=== PATIENT | male | born 1955 | race Caucasian/White ===

== ENCOUNTER 2016-12-12 06:08 | Emergency (ER) | payer OTHER ==
[~2016-12-12] VITALS: Ht 188 cm; Wt 115.7 kg
[~2016-12-12 06:08] MED LIST: "\\\"WATER PILL\\\"" PO; ALDACTONE50 MG PO; AUGMENTIN 875 M1 TAB PO; BACTRIM DS 800/1 TAB PO; BD LACTINEX1.4 MG PO; BENADRYL50 MG PO; CARAFATE1 GM PO; CLARITIN10 MG PO; CLEOCIN HCL300 MG PO; DESYREL50 MG PO; DOLOPHINE10 MG PO; FLORASTOR250 MG PO; FUROSEMIDE40 M1; INDERAL20 MG PO; LACTULOSE10 GM/152 PO; LASIX20 M1 PO; LASIX20 MG PO; LASIX40 MG PO; LEVOFLOXACIN750 MG PO; METHADONE HCL10 M1 PO; METHADONE HCL10 MG PO; METHADONE PO; NORCO 10/325 MG1 TAB PO; OLANZAPINE10 MG; PANTOPRAZOLE SO40 MG; PEGASYS180 MCG/0. MR; PEPCID20 MG PO; PRILOSEC40 MG PO; PROTONIX40 MG PO; REGLAN10 MG PO; RIBASPHERE RIB PO; ROXICODONE5 M1 PO; SEROQUEL25 MG PO; SEROQUEL50 MG PO; SPIRONOLACTONE25 M1; SPIRONOLACTONE50 MG PO; SULFAMETHOXAZOLE/TRIMETHOPRIM; XANAX1 MG PO; ZESTRIL10 MG PO; ZOFRAN4 MG PO; [UNRECOGNIZED DRUG - OTHER]; [UNRECOGNIZED DRUG - OTHER] IV
[2016-12-12 06:35] VITALS: BP 143/66
--- NOTE | 2016-12-12 06:47 | NUR ---
61Y M BIB SELF C/O UNILAT LEFT LEG PAIN AND REDDNESS FOR 16 DAYS NOW, WITH BILAT LEG SWELLING. PT DENIES N/V/D; SKIN IS PINK/WARM/DRY AND EDEMATOUS ON THE LEGS ;PT IS AAOX4 WITH EVEN AND STEADY GAIT; LUNGS CLEAR BL; HR EVEN AND REGULAR; PT DENIES ANY FEVER, CP, SOB, OR COUGH AT THIS TIME; PATIENT STATES PAIN OF 7/10 AT THIS TIME; VSS; PATIENT POSITIONED FOR COMFORT; HOB ELEVATED; BEDRAILS UP X2; BED DOWN. ER MD MADE AWARE OF PT STATUS.
--- NOTE | 2016-12-12 06:53 | NUR ---
Patient being evaluated by physician DR GLASER at bedside.
--- NOTE | 2016-12-12 06:59 | NUR ---
Pt report given to DOROTA HERNANDEZ. Transfer of care at this time.
--- NOTE | 2016-12-12 08:51 | NUR ---
PT IS AAOX4. PT PAIN IS 7. MD IS AWARE AND AWAITING FOR ORDER.POSITION PT TO COMFORT. HOB ELEVATED. PROVIDED WARM BLANKET. NO ACUTE DISTRESS NOTED AT THIS TIME. VSS. WILL CONTINUE TO MONITOR PT.
--- NOTE | 2016-12-12 08:54 | NUR ---
EKG DONE.RESULT GIVEN TO DR. RASHID.
--- NOTE | 2016-12-12 09:18 | NUR ---
Patient being evaluated by physician at bedside. DR. RASHID INFORMED PT OF EKG RESULT. ADVISED PT TO BE ADMITTED.
[2016-12-12] MEDS ORDERED: ASPIRIN 81 MG TAB.CHEW PO ONE (09:20)
[2016-12-12] MEDS ORDERED: LEVOFLOXACIN 500 MG/D5W PREMIX 100 ML IV ONE (09:20)
--- NOTE | 2016-12-12 09:53 | NUR ---
Two IV attempts made unsuccessfully.
--- NOTE | 2016-12-12 10:12 | NUR ---
MARY CHIS AT BEDSIDE. TO PUT IV TO PT.
--- NOTE | 2016-12-12 10:30 | NUR ---
LEVOFLOXACIN ON HOLD PER MARY PENALOZA. Addendum: 12/12/16 at 1034 by MEDARBEN PER DOCTOR GAY KHAN.
--- NOTE | 2016-12-12 10:31 | NUR ---
TRIED TO GIVE REPORT TO MARY SHIELDS IN TELE OBSERVATION, TOLD US TO CALL BACK AFTER 5 MINUTES.
--- NOTE | 2016-12-12 10:46 | NUR ---
GAVE REPORT TO MARY BENSON FOR PT ADMISSION.
--- NOTE | 2016-12-12 10:55 | NUR ---
Patient will be admitted to care of DR GARCÍA. Admited to TELE. Will go to [facility] [address]. Belongings list completed. Report to MARY BENSON.
--- NOTE | 2016-12-12 10:55 | NUR ---
LEVAQUIN NOT GIVEN PER DR RASHID, WASTED ON BLUE BIN
[2016-12-12 11:00] VITALS: BP 146/72
--- NOTE | 2016-12-12 11:07 | NUR ---
PT RESTING IN BED. AAOX4. NO S/S OF ACUTE DISTRESS. PT DENIES PAIN. IV SITE PATENT AND INTACT. PT ORIENTED TO ROOM. CALL LIGHT WITHIN REACH. SAFETY MEASURES ENSURED. WILL CONTINUE TO MONITOR.
[2016-12-12] MEDS ORDERED: ACETAMINOPHEN 325 MG TAB PO PRN (14:05)
[2016-12-12] MEDS ORDERED: NACL 0.9% 1,000 ML IV SCH (14:05)
[2016-12-12] MEDS ORDERED: HYDROcodone/APAP 5/325 MG 1 TAB TAB PO PRN (14:05)
[2016-12-12] MEDS ORDERED: ONDANSETRON 4 MG/2 ML VIAL IVP PRN (14:05)
[2016-12-12] MEDS: CLINDAMYCIN 600 MG in DEXTROSE 5% 50 ML IV SCH ×3 (14:10→23:53)
--- NOTE | 2016-12-12 15:53 | NUR ---
PT RESTING IN BED. NO S/S OF ACUTE DISTRESS. PT DENIES PAIN. CALL LIGHT WITHIN REACH. WILL CONTINUE TO MONITOR.
[2016-12-12 16:00] VITALS: BP 127/65
[2016-12-12] MEDS ORDERED: LACTULOSE BULK 2400 GM/240 ML BTL PO SCH (17:00)
[2016-12-12] MEDS: FUROSEMIDE 40 MG TAB PO SCH (17:55)
[2016-12-12] MEDS: LACTULOSE 20 GM/30 ML UDC PO SCH (17:55)
[2016-12-12] MEDS ORDERED: diphenhydrAMINE 50 MG CAP PO SCH (18:00)
--- NOTE | 2016-12-12 19:30 | NUR ---
ASSUMED CARE OF PATIENT, AWAKE, ALERT AND ORIENTED. NO COMPLAINS. IV INFILTRATED, DC. CALL LIGHT WITHIN REACH.
--- NOTE | 2016-12-12 19:32 | NUR ---
ENDORSED PLAN OF CARE TO NIGHT RN. PT REMAINS IN STABLE CONDITION.
--- NOTE | 2016-12-12 20:00 | NUR ---
PLAN OF CARE DISCUSSED WITH PATIENT, VERBALIZED UNDERSTANDING WELL. CALL LIGHT WITHIN REACH. VITAL SIGNS STABLE.
[2016-12-12 20:03] VITALS: BP 119/61
[2016-12-12] MEDS: SACCHAROMYCES 250 MG CAP PO SCH (21:00)
[2016-12-12] MEDS ORDERED: traZODone 50 MG TAB PO SCH (21:00)
--- NOTE | 2016-12-12 21:00 | NUR ---
IV INSERTED LEFT FOREARM BY PACKAGING SPECIALIST FAIRY, TOLERATED WELL. NO COMPLAINS. DUE MEDS GIVEN. CALL LIGHT WITHIN REACH.
[2016-12-12 23:45] VITALS: BP 104/47
--- NOTE | 2016-12-12 23:47 | NUR ---
SLEEPING WELL, EASILY AROUSABLE. AFEBRILE. VITAL SIGNS STABLE. NO COMPLAINS. CALL LIGHT WITHIN REACH.
[2016-12-13 04:10] VITALS: BP 112/62
--- NOTE | 2016-12-13 04:15 | NUR ---
SLEEPING WELL. NO COMPLAINS NOTED. VITAL SIGNS STABLE. CALL LIGHT WITHIN REACH.
[2016-12-13] MEDS: CLINDAMYCIN 600 MG in DEXTROSE 5% 50 ML IV SCH (05:50)
--- NOTE | 2016-12-13 07:14 | NUR ---
ENDORSED CARE AT BEDSIDE WITH CORNELIUS HERNANDEZ, PATIENT IN STABLE CONDITION.
--- NOTE | 2016-12-13 07:15 | NUR ---
RECEIVED REPORT FROM BALANCING MACHINE OPERATOR RN. PT A/O X 4, AMBULATORY. LFA IV INTACT AND PATENT. NO S/S OF ACUTE CARDIAC/RESPIRATORY DISTRESS. LBM 12/12/16. SAFETY MEASURES IN PLACE. FALL RISK PRECAUTIONS IN PLACE. CALL LIGHT WITHIN REACH. WILL CONTINUE PLAN OF CARE. WILL CONTINUE TO MONITOR.
[2016-12-13 08:00] VITALS: BP 137/77
[2016-12-13] MEDS ORDERED: LORATADINE 10 MG TAB PO SCH (09:00)
[2016-12-13] MEDS ORDERED: SPIRONOLACTONE 50 MG TAB PO SCH (09:00)
[2016-12-13] MEDS ORDERED: METHADONE 10 MG TAB PO SCH (09:00)
[2016-12-13] MEDS: LACTULOSE 20 GM/30 ML UDC PO SCH (09:00)
[2016-12-13] MEDS ORDERED: FAMOTIDINE 20 MG TAB PO SCH (09:00)
[2016-12-13] MEDS ORDERED: LEVOFLOXACIN 500 MG/D5W PREMIX 100 ML IV SCH (09:00)
[2016-12-13] MEDS: FUROSEMIDE 40 MG TAB PO SCH (09:08)
[2016-12-13] MEDS: SACCHAROMYCES 250 MG CAP PO SCH (09:08)
--- NOTE | 2016-12-13 09:14 | NUR ---
PATIENT HAS BEEN SCREENED AND CATEGORIZED MODERATE NUTRITION RISK. PATIENT WILL BE SEEN WITHIN 3-5 DAYS OF ADMISSION. 12/15/16-12/17/[address]
[2016-12-13] MEDS ORDERED: CLEOCIN HCL300 MG PO (10:14)
[2016-12-13] MEDS ORDERED: lactinex PO (10:18)
--- NOTE | 2016-12-13 11:15 | NUR ---
DISCHARGE INSTRUCTION PROVIDED TO PT, VERBALIZED UNDERSTANDING. PT SIGNED DISCHARGE PAPERWORK, WAS PROVIDED A COPY. REMOVED IV, INTACT. REMOVED ARM BANDS. PT HAS NO S/S OF ACUTE DISTRESS OR DISCOMFORT. VS STABLE. PT IN STABLE CONDITION. WHEELCHAIRED HIM TO FRONT LOBBY FOR HIS GIRLFRIEND STEPHANIE TO SUPERVISOR FRONT.
[2017-04-23] MEDS ORDERED: COLACE100 M1 PO (08:40)
[2017-04-23] MEDS ORDERED: APAP/HYDROCODON1 T30 PO (08:40)
[2017-04-23] MEDS ORDERED: PENICILLIN V P500 M1 PO (08:41)
== END 2016-12-13 11:15 | disposition home or self-care (01) ==
LOC: MED 06:08 → INTOOBSV 09:57 → MTU 09:57
PROVIDERS: ADMIT Family Medicine; ATTEND Family Medicine
DX: L03.116 Cellulitis of left lower limb (principal); R07.9 Chest pain, unspecified; R10.9 Unspecified abdominal pain; R51 Headache; K74.60 Unspecified cirrhosis of liver; I10 Essential (primary) hypertension; E43 Unspecified severe protein-calorie malnutrition; D63.8 Anemia in other chronic diseases classified elsewhere
CPT/HCPCS: 36415; 71010; 76700; 80053; 82140; 83605; 83735; 83880; 84484; 85025; 85610; 85730; 87040; 87081; 93005; 93971; 96361; 96365; 96366; 99285; G0378; J1956; J3490; J7030; J7060; Q0092

== ENCOUNTER 2016-12-19 20:43 | Emergency (ER) | payer OTHER ==
[~2016-12-19] VITALS: Ht 188 cm; Wt 115.7 kg
[~2016-12-19 20:43] MED LIST changes: +lactinex PO
[2016-12-19 21:44] VITALS: BP 161/81
--- NOTE | 2016-12-19 22:31 | NUR ---
PT TAKEN TO BED 7 Addendum: 12/19/16 at 2232 by RUBY PT TAKEN TO BED 8
[2016-12-19] MEDS ORDERED: ALUMINUM HYD/MAG/SIMETHICONE 30 ML UDC PO ONE (22:40)
[2016-12-19] MEDS ORDERED: BELLADONNA/PHENOBARBITAL 5 ML ORASYR PO ONE (22:40)
[2016-12-19] MEDS ORDERED: LIDOCAINE VISCOUS 2% 20 ML UDC PO ONE (22:40)
--- NOTE | 2016-12-19 22:54 | NUR ---
Dr. Cook evaluating patient at bedside.
--- NOTE | 2016-12-19 23:00 | NUR ---
PATIENT PRESENTS TO ED WITH ABD PAIN AND NAUSEA SINCE 1500 TODAY . PT STATES THE PAIN IS CONSTANT AND ACHING AND THAT THE ONLY THING THAT HELPS IS THE GI COCKTAIL . DENIES V/D; SKIN IS PINK/WARM/DRY; AAOX4 WITH EVEN AND STEADY GAIT; LUNGS CLEAR BL; HR EVEN AND REGULAR; PT DENIES ANY FEVER, CP, SOB, OR COUGH AT THIS TIME; PATIENT STATES PAIN OF 8/10 AT THIS TIME; VSS; PATIENT POSITIONED FOR COMFORT; HOB ELEVATED; BEDRAILS UP X2; BED DOWN. ER MD MADE AWARE OF PT STATUS.
[2016-12-19 23:55] VITALS: BP 160/80
--- NOTE | 2016-12-19 23:55 | NUR ---
Patient discharged with v/s stable. Written and verbal after care instructions given and explained. Patient verbalized understanding. Ambulatory with steady gait. All questions addressed prior to discharge. Advised to follow up with PMD.
[2017-04-23] MEDS ORDERED: COLACE100 M1 PO (08:40)
[2017-04-23] MEDS ORDERED: APAP/HYDROCODON1 T30 PO (08:40)
[2017-04-23] MEDS ORDERED: PENICILLIN V P500 M1 PO (08:41)
== END 2016-12-19 23:55 | disposition home or self-care (01) ==
LOC: MED 20:43
DX: K29.70 Gastritis, unspecified, without bleeding (principal); K21.9 Gastro-esophageal reflux disease without esophagitis

== ENCOUNTER 2017-01-03 18:55 | Emergency (ER) | payer OTHER ==
[~2017-01-03] VITALS: Ht 185.4 cm; Wt 111.1 kg
[2017-01-03 20:00] VITALS: BP 133/62
--- NOTE | 2017-01-03 21:46 | NUR ---
PT TAKEN TO BED 2
--- NOTE | 2017-01-03 22:09 | NUR ---
61Y/M PT BIB TO ED WITH C/O N/V X 1 DAY. PATIENT STATES HAVING SEVERE PAIN TODAY, HX. CHRONIC PAIN, ALCOHOLIC CIRRHESIS; SKIN IS PINK/WARM/DRY; AAOX4 WITH EVEN AND STEADY GAIT; LUNGS CLEAR BL; HR EVEN AND REGULAR; PT DENIES ANY FEVER, CP, SOB, OR COUGH AT THIS TIME; PATIENT STATES PAIN OF 8/10 AT THIS TIME; VSS; PATIENT POSITIONED FOR COMFORT; HOB ELEVATED; BEDRAILS UP X2; BED DOWN. ER MD MADE AWARE OF PT STATUS.
--- NOTE | 2017-01-03 22:25 | NUR ---
Dr. Agrawal evaluating patient at bedside.
[2017-01-03] MEDS ORDERED: ALUMINUM HYD/MAG/SIMETHICONE 30 ML UDC PO ONE (22:35)
[2017-01-03] MEDS ORDERED: LIDOCAINE VISCOUS 2% 20 ML UDC PO ONE (22:35)
[2017-01-03] MEDS ORDERED: BELLADONNA/PHENOBARBITAL 5 ML ORASYR PO ONE (22:35)
[2017-01-03] MEDS ORDERED: ONDANSETRON 4 MG ODT PO ONE (22:35)
[2017-01-04 00:50] VITALS: BP 133/62
--- NOTE | 2017-01-04 00:50 | NUR ---
Patient discharged with v/s stable. Written and verbal after care instructions given and explained. Patient alert, oriented and verbalized understanding of instructions. Ambulatory with steady gait. All questions addressed prior to discharge. ID band removed. Patient advised to follow up with PMD. Rx of ZANTAC 300MG given. Patient educated on indication of medication including possible reaction and side effects. Opportunity to ask questions provided and answered.
[2017-04-23] MEDS ORDERED: APAP/HYDROCODON1 T30 PO (08:40)
[2017-04-23] MEDS ORDERED: COLACE100 M1 PO (08:40)
[2017-04-23] MEDS ORDERED: PENICILLIN V P500 M1 PO (08:41)
== END 2017-01-04 00:50 | disposition home or self-care (01) ==
LOC: MED 18:55
DX: K21.9 Gastro-esophageal reflux disease without esophagitis (principal); F17.210 Nicotine dependence, cigarettes, uncomplicated
CPT/HCPCS: 36415; 80053; 83690; 85025; 93005; 99285; S0119

== ENCOUNTER 2017-01-05 00:10 | Emergency (ER) | payer OTHER ==
[~2017-01-05] VITALS: Ht 185.4 cm; Wt 111.1 kg
[2017-01-05 00:15] VITALS: BP 146/74
--- NOTE | 2017-01-05 01:01 | NUR ---
PT TAKEN TO BED 8
--- NOTE | 2017-01-05 01:05 | NUR ---
PT IS 61Y/M C/O ABD PAIN X 2 DAYS. SEEN YESTERDAY IN ER, GI COCKTAIL GIVEN, PT HAS RX BUT WAS UNABLE TO GET IT FILLED.
--- NOTE | 2017-01-05 01:07 | NUR ---
Dr. Quinones evaluating patient at bedside.
[2017-01-05] MEDS ORDERED: DICYCLOMINE 20 MG/2 ML VIAL IM ONE (01:10)
[2017-01-05] MEDS ORDERED: ALUMINUM HYD/MAG/SIMETHICONE 30 ML, BELLADONNA/PHENOBARBITAL 10 ML, LIDOCAINE VISCOUS 2... PO ONE (01:25)
[2017-01-05 01:35] VITALS: BP 139/71
--- NOTE | 2017-01-05 01:35 | NUR ---
Patient discharged with v/s stable. Written and verbal after care instructions given and explained. Patient alert, oriented and verbalized understanding of instructions. Ambulatory with steady gait. All questions addressed prior to discharge. ID band removed. Patient advised to follow up with PMD. Rx of BENTYL 20MG PO given. Patient educated on indication of medication including possible reaction and side effects. Opportunity to ask questions provided and answered.
[2017-04-23] MEDS ORDERED: APAP/HYDROCODON1 T30 PO (08:40)
[2017-04-23] MEDS ORDERED: COLACE100 M1 PO (08:40)
[2017-04-23] MEDS ORDERED: PENICILLIN V P500 M1 PO (08:41)
== END 2017-01-05 01:35 | disposition home or self-care (01) ==
LOC: MED 00:10
DX: K74.60 Unspecified cirrhosis of liver (principal); F41.9 Anxiety disorder, unspecified; K21.9 Gastro-esophageal reflux disease without esophagitis; F17.210 Nicotine dependence, cigarettes, uncomplicated; Z79.899 Other long term (current) drug therapy

== ENCOUNTER 2017-02-11 03:02 | Inpatient (IN) | payer OTHER ==
[~2017-02-11] VITALS: Ht 185.4 cm; Wt 108.9 kg
--- NOTE | 2017-02-11 03:02 | NUR ---
Patient was BIBA at this time.
[2017-02-11 03:04] VITALS: BP 125/58
--- NOTE | 2017-02-11 03:27 | NUR ---
61Y M BIBA C/O BOTH LEGS SWELLING AND PAIN . PT DENIES N/V/D; SKIN IS PINK/WARM/DRY WITH SWELLING BILAT WITH REDNESS AND PAIN ON PALPATION TO THE RIGHT LEG;PT STATES HE WAS IN [place] 2 DAYS AGO AND WENT TO ER FOR THE REDNESS IN HIS LEGS, AND ALL THEY PRESCRIBED WAS PAIN MEDICATIONS.PT IS AAOX4 WITH EVEN AND STEADY GAIT; LUNGS CLEAR BL; HR EVEN AND REGULAR; PT DENIES ANY FEVER, CP, SOB, OR COUGH AT THIS TIME; PATIENT STATES PAIN OF 07/22 AT THIS TIME; VSS; PATIENT POSITIONED FOR COMFORT; HOB ELEVATED; BEDRAILS UP X2; BED DOWN. ER MD MADE AWARE OF PT STATUS.
--- NOTE | 2017-02-11 03:27 | NUR ---
Patient taken to bed 08 via gurney per EMS.
--- NOTE | 2017-02-11 03:39 | NUR ---
Hannah reyes in [facility] - 02/11/17 at [address] Barnes evaluating patient at bedside.
--- NOTE | 2017-02-11 03:39 | NUR ---
Dr. Barnes evaluating patient at bedside.
[2017-02-11] MEDS ORDERED: KETOROLAC 30 MG/ML VIAL IVP ONE (04:00)
[2017-02-11] MEDS ORDERED: LEVOFLOXACIN 500 MG/D5W PREMIX 100 ML IV ONE (04:00)
--- NOTE | 2017-02-11 04:23 | NUR ---
Hannah reyes in [facility] - 02/11/17 at 0428 by ANDRES XRAY AT BEDSIDE.
[2017-02-11] MEDS ORDERED: KETOROLAC 60 MG/2 ML VIAL IM ONE (05:40)
[2017-02-11] MEDS ORDERED: cefTRIAXone 1,000 MG in LIDOCAINE 1% ED 2.1 ML IM ONE (05:40)
--- NOTE | 2017-02-11 05:42 | NUR ---
UNABLE TO GET IV, ER MD DR RAYMUNDO AWARE. DEANDRA LÓPEZ, AND CECILIA HERNANDEZ ATTEMPTED AND WAS UNSUCCESSFUL.
--- NOTE | 2017-02-11 05:50 | NUR ---
XRAY AT BEDSIDE.
--- NOTE | 2017-02-11 07:15 | NUR ---
Pt report given to LIMA HERNANDEZ . Transfer of care at this time.
--- NOTE | 2017-02-11 07:49 | NUR ---
PATIENT DENIES SOB.WILL ATTEMPT TO START IV ACCESS.ERMD AWARE
[2017-02-11] MEDS ORDERED: CLINDAMYCIN 600 MG/4 ML VIAL IM ONE (08:10)
--- NOTE | 2017-02-11 08:48 | NUR ---
ULTRASOUND TO LOWER EXTREMITIES IN PROGRESS.
--- NOTE | 2017-02-11 09:00 | NUR ---
PER ERMD PICCLINE INSERTION ON THE FLOOR. NURSING APICULTURIST MADE AWARE
[2017-02-11] MEDS ORDERED: ONDANSETRON 4 MG/2 ML VIAL IVP PRN (09:50)
--- NOTE | 2017-02-11 09:51 | NUR ---
PATIENT FOR ADM. TOTELEMETRY 120-B
--- NOTE | 2017-02-11 10:04 | NUR ---
REPORT GIVEN TO CORNELIUSTELEMETRY NURSE
--- NOTE | 2017-02-11 10:25 | NUR ---
PT ON UNIT. AAOX4. NO S/S OF ACUTE DISTRESS. PT DENIES PAIN AT THIS TIME. PT HAS NO IV SITE/. 4+ PITTING EDEMA TO BLE. PT ORIENTED TO ROOM. CALL LIGHT WITHIN REACH. SAFETY MEASURES ENSURED. WILL CONTINUE TO MONITOR.
[2017-02-11 11:00] VITALS: BP 114/73
--- NOTE | 2017-02-11 11:45 | NUR ---
PT RESTING IN BED. NO S/S OF ACUTE DISTRESS. PT DENIES PAIN. CALL LIGHT WITHIN REACH. SAFETY MEASURES ENSURED. WILL CONTINUE TO MONITOR.
--- NOTE | 2017-02-11 13:40 | NUR ---
PT RESTING IN BED. NO S/S OF ACUTE DISTRESS. PT DENIES PAIN. IV SITE PATENT AND INTACT. CALL LIGHT WITHIN REACH. SAFETY MEASURES ENSURED. WILL CONTINUE TO MONITOR.
[2017-02-11 16:00] VITALS: BP 105/60
--- NOTE | 2017-02-11 16:37 | NUR ---
PT RESTING IN BED. NO S/S OF ACUTE DISTRESS. PICC LINE NURSE AT BEDSIDE. CALL LIGHT WITHIN REACH. WILL CONTINUE TO MONITOR.
--- NOTE | 2017-02-11 19:16 | NUR ---
ENDORSED PLAN OF CARE TO NIGHT RN. PT REMAINS IN STABLE CONDITION.
--- NOTE | 2017-02-11 19:30 | NUR ---
RECEIVED PT FROM CORNELIUS HERNANDEZ PT IS AAOX4 AMBULATORY WITH BILATERAL LE CELLULITIS AND PICC LINE ON LEFT UA RT SHOULDER HX OF TRAUMA ON RT SHOULDER ON TELMETRYAFIB INITIAL ASSESSMENT DONE
[2017-02-11 20:00] VITALS: BP 127/58
[2017-02-11] MEDS ORDERED: CLINDAMYCIN 600 MG/4 ML VIAL ONE (21:03)
[2017-02-11] MEDS: CLINDAMYCIN 600 MG in DEXTROSE 5% 50 ML IV SCH (21:24)
[2017-02-11] MEDS: MORPHINE SULFATE 2 MG/ML SYR IVP PRN (21:25)
--- NOTE | 2017-02-11 22:00 | NUR ---
AFTER PAIN M;EDIC GIVEN PT SLEEP QUIET NOT DISTRESS NOTED
[2017-02-12] VITALS: BP 104/45
--- NOTE | 2017-02-12 | NUR ---
PT ON TELMETRY SR NOT DISTRESS NOTED SLEEPING WELL AT THIS ;TIME
[2017-02-12 04:00] VITALS: BP 127/49
--- NOTE | 2017-02-12 04:00 | NUR ---
PT SLEEPING NOT DISTRESS NOTED ON TELEMETRY SR
[2017-02-12] MEDS ORDERED: CLINDAMYCIN 600 MG/4 ML VIAL ONE (04:50)
[2017-02-12] MEDS: CLINDAMYCIN 600 MG in DEXTROSE 5% 50 ML IV SCH ×3 (04:51→20:31)
[2017-02-12] MEDS: MORPHINE SULFATE 2 MG/ML SYR IVP PRN ×4 (04:53→23:18)
--- NOTE | 2017-02-12 05:42 | NUR ---
DR GARCÍA PODIATRY SEE THE PT
--- NOTE | 2017-02-12 07:30 | NUR ---
RECEIVED REPORT FROM CENTER AISLE CASHIER RN. PT IS SLEEPING, NO S/S OF ACUTE CARDIAC/RESPIRATORY DISTRESS OR DISCOMFORT. SAFETY MEASURES IN PLACE, CALL LIGHT WITHIN REACH. WILL CONTINUE PLAN OF CARE AND CONTINUE TO MONITOR.
--- NOTE | 2017-02-12 07:45 | NUR ---
PATIENT HAS BEEN SCREENED AND CATEGORIZED MODERATE NUTRITION RISK. PATIENT WILL BE SEEN WITHIN 3-5 DAYS OF ADMISSION. 02/14/17-02/16/[address]
[2017-02-12 08:00] VITALS: BP 134/85
[2017-02-12] MEDS: SPIRONOLACTONE 50 MG TAB PO SCH ×2 (09:52→20:32)
[2017-02-12] MEDS: LACTOBACILLUS RHAMNOSUS GG 1 EACH CAP PO SCH (09:53)
[2017-02-12] MEDS: FUROSEMIDE 40 MG/4 ML VIAL IVP SCH ×2 (09:53→17:14)
[2017-02-12] MEDS: LACTULOSE 20 GM/30 ML UDC PO SCH ×3 (09:53→16:42)
[2017-02-12] MEDS: FLUOCINONIDE 0.05% CRM 60 GM TUBE TP SCH (09:54)
--- NOTE | 2017-02-12 10:30 | NUR ---
PT TOLERATED AM MEDS WELL. NO S/S OF ACUTE DISTRESS OR DISCOMFORT. CALL LIGHT WITHIN REACH, WILL CONTINUE TO MONITOR.
[2017-02-12] MEDS ORDERED: METHADONE 10 MG TAB PO SCH ×2 (11:55→13:00)
[2017-02-12 12:00] VITALS: BP 144/63
--- NOTE | 2017-02-12 13:32 | NUR ---
PT AMBULATED TO THE RESTROOM. NO S/S OF ACUTE DISTRESS OR DISCOMFORT. CALL LIGHT WITHIN REACH, WILL CONTINUE TO MONITOR.
--- NOTE | 2017-02-12 15:51 | NUR ---
PT IS AWAKE, GIRLFRIEND AT BEDSIDE. NO S/S OF ACUTE DISTRESS OR DISCOMFORT. CALL LIGHT WITHIN REACH, WILL CONTINUE TO MONITOR.
[2017-02-12 16:00] VITALS: BP 130/57
[2017-02-12] MEDS ORDERED: SODIUM PHOS / POTASSIUM PHOS 1 PKT PDR PO SCH (17:45)
--- NOTE | 2017-02-12 19:15 | NUR ---
ENDORSED REPORT TO ROOFER RN. NO S/S OF ACUTE DISTRESS OR DISCOMFORT. PT IN STABLE CONDITION.
--- NOTE | 2017-02-12 19:36 | NUR ---
RECEIVED IN BED SLEEPING. NO SOB. NO RESTLESSNESS. CALL LIGHT WITH IN REACH. A/O X 4. TELEMETRY MONITORING. DX. OF LEFT LOWER EXTREMITY CELLULITIS. PICC LINE TO SUPRIYA 2 LUMEN INTACT AND NO BLEEDING. NO NOTED INFILTRATION.
[2017-02-12 19:38] VITALS: BP 132/68
--- NOTE | 2017-02-12 21:00 | NUR ---
PICC LINE WITH 2 PORTS FLUSHED WITH SALINE. TOLERATED WELL. GOOD BLOOD RETURN. NO BLEEDING NOTED.
[2017-02-13 00:19] VITALS: BP 127/58
--- NOTE | 2017-02-13 00:35 | NUR ---
SLEEPING AT THIS TIME. USES CALL LIGHT FOR ANY HELP HE NEEDS. ORIENTED X 4. PT. USES CANE TO AMBULATE TO RESTROOM INSIDE ROOM. JAMI BANDAGE TO LOWER EXTREMITIES INTACT AND TIGHTENED PER PT. REQUEST. " IT FEELS GOOD WHEN BANDAGE IS TIGHT A LITTLE."
--- NOTE | 2017-02-13 02:10 | NUR ---
SLEEPING WELL. NO RESTLESSNESS NOTED. CALL LIGHT AT BEDSIDE WITH IN REACH. TELEMETRY MONITORING. BED ALARM ON.
[2017-02-13 04:00] VITALS: BP 121/46
[2017-02-13] MEDS: CLINDAMYCIN 600 MG in DEXTROSE 5% 50 ML IV SCH ×3 (04:25→20:23)
--- NOTE | 2017-02-13 04:30 | NUR ---
PT. AWAKE AND REQUESTING FOR PAIN RELIEVER. MEDICATED REQUESTED. "MY LEGS HURT". PROVIDED WITH SNACK REQUESTED. TELEMETRY MONITORING.
[2017-02-13] MEDS: MORPHINE SULFATE 2 MG/ML SYR IVP PRN ×3 (04:36→20:18)
--- NOTE | 2017-02-13 06:18 | NUR ---
PT. SLEEPING. WAKES UP WHEN TOUCHED OR CALLED BY NAME. TELEMETRY MONITORING.
--- NOTE | 2017-02-13 07:00 | NUR ---
RECEIVED REPORT FROM NIGHT NURSE. PT IS AAOX4. ON ROOM AIR. SUPRIYA DOUBLE LUMEN PICC LINE, BLE CELLULITIS WITH DRESSINGS DRY AND INTACT. INITIAL ASSESSMENT COMPLETED. REVIEWED PLAN OF CARE WITH PT, PT VERBALIZED UNDERSTANDING. ALL SAFETY/FALL PRECAUTIONS MET. CALL LIGHT WITHIN REACH. W
[2017-02-13 08:00] VITALS: BP 129/67
[2017-02-13] MEDS ORDERED: METHADONE 10 MG TAB PO SCH (09:00)
[2017-02-13] MEDS: SPIRONOLACTONE 50 MG TAB PO SCH ×2 (09:28→20:24)
[2017-02-13] MEDS: LACTULOSE 20 GM/30 ML UDC PO SCH ×3 (09:28→16:13)
--- NOTE | 2017-02-13 09:28 | NUR ---
DUE MEDICATIONS GIVEN. PT TOLERATED WELL. PT CURRENTLY RESTING IN BED. ALL NEEDS MET. CALL LIGHT WITHIN REACH. WILL CONTINUE TO MONITOR.
[2017-02-13] MEDS: LACTOBACILLUS RHAMNOSUS GG 1 EACH CAP PO SCH (09:29)
[2017-02-13] MEDS: FUROSEMIDE 40 MG/4 ML VIAL IVP SCH ×2 (09:29→16:13)
[2017-02-13] MEDS: METHADONE 10 MG TAB PO SCH (09:29)
[2017-02-13] MEDS: FLUOCINONIDE 0.05% CRM 60 GM TUBE TP SCH (09:30)
[2017-02-13] MEDS ORDERED: POTASSIUM CHLORIDE 10 MEQ TABER PO SCH (09:45)
--- NOTE | 2017-02-13 11:35 | NUR ---
PT CURRENTLY SLEEPING. NO S/S OF DISTRESS NOTED. CALL LIGHT WITHIN REACH.
[2017-02-13 12:00] VITALS: BP 125/48
--- NOTE | 2017-02-13 12:25 | NUR ---
DUE MEDICATIONS GIVEN. BLE DRESSINGS CHANGED. ALL NEEDS MET. CALL LIGHT WITHIN REACH. WILL CONTINUE TO MONITOR.
--- NOTE | 2017-02-13 14:25 | NUR ---
PT CURRENTLY ASLEEP. CALL LIGHT WITHIN REACH. WILL CONTINUE TO MONITOR
[2017-02-13 16:00] VITALS: BP 123/63
--- NOTE | 2017-02-13 16:17 | NUR ---
DUE MEDICATIONS GIVEN. PT TOLERATED WELL. PT C/O 08/21 PAIN, MEDICATED PER MD ORDERS. WILL CONTINUE TO MONITOR.
--- NOTE | 2017-02-13 18:29 | NUR ---
PT CURRENTLY SLEEPING. CALL LIGHT WITHIN [facility]. WILL CONTINUE TO MONITOR
--- NOTE | 2017-02-13 19:19 | NUR ---
ENDORSED PLAN OF CARE TO NIGHT NURSE, PT IN STABLE CONDITION
--- NOTE | 2017-02-13 19:25 | NUR ---
RECEIVED PT ON BED, AAOX4, VITAL SIGNS STABLE, COMPLAINING OF RT SHOULDER AND BLE PAIN, WILL MEDICATE PRN, BLE EXT RED AND SWOLLEN COVERED WITH JAMI WRAP, ELEVATED WITH PILLOW, WITH LEFT UA PICC LINE 2 LUMEN, FLUSHES WELL, POC DISCUSSED, SAFETY MEASURES IN PLACE, CALL LIGHT WITHIN REACH.
[2017-02-13 20:00] VITALS: BP 135/55
--- NOTE | 2017-02-13 20:30 | NUR ---
MEDICATED PRN FOR PAIN, DUE MEDICATIONS ADMINISTERED, ALL NEEDS ATTENDED.
--- NOTE | 2017-02-13 21:45 | NUR ---
PT AMBULATED TO BR USING CANE WITH STANDBY ASSIST, MONITORED CLOSELY.
[2017-02-14] VITALS: BP 120/50
[2017-02-14] MEDS: MORPHINE SULFATE 2 MG/ML SYR IVP PRN ×2 (00:14→04:40)
--- NOTE | 2017-02-14 00:20 | NUR ---
VITAL SIGNS STABLE, MEDICATED PRN FOR PAIN, CONTINUE TO MONITOR CLOSELY.
--- NOTE | 2017-02-14 03:30 | NUR ---
PT SLEEPING, EASILY AROUSABLE, VITAL SIGNS STABLE, TOLERABLE PAIN AT THIS TIME, MONITORED CLOSELY.
[2017-02-14 04:00] VITALS: BP 108/51
[2017-02-14] MEDS: CLINDAMYCIN 600 MG in DEXTROSE 5% 50 ML IV SCH ×2 (04:42→12:39)
--- NOTE | 2017-02-14 05:43 | NUR ---
AM LABS DRAWN VIA PICC LINE WITH GOOD BLOOD RETURN.
--- NOTE | 2017-02-14 07:25 | NUR ---
PT AWAKE, NO DISTRESS NOTED, REPORT GIVEN TO MARY CLIFFORD FOR CONTINUITY OF CARE.
--- NOTE | 2017-02-14 07:45 | NUR ---
RECEIVED PT AAOX4 AND VOICED NO C/O PAIN AT THIS TIME. SHIFT ASSESSMENT DONE AND CHARTED. PLAN OF CARE, MEDS, TREATMENTS AND SAFETY DISCUSSED WITH PT AND PT VERBALIZED UNDERSTANDING. WILL CONTINUE TO CHECK PT.
[2017-02-14 08:00] VITALS: BP 121/66
--- NOTE | 2017-02-14 08:20 | NUR ---
PT WAS SEEN BY DR. HARDEN AND MD LEFT NO NEW ORDERS AT THE TIME. WILL CONTINUE TO CHECK ON PT.
[2017-02-14] MEDS: LACTULOSE 20 GM/30 ML UDC PO SCH ×2 (08:30→12:38)
[2017-02-14] MEDS: LACTOBACILLUS RHAMNOSUS GG 1 EACH CAP PO SCH (08:31)
[2017-02-14] MEDS: FUROSEMIDE 40 MG/4 ML VIAL IVP SCH (08:31)
[2017-02-14] MEDS: SPIRONOLACTONE 50 MG TAB PO SCH (08:32)
[2017-02-14] MEDS: METHADONE 10 MG TAB PO SCH (08:32)
--- NOTE | 2017-02-14 09:20 | NUR ---
PT TOOK PO MEDS WELL. PT UP TO THE BR WITH CANE. REQUIRED TIME TO DO THINGS PER SELF. PT STATED THAT HE HAS PAIN ALL THE TIME BUT WILL TAKE SCHEDULED METHADONE AT THIS TIME. WILL CONTINUE TO MONITOR PT.
[2017-02-14] MEDS: FLUOCINONIDE 0.05% CRM 60 GM TUBE TP SCH (09:49)
[2017-02-14] MEDS ORDERED: FLORASTOR250 MG PO (10:31)
[2017-02-14] MEDS ORDERED: KEFLEX250 MG PO (10:31)
[2017-02-14] MEDS ORDERED: CLEOCIN HCL300 MG PO (10:31)
[2017-02-14 12:00] VITALS: BP 125/57
--- NOTE | 2017-02-14 12:30 | NUR ---
PT'S VISITING AT THIS TIME. PT TOOK DIET AND FLUIDS WELL. NO CHANGES NOTED IN PT'S CONDITION.
--- NOTE | 2017-02-14 14:30 | NUR ---
PT WAS ASKING IF HIS DISCHARGE CAN BE AFTER 2300 PT'S CAN ONLY PICK HIM UP AFTER HIS LEAVE WORK. HE WAS TALKING ABOUT DIFFICULTY OF GETTING INTO HIS HOUSE PER SELF. PT STATED THAT HE NEEDED ASSIST TO GET IN THE HOUSE BUT ALSO STATED THAT HE COULD GET IN BUT A LOT SLOWLY AND A LOT OF PAIN. PT ALSO STATED THAT MD TOLD HIM THAT HE COULD BE DISCHARGED PER [facility] WITH VOUCHER. SAME MENTIONED TO FRANCIS ELLIS RN.
[2017-02-14 14:40] VITALS: BP 121/66
[2017-02-14 16:00] VITALS: BP 121/66
--- NOTE | 2017-02-14 16:00 | NUR ---
PT MADE AWARE THAT [facility] VOUCHER WAS NOT APPROVED. PT STATED THAT HE WILL GO HOME BY [facility]I WITHOUT VOUCHER.
--- NOTE | 2017-02-14 16:30 | NUR ---
PRESCRIPTIONS AND DISCHARGE INSTRUCTIONS GIVEN TO PT AND PT VERBALIZED UNDERSTANDING. PICC LINE REMOVED WITH OLD CATH TIP INTACT PER PROTOCOL. PRESSURE DRESSINGS APPLIED TO SITE. PROCEDURE TOLERATED WELL BY PT. WILL CALL [facility] WHEN PT READY TO LEAVE.
--- NOTE | 2017-02-14 18:10 | NUR ---
PT DISCHARGED TO HOME PER W/C AND ESCORTED BY RECORDS MANAGEMENT ENGINEER TO [facility] WITH ALL PT'S BELONGINGS SENT WITH PT. TLEL BOX REMOVED AND RETURNED TO GOLF STARTER AND RANGER. PT LEFT IN A STABLE CONDITION.
[2017-04-23] MEDS ORDERED: APAP/HYDROCODON1 T30 PO (08:40)
[2017-04-23] MEDS ORDERED: COLACE100 M1 PO (08:40)
[2017-04-23] MEDS ORDERED: PENICILLIN V P500 M1 PO (08:41)
== END 2017-02-14 18:10 | disposition home or self-care (01) | DRG 602 ==
LOC: MED 03:02 → MTU 09:58
PROVIDERS: ADMIT Family Medicine; ATTEND Family Medicine
PROC: 02HV33Z Insertion of Infusion Device into Superior Vena Cava, Percutaneous Approach (ICD-10-PCS; principal; 2017-02-11)
PROC: B548ZZA Ultrasonography of Superior Vena Cava, Guidance (ICD-10-PCS; 2017-02-11)
DX: L03.116 Cellulitis of left lower limb (principal); N17.0 Acute kidney failure with tubular necrosis; E43 Unspecified severe protein-calorie malnutrition; D68.9 Coagulation defect, unspecified; E87.1 Hypo-osmolality and hyponatremia; K74.60 Unspecified cirrhosis of liver; D63.8 Anemia in other chronic diseases classified elsewhere; D69.6 Thrombocytopenia, unspecified; E80.6 Other disorders of bilirubin metabolism; F11.21 Opioid dependence, in remission; F17.210 Nicotine dependence, cigarettes, uncomplicated; E66.9 Obesity, unspecified; I87.2 Venous insufficiency (chronic) (peripheral); K21.9 Gastro-esophageal reflux disease without esophagitis; E83.39 Other disorders of phosphorus metabolism; Z79.899 Other long term (current) drug therapy; Z84.89 Family history of other specified conditions; Z68.31 Body mass index [BMI] 31.0-31.9, adult; Z28.21 Immunization not carried out because of patient refusal

== ENCOUNTER 2017-04-18 07:55 | Emergency (ER) | payer OTHER ==
[~2017-04-18] VITALS: Ht 185.4 cm; Wt 115.4 kg
[~2017-04-18 07:55] MED LIST changes: -"\\\"WATER PILL\\\"" PO; -ALDACTONE50 MG PO; -AUGMENTIN 875 M1 TAB PO; -BACTRIM DS 800/1 TAB PO; -BD LACTINEX1.4 MG PO; -BENADRYL50 MG PO; -CARAFATE1 GM PO; +CEPH250C16 PO; -CLARITIN10 MG PO; -CLEOCIN HCL300 MG PO; +CLIN300C2 PO; -DESYREL50 MG PO; +DOL10 PO; -DOLOPHINE10 MG PO; -FLORASTOR250 MG PO; +FURO-570 PO; -FUROSEMIDE40 M1; -INDERAL20 MG PO; +LACT10SO1 PO; -LACTULOSE10 GM/152 PO; -LASIX20 M1 PO; -LASIX20 MG PO; -LASIX40 MG PO; -LEVOFLOXACIN750 MG PO; -METHADONE HCL10 M1 PO; -METHADONE HCL10 MG PO; -METHADONE PO; -NORCO 10/325 MG1 TAB PO; -OLANZAPINE10 MG; -PANTOPRAZOLE SO40 MG; -PEGASYS180 MCG/0. MR; -PEPCID20 MG PO; -PRILOSEC40 MG PO; -PROTONIX40 MG PO; -REGLAN10 MG PO; -RIBASPHERE RIB PO; -ROXICODONE5 M1 PO; +SACC250C4 PO; -SEROQUEL25 MG PO; -SEROQUEL50 MG PO; -SPIRONOLACTONE25 M1; -SPIRONOLACTONE50 MG PO; -SULFAMETHOXAZOLE/TRIMETHOPRIM; -XANAX1 MG PO; -ZESTRIL10 MG PO; -ZOFRAN4 MG PO; -[UNRECOGNIZED DRUG - OTHER]; -[UNRECOGNIZED DRUG - OTHER] IV; -lactinex PO
[2017-04-18 08:01] VITALS: BP 139/63
--- NOTE | 2017-04-18 08:05 | NUR ---
Patient ambulated to bed 08.
--- NOTE | 2017-04-18 08:22 | NUR ---
ER MD DR. RAYMUNDO EVALUATING PT AT BEDSIDE.
--- NOTE | 2017-04-18 08:56 | NUR ---
PATIENT IS A 61 YO MALE BIB SELF FOR [employer] ORIENTED TIMES 4 ON ARRIVAL AWAKE AND ALERT WALKS WITH A CANE. HAS CHRONIC LIVER FAILURE, AND BOTH LEGS ARE EDEMATOUS AND WRAPPED WITH JAMI WRAPS.
[2017-04-18 08:57] VITALS: BP 139/63
== END 2017-04-18 08:57 | disposition home or self-care (01) ==
LOC: MED 07:55
DX: K29.70 Gastritis, unspecified, without bleeding (principal); K74.60 Unspecified cirrhosis of liver; K21.9 Gastro-esophageal reflux disease without esophagitis; Z79.899 Other long term (current) drug therapy
CPT/HCPCS: 99283

== ENCOUNTER 2017-04-20 07:34 | Inpatient (IN) | payer OTHER ==
[~2017-04-20] VITALS: Ht 185.4 cm; Wt 113.4 kg
[2017-04-20 07:34] VITALS: BP 169/76
[~2017-04-20 07:34] MED LIST changes: -CEPH250C16 PO; -CLIN300C2 PO
--- NOTE | 2017-04-20 07:34 | NUR ---
Patient BIBA to bed 4 at this time.
--- NOTE | 2017-04-20 07:50 | NUR ---
BIBA FROM HOME C/O MUSCLE TREMORS TO ABDOMEN, BACK, AND BODY X 2 DAYS; HX: LIVER ISSUES, SHUNT IN ESOPHAGUS, RT FROZEN SHOULDER, BL LOWER EXTREMITY EDEMA. . PT STATES I DONT TO WEAR THAT GOWN, DENIES N/V/D; SKIN IS PINK/WARM/DRY; AAOX4 WITH EVEN AND STEADY GAIT; LUNGS CLEAR BL; HR EVEN AND REGULAR; PT DENIES ANY FEVER, CP,OR COUGH AT THIS TIME; PATIENT STATES PAIN OF 9/10 AT THIS TIME; PATIENT POSITIONED FOR COMFORT; HOB ELEVATED; BEDRAILS UP X2; BED DOWN. PT REFUSED COOLING MEASURES AT THIS TIME,,EDEMA NOTED ON BOTH LOWER EXTREMITIES.
--- NOTE | 2017-04-20 07:57 | NUR ---
DR. BOYKIN AT BEDSIDE
--- NOTE | 2017-04-20 08:00 | NUR ---
DR. BOYKIN AWARE PT HAS FEVER
[2017-04-20] MEDS ORDERED: NACL 0.9% 1,000 ML IV ONE ×2 (08:05→09:30)
[2017-04-20] MEDS ORDERED: MORPHINE SULFATE 2 MG/ML SYR IVP ONE (08:05)
--- NOTE | 2017-04-20 08:09 | NUR ---
REFUSED TO START IV AT THIS TIME, LAB AT BEDSIDE.
--- NOTE | 2017-04-20 08:36 | NUR ---
XRAY AT BEDSIDE
[2017-04-20 08:51] LABS: HEMOGLOBIN 10.3 g/dL (12.0-18.0); RED CELL DISTRIBUTION WIDTH 14.9 % (11.6-13.7)
[2017-04-20 08:53] LABS: HEMATOCRIT 30.4 % (36-52); MEAN CORPUSCULAR HEMOGLOBIN 30 pg (27-31); MEAN CORPUSCULAR HGB CONC 34 g/dL (33-37); MEAN CORPUSCULAR VOLUME 89 fL (80-94); PLATELET COUNT (AUTO) 89 K/uL (140-450); RED BLOOD CELL COUNT(AUTO) 3.43 MIL/uL (4.20-6.10); WHITE BLOOD COUNT (AUTO) 5.6 K/uL (4.8-10.8)
--- NOTE | 2017-04-20 08:53 | NUR ---
LAB AT BEDSIDE AND EMT FOR EKG PT VERY UNCOOPERATIVE, WANTS BLANKET, PT AWARE HE HAS FEVER, ALSO PT HAS A LOT OF TREMORS,
[2017-04-20 09:00] LABS: BAND % (MANUAL) 8 % (0-8); EOSINOPHILS % (MANUAL) 2 % (0-4); LYMPHOCYTES % (MANUAL) 10 % (20-46); MONOCYTES % (MANUAL) 2 % (5-12); NEUTROPHILS % (MANUAL) 78 (43-65)
[2017-04-20] MEDS ORDERED: VANCOMYCIN 1,000 MG in DEXTROSE 5% 250 ML IV ONE (09:00)
[2017-04-20] MEDS ORDERED: PIPERACILLIN/TAZOBACTAM 3.375 GM in DEXTROSE 5% 50 ML IV ONE (09:00)
[2017-04-20 09:01] LABS: ANION GAP 8.6 (8-16); CALCIUM 8.7 mg/dL (8.5-10.1); CARBON DIOXIDE 28.2 mmol/L (21-32); CREATININE 1.1 mg/dL (0.6-1.3); POTASSIUM 3.8 mmol/L (3.5-5.1); TOTAL BILIRUBIN 3.3 mg/dL (0.0-1.0); TOTAL PROTEIN, SERUM 8.1 g/dL (6.4-8.2)
--- NOTE | 2017-04-20 09:04 | NUR ---
COOLING MEASURES DONE BY A LOT OF ENCOURAGEMENT, PT TRYING TO URINATE AT THIS TIME FOR URINE COLLECTION,
[2017-04-20 09:26] LABS: LACTIC ACID 2.6 mmol/L (0.4-2.0)
[2017-04-20] MEDS ORDERED: LIDOCAINE 1% 500 MG/50 ML VIAL INJ ONE (09:35)
--- NOTE | 2017-04-20 09:36 | NUR ---
SUGGEST TO DR. BOYKIN TO INSERT CENTRAL LINE BECAUSE UNABLE TO PUT IV, IV INSERTED EARLIER INFILTRATED, SAID HE WILL DO IOMD AWARE PT HAS EDEMA ON BOTH LOWER EXTREMITIES.
[2017-04-20] MEDS ORDERED: PIPERACILLIN/TAZOBACTAM 3.375 GM VIAL IV ONE (09:43)
--- NOTE | 2017-04-20 09:47 | NUR ---
LEFT ARM IO IN PLACE BUT NOT WORKING, MD WILL INSERT ANOTHER IO ON RIGHT ARM
--- NOTE | 2017-04-20 09:50 | NUR ---
DR. BOYKIN AT BEDSIDE WILL START IO ON RIGHT ARM
--- NOTE | 2017-04-20 09:55 | NUR ---
RIGHT ARM IO IN PLACE BUT NOT WORKING, PT ALERT BUT STILL UNCOOPERATIVE, MD WILL PUT CENTRAL LINE
--- NOTE | 2017-04-20 10:01 | NUR ---
ASK MULTIPLE CUT OFF SAW OPERATOR TO CALL FAMILY TO UPDATE PT PROGRESS, STARTING CENTRAL LINE, PER DR. BOYKIN ASK PT TO SIGN CONSENT LATER, CHARGE NURSE, EMT AT BEDSIDE.
--- NOTE | 2017-04-20 10:07 | NUR ---
TALKED TO STEPHANIE FAMILY OF PT ,MADE AWARE MD PUTTING CENTRAL LINE, PER STEPHANIE SHE IS COMING IN AN HOUR,
--- NOTE | 2017-04-20 10:15 | NUR ---
DR BOYKIN ASKING FOR ANOTHER CENTRAL LINE KIT, PT AA DROWSY, PUT ON O2 3L/MIN
--- NOTE | 2017-04-20 10:24 | NUR ---
DR. BOYKIN PUTTING ANOTHER CENTRAL LINE ON RIGHT IJ, LEFT IJ CENTRAL LINE DIDNT WORK
--- NOTE | 2017-04-20 10:34 | NUR ---
RIJ CENTRAL LINE MD TARA WILL TRY IO AGAIN
--- NOTE | 2017-04-20 10:44 | NUR ---
R LOWER LEG IO IN PLACE , IVF ONGOING, WILL PUT ANOTHER IO ON LEFT LEG
--- NOTE | 2017-04-20 10:51 | NUR ---
LEFT LOWER LEG IO IN PLACE IV ANTIBIOTIC ONGOING WELL TOLERATED.
[2017-04-20] MEDS ORDERED: VANCOMYCIN 1,000 MG VIAL ONE (10:58)
[2017-04-20 10:59] LABS: APPEARANCE,URINE CLEAR (CLEAR); BILIRUBIN,URINE NEGATIVE (NEGATIVE); BLOOD, URINE NEGATIVE (NEGATIVE); COLOR,URINE ORANGE (YELLOW); LEUKOCYTE ESTERASE ,URINE NEGATIVE (NEGATIVE); NITRITE, URINE NEGATIVE (NEGATIVE); PROTEIN,URINE TRACE (NEGATIVE); UGLUCOSE NEGATIVE (NEGATIVE)
--- NOTE | 2017-04-20 11:05 | NUR ---
XRAY AT BEDSIDE
--- NOTE | 2017-04-20 11:05 | NUR ---
PT ATTEMPTED TO STAND TO URINATE, INSTRUCTED NOT TO; STATED " I NEED TO PEE" WHILE PEEING, URINE SPRAYED ON FLOOR AND ALMOST ON STAFF; BERNICE PENALOZA AT BEDSIDE SETTING UP FOR XRAY, AND MARY GODOY AT BEDSIDE, SETTING UP PUMP FOR ANTIBIOTIC TX; PT DENIES PAIN FROM INJURY; AA&OX4 AT THIS TIME; NO INJURIES NOTED AT THIS TIME; INCIDENT REPORT COMPLETED; WILL CONTINUE TO MONITOR.
--- NOTE | 2017-04-20 11:07 | NUR ---
RELAYED TO DR. BOYKIN RESULT OF URINE DIPSTICK
--- NOTE | 2017-04-20 11:20 | NUR ---
INFORMED DR. ASHUTOSH ABDUL MD SAID WILL ORDER MEDS, ASKED MD IF PT CAN BE TRANSFER TO ICU FOR CLOSE MONITORING, SAID TELE
--- NOTE | 2017-04-20 11:21 | NUR ---
IVF ONGOING AND IV ANTIBIOTIC ONGOING, WELL TOLERATED, PT SLEEPING AT THIS TIME, WILL CHECK PT FREQUENTLY.
[2017-04-20 11:22] LABS: RBC,URINE 0-5 (RARE) /HPF (0-5); WBC,URINE 0-5 (RARE) /HPF (0-5)
[2017-04-20] MEDS ORDERED: NACL 0.9% 1,000 ML IV SCH (11:22)
[2017-04-20 11:23] LABS: BACTERIA,URINE 0-2 (RARE) /HPF (None Seen); SQUAMOUS EPITHELIAL CELL,UR 0-3 (FEW) /LPF (0-3 (FEW))
[2017-04-20] MEDS ORDERED: MORPHINE SULFATE 2 MG/ML SYR IVP PRN ×2 (11:25→14:30)
[2017-04-20] MEDS ORDERED: ONDANSETRON 4 MG/2 ML VIAL IM/IVP PRN ×2 (11:25→14:30)
[2017-04-20] MEDS ORDERED: HYDROcodone/APAP 7.5/325 MG 1 TAB PO PRN ×2 (11:25→14:30)
[2017-04-20] MEDS ORDERED: ACETAMINOPHEN 325 MG TAB PO PRN ×2 (11:25→14:30)
[2017-04-20] MEDS ORDERED: DOCUSATE SODIUM 100 MG GELCAP PO PRN ×2 (11:25→14:30)
[2017-04-20] MEDS ORDERED: IBUPROFEN 800 MG TAB PO ONE (11:30)
--- NOTE | 2017-04-20 11:35 | NUR ---
CHEST XRAY DONE
--- NOTE | 2017-04-20 11:39 | NUR ---
DR. BOYKIN AWARE PT REFUSED MOTRIN AND LATEST TEMP 100.6/T
[2017-04-20 11:43] LABS: INR 1.3 (0.8-1.2); PARTIAL THROMBOPLASTIN TIME 32.5 secs (22-35.6); PROTHROMBIN TIME 12.8 secs (10.8-13.4)
--- NOTE | 2017-04-20 11:49 | NUR ---
REPORT GIVEN TO MAMI
--- NOTE | 2017-04-20 11:49 | NUR ---
PT TRYING TO PULL HIS IO INSTRUCTED NOT TO PULL IO,
--- NOTE | 2017-04-20 11:58 | NUR ---
SET UP INSPECTOR AT BEDSIDE, EVALUATING PT, HE TALKED TO DR. BOYKIN PER MD TRANSFER TO ICU FOR CLOSE OBSERVATION
[2017-04-20] MEDS ORDERED: FUROSEMIDE 40 MG/4 ML VIAL IVP ONE (12:05)
[2017-04-20 12:09] LABS: CHOL/HDL RATIO 1.8 (1-4.5); FREE T4 (FREE THYROXINE) 1.18 ng/dL (0.76-1.46); PHOSPHORUS 4.6 mg/dL (2.5-4.9); THYROID STIMULATING HORMONE 1.2 uIU/mL (0.34-3.76)
--- NOTE | 2017-04-20 12:22 | NUR ---
STEPHANIE SIMS AT BEDSIDE, PT SLEEPING AT THIS TIME.
--- NOTE | 2017-04-20 12:26 | NUR ---
DR. BOYKIN TALKING TO FAMILY AT THIS TIME
--- NOTE | 2017-04-20 12:27 | NUR ---
LAB AT BEDSIDE, TRY TO GIVE REPORT TO ICU PER DARIUS WILL CALL ME BACK
[2017-04-20] MEDS ORDERED: FUROSEMIDE 100 MG/10 ML VIAL IV ONE (12:40)
--- NOTE | 2017-04-20 12:41 | NUR ---
Pt report given to DARIUS IN ICU. Transfer of care at this time.
--- NOTE | 2017-04-20 12:42 | NUR ---
PT STEPHANIE GE AT BEDSIDE, INFORMED PT WILL BE TRANSFER TO ICU, BOTH LOWER EXTREMITIES REDDENED AND EDEMATOUS,ON O2 AT 3L/MIN
[2017-04-20] MEDS ORDERED: HALOPERIDOL IM 5 MG/ML VIAL IM SCH (12:43)
[2017-04-20] MEDS ORDERED: PIPER/TAZO 3.375GM/D5W PREMIX 50 ML IV SCH (13:00)
[2017-04-20 13:14] VITALS: BP 158/77
--- NOTE | 2017-04-20 13:15 | NUR ---
RECEIVED PT FROM ER SERGIO GUZMAN. ADM. TO ICU# 7 DX, KELLEY FEVER AND SEPSIS.PT IS DROWSY AT THE TIME DUE TO MEDICATION./ HE ON O2 3L/NC O2 SAT 96% SKIN DRY AND WARM . BOTH LOWER EXTREMITIES EDEMATES AND RED, FOR THE IV PT HAS IO ON BOTH LOWER LEGS . 0,9 NS INFUSING ON RT LEG 60 ML/HR.
[2017-04-20] MEDS ORDERED: ACETAMINOPHEN 325 MG TAB ONE (13:24)
--- NOTE | 2017-04-20 13:45 | NUR ---
TEMP 102,5 NOTIFIED. THYLENOL GIVEN ORDERED COLD SPONGE AND ICE PACK GIVEN . PT STEPHANIE AT BEDSIDE.
[2017-04-20 14:00] VITALS: BP 158/77
[2017-04-20] MEDS: NACL 0.9% 1,000 ML IV SCH (14:20)
[2017-04-20 16:04] LABS: INR 1.4 (0.8-1.2); PARTIAL THROMBOPLASTIN TIME 26.3 secs (22-35.6); PROTHROMBIN TIME 13.6 secs (10.8-13.4)
[2017-04-20 16:31] LABS: HEMATOCRIT 35.3 % (36-52); MEAN CORPUSCULAR HEMOGLOBIN 30 pg (27-31); MEAN CORPUSCULAR HGB CONC 34 g/dL (33-37); MEAN CORPUSCULAR VOLUME 90 fL (80-94); RED BLOOD CELL COUNT(AUTO) 3.94 MIL/uL (4.20-6.10); RED CELL DISTRIBUTION WIDTH 15.3 % (11.6-13.7)
[2017-04-20 17:00] LABS: PLATELET COUNT (AUTO) 39 K/uL (140-450)
[2017-04-20 17:01] LABS: BAND % (MANUAL) 47 % (0-8); LYMPHOCYTES % (MANUAL) 4 % (20-46); MONOCYTES % (MANUAL) 3 % (5-12); NEUTROPHILS % (MANUAL) 46 (43-65)
[2017-04-20 17:02] LABS: PLATELET ESTIMATE DECREASED
[2017-04-20 17:03] LABS: ANION GAP 12.1 (8-16); CALCIUM 8.4 mg/dL (8.5-10.1); CARBON DIOXIDE 24.5 mmol/L (21-32); CREATININE 1.1 mg/dL (0.6-1.3); POTASSIUM 3.6 mmol/L (3.5-5.1)
--- NOTE | 2017-04-20 17:19 | NUR ---
DR. MCMULLEN TALK TO PT TO GET CONSENT FOR PICC LINE INSERTION. THE CONSENT OBTAINED.
[2017-04-20 17:20] LABS: MAGNESIUM 1.6 mg/dL (1.8-2.4); PHOSPHORUS 3.7 mg/dL (2.5-4.9)
[2017-04-20 17:22] LABS: CHOL/HDL RATIO 1.7 (1-4.5); FREE T4 (FREE THYROXINE) 1.25 ng/dL (0.76-1.46); THYROID STIMULATING HORMONE 0.73 uIU/mL (0.34-3.76)
--- NOTE | 2017-04-20 18:45 | NUR ---
DR FIGUEROA NOTIFIED THAT PT, DID NOT HAVE IV ACCESS AND HIS PLT COUNT IS 39.AND PT NEEDED PICC LINE INSERTION . HE ORDER IT OK TO INSERT PICC LINE , PLT AT 39.
--- NOTE | 2017-04-20 19:30 | NUR ---
PT RESTING QUIETLY, REPORT GIVE TO REBEKA HERNANDEZ.
--- NOTE | 2017-04-20 19:36 | NUR ---
RECEIVED REPORT FROM DAY NURSE DARIUS, RN FOR CONTINUATION OF CARE. PT IS AAOX3. PT IS ON 02 2LPM VIA N/C WITH NO S/S OF RESP DISTRESS AT THIS TIME. [employer] DIRECTOR SHOWS SR AT THIS TIME. NO N/V AT THIS TIME. PT ABLE TO USE URINAL TO VOID WITH 350ML OUTPUT AT THIS TIME. PT HAS LEFT LEG INTRAOSSEOUS IV SITE CURRENTLY NOT RUNNING AT THIS TIME. PT SKIN IS WARM. CURRENT TEMP IS 101.2. WILL MEDICATE ORDERED PRN FOR FEVER. BILATERAL LEG EDEMA NOTED. PATIENT ABLE TO MOVE SELF UP IN BED. RIGHT SHOULDER DEFORMITY NOTED. PT DENIES ANY PAIN AT THIS TIME. BED IN LOW POSITION, HOB UP. SAFETY PRECAUTIONS MAINTAINED, WILL CONTINUE TO CLOSELY MONITOR.
--- NOTE | 2017-04-20 19:40 | NUR ---
ALL IV AND IO SITE ARE NOT FUNCTION PROPERLY, DR. FLEMING ORDER TO HOLD IV UNTIL PICC LINE INSERTED.
[2017-04-20] MEDS: NEOMYCIN 500 MG TAB PO SCH (19:42)
[2017-04-20 20:00] VITALS: BP 127/73
[2017-04-20] MEDS: LACTULOSE 20 GM/30 ML UDC PO SCH (20:26)
--- NOTE | 2017-04-20 21:31 | NUR ---
PT IS CURRENTLY SLEEPING IN BED AT THIS TIME.NO SOB NOTED. SISTER AT BEDSIDE.
--- NOTE | 2017-04-20 21:35 | NUR ---
CALLED DR. ANDREWS FOR ORDER OF US GUIDED FOR PICCLINE INSERTION. DR. ANDREWS SAID OK TO PUT ORDER IN.
[2017-04-20 22:00] VITALS: BP 136/67
--- NOTE | 2017-04-20 23:30 | NUR ---
DR. ANDREWS NOTIFIED THAT PICCLINE ALREADY INSERTED. AWAITING FOR DR. ANDREWS TO PUT IN AN ORDER IF OK TO USE PICCLINE. WILL CONTINUE TO MONITOR.
[2017-04-21] VITALS (9 sets, daily range): BP systolic 108–134; BP diastolic 45–65
[2017-04-21] MEDS: LACTULOSE 20 GM/30 ML UDC PO SCH ×6 (00:23→17:03)
[2017-04-21] MEDS: PIPER/TAZO 3.375GM/D5W PREMIX 50 ML IV SCH ×4 (00:23→20:56)
[2017-04-21] MEDS: NEOMYCIN 500 MG TAB PO SCH ×2 (00:25→05:24)
--- NOTE | 2017-04-21 00:25 | NUR ---
STARTED FLUID ON PICC LINE. OK TO USE FROM . PT REFUSED TO HAVE LACTOLOSE AT THIS TIME. MED WASTED DUE TO BEING OPENED.
--- NOTE | 2017-04-21 00:30 | NUR ---
04/21/17 0026 PATIENT POSITIVE FOR GRAM POSITIVE COCCI IN CHAINS IN BLOOD CULTURE. DR. BRYAN AWARE, NO NEW ORDERS.
[2017-04-21] MEDS ORDERED: FUROSEMIDE 40 MG/4 ML VIAL IVP SCH (02:30)
--- NOTE | 2017-04-21 03:01 | NUR ---
PATIENT RESTING IN BED, NO SIGNS OF ACUTE RESPIRATORY DISTRESS. NO SIGNS OF PAIN OR DISCOMFORT AT THIS TIME. WILL CONTINUE TO MONITOR PATIENT.
[2017-04-21] MEDS: NACL 0.9% 1,000 ML IV SCH ×3 (03:36→19:43)
[2017-04-21] MEDS ORDERED: ALBUTEROL SULFATE/IPRATROPIU 3 ML SOL IH PRN (04:00)
[2017-04-21 04:03] LABS: AMPHETAMINE, URINE NEG. ng/ml (NEG <=1000); BARBITURATE, URINE NEG. ng/ml (NEG <=200); BENZODIAZEPINE, URINE NEG. ng/mL (NEG <=200); CANNABINOID, URINE NEG. ng/mL (NEG <=50); COCAINE, URINE NEG. ng/mL (NEG <=300); OPIATE, URINE NEG. ng/mL (NEG <=2000); PHENCYCLIDINE SCREEN,URINE NEG. ng/mL (NEG <=25)
--- NOTE | 2017-04-21 04:15 | NUR ---
PT TAKEN OFF UNIT TO HAVE CT DONE. ACCOMPANIED BY MARY STALEY RN AND RAD TECHS
--- NOTE | 2017-04-21 04:35 | NUR ---
PT BACK ON UNIT FROM CT. PT PLACED BACK ON MONITOR PT AAOX4 PT DENIES ANY PAIN OR DISCOMFORT AT THIS TIME.
--- NOTE | 2017-04-21 05:30 | NUR ---
PATIENT REFUSED BED BATH.
--- NOTE | 2017-04-21 05:31 | NUR ---
PATIENT STATED HE WANTED TO WAIT TILL LATER WHEN ITS WARMER TO RECEIVE BED BATH.
[2017-04-21 05:35] LABS: HEMATOCRIT 26.7 % (36-52); HEMOGLOBIN 8.9 g/dL (12.0-18.0); MEAN CORPUSCULAR HEMOGLOBIN 30 pg (27-31); MEAN CORPUSCULAR HGB CONC 33 g/dL (33-37); MEAN CORPUSCULAR VOLUME 90 fL (80-94); PLATELET COUNT (AUTO) 63 K/uL (140-450); RED BLOOD CELL COUNT(AUTO) 2.97 MIL/uL (4.20-6.10); RED CELL DISTRIBUTION WIDTH 14.8 % (11.6-13.7); WHITE BLOOD COUNT (AUTO) 5.6 K/uL (4.8-10.8)
[2017-04-21 05:59] LABS: ANION GAP 10.4 (8-16); CALCIUM 7.7 mg/dL (8.5-10.1); CARBON DIOXIDE 25.1 mmol/L (21-32); CREATININE 1.2 mg/dL (0.6-1.3); POTASSIUM 3.5 mmol/L (3.5-5.1)
[2017-04-21 06:02] LABS: MAGNESIUM 1.6 mg/dL (1.8-2.4); PHOSPHORUS 4.3 mg/dL (2.5-4.9)
[2017-04-21 06:06] LABS: LACTIC ACID 1.8 mmol/L (0.4-2.0)
[2017-04-21 06:10] LABS: BAND % (MANUAL) 17 % (0-8); LYMPHOCYTES % (MANUAL) 1 % (20-46); MONOCYTES % (MANUAL) 2 % (5-12); NEUTROPHILS % (MANUAL) 80 (43-65)
[2017-04-21] MEDS ORDERED: CHLORHEXADINE GLUC 2% CLOTH TP SCH (06:10)
[2017-04-21 06:11] LABS: PLATELET ESTIMATE DECREASED
--- NOTE | 2017-04-21 06:13 | NUR ---
DR FINE ON UNIT EVALUATING PATIENT AT BEDSIDE. WILL FOLLOW UP WITH ANY ORDERS
--- NOTE | 2017-04-21 06:41 | NUR ---
PATIENT VITALS STABLE, RESTING IN BED. NO ADVENTITIOUS BREATH SOUNDS .
--- NOTE | 2017-04-21 06:42 | NUR ---
PATIENT HAS BEEN SCREENED AND CATEGORIZED HIGH NUTRITION RISK. PATIENT WILL BE SEEN WITHIN 1-2 DAYS OF ADMISSION. 04/21/17-04/22/17 JUDY SAEZ MS, RDN
--- NOTE | 2017-04-21 06:55 | NUR ---
PATIENT REFUSED LACTULOSE, MEDICATION WAS OPENED AND HAD TO BE WASTED. Addendum: 04/21/17 at 0700 by Ely Mcclelland RN DR. FINE MADE AWARE. NO NEW ORDERS AT THIS TIME.
[2017-04-21] MEDS ORDERED: ALBUTEROL SULFATE/IPRATROPIU 3 ML SOL IH SCH (07:00)
--- NOTE | 2017-04-21 07:10 | NUR ---
RECEIVED PATIENT FROM [facility] RN IN STABLE CONDITION. PATIENT IS AWAKE, ORIENTED X4. ABLE TO FOLLOW COMMANDS. SKIN WARM TO TOUCH WNL. PITTING EDEMA NOTED ON BILATERAL LOWER EXTREMITIES. URINE AND BOWEL CONTINENT, ABLE TO MAKE HIS NEEDS KNOWN. CALL LIGHT WITHIN REACH. WILL MONITOR PATIENT.
--- NOTE | 2017-04-21 07:13 | NUR ---
REPORT GIVEN TO MARY OLIVER.
[2017-04-21 08:36] LABS: ALBUMIN 2.3 g/dL (3.4-5.0); BILIRUBIN,DIRECT 1.3 mg/dL (0.0-0.3); TOTAL BILIRUBIN 4.8 mg/dL (0.0-1.0)
[2017-04-21] MEDS ORDERED: MAG SULF 2000 MG/WATER PREMIX 50 ML IV SCH (09:00)
[2017-04-21] MEDS ORDERED: MUPIROCIN 2% OINT 22 GM TUBE TP SCH (09:00)
[2017-04-21] MEDS: METHADONE 10 MG TAB PO SCH (09:23)
--- NOTE | 2017-04-21 09:41 | NUR ---
04/21/17 RD INITIAL ASSESSMENT COMPLETED PLEASE REFER TO NUTRITION ASSESSMENT UNDER CARE ACTIVITY FOR ESTIMATED NUTRITIONAL NEEDS. RD RECOMMENDATIONS: 1. CONTINUE ON FULL LIQUID DIET TOLERATED AND CONSIDER ADVANCING TO 2GM SODIUM DIET PER MD DISCRETION. 2. RD WILL F/U 2-3 DAYS; HIGH RISK. JUDY SAEZ, , RDN
[2017-04-21] MEDS: RIFAXIMIN 550 MG TAB PO SCH ×2 (10:25→20:55)
--- NOTE | 2017-04-21 10:50 | NUR ---
TRANSFERRED PATIENT TO TELEMETRY UNIT VIA ICU BED IN STABLE CONDITION. REPORT GIVEN TO PRIMARY RN.
--- NOTE | 2017-04-21 11:00 | NUR ---
PT RECEIVED FROM ICU, ALERT AND ORIENTED X4. NO SIGNS OF ACUTE DISTRESS. BREATHING EVENLY AND UNLABORED. WITH O2 AT 2L/MIN VIA NC. SKIN IS WARM AND DRY. NOTED BLE PITTING EDEMA +3. KEPT ELEVATED ON PILLOWS. NO EPISODES OF ANY NAUSEA OR VOMITING, DENIES OF ANY PAIN OR DISCOMFORT AT THIS TIME. WITH RIGHT UPPER ARM PICC LINE 2X LUMEN, IF FLUIDS INFUSING WELL. ALL NEEDS ATTENDED, SAFETY PRECAUTIONS MAINTAINED. CALL LIGHT WITHIN REACH.
--- NOTE | 2017-04-21 12:23 | NUR ---
BLE WRAPED WITH JAMI BANDAGE AND ELEVATED ON PILLOWS ORDERED. CONTINUE TO MONITOR.
[2017-04-21 13:49] LABS: T4 (THYROXINE) 5.8 ug/dL (4.5 - 12.0)
--- NOTE | 2017-04-21 18:18 | NUR ---
PT RESTING WELL, NO SIGNS OF ACUTE DISTRESS. WILL ENDORSE TO ONCOMING TIMBER INSPECTOR NURSE FOR CONTINUITY OF CARE.
--- NOTE | 2017-04-21 19:00 | NUR ---
RECEIVED PT FROM JAMI RN PT IS AAOX4 AMBULATES WITH ASSISTANTS ON BLE WRAPPED ON PILLOW ELEVATION ON TELEMETRY SR ON02 2 LTS VIA NC . ON LEFT UA PICC LINE INFUSING WELL IV FLUIDS RELATIVE AT BED SIDE INITIAL ASSESSMENT DONE
--- NOTE | 2017-04-21 22:00 | NUR ---
PT SLEEPING WELL NOT DISTRESS NOTED REPOSITIONED Q2, NOT DISTRESS NOTED AT THIS TIME
[2017-04-22] VITALS: BP 121/63
[2017-04-22] MEDS: LACTULOSE 20 GM/30 ML UDC PO SCH ×5 (00:06→23:40)
--- NOTE | 2017-04-22 01:00 | NUR ---
PTVOIDING WELL NOT DISTRESS NOTED ON TELEMETRY SR PT REPOSITIONED
[2017-04-22 04:00] VITALS: BP 117/57
[2017-04-22] MEDS: PIPER/TAZO 3.375GM/D5W PREMIX 50 ML IV SCH ×3 (04:13→21:29)
[2017-04-22] MEDS: NACL 0.9% 1,000 ML IV SCH ×2 (04:27→14:20)
--- NOTE | 2017-04-22 05:00 | NUR ---
PT IS ASSISTED TO THE RESTROOM FOR BM LIQUID STOOL PT ON LACTULOSE
--- NOTE | 2017-04-22 06:58 | NUR ---
PT HAS ANOTHER LIQUID BM PT ON LACTULOSE
--- NOTE | 2017-04-22 07:10 | NUR ---
RECEIVED PATIENT REPORT AT BEDSIDE. PATIENT AWAKE, ALERT, ORIENTED AND AMBULATORY. NO S/S OF DISTRESS NOTED. PATIENT ON ROOM AIR. NO C/O PAIN AT THIS TIME. EDEMA NOTED TO BLE. PICC LINE NOTED TO THE LEFT UPPER ARM WITH IVF INFUSING WELL. PATIENT ON TELE MONITORING. BED LOWERED WITH CALL LIGHT WITHIN REACH. WILL CONTINUE TO MONITOR
[2017-04-22 08:00] VITALS: BP 138/77
[2017-04-22] MEDS: METHADONE 10 MG TAB PO SCH (08:22)
[2017-04-22] MEDS: RIFAXIMIN 550 MG TAB PO SCH ×2 (08:23→21:29)
[2017-04-22 09:19] LABS: BASOPHILS # (AUTO) 0.1 K/uL (0.00-0.22); BASOPHILS % (AUTO) 1.6 % (0.0-2.0); EOSINOPHILS # (AUTO) 0.1 K/uL (0-0.4); EOSINOPHILS % (AUTO) 2.3 % (0.0-4.0); HEMATOCRIT 23.4 % (36-52); HEMOGLOBIN 7.9 g/dL (12.0-18.0); LYMPHOCYTES # (AUTO) 0.6 K/uL (2.0-11.5); LYMPHOCYTES % (AUTO) 17.1 % (20.5-51.1); MEAN CORPUSCULAR HEMOGLOBIN 30 pg (27-31); MEAN CORPUSCULAR HGB CONC 34 g/dL (33-37); MEAN CORPUSCULAR VOLUME 89 fL (80-94); MONOCYTES # (AUTO) 0.3 K/uL (0.8-1.0); MONOCYTES % (AUTO) 8.7 % (1.7-9.3); NEUTROPHILS # (AUTO) 2.3 K/uL (1.8-7.7); NEUTROPHILS % (AUTO) 70.3 % (42.2-75.2); PLATELET COUNT (AUTO) 61 K/uL (140-450); RED BLOOD CELL COUNT(AUTO) 2.62 MIL/uL (4.20-6.10); WHITE BLOOD COUNT (AUTO) 3.4 K/uL (4.8-10.8)
[2017-04-22 09:37] LABS: PHOSPHORUS 2.4 mg/dL (2.5-4.9)
[2017-04-22 09:38] LABS: ANION GAP 4.4 (8-16); CALCIUM 7.6 mg/dL (8.5-10.1); POTASSIUM 3.4 mmol/L (3.5-5.1)
[2017-04-22 12:00] VITALS: BP 127/76
--- NOTE | 2017-04-22 13:09 | NUR ---
PATIENT REQUESTS TO HAVE SCHEDULED LACTULOSE ON HOLD
--- NOTE | 2017-04-22 15:37 | NUR ---
PATIENT SEEN BY DR FINE
[2017-04-22 16:00] VITALS: BP 138/75
--- NOTE | 2017-04-22 19:38 | NUR ---
PATIENT REPORT GIVEN AT BEDSIDE. PATIENT ENDORSED IN STABLE CONDITION
--- NOTE | 2017-04-22 19:40 | NUR ---
RECEIVED PT FROM MICHELE HERNANDEZ PT IS AAOX4 AMBULATES WITH LABORER ADJUSTABLE STEEL JOIST, BLE EDEMA ON TELMETRY SR PICC LINE ON LEFT UA INFUSING WELL IV FLUIDS INITIAL ASSESSMENT DONE
[2017-04-22 20:00] VITALS: BP 126/72
--- NOTE | 2017-04-22 21:00 | NUR ---
TELEMETRY BOX IS REMOVED DOCTOR ORDER, PT WILL BE TRANSFER TO [facility]
[2017-04-23] VITALS: BP 118/69
--- NOTE | 2017-04-23 01:38 | NUR ---
PT SLEEPING WELL NOT DISTRESS NOTED IV ON LEFT UA INFUSING WELL
[2017-04-23 04:00] VITALS: BP 122/57
--- NOTE | 2017-04-23 04:00 | NUR ---
PT IS ASSISTED TO THE RESTROOM LIQUID STOOL. VOIDING WELL DENIES ANY PAIN OR DISTRESS
[2017-04-23] MEDS: PIPER/TAZO 3.375GM/D5W PREMIX 50 ML IV SCH (04:30)
[2017-04-23 05:53] LABS: BASOPHILS # (AUTO) 0.1 K/uL (0.00-0.22); BASOPHILS % (AUTO) 1.8 % (0.0-2.0); EOSINOPHILS # (AUTO) 0.1 K/uL (0-0.4); EOSINOPHILS % (AUTO) 2.8 % (0.0-4.0); HEMATOCRIT 23.3 % (36-52); HEMOGLOBIN 7.9 g/dL (12.0-18.0); LYMPHOCYTES # (AUTO) 0.9 K/uL (2.0-11.5); LYMPHOCYTES % (AUTO) 31.6 % (20.5-51.1); MEAN CORPUSCULAR HEMOGLOBIN 31 pg (27-31); MEAN CORPUSCULAR HGB CONC 34 g/dL (33-37); MEAN CORPUSCULAR VOLUME 91 fL (80-94); MONOCYTES # (AUTO) 0.2 K/uL (0.8-1.0); MONOCYTES % (AUTO) 6.8 % (1.7-9.3); NEUTROPHILS # (AUTO) 1.7 K/uL (1.8-7.7); PLATELET COUNT (AUTO) 62 K/uL (140-450); RED BLOOD CELL COUNT(AUTO) 2.56 MIL/uL (4.20-6.10); RED CELL DISTRIBUTION WIDTH 14.9 % (11.6-13.7)
[2017-04-23] MEDS: LACTULOSE 20 GM/30 ML UDC PO SCH (06:00)
[2017-04-23 06:22] LABS: ANION GAP 8.4 (8-16); CALCIUM 7.6 mg/dL (8.5-10.1); CARBON DIOXIDE 26.3 mmol/L (21-32); CREATININE 0.9 mg/dL (0.6-1.3); POTASSIUM 3.7 mmol/L (3.5-5.1)
[2017-04-23 06:29] LABS: MAGNESIUM 1.9 mg/dL (1.8-2.4); PHOSPHORUS 3.7 mg/dL (2.5-4.9)
--- NOTE | 2017-04-23 07:00 | NUR ---
pt refused lactulose, remain stable denies any pain
--- NOTE | 2017-04-23 07:20 | NUR ---
RECEIVED PT FROM NIGHT RN. IS AAOX4. AMBULATES WITH ASSISTANCE. WITH BLE EDEMA. WITH PICC LINE ON LEFT UA INFUSING WELL. INITIAL ASSESSMENT DONE. CALL LIGHT WITHIN REACH. WILL CONTINUE TO MONITOR PT. FOR CHANGES.
[2017-04-23 08:00] VITALS: BP 128/84
[2017-04-23] MEDS: METHADONE 10 MG TAB PO SCH (08:36)
[2017-04-23] MEDS: RIFAXIMIN 550 MG TAB PO SCH (08:37)
[2017-04-23] MEDS ORDERED: ACET-9529 PO (08:40)
[2017-04-23] MEDS ORDERED: DOCU-67 PO (08:40)
[2017-04-23] MEDS ORDERED: PENI-321 PO (08:41)
[2017-04-23] MEDS: NACL 0.9% 1,000 ML IV SCH ×2 (08:44)
--- NOTE | 2017-04-23 10:40 | NUR ---
SPOKE WITH SANTHOSH FROM [facility] IN [facility] AND STATED THAT PT'S HOME MEDS WILL BE READY BEFORE LUNCH TIME TODAY.
--- NOTE | 2017-04-23 12:00 | NUR ---
pt consumed 100% of all meals. food tolerated well.
--- NOTE | 2017-04-23 12:15 | NUR ---
discharge instructions and prescriptions given to pt which verbalized full understanding of the instructions given and the need to follow with Dr. Pantoja in 3-5 days. arm bands removed. Picc line discontinued, cannula tip intact. pt tolerated the removal of picc line. pressure applied, no bleeding noted.
--- NOTE | 2017-04-23 12:35 | NUR ---
pt wheeled out in stable condition. no complaints made. pt is discharged home with .
[2017-04-24 09:35] LABS: HEMOGLOBIN A1C 4.1 % (4.8-5.6)
== END 2017-04-23 13:35 | disposition home or self-care (01) | DRG 871 ==
LOC: MED 07:34 → MTU 11:26 → MIC 12:22 → MTU 04-21 10:59
PROVIDERS: ADMIT Family Medicine; ATTEND Family Medicine
DX: A41.9 Sepsis, unspecified organism (principal); R65.21 Severe sepsis with septic shock; N17.0 Acute kidney failure with tubular necrosis; I50.43 Acute on chronic combined systolic (congestive) and diastolic (congestive) heart failure; J69.0 Pneumonitis due to inhalation of food and vomit; E43 Unspecified severe protein-calorie malnutrition; K72.90 Hepatic failure, unspecified without coma; Z87.898 Personal history of other specified conditions; B19.20 Unspecified viral hepatitis C without hepatic coma; K74.60 Unspecified cirrhosis of liver; D64.9 Anemia, unspecified; E83.42 Hypomagnesemia
CPT/HCPCS: 36415; 36556; 70450; 71010; 73030; 80048; 80053; 80305; 81001; 82040; 82140; 82150; 82247; 82248; 82550; 82553; 83036; 83605; 83690; 83735; 83880; 84100; 84436; 84439; 84443; 84479; 84484; 84550; 85025; 85610; 85730; 87040; 87081; 87086; 87186; 93005; 93880; 94640; 96361; 96365; 96367; 96375; 97110; 97116; 97530; 99285; C1751; J1940; J2001; J2270; J2543; J3370; J3475; J7030; J7060; J7620; Q0092

== ENCOUNTER 2017-05-23 18:26 | Emergency (ER) | payer OTHER ==
[~2017-05-23] VITALS: Ht 185.4 cm; Wt 115.2 kg
[~2017-05-23 18:26] MED LIST changes: +ACET-9529 PO; +DOCU-67 PO; +PENI-321 PO
[2017-05-23 18:50] VITALS: BP 131/74
[2017-05-23] MEDS ORDERED: IBUPROFEN 400 MG TAB ONE (18:59)
--- NOTE | 2017-05-23 19:39 | NUR ---
TO ER BED 4
--- NOTE | 2017-05-23 19:55 | NUR ---
61Y M BIB SELF C/O BILAT EYE DISCOMFORT 9/10 PAIN SCALE. PT STATES EYES FEEL LIKE THEY ARE BURNING. PT DENIES ANY DECREASE IN VISUAL ACCUITY OR LOSS OF VISION. PT AAOX4. BREATHING IS UNLABORED. PT STATES HE ALSO HAS HAD A FEVER X 1 DAY WITH N/V/D.
[2017-05-23] MEDS ORDERED: CLINDAMYCIN 900 MG in DEXTROSE 5% 100 ML IV ONE (20:15)
[2017-05-23] MEDS ORDERED: ALBUTEROL SULFATE/IPRATROPIU 3 ML SOL IH ONE (20:15)
[2017-05-23] MEDS ORDERED: SODIUM CHLORIDE FLUSH 10 ML SYR IVF ONE (20:20)
[2017-05-23] MEDS ORDERED: CLINDAMYCIN 900 MG/6 ML VIAL IV ONE (20:21)
[2017-05-23 21:03] LABS: BASOPHILS # (AUTO) 0.1 K/uL (0.00-0.22); BASOPHILS % (AUTO) 1.5 % (0.0-2.0); EOSINOPHILS # (AUTO) 0.1 K/uL (0-0.4); EOSINOPHILS % (AUTO) 1.6 % (0.0-4.0); HEMATOCRIT 27.5 % (36-52); HEMOGLOBIN 9.3 g/dL (12.0-18.0); LYMPHOCYTES # (AUTO) 0.9 K/uL (2.0-11.5); LYMPHOCYTES % (AUTO) 17.1 % (20.5-51.1); MEAN CORPUSCULAR HEMOGLOBIN 30 pg (27-31); MEAN CORPUSCULAR HGB CONC 34 g/dL (33-37); MEAN CORPUSCULAR VOLUME 89 fL (80-94); MONOCYTES # (AUTO) 0.7 K/uL (0.8-1.0); MONOCYTES % (AUTO) 13.3 % (1.7-9.3); NEUTROPHILS # (AUTO) 3.5 K/uL (1.8-7.7); NEUTROPHILS % (AUTO) 66.5 % (42.2-75.2); PLATELET COUNT (AUTO) 80 K/uL (140-450); RED BLOOD CELL COUNT(AUTO) 3.08 MIL/uL (4.20-6.10); RED CELL DISTRIBUTION WIDTH 14.1 % (11.6-13.7); WHITE BLOOD COUNT (AUTO) 5.4 K/uL (4.8-10.8)
[2017-05-23 21:14] LABS: ANION GAP 10.3 (8-16); CALCIUM 7.3 mg/dL (8.5-10.1); CARBON DIOXIDE 27.6 mmol/L (21-32); POTASSIUM 3.9 mmol/L (3.5-5.1)
[2017-05-23 21:19] LABS: ALBUMIN 2.7 g/dL (3.4-5.0); TOTAL BILIRUBIN 2.5 mg/dL (0.0-1.0)
[2017-05-23 21:21] LABS: INR 1.3 (0.8-1.2); PARTIAL THROMBOPLASTIN TIME 40.2 secs (22-35.6); PROTHROMBIN TIME 13.6 secs (10.8-13.4)
[2017-05-23] MEDS ORDERED: LACTULOSE 20 GM/30 ML UDC PO ONE (21:25)
--- NOTE | 2017-05-23 22:08 | NUR ---
IV removed, catheter intact and site benign. Applied folded 4x4 gauze and tape to stop bleeding.
--- NOTE | 2017-05-23 22:08 | NUR ---
Patient discharged with v/s stable. Written and verbal after care instructions given and explained. Patient alert, oriented and verbalized understanding of instructions. Ambulatory with steady gait. All questions addressed prior to discharge. ID band removed. Patient advised to follow up with PMD. Rx of NAPHAZOLINE HCL 0.1% OPTHALMIC, CLEOCIN 300MG given. Patient educated on indication of medication including possible reaction and side effects. Opportunity to ask questions provided and answered.
[2017-05-23 22:09] VITALS: BP 127/81
== END 2017-05-23 22:09 | disposition home or self-care (01) ==
LOC: MED 18:26
DX: H10.13 Acute atopic conjunctivitis, bilateral (principal); K72.90 Hepatic failure, unspecified without coma; I10 Essential (primary) hypertension; K21.9 Gastro-esophageal reflux disease without esophagitis; Z79.899 Other long term (current) drug therapy
CPT/HCPCS: 36415; 71010; 80053; 82140; 85025; 85610; 85730; 94640; 96365; 96366; 99285; J3490; J7620; Q0092

== ENCOUNTER 2017-06-04 22:56 | Emergency (ER) | payer OTHER ==
[~2017-06-04] VITALS: Ht 182.9 cm; Wt 117.5 kg
[2017-06-04 23:06] VITALS: BP 141/58
--- NOTE | 2017-06-04 23:22 | NUR ---
PT TAKEN TO BED 3
--- NOTE | 2017-06-04 23:25 | NUR ---
61M BIB SELF C/O POSSIBLE BLOOD IN STOOL; PT STATES " I TOOK SOME PEPTO BISMO AND MY STOOL WAS DARK GREEN. I JUST WANTED TO CHECK TO MAKE SURE THERE WAS NO BLEEDING IN IT. I'M HERE FOR PRECAUTION"; PT NOTED WITH ON-GOING REDNESS AND SWELLING, +2 PITTING EDEMA TO BL LOWER EXTREMITIES. PT STATES " I'VE BEEN TAKING MY MEDICATION AND MY LEGS HAVE BEEN GETTING BETTER"; PT AA&OX4, PERRLA, BL LUNG SOUNDS CLEAR, RR EVEN/UNLABORED, STATES NO PAIN, OR N/V/D AT THIS TIME; ABDOMEN SOFT, NON-TENDER, ACTIVE BOWEL SOUNDS X 4 QUADRANTS; PT AMBULATES WITH CANE; PT RESTING IN BED WITH HOB ELEVATED AND IN LOWEST POSITION; POSITIONED FOR COMFORT; ER MD MADE AWARE OF STATUS. WILL CONTINUE TO MONITOR.
--- NOTE | 2017-06-04 23:30 | NUR ---
Dr. Barnes evaluating patient at bedside.
[2017-06-04 23:38] VITALS: BP 143/67
--- NOTE | 2017-06-04 23:38 | NUR ---
Patient discharged with v/s stable. Written and verbal after care instructions given and explained. Patient verbalized understanding. Ambulatory with cane and steady gait. All questions addressed prior to discharge. Advised to follow up with PMD.
== END 2017-06-04 23:38 | disposition home or self-care (01) ==
LOC: MED 22:56
DX: K70.10 Alcoholic hepatitis without ascites (principal); K92.2 Gastrointestinal hemorrhage, unspecified; K21.9 Gastro-esophageal reflux disease without esophagitis; I10 Essential (primary) hypertension; Z79.899 Other long term (current) drug therapy
CPT/HCPCS: 99281

== ENCOUNTER 2017-06-08 20:52 | Emergency (ER) | payer OTHER ==
[~2017-06-08] VITALS: Ht 182.9 cm; Wt 118.4 kg
[2017-06-08 21:11] VITALS: BP 171/78
--- NOTE | 2017-06-09 02:16 | NUR ---
TO ER BED 4
--- NOTE | 2017-06-09 03:02 | NUR ---
PT SENT TO XRAY
--- NOTE | 2017-06-09 03:24 | NUR ---
PT BIB FAMILY C/O FEVER X 1 DAY. BOTH LEGS REDNESS AND SWOLLEN. PT. STATES ALCOHOL SPONGE BATH. HX. CIRRHOSIS PT DENIES N/V/D; SKIN- FLUSHED/WARM/DRY; AAOX4, PERRL, WITH EVEN AND STEADY GAIT; LUNGS CLEAR BL, BREATHING UNLABORED; HR EVEN AND REGULAR, BL PERIPHERAL PULSES PRESENT; BS ACTIVE X4, NO TENDERNESS TO PALPATION. PT DENIES ANY CP, SOB, OR COUGH AT THIS TIME; PT STATES 2/10 PAIN AT THIS TIME; VSS; PATIENT POSITIONED FOR COMFORT; HOB ELEVATED; BEDRAILS UP X2; BED DOWN.
--- NOTE | 2017-06-09 03:30 | NUR ---
PT AMB W/O ASST TO BPR FOR UA
--- NOTE | 2017-06-09 03:31 | NUR ---
CALLED LAB FOR ETA OF BLOOD DRAW. ETA 10MIN. DELMA ROSS NOTIFIED
--- NOTE | 2017-06-09 03:37 | NUR ---
PT REFUSED ALL LAB/IV/BLOOD WORK AT THIS TIME. ER MD NOTIFTED. UA SENT TO LAB, PT BACK FROM XRAY
[2017-06-09 03:40] VITALS: BP 171/78
[2017-06-09 03:42] LABS: APPEARANCE,URINE CLEAR (CLEAR); BILIRUBIN,URINE NEGATIVE (NEGATIVE); BLOOD, URINE 1+ (NEGATIVE); COLOR,URINE YELLOW (YELLOW); LEUKOCYTE ESTERASE ,URINE NEGATIVE (NEGATIVE); NITRITE, URINE NEGATIVE (NEGATIVE); PROTEIN,URINE NEGATIVE (NEGATIVE); UGLUCOSE NEGATIVE (NEGATIVE); UROBILINOGEN,URINE 0.2 EU/dL (0.2 - 1)
[2017-06-09] MEDS ORDERED: IBUPROFEN 800 MG TAB PO ONE (03:50)
[2017-06-09 03:51] LABS: BACTERIA,URINE OCCASSIONAL /HPF (None Seen); RBC,URINE 3-10 (FEW) /HPF (0-5); SQUAMOUS EPITHELIAL CELL,UR 0-3 (FEW) /LPF (0-3 (FEW)); WBC,URINE 0-5 (RARE) /HPF (0-5)
== END 2017-06-09 03:40 | disposition home or self-care (01) ==
LOC: MED 20:52
DX: B34.9 Viral infection, unspecified (principal); K21.9 Gastro-esophageal reflux disease without esophagitis; I10 Essential (primary) hypertension; F12.10 Cannabis abuse, uncomplicated
CPT/HCPCS: 71010; 81001; 93005; 99285

== ENCOUNTER 2017-06-09 19:39 | Emergency (ER) | payer OTHER ==
[~2017-06-09] VITALS: Ht 182.9 cm; Wt 118.8 kg
[2017-06-09 19:48] VITALS: BP 158/69
--- NOTE | 2017-06-09 21:12 | NUR ---
PATIENT LEFT WITHOUT BEING SEEN BY DR. OBYKIN. NO FURTHER CARE PROVIDED FOR PATIENT.
== END 2017-06-09 21:12 | disposition left against medical advice (07) ==
LOC: MED 19:39
DX: R50.9 Fever, unspecified (principal); Z53.21 Procedure and treatment not carried out due to patient leaving prior to being seen by health care provider

== ENCOUNTER 2017-07-04 00:07 | Emergency (ER) | payer OTHER ==
[~2017-07-04] VITALS: Ht 180.3 cm; Wt 117.9 kg
[2017-07-04 00:23] VITALS: BP 158/67
[2017-07-04] MEDS ORDERED: DICYCLOMINE HCL LIQUID 20 MG, ALUMINUM HYD/MAG/SIMETHICONE 30 ML, LIDOCAINE VISCOUS 2% ... PO ONE ×3 (02:30)
[2017-07-04 03:04] LABS: ALBUMIN 3.2 g/dL (3.4-5.0); CARBON DIOXIDE 27.1 mmol/L (21-32); POTASSIUM 4.1 mmol/L (3.5-5.1); TOTAL BILIRUBIN 1.8 mg/dL (0.0-1.0)
[2017-07-04 04:35] VITALS: BP 129/72
== END 2017-07-04 04:35 | disposition home or self-care (01) ==
LOC: MED 00:07
DX: R10.10 Upper abdominal pain, unspecified (principal); J44.9 Chronic obstructive pulmonary disease, unspecified; I10 Essential (primary) hypertension
CPT/HCPCS: 36415; 80053; 83690; 99284

== ENCOUNTER 2017-09-07 12:02 | Observation (INO) | payer OTHER ==
[~2017-09-07] VITALS: Ht 182.9 cm; Wt 129.7 kg
[~2017-09-07 12:02] MED LIST changes: +DOCU-299 PO; -DOCU-67 PO; -DOL10 PO; +METH10TA1 PO; -PENI-321 PO; -SACC250C4 PO
[2017-09-07 12:17] VITALS: BP 149/74
[2017-09-07 13:05] LABS: ANION GAP 8.3 (8-16); CARBON DIOXIDE 28.6 mmol/L (21-32); CREATININE 0.9 mg/dL (0.7-1.3); POTASSIUM 3.9 mmol/L (3.5-5.1)
[2017-09-07 13:12] LABS: ALBUMIN 3.5 g/dL (3.4-5.0); TOTAL BILIRUBIN 2.1 mg/dL (0.0-1.0)
[2017-09-07 13:20] LABS: HEMATOCRIT 36.3 % (36-52); HEMOGLOBIN 11.9 g/dL (12.0-18.0); MEAN CORPUSCULAR HEMOGLOBIN 30 pg (27-31); MEAN CORPUSCULAR HGB CONC 33 g/dL (33-37); MEAN CORPUSCULAR VOLUME 91 fL (80-94); PLATELET COUNT (AUTO) 81 K/uL (140-450); RED BLOOD CELL COUNT(AUTO) 3.97 MIL/uL (4.20-6.10); RED CELL DISTRIBUTION WIDTH 15.5 % (11.6-13.7); WHITE BLOOD COUNT (AUTO) 4.3 K/uL (4.8-10.8)
[2017-09-07 13:29] LABS: LYMPHOCYTES % (MANUAL) 30 % (20-46); MONOCYTES % (MANUAL) 3 % (5-12)
--- NOTE | 2017-09-07 13:34 | NUR ---
Patient ambulated to bed 11.
--- NOTE | 2017-09-07 13:38 | NUR ---
Dr. Bush evaluating patient at bedside.
--- NOTE | 2017-09-07 13:42 | NUR ---
PATIENT PRESENTS TO ED WITH c/o generalized spasm x today;pt noted he spasms with high ammonia level;hX OF cirrhosis, arthritis, hep C(treated);rx OF lactulose, lasix, methadone. PT STATES HE HAS ABDOMINAL PAIN. PT FEELS NAUSEATED; SKIN IS;PINK/WARM/DRY; AAOX4 WITH EVEN AND STEADY GAIT; LUNGS CLEAR BL; HR EVEN AND REGULAR; PT DENIES ANY FEVER, CP, SOB, OR COUGH AT THIS TIME; PATIENT STATES PAIN OF 8/10 AT THIS TIME; VSS; PATIENT POSITIONED FOR COMFORT; HOB ELEVATED; BEDRAILS UP X2; BED DOWN. ALL MONITORS IN PLACED;ER MD MADE AWARE OF PT STATUS.
[2017-09-07] MEDS ORDERED: ONDANSETRON 4 MG/2 ML VIAL IVP ONE (13:50)
[2017-09-07] MEDS ORDERED: ALBUTEROL SULFATE/IPRATROPIU 3 ML SOL IH ONE (13:50)
--- NOTE | 2017-09-07 14:04 | NUR ---
Patient back from CT.
[2017-09-07 14:45] LABS: PROTHROMBIN TIME 13.3 secs (10.8-13.4)
[2017-09-07] MEDS ORDERED: NACL 0.9% 1,000 ML IV ONE ×2 (14:55→15:20)
[2017-09-07] MEDS ORDERED: PIPERACILLIN/TAZOBACTAM 3.375 GM in DEXTROSE 5% 50 ML IV ONE (15:20)
[2017-09-07] MEDS ORDERED: VANCOMYCIN 1,000 MG in DEXTROSE 5% 250 ML IV ONE (15:20)
[2017-09-07] MEDS ORDERED: ACETAMINOPHEN 325 MG TAB PO PRN (15:40)
[2017-09-07] MEDS ORDERED: ONDANSETRON 4 MG/2 ML VIAL IVP PRN (15:40)
[2017-09-07] MEDS ORDERED: VANCOMYCIN 1,000 MG VIAL ONE (15:46)
[2017-09-07 15:48] LABS: APPEARANCE,URINE CLEAR (CLEAR); BILIRUBIN,URINE NEGATIVE (NEGATIVE); BLOOD, URINE 1+ (NEGATIVE); COLOR,URINE YELLOW (YELLOW); LEUKOCYTE ESTERASE ,URINE NEGATIVE (NEGATIVE); NITRITE, URINE NEGATIVE (NEGATIVE); UGLUCOSE NEGATIVE (NEGATIVE)
[2017-09-07 16:00] LABS: RBC,URINE 3-10 (FEW) /HPF (0-5); WBC,URINE 0-5 (RARE) /HPF (0-5)
[2017-09-07] MEDS ORDERED: IBUPROFEN 800 MG TAB PO SCH (16:00)
[2017-09-07 16:01] LABS: BARBITURATE, URINE NEG. ng/ml (NEG <=200); BENZODIAZEPINE, URINE NEG. ng/mL (NEG <=200); CANNABINOID, URINE NEG. ng/mL (NEG <=50); COCAINE, URINE NEG. ng/mL (NEG <=300); OPIATE, URINE NEG. ng/mL (NEG <=2000); PHENCYCLIDINE SCREEN,URINE NEG. ng/mL (NEG <=25)
--- NOTE | 2017-09-07 16:02 | NUR ---
PT IV SITE GOT INFILTRATED;TRIED TO REINSERT IV BUT NO SUCCESS;ER NOTIFIED;CALLED DR GEORGE ORDERED CENTRAL CATH FOR PT.
--- NOTE | 2017-09-07 16:04 | NUR ---
pt requets to talk to er md;er notified
--- NOTE | 2017-09-07 16:14 | NUR ---
Patient will be admitted to care of dr miller. Admited to tele. Will go to room 107 b. Belongings list completed. Report to armani stafford.
[2017-09-07 16:19] LABS: CHOL/HDL RATIO 1.5 (1-4.5); MAGNESIUM 1.7 mg/dL (1.8-2.4); PHOSPHORUS 4.8 mg/dL (2.5-4.9)
[2017-09-07] MEDS ORDERED: HYDROmorphone 1 MG/ML AMP IVP SCH (16:45)
--- NOTE | 2017-09-07 17:00 | NUR ---
RECEIVED PT FROM ER. ASSISTED BY ER STAFF. AWAKE. ALERT ORIENTED X4. NO SOB NOTED. IBUPROFEN JUST GIVEN AT ER WILL REASSESS FOR PAIN. PT AMBULATORY. SAFETY PRECAUTION IN PLACE. CALL LIGHT WITHIN REACH.
--- NOTE | 2017-09-07 17:01 | NUR ---
PT CAME WITH NO IV LINE. VANCOMYCIN IVF WAS NOT ABLE TO FINISH AT ER. ZOSYN NOT GIVEN AT ER. TO INSERT CENTRAL LINE.
[2017-09-07] MEDS ORDERED: ALUMINUM HYD/MAG/SIMETHICONE 30 ML UDC PO PRN (17:25)
[2017-09-07] MEDS ORDERED: DICYCLOMINE HCL LIQUID 10 MG/5 ML UDC PO SCH (17:27)
[2017-09-07] MEDS ORDERED: LIDOCAINE VISCOUS 2% 20 ML UDC PO SCH (17:27)
[2017-09-07] MEDS ORDERED: ALBUTEROL SULFATE/IPRATROPIU 3 ML SOL IH PRN (17:35)
[2017-09-07 18:00] VITALS: BP 98/73
[2017-09-07] MEDS: NEOMYCIN 500 MG TAB PO SCH ×2 (19:01→23:55)
[2017-09-07] MEDS: FUROSEMIDE 40 MG TAB PO SCH (19:01)
[2017-09-07] MEDS: LACTULOSE 20 GM/30 ML UDC PO SCH (19:01)
--- NOTE | 2017-09-07 19:29 | NUR ---
PT KEPT CLEAN, DRY AND COMFORTABLE. NEEDS ATTENDED. ENDORSED TO NEXT SHIFT, PT ON STABLE CONDITION. FOR CONTINUITY OF CARE. ENDORSED TO FOLLOW UP WITH MD FOR CENTRAL LINE PLACEMENT.
--- NOTE | 2017-09-07 19:30 | NUR ---
RECEIVED FROM AM RN IN BED AWAKE AND ALERT. AMBULATING WITH OUT A CANE TO RESTROOM INSIDE ROOM. ABLE TO USE CALL LIGHT FOR HELP. NO COMPLAINTS OF ANY PAIN AT THIS TIME. WAITING FOR CENTRAL LINE PLACEMENT RT NO IVF SITE AT THIS TIME. PT. RE-ORIENTED TO ROOM AND CALL LIGHT USE. ENCOURAGED TO CALL FOR ANY HELP HE MAY NEED OR IF IN PAIN. TELEMETRY MONITORING.
[2017-09-07 20:34] VITALS: BP 117/60
[2017-09-07] MEDS: DOCUSATE SODIUM 100 MG GELCAP PO SCH (21:00)
[2017-09-07] MEDS: PIPER/TAZO 3.375GM/D5W PREMIX 50 ML IV SCH (21:00)
--- NOTE | 2017-09-07 21:09 | NUR ---
PLACED ON N/C 3LPM DUE TO SAO2 AT 88% HR 82 RR 14BPM, NO DISTRESS NOTED, ON OXYGEN SAO2 96% HR 83 RR 14. BUDDY RN IS AWARE
[2017-09-07] MEDS: NACL 0.9% 1,000 ML IV SCH (21:19)
[2017-09-07] MEDS ORDERED: LORazepam 2 MG/ML VIAL IVP SCH (21:35)
[2017-09-07] MEDS ORDERED: MORPHINE SULFATE 2 MG/ML SYR IVP SCH (21:40)
[2017-09-07] MEDS ORDERED: LIDOCAINE 1% ***ER ONLY *** 50 ML ONE (22:28)
--- NOTE | 2017-09-07 22:39 | NUR ---
PT. HAVING PROCEDURE /CENTRAL LINE INSERTION BY MD CARDOSO/RESIDENT. NO NOTED RESTLESSNESS.
[2017-09-07] MEDS ORDERED: LORazepam 1 MG TAB PO SCH (23:00)
--- NOTE | 2017-09-07 23:05 | NUR ---
CENTRAL LINE INSERTION PROCEDURE DONE. PT. AWAKE AND ALERT. VERBALIZES WELL. WAITING FOR X-RAY TECH TO CONFIRM PLACEMENT.
[2017-09-07] MEDS: HYDROcodone/APAP 7.5/325 MG 1 TAB PO PRN (23:20)
[2017-09-07 23:29] VITALS: BP 124/54
[2017-09-08] MEDS: NACL 0.9% 1,000 ML IV SCH ×3 (03:02→08:45)
--- NOTE | 2017-09-08 04:41 | NUR ---
SLEEPING WELL AFTER PROCEDURE. AROUSABLE. TELEMETRY MONITORING. NO BLEEDING TO CL SITE.
[2017-09-08 04:50] VITALS: BP 118/62
[2017-09-08] MEDS: PIPER/TAZO 3.375GM/D5W PREMIX 50 ML IV SCH ×4 (05:00→12:27)
[2017-09-08] MEDS ORDERED: PIPERACILLIN/TAZOBACTAM 3.375 GM VIAL IV ONE (06:07)
[2017-09-08] MEDS: NEOMYCIN 500 MG TAB PO SCH ×2 (06:35→12:27)
--- NOTE | 2017-09-08 06:35 | NUR ---
PIPERACILLIN IVF FINISHED AT THIS TIME AND NO ADVERSE REACTIONS NOTED.
[2017-09-08 07:07] LABS: HEMATOCRIT 27.8 % (36-52); HEMOGLOBIN 9.5 g/dL (12.0-18.0); MEAN CORPUSCULAR HEMOGLOBIN 31 pg (27-31); MEAN CORPUSCULAR HGB CONC 34 g/dL (33-37); MEAN CORPUSCULAR VOLUME 91 fL (80-94); PLATELET COUNT (AUTO) 54 K/uL (140-450); RED BLOOD CELL COUNT(AUTO) 3.05 MIL/uL (4.20-6.10); RED CELL DISTRIBUTION WIDTH 15.1 % (11.6-13.7); WHITE BLOOD COUNT (AUTO) 4.3 K/uL (4.8-10.8)
--- NOTE | 2017-09-08 07:33 | NUR ---
ENDORSED TO THE NEXT RN FOR CONTINUITY OF CARE. AWAKE AND ALERT. NO SOB. TELEMETRY MONITORING. NEW CL TO RIGHT UPPER CHEST INTACT AND NO BLEEDING. CALL LIGHT WITH IN REACH AT ALL TIMES.
--- NOTE | 2017-09-08 07:35 | NUR ---
RECEIVED REPORT FROM NIGHT RN AT BEDSIDE, PT RESTING IN BED, A/OX4, NO S/S OF ACUTE DISTRESS, PT DENIES PAIN, TRIPLE LUMEN RIGHT IJ PATENT AND INTACT, PLAN OF CARE DISCUSSED WITH PT, PT VERBALIZED UNDERSTANDING, CALL LIGHT WITHIN REACH, SAFETY MEASURES ENSURED, WILL CONT TO MONITOR.
[2017-09-08 07:37] LABS: ANION GAP 6.1 (8-16); CARBON DIOXIDE 28.8 mmol/L (21-32); CREATININE 1.1 mg/dL (0.7-1.3); POTASSIUM 3.9 mmol/L (3.5-5.1)
[2017-09-08 08:00] VITALS: BP 125/66
[2017-09-08 08:30] LABS: LYMPHOCYTES % (MANUAL) 6 % (20-46); MONOCYTES % (MANUAL) 5 % (5-12)
[2017-09-08 08:57] LABS: MAGNESIUM 1.6 mg/dL (1.8-2.4); PHOSPHORUS 3.7 mg/dL (2.5-4.9)
[2017-09-08] MEDS ORDERED: LACTOBACILLUS RHAMNOSUS GG 1 EACH CAP PO SCH (09:00)
[2017-09-08] MEDS: LACTULOSE 20 GM/30 ML UDC PO SCH ×2 (09:22→12:39)
[2017-09-08] MEDS: DOCUSATE SODIUM 100 MG GELCAP PO SCH (09:22)
[2017-09-08] MEDS: FUROSEMIDE 40 MG TAB PO SCH (09:22)
--- NOTE | 2017-09-08 09:25 | NUR ---
DUE MEDICATIONS GIVEN WITH EDUCATION, PT VERBALIZES UNDERSTANDING, CALL LIGHT WITHIN REACH, WILL CONTINUE TO MONITOR.
[2017-09-08] MEDS: HYDROcodone/APAP 7.5/325 MG 1 TAB PO PRN (09:34)
[2017-09-08] MEDS ORDERED: MAG SULF 2000 MG/WATER PREMIX 50 ML IV SCH (10:30)
--- NOTE | 2017-09-08 10:33 | NUR ---
FNS REFERRAL RECEIVED ON 09/08/17. REFERRAL REASON DOES NOT MEET HIGH RISK CRITERIA PER HOSPITAL POLICY. PATIENT WILL BE SEEN AND ASSESSED ACCORDING TO THE NUTRITION CARE POLICY. PATIENT HAS BEEN SCREENED AND CATEGORIZED MODERATE NUTRITION RISK. PATIENT WILL BE SEEN WITHIN 3-5 DAYS OF ADMISSION. 09/10/2017 - 09/12/2017 KELSEY ARGUETA MBA, RD
[2017-09-08 12:03] VITALS: BP 139/61
[2017-09-08] MEDS ORDERED: NEOM500T2 PO (12:14)
[2017-09-08] MEDS ORDERED: ASCORBIC ACID 500 MG TAB PO SCH (12:30)
[2017-09-08] MEDS ORDERED: FERROUS SULFATE 325 MG TABEC PO SCH (12:30)
--- NOTE | 2017-09-08 12:50 | NUR ---
PT CLEARED FOR DISCHARGE. NS STOPPED.
--- NOTE | 2017-09-08 14:20 | NUR ---
PT CLEARED FOR DISCHARGE HOME. DISCHARGE INSTRUCTIONS PROVIDED. PT VERBALIZED UNDERSTANDING. RIGHT IJ DISCONTINUED. PRESSURE HELD, BLEEDING STOPPED. WRISTBANDS TAKEN OFF. PAPERWORK SIGNED. PT REFUSED WHEELCHAIR. PT AMBULATED TO LOBBY WITH GIRLFRIEND. NO S/S OF ACUTE DISTRESS. PT REMAINS STABLE.
[2017-09-09] MEDS ORDERED: ASCORBIC ACID 500 MG TAB PO SCH (09:00)
== END 2017-09-08 14:20 | disposition home or self-care (01) ==
LOC: MED 12:02 → MTU 15:36
PROVIDERS: ADMIT Family Medicine; ATTEND Family Medicine
DX: K74.60 Unspecified cirrhosis of liver (principal); K72.90 Hepatic failure, unspecified without coma; D64.9 Anemia, unspecified; E87.2 Acidosis; E87.8 Other disorders of electrolyte and fluid balance, not elsewhere classified; R31.9 Hematuria, unspecified; M51.34 Other intervertebral disc degeneration, thoracic region; L30.8 Other specified dermatitis; E66.9 Obesity, unspecified; Z68.36 Body mass index [BMI] 36.0-36.9, adult; F17.210 Nicotine dependence, cigarettes, uncomplicated
CPT/HCPCS: 36415; 36556; 70450; 71010; 76770; 76937; 80048; 80053; 80061; 80305; 81001; 82140; 83036; 83605; 83690; 83735; 83880; 84100; 84484; 85025; 85610; 85730; 87040; 87077; 87081; 87086; 87186; 93005; 94640; 94760; 96361; 96365; 96366; 96367; 96375; 99285; G0378; J1642; J2001; J2060; J2405; J2543; J3370; J3475; J7030; J7060; J7620; Q0092; J2270

== ENCOUNTER 2017-10-11 12:27 | Emergency (ER) | payer OTHER ==
[~2017-10-11] VITALS: Ht 182.9 cm; Wt 130.6 kg
[~2017-10-11 12:27] MED LIST changes: +NEOM500T2 PO
[2017-10-11 12:38] VITALS: BP 158/76
--- NOTE | 2017-10-11 12:43 | NUR ---
Patient to bed 04.
--- NOTE | 2017-10-11 12:45 | NUR ---
62/M BIB C/O GENERAL SPASMS X 2 HOURS; WANTS AMONIA LEVEL CHECK; CHRONIC RT SHOULDER AND STOMACH PAIN 8/10. HX; CHF, SHUNT , RT SHOULDER PAIN, GERD.RX; LASIX, LACTOLOSE, METADONE. DENIES N/V/D; PEARL LLL PITTING EDEMA +2 & LLL SLIGHTLY RED. AAOX4 WITH EVEN AND UNSTEADY GAIT; LUNGS CLEAR BL; PT DENIES ANY FEVER, CP, OR COUGH AT THIS TIME; PATIENT STATES PAIN OF 8/10 AT THIS TIME; VSS; PATIENT POSITIONED FOR COMFORT; HOB ELEVATED; BEDRAILS UP X2; BED DOWN. ER MD MADE AWARE OF PT STATUS.
--- NOTE | 2017-10-11 12:56 | NUR ---
LAB AT BEDSIDE
[2017-10-11 13:36] LABS: ANION GAP 8.4 (8-16); CARBON DIOXIDE 28.8 mmol/L (21-32); CREATININE 0.7 mg/dL (0.7-1.3); POTASSIUM 4.2 mmol/L (3.5-5.1)
[2017-10-11 13:38] LABS: BASOPHILS # (AUTO) 0.2 K/uL (0.00-0.22); BASOPHILS % (AUTO) 4.4 % (0.0-2.0); EOSINOPHILS # (AUTO) 0.1 K/uL (0-0.4); EOSINOPHILS % (AUTO) 1.6 % (0.0-4.0); HEMATOCRIT 29.2 % (36-52); LYMPHOCYTES # (AUTO) 0.5 K/uL (2.0-11.5); LYMPHOCYTES % (AUTO) 9.8 % (20.5-51.1); MEAN CORPUSCULAR HEMOGLOBIN 31 pg (27-31); MEAN CORPUSCULAR HGB CONC 34 g/dL (33-37); MEAN CORPUSCULAR VOLUME 90 fL (80-94); MONOCYTES # (AUTO) 0.5 K/uL (0.8-1.0); MONOCYTES % (AUTO) 8.6 % (1.7-9.3); NEUTROPHILS % (AUTO) 75.6 % (42.2-75.2); PLATELET COUNT (AUTO) 116 K/uL (140-450); RED BLOOD CELL COUNT(AUTO) 3.23 MIL/uL (4.20-6.10); RED CELL DISTRIBUTION WIDTH 14.6 % (11.6-13.7); WHITE BLOOD COUNT (AUTO) 5.4 K/uL (4.8-10.8)
[2017-10-11 13:41] LABS: ALBUMIN 2.7 g/dL (3.4-5.0)
[2017-10-11 14:02] LABS: TOTAL BILIRUBIN 1.6 mg/dL (0.0-1.0)
--- NOTE | 2017-10-11 14:04 | NUR ---
Hannah reyes in ED - 10/11/[address] at [address] STEWART EVALUATING PT AT BEDSIDE.
--- NOTE | 2017-10-11 14:04 | NUR ---
Dr. Forde evaluating patient at bedside.
[2017-10-11 14:14] VITALS: BP 133/73
--- NOTE | 2017-10-11 14:14 | NUR ---
Patient discharged with BP133/73; DENIES HEADACHE AT THIS TIME. Written and verbal after care instructions given and explained. Patient verbalized understanding. Ambulatory with steady gait. All questions addressed prior to discharge. Advised to follow up with PMD.
== END 2017-10-11 14:14 | disposition home or self-care (01) ==
LOC: MED 12:27
DX: E72.20 Disorder of urea cycle metabolism, unspecified (principal); M62.838 Other muscle spasm; K21.9 Gastro-esophageal reflux disease without esophagitis; Z85.89 Personal history of malignant neoplasm of other organs and systems; F17.200 Nicotine dependence, unspecified, uncomplicated
CPT/HCPCS: 36415; 80053; 82140; 85025; 99284

== ENCOUNTER 2017-10-11 16:24 | Inpatient (IN) | payer OTHER ==
[~2017-10-11] VITALS: Ht 182.9 cm; Wt 130.6 kg
[2017-10-11 16:32] VITALS: BP 169/72
--- NOTE | 2017-10-11 17:07 | NUR ---
Patient to bed 02.
--- NOTE | 2017-10-11 17:10 | NUR ---
Dr. Forde evaluating patient at bedside.
[2017-10-11] MEDS ORDERED: ONDANSETRON 4 MG/2 ML VIAL IVP PRN (17:25)
[2017-10-11] MEDS ORDERED: ACETAMINOPHEN 325 MG TAB PO PRN (17:25)
[2017-10-11] MEDS ORDERED: HYDROcodone/APAP 7.5/325 MG 1 TAB PO PRN (17:25)
[2017-10-11] MEDS ORDERED: NACL 0.9% 1,000 ML IV ONE (17:30)
[2017-10-11] MEDS ORDERED: KETOROLAC 30 MG/ML VIAL IVP ONE (17:30)
--- NOTE | 2017-10-11 17:30 | NUR ---
20G IV TO RFA VIA ULTRASOUND. PT AMINA WELL.
[2017-10-11] MEDS ORDERED: LACTULOSE 20 GM/30 ML UDC PO SCH (18:30)
--- NOTE | 2017-10-11 18:36 | NUR ---
Patient will be admitted to care of DR. JJ. Admited to TELE. Will go to room 107-B. Belongings list completed. Report to MARY RICE.
[2017-10-11 18:55] LABS: PROTHROMBIN TIME 12.3 secs (10.8-13.4)
[2017-10-11 19:01] LABS: APPEARANCE,URINE CLEAR (CLEAR); BILIRUBIN,URINE NEGATIVE (NEGATIVE); COLOR,URINE YELLOW (YELLOW); LEUKOCYTE ESTERASE ,URINE NEGATIVE (NEGATIVE); NITRITE, URINE NEGATIVE (NEGATIVE); UGLUCOSE NEGATIVE (NEGATIVE)
[2017-10-11 19:03] LABS: BLOOD, URINE NEGATIVE (NEGATIVE)
[2017-10-11 19:06] LABS: CHOL/HDL RATIO 1.5 (1-4.5); FREE T4 (FREE THYROXINE) 1.15 ng/dL (0.76-1.46); MAGNESIUM 1.6 mg/dL (1.8-2.4); PHOSPHORUS 3.4 mg/dL (2.5-4.9); THYROID STIMULATING HORMONE 0.76 uIU/mL (0.34-3.74)
[2017-10-11 19:10] LABS: BARBITURATE, URINE NEG. ng/ml (NEG <=200); BENZODIAZEPINE, URINE NEG. ng/mL (NEG <=200); CANNABINOID, URINE NEG. ng/mL (NEG <=50); COCAINE, URINE NEG. ng/mL (NEG <=300); OPIATE, URINE NEG. ng/mL (NEG <=2000); PHENCYCLIDINE SCREEN,URINE NEG. ng/mL (NEG <=25)
--- NOTE | 2017-10-11 19:20 | NUR ---
PT ARRIVED ON UNIT. PT IS AAOX4 AND SHOWS NO S/S OF ACUTE DISTRESS ON ROOM AIR. PT REPORT WAS GIVEN AT BEDSIDE TO NIGHT NURSE. V/S WERE TAKEN, WILL BE CHARTED BY NIGHT NURSE. ON TELE. SKIN IS INTACT; BLE ARE WARM TO TOUCH, EDEMATOUS, 4+ PITTING EDEMA. IV NOTED ON THE LFT AC WITH IVF'S INFUSING WELL. PT WAS EXPLAINED POC AND HE VERBALIZED UNDERSTANDING. THE BED IS IN LOW POSITION WITH CALL LIGHT WITHIN REACH. PT ENDORSED IN STABLE CONDITION.
[2017-10-11] MEDS: NACL 0.9% 1,000 ML IV SCH (19:30)
[2017-10-11 20:00] VITALS: BP 146/74
[2017-10-11] MEDS ORDERED: methylPREDNISolone SS 125 MG/2 ML VIAL IVP SCH (20:00)
[2017-10-11] MEDS ORDERED: HYDROcodone/APAP 10/325 MG 1 TAB TAB PO PRN (20:00)
[2017-10-11] MEDS ORDERED: ALBUTEROL SULFATE/IPRATROPIU 3 ML SOL IH PRN (20:00)
[2017-10-11] MEDS ORDERED: FUROSEMIDE 40 MG/4 ML VIAL IVP SCH (20:00)
[2017-10-11] MEDS ORDERED: ALBUTEROL SULFATE/IPRATROPIU 3 ML SOL IH SCH (20:27)
--- NOTE | 2017-10-11 20:45 | NUR ---
ABG WITH NO INCIDENT. RESULTS GIVEN VERBALLY TO JOSEFINA LONGORIA. NO ORDERS.
[2017-10-11] MEDS: NEOMYCIN 500 MG TAB PO SCH (20:56)
[2017-10-11] MEDS: DOCUSATE SODIUM 100 MG GELCAP PO SCH (21:00)
[2017-10-11] MEDS ORDERED: FUROSEMIDE 40 MG TAB PO SCH (21:00)
[2017-10-11] MEDS: MORPHINE SULFATE 2 MG/ML SYR IVP PRN (22:04)
[2017-10-11] MEDS ORDERED: MAG SULF 2000 MG/WATER PREMIX 50 ML IV SCH (22:18)
--- NOTE | 2017-10-11 22:49 | NUR ---
MEDICATION GIVEN, PT TOLERATED WELL, PT STABLE, NO DISTRESS NOTED, CALL LIGHT WITHIN REACH.
[2017-10-11 23:23] VITALS: BP 128/70
--- NOTE | 2017-10-12 00:23 | NUR ---
PT REFUSED MEDICATION, STATED THAT HE WANTS HIS PAIN MEDICATION, MORPHINE, AND DOES NOT WANT TO TAKE ANYTHING ELSE.
[2017-10-12] MEDS: MORPHINE SULFATE 2 MG/ML SYR IVP PRN ×2 (02:31→06:37)
--- NOTE | 2017-10-12 02:31 | NUR ---
PT C/O OF PAIN OF 8/10 ON R SHOULDER, PAIN MEDICATION GIVEN, PT STABLE, NO DISTRESS NOTED. CALL LIGHT WITHIN REACH WILL CONTINUE TO MONITOR.
[2017-10-12 04:00] VITALS: BP 127/68
[2017-10-12] MEDS ORDERED: methylPREDNISolone SS 40 MG/ML VIAL IVP SCH (04:00)
--- NOTE | 2017-10-12 05:20 | NUR ---
PT RESTING, NO DISTRESS NOTED, CALL LIGHT WITHIN REACH, WALKED TO BATHROOM AND BACK TO BED, WILL CONTINUE TO MONITOR.
[2017-10-12] MEDS: NEOMYCIN 500 MG TAB PO SCH ×2 (05:39)
[2017-10-12 07:06] LABS: BASOPHILS % (AUTO) 0.8 % (0.0-2.0); EOSINOPHILS % (AUTO) 0.2 % (0.0-4.0); HEMATOCRIT 28.7 % (36-52); LYMPHOCYTES # (AUTO) 0.4 K/uL (2.0-11.5); LYMPHOCYTES % (AUTO) 6.9 % (20.5-51.1); MEAN CORPUSCULAR HEMOGLOBIN 31 pg (27-31); MEAN CORPUSCULAR HGB CONC 35 g/dL (33-37); MEAN CORPUSCULAR VOLUME 89 fL (80-94); MONOCYTES % (AUTO) 0.6 % (1.7-9.3); NEUTROPHILS # (AUTO) 5.8 K/uL (1.8-7.7); NEUTROPHILS % (AUTO) 91.5 % (42.2-75.2); PLATELET COUNT (AUTO) 111 K/uL (140-450); RED BLOOD CELL COUNT(AUTO) 3.22 MIL/uL (4.20-6.10); RED CELL DISTRIBUTION WIDTH 14.1 % (11.6-13.7); WHITE BLOOD COUNT (AUTO) 6.2 K/uL (4.8-10.8)
--- NOTE | 2017-10-12 07:15 | NUR ---
GAVE BEDSIDE REPORT TO DAY SHIFT NURSE KRYSTAL HERNANDEZ, ENDORSED PLAN OF CARE, PT RESTING, NO DISTRESS NOTED.
[2017-10-12 07:19] LABS: ANION GAP 11.2 (8-16); CARBON DIOXIDE 25.7 mmol/L (21-32); CREATININE 0.9 mg/dL (0.7-1.3); POTASSIUM 3.9 mmol/L (3.5-5.1)
--- NOTE | 2017-10-12 07:20 | NUR ---
RECEIVED PT REPORT AT BEDSIDE FROM NIGHT NURSE. PT IS AAOX4 AND STATES MODERATE GENERALIZED PAIN, STATED. " I HAVE CHRONIC RT SHOULDER PAIN." PT HAS NORCO 10/325 MG PO FOR MODERATE PAIN WILL ADMINISTER. PT SHOWS NO S/S OF ACUTE DISTRESS ON ROOM AIR. ON TELE MONITOR. PT HAS NOTED BLE 4+ PITTING EDEMA, WARM TO TOUCH; OTHERWISE SKIN IS INTACT. IV NOTED ON THE RT FA WITH IVF'S INFUSING WELL AND NO SIGNS OF INFILTRATION. FALL RISK PROTOCOL AND SAFETY PRECAUTIONS ARE IN PLACE. PT WAS EXPLAINED POC FOR TODAY AND VERBALIZED UNDERSTANDING. THE BED IS IN LOW POSITION WITH CALL LIGHT WITHIN REACH. WILL CONTINUE TO MONITOR.
[2017-10-12 07:31] LABS: MAGNESIUM 2.2 mg/dL (1.8-2.4); PHOSPHORUS 3.9 mg/dL (2.5-4.9)
[2017-10-12 07:52] VITALS: BP 150/69
[2017-10-12] MEDS: NACL 0.9% 1,000 ML IV SCH (08:16)
[2017-10-12] MEDS: DOCUSATE SODIUM 100 MG GELCAP PO SCH (08:16)
[2017-10-12] MEDS ORDERED: LACTULOSE 20 GM/30 ML UDC PO SCH ×2 (09:00)
[2017-10-12] MEDS ORDERED: RIFAXIMIN 550 MG TAB PO SCH (09:00)
[2017-10-12] MEDS ORDERED: FUROSEMIDE 20 MG/2 ML VIAL IVP SCH (09:00)
--- NOTE | 2017-10-12 09:00 | NUR ---
PT STATED HE DID NOT WANT TO TAKE MEDICATIONS RIGHT NOW BC HE WOULD LIKE TO SPEAK TO DR ROTHMAN REGARDING BEING DISCHARGED TODAY SINCE HIS AMMONIA LEVEL IS BETTER FROM YESTERDAY AT 48. PT SPOKE WITH DR ROTHMAN EXPLAINING HIS POC TO STAY ONE MORE NIGHT D/T HIS AMMONIA LEVELS, MONITORING HIS MUSCLE SPASMS AND REQUEST FOR CM TO APPROVE HIS NEW MEDICATION. PT STATED, " I CAN CONTINUE MY MEDICATIONS AT HOME TO LOWER MY AMMONIA LEVELS AND IF I FEEL MY MUSCLE SPASMS COME BACK I WILL COME BACK TO THE ER. MY PCP CAN FOLLOW UP WITH MY APPROVAL FOR THE NEW MEDICATION." DR ROTHMAN EXPLAINED THE RISKS AND BENEFITS FOR CONTINUING HIS CARE AT [facility]. PT STATED," I GET TO ANXIOUS BEING HERE AND I FEEL BETTER, I WOULD LIKE TO LEAVE AMA." PT AND SPOKE REGARDING THE CARE AGAIN AND PT CONTINUED TO INSIST ON LEAVING AMA.
--- NOTE | 2017-10-12 09:30 | NUR ---
PT LEFT UNIT WITH STEADY GAIT USING CANE WITH RN PRESENT AT SIDE.
[2017-10-12 12:19] LABS: FOLIC ACID 13.5 ng/mL (>3.0)
[2017-10-12] MEDS ORDERED: methylPREDNISolone SS 125 MG/2 ML VIAL IVP SCH (13:00)
[2017-10-13] MEDS ORDERED: methylPREDNISolone SS 40 MG/ML VIAL IVP SCH (05:00)
== END 2017-10-12 09:30 | disposition left against medical advice (07) | DRG 434 ==
LOC: MED 16:24 → MTU 17:39
PROVIDERS: ADMIT Family Medicine; ATTEND Family Medicine
DX: K74.60 Unspecified cirrhosis of liver (principal); K72.90 Hepatic failure, unspecified without coma; E83.51 Hypocalcemia; E66.9 Obesity, unspecified; Z68.39 Body mass index [BMI] 39.0-39.9, adult; Z53.21 Procedure and treatment not carried out due to patient leaving prior to being seen by health care provider; D63.8 Anemia in other chronic diseases classified elsewhere; M47.894 Other spondylosis, thoracic region; I70.0 Atherosclerosis of aorta; I89.0 Lymphedema, not elsewhere classified; F17.210 Nicotine dependence, cigarettes, uncomplicated; Z85.9 Personal history of malignant neoplasm, unspecified; K21.9 Gastro-esophageal reflux disease without esophagitis; B19.20 Unspecified viral hepatitis C without hepatic coma; K80.20 Calculus of gallbladder without cholecystitis without obstruction
CPT/HCPCS: 36415; 36600; 71010; 80048; 80305; 81003; 82140; 82150; 82607; 82728; 82746; 82803; 83540; 83605; 83690; 83735; 83880; 84100; 84439; 84443; 84484; 85025; 85045; 85610; 85730; 87081; 87086; 93005; 94640; 96374; 99285; J1644; J1885; J1940; J2270; J2920; J2930; J3475; J7030; J7620

== ENCOUNTER 2017-11-01 16:41 | Emergency (ER) | payer OTHER ==
[~2017-11-01] VITALS: Ht 182.9 cm; Wt 132.6 kg
[2017-11-01 17:12] VITALS: BP 154/75
--- NOTE | 2017-11-01 17:17 | NUR ---
PT AA&OX4 AT THIS TIME; RR EVEN/UNLABORED; PT TO LOBBY AWAITING OPEN BED.
--- NOTE | 2017-11-01 18:45 | NUR ---
PT AMBULATED TO OVERFLOW CHAIR.
--- NOTE | 2017-11-01 18:47 | NUR ---
62/M presents to ED with complaints of muscle spasms starting at 1645 today. Pt states "I think my ammonia level is high." Pt also reports having right sided abdominal pain radiates to mid abd to LLQ. Pt also c/o right shoulder pain which is chronic. Pt ambulates with a cane, steady gait. AOX4, clear speech.
--- NOTE | 2017-11-01 19:22 | NUR ---
Pt report given to Vinicio HERNANDEZ. Transfer of care at this time.
[2017-11-01 19:32] VITALS: BP 154/75
[2017-11-01] MEDS ORDERED: IBUPROFEN 800 MG TAB PO ONE (19:45)
[2017-11-01 19:59] LABS: BASOPHILS # (AUTO) 0.3 K/uL (0.00-0.22); BASOPHILS % (AUTO) 4.8 % (0.0-2.0); EOSINOPHILS % (AUTO) 0.4 % (0.0-4.0); HEMOGLOBIN 11.3 g/dL (12.0-18.0); LYMPHOCYTES # (AUTO) 0.5 K/uL (2.0-11.5); LYMPHOCYTES % (AUTO) 7.3 % (20.5-51.1); MEAN CORPUSCULAR HEMOGLOBIN 31 pg (27-31); MEAN CORPUSCULAR HGB CONC 34 g/dL (33-37); MEAN CORPUSCULAR VOLUME 89 fL (80-94); MONOCYTES # (AUTO) 0.2 K/uL (0.8-1.0); NEUTROPHILS # (AUTO) 5.8 K/uL (1.8-7.7); NEUTROPHILS % (AUTO) 84.5 % (42.2-75.2); PLATELET COUNT (AUTO) 97 K/uL (140-450); RED BLOOD CELL COUNT(AUTO) 3.71 MIL/uL (4.20-6.10); RED CELL DISTRIBUTION WIDTH 14.8 % (11.6-13.7); WHITE BLOOD COUNT (AUTO) 6.8 K/uL (4.8-10.8)
[2017-11-01 20:06] LABS: ANION GAP 10.8 (8-16); CARBON DIOXIDE 29.2 mmol/L (21-32)
[2017-11-01 20:15] LABS: APPEARANCE,URINE CLEAR (CLEAR); BILIRUBIN,URINE NEGATIVE (NEGATIVE); BLOOD, URINE TRACE-I (NEGATIVE); COLOR,URINE ORANGE (YELLOW); LEUKOCYTE ESTERASE ,URINE NEGATIVE (NEGATIVE); NITRITE, URINE NEGATIVE (NEGATIVE); UGLUCOSE NEGATIVE (NEGATIVE)
[2017-11-01 20:17] LABS: ALBUMIN 3.2 g/dL (3.4-5.0); TOTAL BILIRUBIN 2.1 mg/dL (0.0-1.0)
[2017-11-01 20:21] LABS: RBC,URINE 3-10 (FEW) /HPF (0-5); WBC,URINE 0-5 (RARE) /HPF (0-5)
--- NOTE | 2017-11-01 20:28 | NUR ---
PATIENT LEFT WITHOUT BEING SEEN BY . NO FURTHER CARE PROVIDED FOR PATIENT. DR STEWART STS " NO I DID NOT SEE THIS PT."
== END 2017-11-01 20:28 | disposition left against medical advice (07) ==
LOC: MED 16:41
DX: R25.2 Cramp and spasm (principal); Z53.21 Procedure and treatment not carried out due to patient leaving prior to being seen by health care provider
CPT/HCPCS: 36415; 80053; 81001; 82140; 82150; 82550; 83690; 84484; 85025; 99281

== ENCOUNTER 2017-11-10 14:18 | Emergency (ER) | payer OTHER ==
[~2017-11-10] VITALS: Ht 182.9 cm; Wt 135.2 kg
[2017-11-10 14:39] VITALS: BP 134/86
--- NOTE | 2017-11-10 14:43 | NUR ---
PT TRIAGED. AMBULATED TO ER LOBBY WAITING FOR A BED. ERMD NOTIFIED OF PATIENT STATUS.
--- NOTE | 2017-11-10 16:37 | NUR ---
PT TRIAGED, WAITING FOR ER BED. ERMD AWARE OF PATIENT STATUS.
[2017-11-10 17:00] LABS: ANION GAP 10.1 (8-16); CREATININE 1.1 mg/dL (0.7-1.3); POTASSIUM 4.1 mmol/L (3.5-5.1)
[2017-11-10 17:06] LABS: ALBUMIN 2.8 g/dL (3.4-5.0)
--- NOTE | 2017-11-10 21:19 | NUR ---
62 Y/O M W/C/O SOB/COUGH AND SORETHROAT X 5 DAYS, MED HX SHUNT TO ESOPHAGUS, R FROZEN SHOULDER, IRREGUALR HEART BEAT, AND CIRRHOSES. ON MONITOR, VSS. MD DELMA MADE AWARE.
[2017-11-10 22:10] VITALS: BP 145/79
--- NOTE | 2017-11-10 22:10 | NUR ---
Patient discharged BY DR DYE with v/s stable. Written and verbal after care instructions given and explained BY ER MD. Patient alert, oriented and verbalized understanding of instructions. Ambulatory with to car. All questions addressed prior to discharge. ID band removed. Patient advised to follow up with PMD. Rx of PROMETHAZINE, AND AUGMENTIN given. Patient educated on indication of medication including possible reaction and side effects. Opportunity to ask questions provided and answered.
== END 2017-11-10 22:10 | disposition home or self-care (01) ==
LOC: MED 14:18
DX: J20.9 Acute bronchitis, unspecified (principal); K21.9 Gastro-esophageal reflux disease without esophagitis; K74.60 Unspecified cirrhosis of liver
CPT/HCPCS: 36415; 71010; 80053; 83880; 99285

== ENCOUNTER 2017-11-13 08:28 | Inpatient (IN) | payer OTHER ==
[~2017-11-13] VITALS: Ht 182.9 cm; Wt 134.0 kg
[2017-11-13 09:06] VITALS: BP 150/95
--- NOTE | 2017-11-13 09:06 | NUR ---
PATIENT JUST CAME OUT FROM THE BATHROOM SINCE ARRIVAL TO ER WITH BARIATRIC NURSE
--- NOTE | 2017-11-13 09:24 | NUR ---
PATIENT STILL IN THE WC AWAITING FOR A BED. PATIENT IN NO RESP. DISTRESS. PATIENT FELT BETTER AND NO SOB AFTER TX. FROM THE FIELD. LUNGS CLEAR TO AUSCULTATE
--- NOTE | 2017-11-13 09:37 | NUR ---
PATIENT TAKEN TO BED #1 VIA WC. ERMD MADE AWARE
--- NOTE | 2017-11-13 09:47 | NUR ---
PER FERRY PILOT,PATIENT HAD DIFFICULTY CLIMBING STAIRS SEC. TO SOB. RESP. ALBUT/ATROV. GIVEN FIELD. POX IMPROVED FROM 94% TO 97%. PATIENT SEEN IN ER LAST WK. WITH DX; OF BRONCHITIS PER PATIENT. UNKNOWN ANTIBIOTIC. HX: SHUNT ESOPHAGUS,LIVER CIRRHOSIS,LT. HIP ARTRITIS. LUNG SOUND PEARL WHEEZES. PT DENIES ANY FEVERS/CHILLS/ NO N/V/D. ON RA@92%, ER INFORMED, AWAITING FOR EVAL.
--- NOTE | 2017-11-13 10:02 | NUR ---
DELMA ROSS IN ROOM FOR EVAL.
[2017-11-13] MEDS ORDERED: ALBUTEROL 0.083% 2.5 MG/3 ML NEBU INH ONE (10:05)
--- NOTE | 2017-11-13 10:26 | NUR ---
SPRING FLOOR SERVICE WORKER AT BEDSIDE FOR BLOOD COLLECTION
[2017-11-13 10:45] LABS: BASOPHILS # (AUTO) 0.1 K/uL (0.00-0.22); BASOPHILS % (AUTO) 3.2 % (0.0-2.0); EOSINOPHILS % (AUTO) 0.6 % (0.0-4.0); HEMATOCRIT 28.8 % (36-52); HEMOGLOBIN 9.6 g/dL (12.0-18.0); LYMPHOCYTES # (AUTO) 0.5 K/uL (2.0-11.5); LYMPHOCYTES % (AUTO) 14.2 % (20.5-51.1); MEAN CORPUSCULAR HEMOGLOBIN 30 pg (27-31); MEAN CORPUSCULAR HGB CONC 33 g/dL (33-37); MEAN CORPUSCULAR VOLUME 89 fL (80-94); MONOCYTES # (AUTO) 0.3 K/uL (0.8-1.0); MONOCYTES % (AUTO) 7.8 % (1.7-9.3); NEUTROPHILS # (AUTO) 2.6 K/uL (1.8-7.7); NEUTROPHILS % (AUTO) 74.2 % (42.2-75.2); PLATELET COUNT (AUTO) 76 K/uL (140-450); RED BLOOD CELL COUNT(AUTO) 3.24 MIL/uL (4.20-6.10); RED CELL DISTRIBUTION WIDTH 14.5 % (11.6-13.7); WHITE BLOOD COUNT (AUTO) 3.5 K/uL (4.8-10.8)
[2017-11-13 10:58] LABS: ALBUMIN 2.7 g/dL (3.4-5.0); CREATININE 1.1 mg/dL (0.7-1.3); MAGNESIUM 2.1 mg/dL (1.8-2.4); TOTAL BILIRUBIN 1.1 mg/dL (0.0-1.0)
[2017-11-13 11:02] LABS: ANION GAP 5.2 (8-16); CARBON DIOXIDE 31.8 mmol/L (21-32)
[2017-11-13 11:54] LABS: PROTHROMBIN TIME 11.6 secs (10.8-13.4)
[2017-11-13] MEDS ORDERED: HYDROcodone/APAP 5/325 MG 1 TAB TAB PO PRN (11:55)
[2017-11-13] MEDS ORDERED: ONDANSETRON 4 MG/2 ML VIAL IVP PRN (11:55)
[2017-11-13] MEDS ORDERED: ACETAMINOPHEN 325 MG TAB PO PRN (11:55)
[2017-11-13] MEDS ORDERED: NITROGLYCERIN 0.4 MG TAB SL PRN (12:05)
--- NOTE | 2017-11-13 12:44 | NUR ---
ADMITTING PHYSICIAN AT BEDSIDE FOR ASSESSMENT. PT DENIES ANY CHEST PAIN OR SOB AT THIS TIME. PT TALKING WITH FAMILY ON THE PHONE.
[2017-11-13] MEDS ORDERED: METOPROLOL 25 MG TAB PO SCH (13:00)
[2017-11-13] MEDS ORDERED: LISINOPRIL 10 MG TAB PO SCH (13:00)
[2017-11-13] MEDS ORDERED: ASPIRIN 81 MG TAB.CHEW PO SCH (13:00)
--- NOTE | 2017-11-13 13:16 | NUR ---
PT UP TO BATHROOM, REPORTS HAVING BM. MILD SOB WITH EXERTION NOTED. PT DENIES ANY CHEST PAIN.
[2017-11-13] MEDS ORDERED: [UNRECOGNIZED DRUG - OTHER] PO ONE ×2 (14:10)
[2017-11-13] MEDS ORDERED: ALUMINUM HYD PO ONE ×2 (14:10)
[2017-11-13] MEDS ORDERED: MAG PO ONE ×2 (14:10)
[2017-11-13] MEDS ORDERED: ALBUTEROL SULFATE/IPRATROPIU 3 ML SOL IH PRN (14:15)
[2017-11-13 14:26] LABS: CHOL/HDL RATIO 1.4 (1-4.5)
--- NOTE | 2017-11-13 15:25 | NUR ---
Patient will be admitted to care of TELE. . Will go to room. Belongings list completed. Report to .
[2017-11-13 16:00] VITALS: BP 132/77
--- NOTE | 2017-11-13 16:00 | NUR ---
REPORT RECEIVED FROM FRANCIS RN, PT AWAKE ALERT, ECHOCARDIOGRAM BEING DONE AT BEDSIDE.
[2017-11-13] MEDS: LEVOFLOXACIN 500 MG/D5W PREMIX 100 ML IV SCH (16:08)
[2017-11-13] MEDS: NACL 0.9% 1,000 ML IV SCH ×2 (16:09→21:53)
[2017-11-13] MEDS ORDERED: METHADONE 10 MG TAB PO SCH (16:50)
--- NOTE | 2017-11-13 17:00 | NUR ---
PT ORIENTED TO ROOM AND FLOOR, PT UP TO BATHROOM TO CHANGE TO GOWN, PT PLACED ON PRAWN TRAWLER HAND, PT WITH INCREASED WORK OF BREATHING WITH WALKING, RETURNED TO UNLABORED BREATHING AT REST, IV ANTIBIOTIC STARTED, IVF STARTED PER ORDER, MD MADE AWARE OF METHADONE REQUEST BY PT, INITIAL ASSESSMENT DONE, LOWER LEG WOUND PHOTO TAKEN IN ER, NO OTHER WOUNDS NOTED, BILAT LOWER EXT WITH +3 EDEMA NOTED.
--- NOTE | 2017-11-13 18:05 | NUR ---
[facility] [phone], CLOSED FOR THE DAY, UNABLE TO VERIFY OUTPT TREATMENT BY PHONE, PER PHARMACIST LORENA, UNABLE TO START METHADONE TODAY BECAUSE UNABLE TO VERIFY, MD MCCULLOUGH MADE AWARE, WILL REPORT TO ONCOMING SHIFT TO CALL CLINIC TOMORROW.
[2017-11-13] MEDS: ALBUTEROL SULFATE/IPRATROPIU 3 ML SOL IH SCH (19:20)
--- NOTE | 2017-11-13 19:33 | NUR ---
RECEIVED HANDOFF REPORT FROM AM MARY LUEVANO. PATIENT A&OX4. PATIENT STATES HAVING SOB. RT IN TO SEE PATIENT. PATIENT DENIES PAIN. IV SITE PATENT AND INTACT. TELE BOX IN PLACE. NO SIGNS OR SYMPTOMS OF ACUTE DISTRESS NOTED. CALL LIGHT WITHIN REACH. WILL CONTINUE TO MONITOR.
--- NOTE | 2017-11-13 19:55 | NUR ---
RECEIVED CRITICAL TROPONIN REPORT FROM LAB. REPORTED TO DR. GARVIN.
[2017-11-13 20:00] VITALS: BP 163/84
[2017-11-13] MEDS ORDERED: SIMVASTATIN 20 MG TAB PO SCH (21:00)
[2017-11-13] MEDS ORDERED: CLINDAMYCIN 600 MG in DEXTROSE 5% 50 ML IV SCH (21:00)
[2017-11-13] MEDS: METOPROLOL 25 MG TAB PO SCH (21:15)
[2017-11-13] MEDS: LACTULOSE 20 GM/30 ML UDC PO SCH (21:16)
--- NOTE | 2017-11-13 21:30 | NUR ---
PM MEDS GIVEN WITH EDUCATION. PATIENT VERBALIZED UNDERSTANDING. NO SIGNS OR SYMPTOMS OF ACUTE DISTRESS NOTED. CALL LIGHT WITHIN REACH. WILL CONTINUE TO MONITOR.
[2017-11-13] MEDS ORDERED: CLINDAMYCIN 600 MG/4 ML VIAL ONE (21:51)
[2017-11-13] MEDS: ZOLPIDEM 5 MG TAB PO PRN (22:05)
[2017-11-13] MEDS ORDERED: IBUPROFEN 400 MG TAB PO PRN (22:25)
[2017-11-14] VITALS: BP 138/71
--- NOTE | 2017-11-14 01:43 | NUR ---
PATIENT RESTING IN BED. NO SIGNS OR SYMPTOMS OF ACUTE DISTRESS NOTED. CALL LIGHT WITHIN REACH. WILL CONTINUE TO MONITOR.
[2017-11-14 04:00] VITALS: BP 152/86
[2017-11-14] MEDS: NACL 0.9% 1,000 ML IV SCH (04:33)
[2017-11-14] MEDS: CLINDAMYCIN IV SCH ×3 (04:33→20:31)
[2017-11-14] MEDS: NACL 0.9% IV SCH ×3 (04:33→20:31)
[2017-11-14] MEDS ORDERED: CLINDAMYCIN 600 MG/4 ML VIAL ONE (04:35)
--- NOTE | 2017-11-14 04:43 | NUR ---
LAB IN TO SEE PATIENT.
--- NOTE | 2017-11-14 04:50 | NUR ---
PATIENT AMBULATORY TO BATHROOM, PATIENT COMPLAINS OF SHORTNESS OF BREATH. APPLIED O2. RT IN TO SEE PATIENT. VITALS ARE STABLE. SAFETY MEASURES ENSURED. WILL CONTINUE TO MONITOR
[2017-11-14] MEDS: ALBUTEROL SULFATE/IPRATROPIU 3 ML SOL IH SCH ×3 (06:55→18:39)
--- NOTE | 2017-11-14 06:58 | NUR ---
RT IN TO SEE PATIENT
--- NOTE | 2017-11-14 07:31 | NUR ---
ENDORSED PLAN OF CARE TO AM RN. PATIENT IN STABLE CONDITION
--- NOTE | 2017-11-14 07:32 | NUR ---
RECEIVED REPORT FROM DERRICK BUILDER NURSE. PATIENT LYING IN BED SLEEPING, AROUSABLE BY VOICE. NO DISTRESS NOTED. DENIES ANY PAIN AT THIS TIME. RESPIRATIONS EVEN, UNLABORED, ON O2 2L/MIN VIA NC. AAOX4, CALM, COOPERATIVE, SKIN COLOR APPROPRIATE TO ETHNICITY, WARM TO TOUCH. HAS RIGHT LE OPEN WOUND [employer], NO S/S OF INFECTION NOTED. LUNGS CTA ON ALL LOBES. ABDOMEN SOFT, NON-DISTENDED. B/L LE +1 PITTING EDEMA NOTED. IV SITE IS INTACT, PATENT, AND INFUSING IVF PER ORDERS. REVIEWED PLAN OF CARE WITH PATIENT. PATIENT VERBALIZED UNDERSTANDING. SAFETY MEASURES IN PLACE, CALL LIGHT WITHIN REACH, FALL PREVENTIONS IN PLACE. WILL CONTINUE TO MONITOR.
[2017-11-14 08:00] VITALS: BP 137/72
[2017-11-14 08:06] LABS: BASOPHILS # (AUTO) 0.1 K/uL (0.00-0.22); BASOPHILS % (AUTO) 2.1 % (0.0-2.0); EOSINOPHILS # (AUTO) 0.1 K/uL (0-0.4); EOSINOPHILS % (AUTO) 1.9 % (0.0-4.0); HEMATOCRIT 28.7 % (36-52); HEMOGLOBIN 9.5 g/dL (12.0-18.0); LYMPHOCYTES # (AUTO) 0.8 K/uL (2.0-11.5); LYMPHOCYTES % (AUTO) 19.6 % (20.5-51.1); MEAN CORPUSCULAR HEMOGLOBIN 30 pg (27-31); MEAN CORPUSCULAR HGB CONC 33 g/dL (33-37); MEAN CORPUSCULAR VOLUME 90 fL (80-94); MONOCYTES # (AUTO) 0.3 K/uL (0.8-1.0); MONOCYTES % (AUTO) 7.3 % (1.7-9.3); NEUTROPHILS # (AUTO) 2.8 K/uL (1.8-7.7); NEUTROPHILS % (AUTO) 69.1 % (42.2-75.2); PLATELET COUNT (AUTO) 94 K/uL (140-450); RED CELL DISTRIBUTION WIDTH 14.6 % (11.6-13.7); WHITE BLOOD COUNT (AUTO) 4.1 K/uL (4.8-10.8)
[2017-11-14 08:35] LABS: ANION GAP 7.8 (8-16); CARBON DIOXIDE 30.1 mmol/L (21-32); POTASSIUM 3.9 mmol/L (3.5-5.1)
--- NOTE | 2017-11-14 08:59 | NUR ---
PATIENT HAS BEEN SCREENED AND CATEGORIZED LOW NUTRITION RISK. PATIENT WILL BE SEEN WITHIN 7 DAYS OF ADMISSION. 11/[address] Addendum: 11/14/17 at [address] PATIENT HAS BEEN RESCREENED AND RECATEGORIZED HIGH NUTRITION RISK. PATIENT WILL BE SEEN WITHIN 1-2 DAYS OF ADMISSION. 11/13/17-11/14/[address]
[2017-11-14] MEDS ORDERED: FUROSEMIDE 40 MG TAB PO SCH (09:00)
[2017-11-14] MEDS ORDERED: LISINOPRIL 10 MG TAB PO SCH (09:00)
[2017-11-14] MEDS ORDERED: ASPIRIN 81 MG TAB.CHEW PO SCH (09:00)
[2017-11-14] MEDS: METOPROLOL 25 MG TAB PO SCH ×2 (09:00→20:31)
--- NOTE | 2017-11-14 09:30 | NUR ---
PATIENT SITTING IN BED WATCHING TV. NO DISTRESS NOTED. DENIES ANY PAIN. RESPIRATIONS EVEN, UNLABORED, ON ROOM AIR. SCHEDULED MEDICATIONS DUE GIVEN. SAFETY MEASURES IN PLACE, CALL LIGHT WITHIN REACH. WILL CONTINUE TO MONITOR.
[2017-11-14] MEDS: LACTULOSE 20 GM/30 ML UDC PO SCH ×2 (09:54→20:32)
[2017-11-14] MEDS: DOCUSATE 100 MG/10 ML UDC PO SCH (09:54)
--- NOTE | 2017-11-14 10:05 | NUR ---
ASSISTED PATIENT ON BEDPAN. WILL CONTINUE TO MONITOR.
--- NOTE | 2017-11-14 12:10 | NUR ---
PATIENT LYING IN BED TALKING WITH MOTHER AT BEDSIDE. NO DISTRESS NOTED. RESPIRATIONS EVEN, UNLABORED, ON O2 2L/MIN VIA NC. SCHEDULED MEDICATIONS DUE GIVEN. ASSISTED PATIENT ON AND OFF BEDPAN. NO BM NOTED. SAFETY MEASURES IN PLACE, CALL LIGHT WITHIN REACH. WILL CONTINUE TO MONITOR.
--- NOTE | 2017-11-14 14:00 | NUR ---
PATIENT LYING IN BED SLEEPING, AROUSABLE BY VOICE. NO DISTRESS NOTED. DENIES ANY PAIN. CONDITION UNCHANGED. SCHEDULED MEDICATIONS DUE GIVEN. SAFETY MEASURES IN PLACE, CALL LIGHT WITHIN REACH. WILL CONTINUE TO MONITOR.
--- NOTE | 2017-11-14 15:00 | NUR ---
PATIENT SLEEPING IN BED, AROUSABLE BY VOICE. NO DISTRESS NOTED. CONDITION UNCHANGED. SCHEDULED ANTIBIOTICS MEDICATIONS DUE GIVEN. PATIENT'S SISTER CALLED VIA PHONE AND ASK ABOUT PATIENT'S CONDITION. PATIENT ALLOWED NURSE TO GIVE HER SISTER INFORMATION. ANSWERED ALL OF SISTER'S QUESTIONS VIA PHONE. WILL CONTINUE TO MONITOR.
[2017-11-14] MEDS: METHADONE 10 MG TAB PO SCH (15:08)
[2017-11-14] MEDS: LEVOFLOXACIN 500 MG/D5W PREMIX 100 ML IV SCH (15:12)
--- NOTE | 2017-11-14 15:14 | NUR ---
11/14/17 RD INITIAL ASSESSMENT COMPLETED PLEASE REFER TO NUTRITION ASSESSMENT UNDER CARE ACTIVITY FOR ESTIMATED NUTRITIONAL NEEDS. 1.RD TO DISCUSS CARDIAC DIET WITH PT (COMPLETED) 2.PT TO CONTINUE WITH CURRENT CARDIAC DIET ONCE DISCHARGED (DISCUSSED WITH ) 3.RD TO FOLLOW-UP IN 2-3 DAYS, HIGH RISK ASHLEY HANLEY RD
[2017-11-14] MEDS: FUROSEMIDE 40 MG/4 ML VIAL IVP SCH (16:44)
--- NOTE | 2017-11-14 17:00 | NUR ---
PATIENT SITTING IN BED WATCHING TV. NO DISTRESS NOTED. DENIES ANY PAIN. CONDITION UNCHANGED. SAFETY MEASURES IN PLACE, CALL LIGHT WITHIN REACH. WILL CONTINUE TO MONITOR.
--- NOTE | 2017-11-14 18:00 | NUR ---
PATIENT AMBULATED TO BATHROOM AND BACK WITH SLOW STEADY GAIT. REPORTS FEELING "FINE" WITH NO DYSPNEA IN THE BATHROOM. ASSISTED PATIENT BACK TO BED AFTER HE FINISHED. SAFETY MEASURES IN PLACE, CALL LIGHT WITHIN REACH. WILL CONTINUE TO MONITOR.
--- NOTE | 2017-11-14 19:20 | NUR ---
GAVE REPORT TO COMPENSATION AGENT NURSE FOR CONTINUITY OF CARE. PATIENT IN STABLE CONDITION.
--- NOTE | 2017-11-14 19:30 | NUR ---
RECEIVED REPORT FROM DAY SHIFT RN, PATIENT RESTING IN BED, NO S/S OF DISTRESS NOTED, RESPIRATION EVEN AND UNLABORED, ON NC 2L. IV ON RT FOREARM 20G, SALINE LOCK, PATENT AND INTACT. PLAN OF CARE DISCUSSED, PATIENT VERBALIZED UNDERSTANDING, CALL LIGHT WITHIN REACH, SAFETY MEASURE ENSURED, WILL CONTINUE TO MONITOR.
[2017-11-14 20:00] VITALS: BP 121/56
--- NOTE | 2017-11-14 20:38 | NUR ---
REFUSED LACTULOSE, EDUCATION GIVEN, PATIENT STILL REFUSED, AND STATED," MY LIVER DOCTOR TOLD ME IF I HAD DIARRHEA, THEN I COULD STOP TAKING THE MEDICATION, I HAD DIARRHEA TODAY, SO I DON'T WANT IT." DUE MEDICATION GIVEN, PATIENT TOLERATED WELL. NO S/S OF DISTRESS NOTED, RESPIRATION EVEN AND UNLABORED, CALL LIGHT WITHIN REACH, SAFETY MEASURE ENSURED, WILL CONTINUE TO MONITOR.
--- NOTE | 2017-11-14 23:50 | NUR ---
PATIENT'S RIGHT FOREARM IS SWOLLEN, UPON ASSESSMENT, PATIENT DENIES PAIN AND NUMBNESS, MOVES FIVE FINGERS FREELY. MADE DR. GARVIN AWARE, DR. GARVIN SAID," I WILL COME TO CHECK PATIENT."
--- NOTE | 2017-11-15 02:18 | NUR ---
PATIENT IS SLEEPING, NO S/S OF DISTRESS NOTED, RESPIRATION EVEN AND UNLABORED, CALL LIGHT WITHIN REACH, SAFETY MEASURE ENSURED, WILL CONTINUE TO MONITOR.
[2017-11-15] MEDS: ZOLPIDEM 5 MG TAB PO PRN (03:03)
[2017-11-15] MEDS: NACL 0.9% IV SCH (04:05)
[2017-11-15] MEDS: CLINDAMYCIN IV SCH (04:05)
--- NOTE | 2017-11-15 04:10 | NUR ---
CHARGE NURSE STARTED NEW IV ON LT FOREARM 24G, PATIENT TOLERATED WELL.
--- NOTE | 2017-11-15 05:16 | NUR ---
RT FOREARM STILL SWOLLEN, UPON ASSESSMENT, ALL FINGERS MOVE FREELY, PATIENT DENIES PAIN OR NUMBNESS, CAP REFILL LESS THAN 3 SECONDS, ARM IS ELEVATED, WILL CONTINUE TO MONITOR.
[2017-11-15] MEDS: ALBUTEROL SULFATE/IPRATROPIU 3 ML SOL IH SCH ×3 (07:10→19:40)
--- NOTE | 2017-11-15 07:10 | NUR ---
PATIENT C/O OF NASAL DRYNESS WITH SUPPLEMENTAL OXYGEN USE POST HHN THERAPY ADDED HUMIDIFIER
--- NOTE | 2017-11-15 07:20 | NUR ---
ENDORSED PLAN OF CARE TO DAY SHIFT RN, PATIENT RESTING IN BED, IN STABLE CONDITION.
--- NOTE | 2017-11-15 07:30 | NUR ---
RECEIVED ON BED AAOX4. NO SOB NOTED. NO C/O PAIN AT THIS TIME. IV TO LT FOREARM PATENT AND INTACT. CHEST DIMINISHED AIR ENTRY TO THE BASES. ABDOMEN SOFT, BOWEL SOUNDS PRESENT. BUE AND BLE SWOLLEN. RT LE NOTED A LESION, NONE DRAINING AND OPEN TO AIR. INSTRUCTED PT TO CALL FOR ASSISTANCE, CALL LIGHT WITHIN REACH. PT VERBALIZED UNDERSTANDING.
[2017-11-15 08:00] VITALS: BP 132/71
[2017-11-15 08:20] LABS: ANION GAP 10.7 (8-16); CARBON DIOXIDE 27.6 mmol/L (21-32); CREATININE 1.1 mg/dL (0.7-1.3); POTASSIUM 3.3 mmol/L (3.5-5.1)
[2017-11-15] MEDS: LACTULOSE 20 GM/30 ML UDC PO SCH ×3 (09:00→20:55)
[2017-11-15] MEDS: DOCUSATE 100 MG/10 ML UDC PO SCH ×2 (09:00→09:52)
[2017-11-15] MEDS: METHADONE 10 MG TAB PO SCH ×2 (09:52→13:34)
[2017-11-15] MEDS: METOPROLOL 25 MG TAB PO SCH ×2 (09:53→20:28)
[2017-11-15] MEDS: FUROSEMIDE 40 MG/4 ML VIAL IVP SCH ×2 (09:53→18:05)
--- NOTE | 2017-11-15 10:10 | NUR ---
WOUND CARE EVALUATION NOTE: REASON FOR EVALUATION: RIGHT LOWER LEG WOUNDS, POSSIBLE CELLULITIS COMPLETE SKIN ASSESSMENT DONE ON THIS 62 Y/O MALE PATIENT FROM HOME TO [facility], WITH INITIAL DIAGNOSIS OF SOB. PAST MEDICAL HISTORY INCLUDE LIVER CIRRHOSIS S/P TIPS, HEROIN ABUSE AND BLE DERMATITIS POSSIBLE LYMPHEDEMA. ALL ABOVE INFORMATION WAS OBTAINED FROM THE ADMISSION H&P. LABS ARE WBC 4.1, H/H 7.5/28.7 GLUCOSE 90, ALBUMIN 2.7, PT/INR 11.6/1.1 AND PTT 34.8. CURRENT MEDS INCLUDE LEVOFLOXACIN, FUROSEMIDE, CLINDAMYCIN AND ALBUTEROL. PATIENT IS AWAKE, ORIENTED TO PERSON, PLACE AND TIME. SKIN WARM TO TOUCH WNL, TOENAILS ARE THICKENED, NO HAIR GROWTH AND +2 BILATERAL PEDAL PULSES. URINE AND BOWEL CONTINENT, ABLE TO USE URINAL. ABLE TO FOLLOW COMMANDS AND BED MOBILITY WITHOUT ASSISTANCE. INITIAL PLAN OF CARE NOTIFY TO PT. AND PRIMARY RN. WOUND CARE TEACHING DONE TO PT. AND ABLE TO VERBALIZE UNDERSTANDING. INTEGUMENTARY: BLE DYRNES TATTOO TO RIGHT LATERAL LEG RLE EDEMA WITH ERYTHEMA, MULTIPLE WOUNDS TO RIGHT LOWER EXTREMITY WITH LARGEST OPEN WOUND MEASURES 4X6X0.1CM, WOUND BED RED, MOIST, NO ODOR, PERIWOUND FLAT. OTHER WOUNDS WITH DRY SCABS COVERED, PAIN 0/10. RECOMMENDATIONS: -CLEANSE RLE MULTIPLE OPEN WOUNDS WITH NS. PAT DRY, APPLY XEROFORM AND WRAP WITH KERLIX SECURE WITH TAPE, CHANGE Q3 DAYS AND NEEDED IF SOILING -ENCOURANGE PT TO TURN AND REPOSITION PATIENT Q2H -OFFLOAD BILATERAL HEELS BY PLACING PILLOWS UNDER CALVES AT ALL TIMES, UNLESS OTHERWISE CONTRAINDICATED -KEEP SKIN CLEAN AND DRY AT ALL TIMES. RECOMMENDATIONS DISCUSSED WITH PRIMARY RN AND RESIDENT PHYSICIAN, DR MCCULLOUGH PLEASE CONTACT WOUND CARE NURSE FOR ANY QUESTIONS AND CHANGES IN WOUND CONDITION.
[2017-11-15] MEDS ORDERED: PETROLATUM 5 GM PKT TP SCH (11:05)
[2017-11-15] MEDS ORDERED: POTASSIUM CHLORIDE 20% 40 MEQ/15 ML UDC GT SCH (11:05)
[2017-11-15] MEDS ORDERED: PETROLATUM WHITE 30 GM TUBE TP PRN (11:15)
[2017-11-15] MEDS: CLINDAMYCIN 600 MG in DEXTROSE 5% 50 ML IV SCH ×2 (12:35→20:27)
--- NOTE | 2017-11-15 13:00 | NUR ---
INSTRUCTED PT ON THE USE OF INCENTIVE SPIROMETRY, VERBALIZED UNDERSTANDING. PT TOLERATED 1500 X2.
--- NOTE | 2017-11-15 14:00 | NUR ---
INSTRUCTED PT TO LIMIT ORAL FLUIDS TO 1000 MLS/DAY. PT VERBALIZED UNDERSTANDING.
[2017-11-15] MEDS: LEVOFLOXACIN 500 MG/D5W PREMIX 100 ML IV SCH (15:59)
[2017-11-15 16:00] VITALS: BP 128/57
--- NOTE | 2017-11-15 16:00 | NUR ---
PT'S OXYGEN SATURATION ON ROOM AIR: 94%
--- NOTE | 2017-11-15 19:05 | NUR ---
PT AWAKE. NO SOB NOTED. NO COMPLAINTS MADE. WILL ENDORSE TO NEXT SHIFT NURSE TO CONTINUE WITH THE DISCHARGE PROCESS.
--- NOTE | 2017-11-15 19:23 | NUR ---
RECEIVED REPORT FROM DAY SHIFT RN, PATIENT RESTING IN BED, AWAKE ALERT ORIENTED X4, NO S/S OF DISTRESS NOTED, RESPIRATION EVEN AND UNLABORED, PLAN OF CARE DISCUSSED, PATIENT VERBALIZED UNDERSTANDING, CALL LIGHT WITHIN REACH, SAFETY MEASURE ENSURED ,WILL CONTINUE TO MONITOR.
--- NOTE | 2017-11-15 20:04 | NUR ---
PATIENT IS ON ROOM AIR. SATS 94%. NO OXYGEN NEEDED AT THIS TIME
--- NOTE | 2017-11-15 20:55 | NUR ---
REFUSED JOCELYNELAC, EDUCATION GIVEN REGARDING THE BENEFITS OF TAKING THE MEDICATION AND COMPLICATION OF NOT HAVING THE MEDICATION, PATIENT VERBALIZED UNDERSTANDING, STILL REFUSED.
--- NOTE | 2017-11-15 21:49 | NUR ---
PATIENT STATED," I FEEL NAUSEOUS." ZOFRAN GIVEN ORDERED, NO S/S OF DISTRESS NOTED, RESPIRATION EVEN AND UNLABORED, ON ROOM AIR. CALL LIGHT WITHIN REACH, SAFETY MEASURE ENSURED, WILL CONTINUE TO MONITOR.
--- NOTE | 2017-11-15 22:47 | NUR ---
PATIENT IS SLEEPING, NO S/S OF DISTRESS NOTED, RESPIRATION EVEN AND UNLABORED, CALL LIGHT WITHIN REACH, SAFETY MEASURE ENSURED, WILL CONTINUE TO MONITOR.
--- NOTE | 2017-11-16 00:05 | NUR ---
PATIENT ASKED FOR SLEEPING PILL. AMBIEN WILL BE ADMINISTERED ORDERED, EDUCATED PATIENT NOT TO GET OUT OF THE BED AFTER TAKING THE MEDICATION, USE THE CALL LIGHT IF HE NEEDS TO USE THE BATHROOM. PATIENT VERBALIZED UNDERSTANDING, CALL LIGHT WITHIN REACH, SAFETY MEASURE ENSURED, WILL CONTINUE TO MONITOR.
[2017-11-16] MEDS: ZOLPIDEM 5 MG TAB PO PRN (00:12)
--- NOTE | 2017-11-16 02:55 | NUR ---
PATIENT IS SLEEPING, NO S/S OF DISTRESS NOTED, RESPIRATION EVEN AND UNLABORED, CALL LIGHT WITHIN REACH, SAFETY MEASURE ENSURED, WILL CONTINUE TO MONITOR.
[2017-11-16] MEDS: CLINDAMYCIN 600 MG in DEXTROSE 5% 50 ML IV SCH (04:27)
--- NOTE | 2017-11-16 04:34 | NUR ---
CLEOCIN STARTED, PATIENT TOLERATED WELL. NO S/S OF DISTRESS NOTED, RESPIRATION EVEN AND UNLABORED, CALL LIGHT WITHIN REACH, SAFETY MEASURE ENSURED, WILL CONTINUE TO MONITOR.
--- NOTE | 2017-11-16 06:24 | NUR ---
NO CHANGE IN CONDITION, PATIENT IS SLEEPING, NO S/S OF DISTRESS NOTED, RESPIRATION EVEN AND UNLABORED, CALL LIGHT WITHIN REACH, SAFETY MEASURE ENSURED, WILL CONTINUE TO MONITOR.
--- NOTE | 2017-11-16 07:12 | NUR ---
ENDORSED PLAN OF CARE TO DAY SHIFT RN, PATIENT RESTING IN BED, IN STABLE CONDITION.
--- NOTE | 2017-11-16 07:30 | NUR ---
RECEIVED ON BED AAOX4. NO SOB NOTED. NO C/O PAIN AT THIS TIME. IV TO LT FOREARM PATENT AND INTACT. CHEST DIMINISHED AIR ENTRY TO THE BASES. ABDOMEN SOFT, BOWEL SOUNDS PRESENT. BUE AND BLE SWOLLEN. DRESSING TO RLE LESION/WOUND DRY AND INTACT. INSTRUCTED PT TO CALL FOR ASSISTANCE, CALL LIGHT WITHIN REACH. PT VERBALIZED UNDERSTANDING.
[2017-11-16 08:00] VITALS: BP 115/48
[2017-11-16] MEDS: ALBUTEROL SULFATE/IPRATROPIU 3 ML SOL IH SCH (08:24)
[2017-11-16] MEDS: DOCUSATE 100 MG/10 ML UDC PO SCH (09:00)
[2017-11-16] MEDS: METHADONE 10 MG TAB PO SCH (09:00)
[2017-11-16] MEDS: LACTULOSE 20 GM/30 ML UDC PO SCH (09:00)
[2017-11-16] MEDS ORDERED: LACT10SO1 PO (09:08)
[2017-11-16] MEDS ORDERED: LEVO750T2 PO (09:08)
[2017-11-16] MEDS ORDERED: CLIN300C2 PO (09:10)
[2017-11-16] MEDS ORDERED: LACT10CA1 PO (09:11)
[2017-11-16] MEDS: METOPROLOL 25 MG TAB PO SCH (09:36)
[2017-11-16] MEDS: FUROSEMIDE 40 MG/4 ML VIAL IVP SCH (09:37)
--- NOTE | 2017-11-16 09:41 | NUR ---
PT REFUSED HIS SCHEDULED LAXATIVES AND METHADONE. RISKS AND BENEFITS EXPLAINED TO PT, VERBALIZED UNDERSTANDING. PT STATED HE WILL TAKE THE LAXATIVES AT HOME AND THE METHADONE AT THE [facility] IN [place].
[2017-11-16 10:37] LABS: BASOPHILS # (AUTO) 0.1 K/uL (0.00-0.22); BASOPHILS % (AUTO) 2.6 % (0.0-2.0); EOSINOPHILS # (AUTO) 0.1 K/uL (0-0.4); EOSINOPHILS % (AUTO) 1.4 % (0.0-4.0); HEMATOCRIT 28.4 % (36-52); HEMOGLOBIN 9.3 g/dL (12.0-18.0); LYMPHOCYTES # (AUTO) 1.1 K/uL (2.0-11.5); LYMPHOCYTES % (AUTO) 27.2 % (20.5-51.1); MEAN CORPUSCULAR HEMOGLOBIN 30 pg (27-31); MEAN CORPUSCULAR HGB CONC 33 g/dL (33-37); MEAN CORPUSCULAR VOLUME 90 fL (80-94); MONOCYTES # (AUTO) 0.3 K/uL (0.8-1.0); MONOCYTES % (AUTO) 6.6 % (1.7-9.3); NEUTROPHILS # (AUTO) 2.6 K/uL (1.8-7.7); NEUTROPHILS % (AUTO) 62.2 % (42.2-75.2); PLATELET COUNT (AUTO) 102 K/uL (140-450); RED BLOOD CELL COUNT(AUTO) 3.16 MIL/uL (4.20-6.10); RED CELL DISTRIBUTION WIDTH 14.1 % (11.6-13.7); WHITE BLOOD COUNT (AUTO) 4.2 K/uL (4.8-10.8)
--- NOTE | 2017-11-16 11:30 | NUR ---
DISCHARGE INSTRUCTIONS GIVEN TO PT WHICH VERBALIZED FULL UNDERSTANDING OF THE INSTRUCTIONS GIVEN AND THE NEED TO FOLLOW UP WITH DR. EVANS ON Sunday11/19/2017. ARM BANDS AND IV REMOVED, CANNULA TIP INTACT.
--- NOTE | 2017-11-16 11:40 | NUR ---
PT AND PT'S TAUGHT ON HOW TO DO DRESSING CHANGES ON PT'S RT LOWER EXT WOUND. PT REFUSED PHOTOS TAKEN. DRESSING TO RLE DRY AND INTACT. WOUND CARE INSTRUCTIONS TO CHANGE DRESSING EVERY 3 DAYS DUE SUNDAY. PT AND VERBALIZED UNDERSTANDING.
--- NOTE | 2017-11-16 11:50 | NUR ---
PT WHEELED OUT TO THE PARKING LOT IN STABLE CONDITION. NO SOB NOTED. NO COMPLAINTS MADE. PT IS D/C HOME WITH .
[2017-11-16 14:34] LABS: ANION GAP 12.9 (8-16); CARBON DIOXIDE 27.4 mmol/L (21-32); CREATININE 1.2 mg/dL (0.7-1.3); POTASSIUM 3.3 mmol/L (3.5-5.1)
== END 2017-11-16 11:50 | disposition home or self-care (01) | DRG 280 ==
LOC: MED 08:28 → MTU 12:15
PROVIDERS: ADMIT Family Medicine Sports Medicine; ATTEND Family Medicine Sports Medicine
DX: I21.A1 Myocardial infarction type 2 (principal); J18.9 Pneumonia, unspecified organism; I50.43 Acute on chronic combined systolic (congestive) and diastolic (congestive) heart failure; D61.818 Other pancytopenia; E46 Unspecified protein-calorie malnutrition; I11.0 Hypertensive heart disease with heart failure; I27.21 Secondary pulmonary arterial hypertension; I42.0 Dilated cardiomyopathy; K76.6 Portal hypertension; Z68.41 Body mass index [BMI] 40.0-44.9, adult; K74.60 Unspecified cirrhosis of liver; B19.20 Unspecified viral hepatitis C without hepatic coma; K21.9 Gastro-esophageal reflux disease without esophagitis; E66.9 Obesity, unspecified; I34.0 Nonrheumatic mitral (valve) insufficiency; M51.34 Other intervertebral disc degeneration, thoracic region; I70.0 Atherosclerosis of aorta; I89.0 Lymphedema, not elsewhere classified; J40 Bronchitis, not specified as acute or chronic; I07.1 Rheumatic tricuspid insufficiency; M16.12 Unilateral primary osteoarthritis, left hip; Z87.442 Personal history of urinary calculi; Z87.891 Personal history of nicotine dependence
CPT/HCPCS: 36415; 71045; 80048; 80053; 82140; 82150; 82550; 83036; 83690; 83735; 83880; 84100; 84484; 85025; 85379; 85610; 85730; 87081; 93005; 94640; 99285; J1940; J1956; J2405; J3490; J7030; J7042; J7060; J7613; J7620; Q0092

== ENCOUNTER 2018-02-03 18:19 | Emergency (ER) | payer OTHER ==
[~2018-02-03] VITALS: Ht 182.9 cm; Wt 142.9 kg
[~2018-02-03 18:19] MED LIST changes: -ACET-9529 PO; +ASPI81CT89 PO; -DOCU-299 PO; +METO25TA PO; -NEOM500T2 PO
[2018-02-03 18:26] VITALS: BP 125/76
--- NOTE | 2018-02-03 18:40 | NUR ---
62 YO M BIB self w/ c/o abd pain and right shoulder pain 10/10. Pt a&o x 4. GCS 15. Ambulatory w/ steady gait. Pt reports abd pain has been going on for awhile and feels like a burning/ripping sensation. Denies n/v/d. Non-radiating pain. reports that the pain improves significantly w/ BM, but mylanta and tums only work for about 10 mins to an hour. Requesting GI cocktail. Pt frequents [facility] per pt. Bilaterall 4+ pitting edema noted. Skin warm to the touch. Left proximal calf has a closed wound that pt reports occured after hitting his leg on a car door. CMS intact, pedal pulses palpable bilaterally. ER MD Bush notified of pt status. Pt needs met at this time. Safety precautions in place. Will continue to monitor.
--- NOTE | 2018-02-03 18:50 | NUR ---
Patient being evaluated by DR WILLSON at bedside.
[2018-02-03] MEDS ORDERED: DICYCLOMINE HCL LIQUID 20 MG, ALUMINUM HYD/MAG/SIMETHICONE 30 ML, LIDOCAINE VISCOUS 2% ... PO ONE ×3 (18:55)
--- NOTE | 2018-02-03 19:15 | NUR ---
Pt report given to MARY Ladd. Transfer of care at this time.
[2018-02-03 20:00] VITALS: BP 122/61
--- NOTE | 2018-02-03 20:00 | NUR ---
Patient discharged with v/s stable. Written and verbal after care instructions given and explained. Patient alert, oriented and verbalized understanding of instructions. Ambulatory with steady gait. All questions addressed prior to discharge. ID band removed. Patient advised to follow up with PMD. Rx of Protonix and Mylanta given. Patient educated on indication of medication including possible reaction and side effects. Opportunity to ask questions provided and answered.
== END 2018-02-03 20:00 | disposition home or self-care (01) ==
LOC: MED 18:19
DX: R10.13 Epigastric pain (principal); K21.9 Gastro-esophageal reflux disease without esophagitis; K74.60 Unspecified cirrhosis of liver; I10 Essential (primary) hypertension; F17.210 Nicotine dependence, cigarettes, uncomplicated; Z79.899 Other long term (current) drug therapy; Z79.82 Long term (current) use of aspirin
CPT/HCPCS: 81002; 99283

== ENCOUNTER 2018-02-05 23:15 | Emergency (ER) | payer OTHER ==
[~2018-02-05] VITALS: Ht 182.9 cm; Wt 142.9 kg
[2018-02-05 23:16] VITALS: BP 140/69
--- NOTE | 2018-02-05 23:22 | NUR ---
TO LOBBY, A/W BED, AMB, STABLE ERMD NOTED
--- NOTE | 2018-02-06 01:00 | NUR ---
ABD PAIN,FOR 5 DAYS, DIARRHEA, FOR 2 DAYS; ROOM AIR. NO S/S OF RESPIRATORU DISTRESS NOTED. PITTING EDEMA TO BLE NOTED. AAOX4 WITH EVEN AND STEADY GAIT; LUNGS CLEAR BL; HR EVEN AND REGULAR; PT DENIES ANY FEVER, CP, SOB, OR COUGH AT THIS TIME; PATIENT STATES PAIN OF 8/10 AT THIS TIME; VSS; PATIENT POSITIONED FOR COMFORT; HOB ELEVATED; BEDRAILS UP X2; BED DOWN. ER MD MADE AWARE OF PT STATUS.
--- NOTE | 2018-02-06 01:00 | NUR ---
TO ER BED 11
[2018-02-06] MEDS ORDERED: DICYCLOMINE HCL LIQUID 20 MG, ALUMINUM HYD/MAG/SIMETHICONE 30 ML, LIDOCAINE VISCOUS 2% ... PO ONE ×3 (01:35)
[2018-02-06] MEDS ORDERED: LOPERAMIDE 2 MG CAP PO PRN (01:35)
[2018-02-06] MEDS ORDERED: LOPERAMIDE 2 MG CAP PO ONE ×2 (02:00→02:01)
[2018-02-06 02:20] VITALS: BP 140/72
--- NOTE | 2018-02-06 02:21 | NUR ---
Patient discharged with v/s stable. Written and verbal after care instructions given and explained. RX OF MYLANTA GIVEN, Patient verbalized understanding OF INDICTION AND SIDE EFFECTS. AMBULATORY with CANE WITH steady gait. All questions addressed prior to discharge. Advised to follow up with PMD.
[2018-02-07] MEDS ORDERED: PANT40EC PO (04:25)
[2018-02-07] MEDS ORDERED: LISI30TA6 PO (04:25)
[2018-02-07] MEDS ORDERED: POTA10TE30 PO (04:25)
== END 2018-02-06 02:20 | disposition home or self-care (01) ==
LOC: MED 23:15
DX: R19.7 Diarrhea, unspecified (principal); K21.9 Gastro-esophageal reflux disease without esophagitis; I10 Essential (primary) hypertension
CPT/HCPCS: 99283

== ENCOUNTER 2018-02-07 02:30 | Inpatient (IN) | payer OTHER ==
[~2018-02-07] VITALS: Ht 182.9 cm; Wt 140.6 kg
[2018-02-07 02:37] VITALS: BP 147/70
--- NOTE | 2018-02-07 02:40 | NUR ---
PATIENT AMBULATED TO BED 11
--- NOTE | 2018-02-07 02:42 | NUR ---
PATIENT PRESENTS TO ED WITH DIARRHEA AND ABDOMINAL PAIN. PT DENIES N/V; SKIN IS PINK/WARM/DRY; AAOX4 WITH EVEN AND STEADY GAIT; LUNGS CLEAR BL; HR EVEN AND REGULAR; PT DENIES ANY FEVER, CP, SOB, OR COUGH AT THIS TIME; PATIENT STATES PAIN OF 8/10 AT THIS TIME; VSS; PATIENT POSITIONED FOR COMFORT; HOB ELEVATED; BEDRAILS UP X1; BED DOWN. ER MD MADE AWARE OF PT STATUS.
--- NOTE | 2018-02-07 02:50 | NUR ---
LAB IN TO SEE PATIENT
[2018-02-07 03:26] LABS: ANION GAP 12.4 (8-16); CARBON DIOXIDE 25.5 mmol/L (21-32); CHLORIDE 111 mmol/L (98-107); CREATININE 1.2 mg/dL (0.7-1.3); GFR ARICAN-AMERICAN 79 mL/min (>90); GLUCOSE 166 mg/dL (74-106); POTASSIUM 3.9 mmol/L (3.5-5.1); SODIUM SERUM 145 mmol/L (136-145); UREA NITROGEN, BLOOD 22 mg/dL (7-18)
[2018-02-07 03:32] LABS: ALBUMIN 3.2 g/dL (3.4-5.0); ASPARTATE AMINOTRANSFERASE 31 U/L (15-37); TOTAL BILIRUBIN 1.8 mg/dL (0.0-1.0)
[2018-02-07] MEDS ORDERED: LACTULOSE 20 GM/30 ML UDC PO ONE (03:55)
[2018-02-07] MEDS ORDERED: NACL 0.9% 1,000 ML IV ONE (03:55)
--- NOTE | 2018-02-07 03:55 | NUR ---
PATIENT ABLE TO VOID. URINE SENT TO LAB
[2018-02-07] MEDS: NACL 0.9% 1,000 ML IV SCH ×3 (04:04→22:03)
[2018-02-07] MEDS ORDERED: DOCUSATE SODIUM 100 MG GELCAP PO PRN (04:05)
[2018-02-07] MEDS ORDERED: MORPHINE SULFATE 2 MG/ML SYR IVP PRN (04:05)
[2018-02-07] MEDS ORDERED: ONDANSETRON 4 MG/2 ML VIAL IM/IVP PRN (04:05)
[2018-02-07] MEDS ORDERED: HYDROcodone/APAP 7.5/325 MG 1 TAB PO PRN (04:05)
[2018-02-07] MEDS ORDERED: KETOROLAC 30 MG/ML VIAL IVP PRN (04:05)
[2018-02-07] MEDS ORDERED: ACETAMINOPHEN 325 MG TAB PO PRN (04:05)
[2018-02-07 04:09] LABS: BARBITURATE, URINE NEG. ng/ml (NEG <=200); BENZODIAZEPINE, URINE NEG. ng/mL (NEG <=200); CANNABINOID, URINE NEG. ng/mL (NEG <=50); COCAINE, URINE NEG. ng/mL (NEG <=300); OPIATE, URINE NEG. ng/mL (NEG <=2000); PHENCYCLIDINE SCREEN,URINE NEG. ng/mL (NEG <=25)
[2018-02-07 04:14] LABS: APPEARANCE,URINE CLEAR (CLEAR); BILIRUBIN,URINE NEGATIVE (NEGATIVE); BLOOD, URINE TRACE-L (NEGATIVE); COLOR,URINE YELLOW (YELLOW); LEUKOCYTE ESTERASE ,URINE NEGATIVE (NEGATIVE); NITRITE, URINE NEGATIVE (NEGATIVE); PH,URINE 5.5 (5.0-9.0); UGLUCOSE NEGATIVE (NEGATIVE)
[2018-02-07 04:18] LABS: HEMATOCRIT 32.6 % (36-52); HEMOGLOBIN 10.8 g/dL (12.0-18.0); MEAN CORPUSCULAR HEMOGLOBIN 29 pg (27-31); MEAN CORPUSCULAR HGB CONC 33 g/dL (33-37); MEAN CORPUSCULAR VOLUME 89.2 fL (80-94); PLATELET COUNT (AUTO) 96 K/uL (140-450); RED BLOOD CELL COUNT(AUTO) 3.66 MIL/uL (4.20-6.10); RED CELL DISTRIBUTION WIDTH 15.4 % (11.6-13.7); WHITE BLOOD COUNT (AUTO) 4.8 K/uL (4.8-10.8)
[2018-02-07] MEDS ORDERED: PANT40EC PO (04:25)
[2018-02-07] MEDS ORDERED: POTA10TE30 PO (04:25)
[2018-02-07] MEDS ORDERED: LISI30TA6 PO (04:25)
[2018-02-07 04:39] LABS: CHOL/HDL RATIO 1.6 (1-4.5); MAGNESIUM 2.5 mg/dL (1.8-2.4); PHOSPHORUS 3.6 mg/dL (2.5-4.9); THYROID STIMULATING HORMONE 1.27 uIU/mL (0.34-3.74)
[2018-02-07] MEDS ORDERED: INSULIN LISPRO SLIDING SCALE 100 UNITS/ML VIAL SUBQ PRN (04:50)
[2018-02-07] MEDS ORDERED: DEXTROSE 50% 50 ML SYR IVP PRN (04:50)
--- NOTE | 2018-02-07 04:58 | NUR ---
Pt report given to CORNELIUS RIBEIRO RN. Transfer of care at this time.
--- NOTE | 2018-02-07 05:15 | NUR ---
Admitted from ER , with chief complaint of ABDOMINAL PAIN , 62 y/o ,Male, Cooperative, AAOX4, PERIODS OF CONFUSION, NO S/S OF ACUTE DISTRESS. PT DENIES PAIN, IV SITE PATENT AND INTACT, DR. CARDOSO AT BEDSIDE. PLAN OF CARE DISCUSSED. PT VERBALIZED UNDERSTANDING. PT oriented to call light, bed, phone,television, bathroom, smoking policy, visiting hours, procedures, ID bracelet on. Belongings list checked. CALL LIGHT WITHIN REACH. SAFETY MEASURES ENSURED. WILL CONTINUE TO MONITOR.
[2018-02-07] MEDS ORDERED: traZODone 50 MG TAB PO SCH (05:30)
[2018-02-07 05:39] LABS: RBC,URINE 0-5 (RARE) /HPF (0-5); WBC,URINE 0-5 (RARE) /HPF (0-5)
[2018-02-07] MEDS: PANTOPRAZOLE 40 MG TABEC PO SCH (05:59)
[2018-02-07] MEDS: BLOOD GLUCOSE MONITORING 1 DEV DEV FS SCH ×4 (06:36→21:06)
--- NOTE | 2018-02-07 07:08 | NUR ---
RECEIVED REPORT FROM NIGHTSHIFT NURSE AT BEDSIDE. PATIENT IS ASLEEP BUT AROUSABLE TO NAME. NO COMPLAINTS OF PAIN NOTED AT THIS TIME. PATIENT HAS IV FLUID INFUSING TO HIS RIGHT HAND 22 G AT 150 ML/HR. PATIENT HAS AUDIBLE WHEEZING IN BILATERAL LOBES. PATIENT HAS SWELLING IN LOWER EXTREMITIES. PATIENT ON ROOM AIR AT THIS TIME. WILL CONTINUE TO MONITOR PATIENT.
--- NOTE | 2018-02-07 07:08 | NUR ---
ENDORSED TO DAY SHIFT. PT STABLE.
[2018-02-07 08:00] VITALS: BP 155/76
[2018-02-07] MEDS ORDERED: LACTULOSE 20 GM/30 ML UDC PO SCH (09:00)
[2018-02-07] MEDS ORDERED: METHADONE 10 MG TAB PO SCH (09:00)
[2018-02-07] MEDS: FUROSEMIDE 40 MG TAB PO SCH ×2 (09:09→21:00)
[2018-02-07] MEDS: METOPROLOL 25 MG TAB PO SCH ×2 (09:10→21:00)
[2018-02-07] MEDS: ASPIRIN 81 MG TAB.CHEW PO SCH (09:10)
[2018-02-07] MEDS: LISINOPRIL 20 MG TAB PO SCH (09:10)
[2018-02-07] MEDS: RIFAXIMIN 550 MG TAB PO SCH ×2 (10:38→21:06)
--- NOTE | 2018-02-07 11:23 | NUR ---
PATIENT HAS BEEN SCREENED AND CATEGORIZED HIGH NUTRITION RISK. PATIENT WILL BE SEEN WITHIN 1-2 DAYS OF ADMISSION. 02/07/18 - 02/08/[address]
[2018-02-07 12:00] VITALS: BP 134/64
--- NOTE | 2018-02-07 12:00 | NUR ---
PATIENT SLEEPING. NO COMPLAINTS OF PAIN. WILL CONTINUE TO MONITOR PATIENT.
[2018-02-07] MEDS: ALBUTEROL SULFATE/IPRATROPIU 3 ML SOL IH PRN (12:25)
--- NOTE | 2018-02-07 12:37 | NUR ---
CALLED TO PATIENTS ROOM. PT COMPLAINING OF SOB. BS DIMINISHED WITH WHEEZING. PRN BREATHING TX ADMINISTERED. PATIENT TOLERATED TX WELL. NO ADVERSE REACTIONS. PATIENT STATED TO "FEEL BETTER" POST TX. NO RESPIRATORY DISTRESS NOTED AT THIS TIME.
--- NOTE | 2018-02-07 13:30 | NUR ---
PATIENT ASLEEP AT THIS TIME. NO COMPLAINTS OF PAIN. RESPIRATIONS WITHIN MARTINA LIMITS.
--- NOTE | 2018-02-07 14:12 | NUR ---
02/07/2018 RD INITIAL ASSESSMENT COMPLETED PLEASE REFER TO NUTRITION ASSESSMENT UNDER CARE ACTIVITY FOR ESTIMATED NUTRITIONAL NEEDS. CONTINUE ON 60 GMS CCHO TOLERATED. ONCE PO INTAKES INCREASE, CONSIDER ADDING CARDIAC DIET TO DIET ORDER. HEALTHY EATING TIPS DIET EDUCATION AT FOLLOW-UP VISIT. RD TO FOLLOW-UP IN 2-3 DAYS PATIENT IS HIGH RISK. JAZIEL HASKINS RD
--- NOTE | 2018-02-07 14:22 | NUR ---
PATIENT RESTING IN BED IN HIGH FOWLERS POSITION. PATIENT SAYS, "THIS POSITION HELPS ME BREATHE BETTER". NO SIGNS OF DISTRESS. WILL CONTINUE TO MONITOR PATIENT.
[2018-02-07 15:13] LABS: HEMATOCRIT 32.5 % (36-52); HEMOGLOBIN 10.9 g/dL (12.0-18.0); MEAN CORPUSCULAR HEMOGLOBIN 30 pg (27-31); MEAN CORPUSCULAR HGB CONC 33 g/dL (33-37); MEAN CORPUSCULAR VOLUME 88.2 fL (80-94); PLATELET COUNT (AUTO) 86 K/uL (140-450); RED BLOOD CELL COUNT(AUTO) 3.68 MIL/uL (4.20-6.10); RED CELL DISTRIBUTION WIDTH 15.2 % (11.6-13.7); WHITE BLOOD COUNT (AUTO) 3.5 K/uL (4.8-10.8)
--- NOTE | 2018-02-07 15:25 | NUR ---
TALKED TO PATIENT REGARDING THE CLINIC THAT IS GIVING HIS METHADONE. PATIENT TOLD ME THAT HE TRANSFERRING TO [facility] FROM [facility]. UNABLE TO FIND [facility] THAT PATIENT TALKS ABOUT. CALLED [facility] AND THEY ARE UNABLE TO VERIFY PATIENT IN THEIR SYSTEM.
[2018-02-07 15:30] LABS: ANION GAP 12.5 (8-16); CARBON DIOXIDE 24.6 mmol/L (21-32); CREATININE 1.1 mg/dL (0.7-1.3); POTASSIUM 4.1 mmol/L (3.5-5.1)
[2018-02-07 16:00] VITALS: BP 128/52
--- NOTE | 2018-02-07 17:34 | NUR ---
PATIENT RESTING IN BED. VITAL SIGNS WITHIN NORMAL LIMITS. PATIENT STILL IN HIGH FOWLERS POSITION. FLUIDS INFUSING. NO SIGNS OF PAIN. WILL CONTINUE TO MONITOR.
--- NOTE | 2018-02-07 19:15 | NUR ---
GAVE REPORT TO NIGHTSHIFT NURSE. PATIENT IN STABLE CONDITION.
--- NOTE | 2018-02-07 19:16 | NUR ---
RECEIVED REPORT FROM DAY SHIFT, PT IS A/OX4 ON ROOM AIR. PT HAS 22G IV TO LEFT HAND. PT WALKS WITH STEADY GAIT. HIS SKIN IS INTACT, BUT THERE IS EDEMA AND ERYTHEMA TO LOWER EXTREMITIES. UPDATED BOARD. DISCUSSED PLAN OF CARE WITH PT, PT VERBALIZED UNDERSTANDING. VITAL SIGNS WITHIN NORMAL LIMITS. PT IN STABLE CONDITION, NO SIGNS OF DISTRESS NOTED. BED IN LOWEST POSITION, CALL LIGHT WITHIN REACH. WILL CONTINUE TO MONITOR.
[2018-02-07 19:40] LABS: EOSINOPHILS % (MANUAL) 4 % (0-4); LYMPHOCYTES % (MANUAL) 39 % (20-46); MONOCYTES % (MANUAL) 5 % (5-12)
[2018-02-07 20:00] VITALS: BP 136/44
[2018-02-07] MEDS ORDERED: ATORVASTATIN 20 MG TAB PO SCH (21:00)
--- NOTE | 2018-02-07 21:10 | NUR ---
ADMINISTERED SOME OF THE PT SCHEDULED MEDICATIONS, PT TOLERATED WELL. HELD HEPARIN BECAUSE PLATELETS ARE LOW, HELD LASIX AND LOPRESSOR BECAUSE DIASTOLIC BP IS LOW. PT IN STABLE CONDITION, NO SIGNS OF DISTRESS NOTED. BED IN LOWEST POSITION, CALL LIGHT WITHIN REACH. WILL CONTINUE TO MONITOR.
[2018-02-08] VITALS: BP 147/70
--- NOTE | 2018-02-08 | NUR ---
VITAL SIGNS WITHIN NORMAL LIMITS. PT IN STABLE CONDITION, NO SIGNS OF DISTRESS NOTED. BED IN LOWEST POSITION, CALL LIGHT WITHIN REACH. WILL CONTINUE TO MONITOR.
[2018-02-08] MEDS: ALBUTEROL SULFATE/IPRATROPIU 3 ML SOL IH PRN ×2 (00:34→07:09)
--- NOTE | 2018-02-08 00:35 | NUR ---
PT C/O SOB, SATURATING AT 90% ON ROOM AIR. CALLED RT AND RT IS NOW AT BEDSIDE.
[2018-02-08 04:00] VITALS: BP 123/44
--- NOTE | 2018-02-08 04:00 | NUR ---
VITAL SIGNS WITHIN NORMAL LIMITS. PT IN STABLE CONDITION, NO SIGNS OF DISTRESS NOTED. BED IN LOWEST POSITION, CALL LIGHT WITHIN REACH. WILL CONTINUE TO MONITOR.
[2018-02-08] MEDS: PANTOPRAZOLE 40 MG TABEC PO SCH (06:56)
[2018-02-08] MEDS: NACL 0.9% 1,000 ML IV SCH (06:56)
[2018-02-08] MEDS: BLOOD GLUCOSE MONITORING 1 DEV DEV FS SCH (06:56)
--- NOTE | 2018-02-08 07:10 | NUR ---
RECEIVED PATIENT REPORT AT BEDSIDE. PATIENT AWAKE AND ALERT. PATIENT CURRENTLY RECEIVING BREATHING TX. BED LOWERED WITH CALL LIGHT WITHIN REACH. WILL CONTINUE TO MONITOR
[2018-02-08 07:22] LABS: BASOPHILS # (AUTO) 0.2 K/uL (0.00-0.22); BASOPHILS % (AUTO) 4.5 % (0.0-2.0); EOSINOPHILS # (AUTO) 0.1 K/uL (0-0.4); EOSINOPHILS % (AUTO) 3.6 % (0.0-4.0); HEMATOCRIT 31.2 % (36-52); HEMOGLOBIN 10.7 g/dL (12.0-18.0); LYMPHOCYTES # (AUTO) 0.9 K/uL (2.0-11.5); LYMPHOCYTES % (AUTO) 25.2 % (20.5-51.1); MEAN CORPUSCULAR HEMOGLOBIN 30 pg (27-31); MEAN CORPUSCULAR HGB CONC 34 g/dL (33-37); MEAN CORPUSCULAR VOLUME 88.3 fL (80-94); MONOCYTES # (AUTO) 0.3 K/uL (0.8-1.0); MONOCYTES % (AUTO) 8.8 % (1.7-9.3); NEUTROPHILS # (AUTO) 2.2 K/uL (1.8-7.7); NEUTROPHILS % (AUTO) 57.9 % (42.2-75.2); PLATELET COUNT (AUTO) 85 K/uL (140-450); RED BLOOD CELL COUNT(AUTO) 3.54 MIL/uL (4.20-6.10); RED CELL DISTRIBUTION WIDTH 15.3 % (11.6-13.7); WHITE BLOOD COUNT (AUTO) 3.7 K/uL (4.8-10.8)
--- NOTE | 2018-02-08 07:25 | NUR ---
ENDORSED PT TO DAY SHIFT RN FOR CONTINUITY OF CARE, PT IN STABLE CONDITION.
--- NOTE | 2018-02-08 08:00 | NUR ---
PATIENT SIGNED AGAINST MEDICAL ADVICE. DR ARRIOLA EXPLAINED TO THE PATIENT THE RISKS OF SIGNING AMA. PATIENT VERBALIZED UNDERSTANDING. IV LINE DISCONTINUED
--- NOTE | 2018-02-08 08:30 | NUR ---
ADMINISTERED MORNING DOSE OF LACTULOSE AND RIFAXIMIN TO THE PATIENT BEFORE HE LEFT AMA. PATIENT LEFT WITH ALL HIS BELONGINGS. PATIENT LEFT IN STABLE CONDITION
[2018-02-08] MEDS: RIFAXIMIN 550 MG TAB PO SCH (08:33)
[2018-02-08 08:47] LABS: ALBUMIN 3.1 g/dL (3.4-5.0); ANION GAP 13.6 (8-16); CARBON DIOXIDE 24.6 mmol/L (21-32); MAGNESIUM 2.3 mg/dL (1.8-2.4); POTASSIUM 4.2 mmol/L (3.5-5.1)
[2018-02-08] MEDS: ASPIRIN 81 MG TAB.CHEW PO SCH (09:00)
[2018-02-08] MEDS: LISINOPRIL 20 MG TAB PO SCH (09:00)
[2018-02-08] MEDS: METOPROLOL 25 MG TAB PO SCH (09:00)
[2018-02-08] MEDS: FUROSEMIDE 40 MG TAB PO SCH (09:00)
[2018-02-08] MEDS ORDERED: LACTULOSE 20 GM/30 ML UDC PO SCH ×2 (09:00)
--- NOTE | 2018-02-12 13:10 | NUR ---
Wrong DC disposition. Pt went AMA Addendum: 02/12/18 at 1311 by Sally Torres CM Amended: Links added.
== END 2018-02-08 08:35 | disposition left against medical advice (07) | DRG 441 ==
LOC: MED 02:30 → MTU 04:07
PROVIDERS: ADMIT Family Medicine Sports Medicine; ATTEND Family Medicine Sports Medicine
DX: K72.90 Hepatic failure, unspecified without coma (principal); I50.43 Acute on chronic combined systolic (congestive) and diastolic (congestive) heart failure; D68.59 Other primary thrombophilia; E11.51 Type 2 diabetes mellitus with diabetic peripheral angiopathy without gangrene; E44.0 Moderate protein-calorie malnutrition; E11.65 Type 2 diabetes mellitus with hyperglycemia; E11.69 Type 2 diabetes mellitus with other specified complication; F11.20 Opioid dependence, uncomplicated; I42.9 Cardiomyopathy, unspecified; Z68.41 Body mass index [BMI] 40.0-44.9, adult; K74.60 Unspecified cirrhosis of liver; E66.01 Morbid (severe) obesity due to excess calories; J44.9 Chronic obstructive pulmonary disease, unspecified; K21.9 Gastro-esophageal reflux disease without esophagitis; L30.9 Dermatitis, unspecified; F17.210 Nicotine dependence, cigarettes, uncomplicated; B19.20 Unspecified viral hepatitis C without hepatic coma; R59.1 Generalized enlarged lymph nodes; Z53.21 Procedure and treatment not carried out due to patient leaving prior to being seen by health care provider; Z79.4 Long term (current) use of insulin
CPT/HCPCS: 36415; 71045; 80048; 80053; 80305; 81001; 82140; 82948; 83036; 83735; 84100; 84436; 84443; 84479; 85025; 87081; 94640; 97140; 97535; 99285; G0482; J1644; J1815; J7030; J7620

== ENCOUNTER 2018-02-16 14:30 | Emergency (ER) | payer OTHER ==
[~2018-02-16] VITALS: Ht 182.9 cm; Wt 139.3 kg
[~2018-02-16 14:30] MED LIST changes: +LISI30TA6 PO; +PANT40EC PO; +POTA10TE30 PO
[2018-02-16 14:39] VITALS: BP 153/81
--- NOTE | 2018-02-16 14:42 | NUR ---
Hannah reyes in [facility] - 02/16/18 at 1543 by SILVIA hernandez royal by bedside examining patient
--- NOTE | 2018-02-16 15:14 | NUR ---
PATIENT PRESENTS TO ED WITH C/O OF RADIATING ABDOMINAL BURNING PAIN AND DISCOMFORT X 5DAYS . PT STATES " I THINK ITS THE ACID IN MY STOMACH, IT CANAS AND HURTS ME ALL OVER MY STOMACH". C/O OF NAUSEA BUT NO VOMITING OR DIAHRRHEA; SKIN IS PINK/WARM/DRY; AAOX4 WITH EVEN AND STEADY GAIT; HR EVEN AND REGULAR; PT DENIES ANY FEVER, CP, SOB, OR COUGH AT THIS TIME; PATIENT STATES PAIN OF 9/10 AT THIS TIME ALL OVER ABDOMEN THAT IS NON RADIATING ; VSS; PATIENT POSITIONED FOR COMFORT; HOB ELEVATED; BEDRAILS UP X2; BED DOWN. ER MD MADE AWARE OF PT STATUS. WILL CONTIINUE TO MONITOR
--- NOTE | 2018-02-16 15:42 | NUR ---
er fokim by bedside examining patient
[2018-02-16] MEDS ORDERED: ALUMINUM HYD/MAG/SIMETHICONE 30 ML, DICYCLOMINE HCL LIQUID 20 MG, LIDOCAINE VISCOUS 2% ... PO ONE ×3 (15:50)
[2018-02-16 16:20] VITALS: BP 153/81
--- NOTE | 2018-02-16 16:20 | NUR ---
Patient discharged with v/s stable. Written and verbal after care instructions given and explained. Patient alert, oriented and verbalized understanding of instructions. Ambulatory with steady gait. All questions addressed prior to discharge. ID band removed. Patient advised to follow up with PMD. Rx of REGLAN 10 MG given. Patient educated on indication of medication including possible reaction and side effects. Opportunity to ask questions provided and answered.
== END 2018-02-16 16:20 | disposition home or self-care (01) ==
LOC: MED 14:30
DX: K21.9 Gastro-esophageal reflux disease without esophagitis (principal); Z79.899 Other long term (current) drug therapy; Z79.82 Long term (current) use of aspirin
CPT/HCPCS: 81002; 99283

== ENCOUNTER 2018-02-28 16:28 | Emergency (ER) | payer OTHER ==
[~2018-02-28] VITALS: Ht 182.9 cm; Wt 141.5 kg
[2018-02-28 16:44] VITALS: BP 134/58
--- NOTE | 2018-02-28 16:52 | NUR ---
PT AMBULATES TO CHAIR E
--- NOTE | 2018-02-28 16:57 | NUR ---
62Y/M C/O DIZZINESS, WEAK, NAUSEATED, ABDOMINAL PAIN X 2 DAYS LOOSING TRAIN OF THOUGHT, CAN'T CONCENTRATE, WANTS AMONIA LEVEL CHECK. ER MD MADE AWARE OF PT STATUS.
[2018-02-28 16:58] VITALS: BP 134/58
--- NOTE | 2018-02-28 17:00 | NUR ---
PT NOT ABLE TO URINATE
[2018-02-28] MEDS ORDERED: ONDANSETRON 4 MG ODT PO ONE (18:40)
--- NOTE | 2018-02-28 19:07 | NUR ---
PT UNABLE TO URINATE AT THIS TIME
--- NOTE | 2018-02-28 19:08 | NUR ---
GAVE REPORT TO TARA HERNANDEZ
--- NOTE | 2018-02-28 19:19 | NUR ---
PATIENT MOVED TO ER BED 12.
[2018-02-28] MEDS ORDERED: PANTOPRAZOLE 40 MG TABEC PO ONE (19:30)
[2018-02-28 19:34] LABS: BASOPHILS % (AUTO) 0.8 % (0.0-2.0); EOSINOPHILS # (AUTO) 0.1 K/uL (0-0.4); EOSINOPHILS % (AUTO) 2.6 % (0.0-4.0); HEMATOCRIT 34.1 % (36-52); HEMOGLOBIN 11.8 g/dL (12.0-18.0); LYMPHOCYTES # (AUTO) 1.1 K/uL (2.0-11.5); LYMPHOCYTES % (AUTO) 22.8 % (20.5-51.1); MEAN CORPUSCULAR HEMOGLOBIN 31 pg (27-31); MEAN CORPUSCULAR HGB CONC 35 g/dL (33-37); MEAN CORPUSCULAR VOLUME 89.2 fL (80-94); MONOCYTES # (AUTO) 0.4 K/uL (0.8-1.0); MONOCYTES % (AUTO) 8.2 % (1.7-9.3); NEUTROPHILS # (AUTO) 3.3 K/uL (1.8-7.7); NEUTROPHILS % (AUTO) 65.6 % (42.2-75.2); PLATELET COUNT (AUTO) 111 K/uL (140-450); RED BLOOD CELL COUNT(AUTO) 3.83 MIL/uL (4.20-6.10); RED CELL DISTRIBUTION WIDTH 17.2 % (11.6-13.7)
[2018-02-28] MEDS ORDERED: SODIUM CHLORIDE FLUSH 10 ML SYR IVF ONE (19:40)
--- NOTE | 2018-02-28 19:45 | NUR ---
ATTEMPTED IV INSERTION. MISSED. SITE INTACT. DRESSING APPLIED. PT STATES, "YOU'RE DONE, I REFUSE FROM YOU."
[2018-02-28 19:52] LABS: ANION GAP 12.6 (8-16); CARBON DIOXIDE 25.1 mmol/L (21-32); CREATININE 1.3 mg/dL (0.7-1.3); POTASSIUM 4.7 mmol/L (3.5-5.1)
[2018-02-28 19:53] LABS: PROTHROMBIN TIME 11.9 secs (10.8-13.4)
[2018-02-28 19:58] LABS: ALBUMIN 3.7 g/dL (3.4-5.0); TOTAL BILIRUBIN 1.7 mg/dL (0.0-1.0)
--- NOTE | 2018-02-28 20:11 | NUR ---
PATIENT TAKEN TO BATHROOM. PT STILL UNABLE TO PROVIDE URINE.
--- NOTE | 2018-02-28 21:05 | NUR ---
PT PROVIDED URINE AT THIS TIME.
--- NOTE | 2018-02-28 21:10 | NUR ---
OLIVE FINNEY FROM FACILITY. DR. MCCRARY MADE AWARE.
[2018-02-28 21:54] LABS: APPEARANCE,URINE CLEAR (CLEAR); BILIRUBIN,URINE NEGATIVE (NEGATIVE); BLOOD, URINE NEGATIVE (NEGATIVE); COLOR,URINE YELLOW (YELLOW); LEUKOCYTE ESTERASE ,URINE NEGATIVE (NEGATIVE); NITRITE, URINE NEGATIVE (NEGATIVE); PH,URINE 7.5 (5.0-9.0); UGLUCOSE NEGATIVE (NEGATIVE)
== END 2018-02-28 21:10 | disposition left against medical advice (07) ==
LOC: MED 16:28
DX: K72.90 Hepatic failure, unspecified without coma (principal)
CPT/HCPCS: 36415; 80053; 81003; 82140; 83690; 85025; 85610; 99284; S0119

== ENCOUNTER 2018-03-01 00:25 | Inpatient (IN) | payer OTHER ==
[~2018-03-01] VITALS: Ht 185.4 cm; Wt 134.7 kg
[2018-03-01 00:34] VITALS: BP 145/74
[2018-03-01] MEDS ORDERED: SODIUM CHLORIDE FLUSH 10 ML SYR IVF ONE (00:35)
--- NOTE | 2018-03-01 00:41 | NUR ---
BIB WHEELCHAIR TO ER BED 1
--- NOTE | 2018-03-01 00:58 | NUR ---
62 YO M PATIENT PRESENTS TO ED WITH ALOC . DENIES N/V/D; SKIN IS PINK/WARM/DRY; RESOONDS TO SIMPLE COMMAND AND MOVE MENT IS PURPOSEFUL. SLURRED SPEECH , DROWSY WAKEDS TO VOICE COMMAND. UNABLE TO AMBULATE, GETS AROUND VIA W/C; LUNGS CLEAR BL; HR EVEN AND REGULAR; PT DENIES ANY FEVER, CP, SOB, OR COUGH AT THIS TIME; PATIENT STATES PAIN OF 0/10 AT THIS TIME; VSS; PATIENT POSITIONED FOR COMFORT; HOB ELEVATED; BEDRAILS UP X2; BED DOWN. ER MD MADE AWARE OF PT STATUS.
--- NOTE | 2018-03-01 01:00 | NUR ---
Patient being evaluated by physician at bedside.
[2018-03-01] MEDS: NACL 0.9% 1,000 ML IV SCH (01:47)
[2018-03-01] MEDS ORDERED: KETOROLAC 30 MG/ML VIAL IVP PRN (01:50)
[2018-03-01] MEDS ORDERED: RIFAXIMIN 550 MG TAB PO SCH (01:50)
[2018-03-01] MEDS ORDERED: ACETAMINOPHEN 325 MG TAB PO PRN (01:50)
[2018-03-01] MEDS ORDERED: ONDANSETRON 4 MG/2 ML VIAL IM/IVP PRN (01:50)
[2018-03-01] MEDS ORDERED: MORPHINE SULFATE 2 MG/ML SYR IVP PRN (01:50)
--- NOTE | 2018-03-01 02:11 | NUR ---
Patient will be admitted to care of DR DOLAN. Admited to TELE. Will go to room 122B. Belongings list completed. Report to CORNELIUS HERNANDEZ.
--- NOTE | 2018-03-01 02:11 | NUR ---
Admitted from ER , with chief complaint of DROWSINESS, ALOC , 62 y/o ,Male, Appropriate, AAOX4, DELAYED RESPONSES PT IS DROWSY BUT FOLLOWS COMMANDS AND IS ABLE TO AMBULATE TO BED. IV SITE PATENT AND INTACT. PT DENIES PAIN PT oriented to call light, bed, phone,television, bathroom, smoking policy,visiting hours, procedures, ID bracelet on. Belongings list checked. CALL LIGHT WITHIN REACH. SAFETY MEASURES ENSURED. WILL CONTINUE TO MONITOR.
[2018-03-01 02:22] VITALS: BP 135/60
[2018-03-01 03:07] LABS: ANION GAP 9.6 (8-16); CARBON DIOXIDE 27.1 mmol/L (21-32); CREATININE 1.3 mg/dL (0.7-1.3); POTASSIUM 4.7 mmol/L (3.5-5.1)
[2018-03-01 03:19] LABS: CHOL/HDL RATIO 1.8 (1-4.5); FREE T4 (FREE THYROXINE) 1.22 ng/dL (0.76-1.46); MAGNESIUM 2.2 mg/dL (1.8-2.4); PHOSPHORUS 4.1 mg/dL (2.5-4.9); THYROID STIMULATING HORMONE 1.14 uIU/mL (0.34-3.74)
[2018-03-01] MEDS ORDERED: NICOTINE TRANSD SYS 14 MG/24 HR PATCH TD PRN (04:40)
[2018-03-01] MEDS ORDERED: ALBUTEROL SULFATE/IPRATROPIU 3 ML SOL IH PRN (04:40)
[2018-03-01] MEDS ORDERED: MORPHINE SULFATE 4 MG/ML SYR IVP PRN (07:15)
--- NOTE | 2018-03-01 07:25 | NUR ---
ENDORSED PLAN OF CARE TO NIGHT RN. PT REMAINS STABLE.
--- NOTE | 2018-03-01 07:26 | NUR ---
RECEIVED REPORT FROM MARINE EXTENSION AGENT NURSE. PATIENT LYING DOWN IN BED SLEEPING, AROUSABLE BY VOICE AND SHAKING. NO DISTRESS NOTED. DENIES ANY PAIN. AAOX4, DROWSY, SKIN COLOR APPROPRIATE TO ETHNICITY, WARM TO TOUCH. SKIN IS INTACT. LUNGS CTA ON ALL LOBES. ABDOMEN SOFT, OBESE. B/L LE EDEMA NOTED. IV SITE INTACT, PATENT, AND INFUSING PER ORDERS. REVIEWED PLAN OF CARE WITH PATIENT. PATIENT VERBALIZED UNDERSTANDING. SAFETY MEASURES IN PLACE, CALL LIGHT WITHIN REACH, FALL PREVENTIONS IN PLACE. WILL CONTINUE TO MONITOR.
[2018-03-01 08:00] VITALS: BP 136/53
[2018-03-01] MEDS ORDERED: LISINOPRIL 10 MG TAB PO SCH (09:00)
[2018-03-01] MEDS ORDERED: LACTULOSE 20 GM/30 ML UDC PO SCH ×3 (09:00)
[2018-03-01] MEDS ORDERED: METHADONE 10 MG TAB PO SCH ×2 (09:00→13:00)
[2018-03-01] MEDS: LISINOPRIL 20 MG TAB PO SCH (09:00)
--- NOTE | 2018-03-01 09:22 | NUR ---
PATIENT HAS BEEN SCREENED AND CATEGORIZED MODERATE NUTRITION RISK. PATIENT WILL BE SEEN WITHIN 3-5 DAYS OF ADMISSION. 03/03/18 - 03/05/[address]
[2018-03-01] MEDS: FUROSEMIDE 40 MG TAB PO SCH ×2 (10:14→20:56)
[2018-03-01] MEDS: PANTOPRAZOLE 40 MG TABEC PO SCH (10:14)
[2018-03-01] MEDS: ASPIRIN 81 MG TAB.CHEW PO SCH (10:14)
[2018-03-01] MEDS: RIFAXIMIN 550 MG TAB PO SCH ×2 (10:15→20:57)
[2018-03-01] MEDS: METOPROLOL 25 MG TAB PO SCH ×2 (10:15→20:55)
--- NOTE | 2018-03-01 10:19 | NUR ---
PATIENT LYING DOWN IN BED, SLEEPING. AROUSABLE BY VOICE. NO DISTRESS NOTED. DENIES ANY PAIN. SCHEDULED MEDICATIONS DUE GIVEN. SAFETY MEASURES IN PLACE, CALL LIGHT WITHIN REACH. WILL CONTINUE TO MONITOR.
--- NOTE | 2018-03-01 11:35 | NUR ---
PATIENT LYING IN BED SLEEPING, AROUSABLE BY VOICE AND SHAKING. CONTINUES TO BE DROWSY. NO DISTRESS NOTED. FLACC 0. SCHEDULED PATCH MEDICATION GIVEN. SAFETY MEASURES IN PLACE, CALL LIGHT WITHIN REACH. WILL CONTINUE TO MONITOR.
[2018-03-01 12:00] VITALS: BP 132/55
[2018-03-01 13:39] LABS: BARBITURATE, URINE NEG. ng/ml (NEG <=200); BENZODIAZEPINE, URINE NEG. ng/mL (NEG <=200); CANNABINOID, URINE NEG. ng/mL (NEG <=50); COCAINE, URINE NEG. ng/mL (NEG <=300); OPIATE, URINE NEG. ng/mL (NEG <=2000); PHENCYCLIDINE SCREEN,URINE NEG. ng/mL (NEG <=25)
[2018-03-01] MEDS: LACTULOSE 20 GM/30 ML UDC PO SCH ×2 (13:46→17:06)
--- NOTE | 2018-03-01 13:52 | NUR ---
PATIENT SITTING IN BED TALKING WITH AT BEDSIDE. NO DISTRESS NOTED. DENIES ANY PAIN. SCHEDULED MEDICATIONS DUE GIVEN. SAFETY MEASURES IN PLACE, CALL LIGHT WITHIN REACH. WILL CONTINUE TO MONITOR.
[2018-03-01 14:07] LABS: BASOPHILS % (AUTO) 0.6 % (0.0-2.0); EOSINOPHILS # (AUTO) 0.1 K/uL (0-0.4); EOSINOPHILS % (AUTO) 2.7 % (0.0-4.0); HEMATOCRIT 30.3 % (36-52); HEMOGLOBIN 10.7 g/dL (12.0-18.0); LYMPHOCYTES # (AUTO) 1.2 K/uL (2.0-11.5); LYMPHOCYTES % (AUTO) 30.6 % (20.5-51.1); MEAN CORPUSCULAR HEMOGLOBIN 32 pg (27-31); MEAN CORPUSCULAR HGB CONC 35 g/dL (33-37); MEAN CORPUSCULAR VOLUME 89.1 fL (80-94); MONOCYTES # (AUTO) 0.3 K/uL (0.8-1.0); MONOCYTES % (AUTO) 7.1 % (1.7-9.3); NEUTROPHILS # (AUTO) 2.4 K/uL (1.8-7.7); PLATELET COUNT (AUTO) 90 K/uL (140-450); RED CELL DISTRIBUTION WIDTH 17.4 % (11.6-13.7)
[2018-03-01 14:33] LABS: ALBUMIN 3.1 g/dL (3.4-5.0); ANION GAP 10.1 (8-16); CARBON DIOXIDE 25.5 mmol/L (21-32); CREATININE 1.4 mg/dL (0.7-1.3); MAGNESIUM 2.1 mg/dL (1.8-2.4); PHOSPHORUS 4.3 mg/dL (2.5-4.9); POTASSIUM 4.6 mmol/L (3.5-5.1); TOTAL BILIRUBIN 1.7 mg/dL (0.0-1.0)
--- NOTE | 2018-03-01 15:02 | NUR ---
PATIENT WALKING AROUND MST HALLWAYS WITH STABLE GAIT. WILL CONTINUE TO MONITOR.
--- NOTE | 2018-03-01 15:56 | NUR ---
CM NOTE INITIAL REVIEW DONE
[2018-03-01 16:00] VITALS: BP 121/54
--- NOTE | 2018-03-01 17:18 | NUR ---
PATIENT AMBULATED TO BATHROOM AND BACK TO BED WITH STEADY GAIT. NO DISTRESS NOTED. DENIES ANY PAIN. SAFETY MEASURES IN PLACE, CALL LIGHT WITHIN REACH. WILL CONTINUE TO MONITOR.
--- NOTE | 2018-03-01 19:15 | NUR ---
GAVE REPORT TO ROUTE SUPERVISOR NURSE FOR CONTINUITY OF CARE. PATIENT IN STABLE CONDITION.
--- NOTE | 2018-03-01 19:16 | NUR ---
RECEIVED BEDSIDE REPORT FROM DAY SHIFT NURSE SANTHOSH RN, PT STABLE, NO DISTRESS NOTED, IV TO R THUMB 24G RUNNING NS @20ML/HR, INFUSING WELL, PT ON ROOM AIR, NO SOB, PT AMBULATED TO RESTROOM AND CURRENTLY NOT ON TELE MONITOR, PT STATED WILL PUT BACK TELE MONITOR WHEN HE IS DONE CLEANING HIMSELF, INITIAL ASSESSMENT DONE, ALL SAFETY PRECAUTION MET, WILL CONTINUE TO MONITOR.
[2018-03-01 20:00] VITALS: BP 114/58
--- NOTE | 2018-03-01 20:15 | NUR ---
PT AMBULATED AROUND UNIT, TOLERATED WELL, NO DISTRESS NOTED, CALL LIGHT WITHIN REACH, WILL CONTINUE TO MONITOR
--- NOTE | 2018-03-01 20:56 | NUR ---
DUE MEDICATION GIVEN, PT TOLERATED WELL, NO DISTRESS NOTED, CALL LIGHT WITHIN REACH, WILL CONTINUE TO MONITOR.
[2018-03-02] VITALS: BP 133/59
--- NOTE | 2018-03-02 00:02 | NUR ---
CHECKED ON PT, PT RESTING ON BED WATCHING TV, NO DISTRESS NOTED, CALL LIGHT WITHIN REACH, WILL CONTINUE TO MONITOR.
[2018-03-02] MEDS: NACL 0.9% 1,000 ML IV SCH (01:11)
--- NOTE | 2018-03-02 02:57 | NUR ---
PT SLEEPING, NO DISTRESS NOTED, CALL LIGHT WITHIN REACH, WILL CONTINUE TO MONITOR.
[2018-03-02 04:00] VITALS: BP 131/63
--- NOTE | 2018-03-02 04:47 | NUR ---
CHECKED ON PT, PT SLEEPING, NO DISTRESS NOTED, CALL LIGHT WITHIN REACH, WILL CONTINUE TO MONITOR.
[2018-03-02 07:18] LABS: BASOPHILS % (AUTO) 1.1 % (0.0-2.0); EOSINOPHILS # (AUTO) 0.2 K/uL (0-0.4); EOSINOPHILS % (AUTO) 3.7 % (0.0-4.0); HEMATOCRIT 28.8 % (36-52); HEMOGLOBIN 10.2 g/dL (12.0-18.0); LYMPHOCYTES # (AUTO) 1.8 K/uL (2.0-11.5); LYMPHOCYTES % (AUTO) 40.1 % (20.5-51.1); MEAN CORPUSCULAR HEMOGLOBIN 32 pg (27-31); MEAN CORPUSCULAR HGB CONC 36 g/dL (33-37); MEAN CORPUSCULAR VOLUME 88.8 fL (80-94); MONOCYTES # (AUTO) 0.3 K/uL (0.8-1.0); MONOCYTES % (AUTO) 7.7 % (1.7-9.3); NEUTROPHILS # (AUTO) 2.1 K/uL (1.8-7.7); NEUTROPHILS % (AUTO) 47.4 % (42.2-75.2); PLATELET COUNT (AUTO) 94 K/uL (140-450); RED BLOOD CELL COUNT(AUTO) 3.25 MIL/uL (4.20-6.10); RED CELL DISTRIBUTION WIDTH 17.4 % (11.6-13.7); WHITE BLOOD COUNT (AUTO) 4.5 K/uL (4.8-10.8)
--- NOTE | 2018-03-02 07:24 | NUR ---
ENDORSED PLAN OF CARE TO DAY SHIFT NURSE MIGUELINA RN, PT STABLE, NO DISTRESS NOTED, CALL LIGHT WITHIN REACH.
--- NOTE | 2018-03-02 07:24 | NUR ---
RECEIVED REPORT FROM NIGHTSHIFT NURSE AT BEDSIDE. PATIENT ABLE TO AMBULATE WELL TO THE RESTROOM. PATIENT IS ALERT AND ORIENTED X4 AT THIS TIME. PATIENT HAS AN IV ON HIS RIGHT THUMB 24G. PATIENT SHOWS NO SIGNS OF RESPIRATORY DISTRESS OR RESPIRATORY DEPRESSION. UPDATED BOARD IN PATIENT'S ROOM. PUT CALL LIGHT WITHIN REACH OF PATIENT. WILL CONTINUE TO MONITOR PATIENT.
[2018-03-02 07:33] LABS: ANION GAP 13.1 (8-16); CARBON DIOXIDE 25.2 mmol/L (21-32); CREATININE 1.3 mg/dL (0.7-1.3); MAGNESIUM 1.9 mg/dL (1.8-2.4); PHOSPHORUS 5.4 mg/dL (2.5-4.9); POTASSIUM 4.3 mmol/L (3.5-5.1)
[2018-03-02 08:00] VITALS: BP 142/57
[2018-03-02] MEDS: FUROSEMIDE 40 MG TAB PO SCH (08:27)
[2018-03-02] MEDS: PANTOPRAZOLE 40 MG TABEC PO SCH (08:28)
[2018-03-02] MEDS: ASPIRIN 81 MG TAB.CHEW PO SCH (08:28)
[2018-03-02] MEDS: METOPROLOL 25 MG TAB PO SCH (08:28)
[2018-03-02] MEDS: LISINOPRIL 20 MG TAB PO SCH (08:29)
[2018-03-02] MEDS: RIFAXIMIN 550 MG TAB PO SCH (08:33)
[2018-03-02] MEDS ORDERED: METHADONE 10 MG TAB PO SCH (09:00)
[2018-03-02] MEDS ORDERED: LACTULOSE 20 GM/30 ML UDC PO SCH (09:00)
--- NOTE | 2018-03-02 09:00 | NUR ---
PATIENT RESTING IN BED. NO COMPLAINTS OF PAIN. NO SIGNS OF RESPIRATORY DISTRESS OR RESPIRATORY DEPRESSION. WILL CONTINUE TO MONITOR PATIENT.
[2018-03-02 09:06] LABS: T4 (THYROXINE) 8.1 ug/dL (4.5-12.0)
[2018-03-02] MEDS ORDERED: RIFA550T PO (09:48)
[2018-03-02] MEDS ORDERED: METH10TA1 PO (09:48)
--- NOTE | 2018-03-02 11:50 | NUR ---
PATIENT UNDERSTOOD AND SIGNED ALL DISCHARGE INSTRUCTIONS. PATIENT AWARE OF PRESCRIPTIONS AND FOLLOW UP VISIT DATES WITH PRIMARY CARE PHYSICIAN. PATIENT SHOWS NO SIGNS OF RESPIRATORY DISTRESS OR RESPIRATORY DEPRESSION. DISCONTINUED PATIENT'S INTRAVENOUS LINE WITH CATHETER STILL INTACT. TOOK OFF PATIENT'S TELE MONITOR BOX. TOOK OFF PATIENT'S IDENTIFICATION BAND. PATIENT LEFT THE UNIT WITH FAMILY MEMBER WITH ALL BELONGINGS.
--- NOTE | 2018-03-04 08:38 | NUR ---
WOUND EVALUATION NOT DONE. PT. DISCHARGED.
== END 2018-03-02 11:50 | disposition home or self-care (01) | DRG 441 ==
LOC: MED 00:25 → MTU 01:21
PROVIDERS: ADMIT Family Medicine Sports Medicine; ATTEND Family Medicine Sports Medicine
DX: K72.90 Hepatic failure, unspecified without coma (principal); N17.0 Acute kidney failure with tubular necrosis; E72.20 Disorder of urea cycle metabolism, unspecified; E11.22 Type 2 diabetes mellitus with diabetic chronic kidney disease; I27.20 Pulmonary hypertension, unspecified; E66.01 Morbid (severe) obesity due to excess calories; I42.9 Cardiomyopathy, unspecified; E11.51 Type 2 diabetes mellitus with diabetic peripheral angiopathy without gangrene; D64.9 Anemia, unspecified; K74.69 Other cirrhosis of liver; J44.9 Chronic obstructive pulmonary disease, unspecified; K21.9 Gastro-esophageal reflux disease without esophagitis; B19.20 Unspecified viral hepatitis C without hepatic coma; E80.6 Other disorders of bilirubin metabolism; I70.209 Unspecified atherosclerosis of native arteries of extremities, unspecified extremity; F11.11 Opioid abuse, in remission; F19.10 Other psychoactive substance abuse, uncomplicated; Z68.39 Body mass index [BMI] 39.0-39.9, adult; F17.210 Nicotine dependence, cigarettes, uncomplicated; Z83.2 Family history of diseases of the blood and blood-forming organs and certain disorders involving the immune mechanism; I12.9 Hypertensive chronic kidney disease with stage 1 through stage 4 chronic kidney disease, or unspecified chronic kidney disease; N18.9 Chronic kidney disease, unspecified
CPT/HCPCS: 36415; 71045; 76705; 80048; 80053; 80305; 81003; 82140; 82150; 83036; 83690; 83735; 83880; 84100; 84436; 84439; 84443; 84479; 84484; 85025; 85610; 85730; 87081; 93005; 99285; G0482; J7030; Q0092; S0119

== ENCOUNTER 2018-03-09 11:27 | Inpatient (IN) | payer OTHER ==
[~2018-03-09] VITALS: Ht 182.9 cm; Wt 141.5 kg
[~2018-03-09 11:27] MED LIST changes: +RIFA550T PO
[2018-03-09 11:35] VITALS: BP 119/60
--- NOTE | 2018-03-09 11:46 | NUR ---
Patient ambulated to bed 2. RN evaluating patient at bedside.
--- NOTE | 2018-03-09 11:49 | NUR ---
62Y/M BIB SELF WANTS HIS AMMONIA LEVEL , PT STATES HE HAS SPASM ON HIS ABD, SHAKING ALL OVER HIS BODY, HIS EYES ARE BURNING. PATIENT STATES PAIN OF 8/10 AT THIS TIME; PATIENT POSITIONED FOR COMFORT; HOB ELEVATED; BEDRAILS UP X 1; BED DOWN. ER MD MADE AWARE OF PT STATUS.
--- NOTE | 2018-03-09 11:57 | NUR ---
LAB AT BEDSIDE.
--- NOTE | 2018-03-09 12:00 | NUR ---
Dr. Cook evaluating patient at bedside.
[2018-03-09 12:19] LABS: BASOPHILS % (AUTO) 0.8 % (0.0-2.0); EOSINOPHILS # (AUTO) 0.2 K/uL (0-0.4); EOSINOPHILS % (AUTO) 3.8 % (0.0-4.0); HEMATOCRIT 31.4 % (36-52); HEMOGLOBIN 10.9 g/dL (12.0-18.0); LYMPHOCYTES # (AUTO) 1.7 K/uL (2.0-11.5); LYMPHOCYTES % (AUTO) 34.2 % (20.5-51.1); MEAN CORPUSCULAR HEMOGLOBIN 31 pg (27-31); MEAN CORPUSCULAR HGB CONC 35 g/dL (33-37); MEAN CORPUSCULAR VOLUME 89.5 fL (80-94); MONOCYTES # (AUTO) 0.5 K/uL (0.8-1.0); MONOCYTES % (AUTO) 9.2 % (1.7-9.3); NEUTROPHILS # (AUTO) 2.7 K/uL (1.8-7.7); PLATELET COUNT (AUTO) 95 K/uL (140-450); RED BLOOD CELL COUNT(AUTO) 3.51 MIL/uL (4.20-6.10); RED CELL DISTRIBUTION WIDTH 17.2 % (11.6-13.7); WHITE BLOOD COUNT (AUTO) 5.1 K/uL (4.8-10.8)
[2018-03-09 12:32] LABS: PROTHROMBIN TIME 12.2 secs (10.8-13.4)
[2018-03-09 12:35] LABS: ALBUMIN 3.4 g/dL (3.4-5.0); ANION GAP 15.3 (8-16); CARBON DIOXIDE 24.9 mmol/L (21-32); POTASSIUM 5.2 mmol/L (3.5-5.1); TOTAL BILIRUBIN 1.7 mg/dL (0.0-1.0)
[2018-03-09] MEDS ORDERED: NACL 0.9% 1,000 ML IV ONE (13:05)
[2018-03-09] MEDS ORDERED: NEOMYCIN 500 MG TAB PO ONE (13:05)
[2018-03-09] MEDS ORDERED: SODIUM POLYSTYRENE 15 GM/60 ML UDBTL PO ONE (13:05)
[2018-03-09] MEDS: NACL 0.9% 1,000 ML IV SCH (13:14)
[2018-03-09] MEDS ORDERED: ONDANSETRON 4 MG/2 ML VIAL IM/IVP PRN (13:15)
[2018-03-09] MEDS ORDERED: ACETAMINOPHEN 325 MG TAB PO PRN (13:15)
[2018-03-09] MEDS ORDERED: MORPHINE SULFATE 4 MG/ML SYR IVP PRN (13:15)
[2018-03-09] MEDS ORDERED: MECLIZINE 25 MG TAB PO ONE (13:15)
[2018-03-09] MEDS ORDERED: DOCUSATE SODIUM 100 MG GELCAP PO PRN (13:15)
--- NOTE | 2018-03-09 13:59 | NUR ---
PT TAKEN TO CT
--- NOTE | 2018-03-09 14:04 | NUR ---
NO IV ACCESS. MD DR MCCRARY NOTIFIED NO IV FLUID GIVEN.
[2018-03-09 14:08] LABS: AMYLASE 62 U/L (25-115); CHOL/HDL RATIO 1.8 (1-4.5); FREE T4 (FREE THYROXINE) 1.12 ng/dL (0.76-1.46); HDL CHOLESTEROL 50 mg/dL (40-60); LDL (CALC) 34 mg/dL (60-100); LIPASE 152 U/L (73-393); MAGNESIUM 2.2 mg/dL (1.8-2.4); PHOSPHORUS 5.1 mg/dL (2.5-4.9); THYROID STIMULATING HORMONE 1.54 uIU/mL (0.34-3.74); TRIGLYCERIDES 43 mg/dL (30-150)
--- NOTE | 2018-03-09 14:27 | NUR ---
Patient will be admitted to care of DR JJ. Admited toTELE]. Will go to room 112B. Belongings list completed. Report to MADDY HERNANDEZ.
--- NOTE | 2018-03-09 14:30 | NUR ---
PATIENT WAS TRANSFERRED FROM ER. REPORT WAS GIVEN AT BEDSIDE. PATIENT APPEARED TO BE AGITATED, REFUSED TO PUT ON THE GOWN, REFUSED TO PUT ON SUPERINTENDENT STORAGE AREA INITIALLY. WHEN ASKED ABOUT THE TELE BOX, PATIENT STATED "WHAT KIND OF DUMB QUESTION IS THAT, GET THE HELL OUT OF HERE, I DON'T WANT YOU HERE". CHARGE NURSE FRANCIS WAS NOTIFIED. ENDORSEMENT CARE TO SIMA HERNANDEZ.
--- NOTE | 2018-03-09 14:31 | NUR ---
RECEIVED REPORT FROM DAY NURSE MADDY AT BEDSIDE FOR CONTINUITY OF CARE. PT ALERT AND AWAKE. ABLE TO AMBULATE WITH CANE. DX IS HEPATIC ENCEPHALOPATHY. MRSA SCREENING DONE, BREATHING EVEN AND UNLABORED. INITIAL ASSESSMENT DONE. IV INTACT, PATENT AND ASYMPTOMATIC. UPDATED BOARD, UPDATED PATIENT WITH PLAN OF CARE. PATIENT VERBALIZED UNDERSTANDING. SAFETY PRECAUTION IN PLACE, CALL LIGHT WITHIN REACH, WILL CONTINUE TO MONITOR PATIENT.
[2018-03-09 15:30] VITALS: BP 115/55
[2018-03-09 17:01] LABS: BILIRUBIN,URINE 1+ (NEGATIVE); BLOOD, URINE NEGATIVE (NEGATIVE); LEUKOCYTE ESTERASE ,URINE NEGATIVE (NEGATIVE); NITRITE, URINE NEGATIVE (NEGATIVE); UGLUCOSE NEGATIVE (NEGATIVE)
[2018-03-09 17:05] LABS: APPEARANCE,URINE CLEAR (CLEAR); COLOR,URINE AMBER (YELLOW)
[2018-03-09 17:08] LABS: BARBITURATE, URINE NEG. ng/ml (NEG <=200); BENZODIAZEPINE, URINE NEG. ng/mL (NEG <=200); CANNABINOID, URINE NEG. ng/mL (NEG <=50); COCAINE, URINE NEG. ng/mL (NEG <=300); OPIATE, URINE NEG. ng/mL (NEG <=2000); PHENCYCLIDINE SCREEN,URINE NEG. ng/mL (NEG <=25)
--- NOTE | 2018-03-09 17:25 | NUR ---
XRAY REQUESTED THAT PATIENT BE NPO FOR PROCEDURE. PATIENT INFORMED THAT HE WILL BE NPO UNTIL XRAY FINISHES THEIR PROCEDURE. PATIENT VERBALIZED UNDERSTANDING.
--- NOTE | 2018-03-09 19:35 | NUR ---
REPORT GIVEN TO RESEARCH CONTRACTS SUPERVISOR NURSE AT BEDSIDE FOR CONTINUITY OF CARE. PATIENT IN STABLE CONDITION.
--- NOTE | 2018-03-09 19:36 | NUR ---
RECD. RESTING IN BED, AWAKE, A/OX4. RESPIRATION EVEN AND UNLABORED. IV OF NS AT 60 ML/HR INFUSING, RIGHT FOREARM G22. NOTED SOME REDNESS AND PITTING EDEMA 2+ ON BILATERAL LOWER EXTREMITIES, ELEVATED ON PILLOWS. PLAN OF CARE FOR THE SHIFT DISCUSSED. VERBALIZED UNDERSTANDING. DENIES PAIN 0/10.
[2018-03-09 20:00] VITALS: BP 139/60
[2018-03-09] MEDS: FUROSEMIDE 40 MG TAB PO SCH (21:11)
[2018-03-09] MEDS: METOPROLOL 25 MG TAB PO SCH (21:11)
--- NOTE | 2018-03-09 21:11 | NUR ---
SITTING ON THE BED, JUST AMBULATED FROM BR TO VOID. DUE PO MEDICATIONS GIVEN.
[2018-03-09] MEDS: HYDROcodone/APAP 7.5/325 MG 1 TAB PO PRN (21:12)
[2018-03-09] MEDS: RIFAXIMIN 550 MG TAB PO SCH (21:13)
--- NOTE | 2018-03-09 22:00 | NUR ---
SLEEPING COMFORTABLY IN BED.
[2018-03-10] VITALS: BP 111/66
--- NOTE | 2018-03-10 00:15 | NUR ---
SLEEPING, WAKEN UP TO CHECK VS. DID NOT GET UPSET. COOPERATIVE. VS STABLE.
[2018-03-10] MEDS ORDERED: ZOLPIDEM 10 MG TAB PO SCH (00:30)
--- NOTE | 2018-03-10 02:00 | NUR ---
REFUSED TO WEAR FALL RISK ID BAND AND YELLOW GOWN, STATED I CAN WALK BY MYSELF.
[2018-03-10 04:00] VITALS: BP 107/56
--- NOTE | 2018-03-10 05:10 | NUR ---
[facility] TELEPHONE NUMBER GIVEN TO DR. KANG TO CALL FOR DOSE TODAY. WILL INFORM NEXT RESIDENT.
[2018-03-10] MEDS: PANTOPRAZOLE 40 MG TABEC PO SCH (06:41)
[2018-03-10] MEDS: NACL 0.9% 1,000 ML IV SCH ×2 (06:42→22:34)
--- NOTE | 2018-03-10 07:15 | NUR ---
CONDITION REMAIN STABLE. ENDORSED TO AM NURSE TO FOLLOW UP WITH MD TO CALL [facility] AND FOR CONTINUITY OF CARE.
--- NOTE | 2018-03-10 07:16 | NUR ---
RECEIVED REPORT FROM CNC LATHE MACHINIST NURSE AT BEDSIDE FOR CONTINUITY OF CARE. PATIENT AOX4, AMBULATES ON STEADY GAIT. RESPIRATIONS EVEN AND UNLABORED ON ROOM AIR. NO SIGNS OF DISTRESS OR SOB NOTED. PATIENT DENIES PAIN. IV INTACT, PATENT, AND ASYMPTOMATIC, INFUSING IVF WELL. SAFETY PRECAUTION IN PLACE, CALL LIGHT WITHIN REACH. WILL CONTINUE TO MONITOR PATIENT.
--- NOTE | 2018-03-10 07:30 | NUR ---
CALLED [facility] IN [place] AT [phone] TO REQUEST PATIENT'S [facility]SE. THEY REQUIRED AUTHORIZATION OF HEALTH INFORMATION PAPERWORK. PATIENT SIGNED PAPERWORK. AUTHORIZATION WAS FAXED TO [facility]AM[facility] AT [phone]. WAITING FOR THEIR CALL BACK.
[2018-03-10 08:00] VITALS: BP 125/56
--- NOTE | 2018-03-10 08:09 | NUR ---
[facility] FAXED BACK PATIENT'S [facility] DOSE. INFORMED RESIDENTS. NEW ORDERS IN. SPOKE TO RESIDENTS ABOUT PATIENT'S LACTULOSE ORDER FOR PATIENT'S HIGH AMMONIA LEVEL. NEW ORDERS IN, PATIENT AWARE AND VERBALIZED UNDERSTANDING. WILL WAIT FOR PHARMACY TO VERIFY AND MEDICATE ACCORDINGLY.
[2018-03-10] MEDS ORDERED: LACTULOSE PO SCH (09:00)
[2018-03-10] MEDS ORDERED: LACTULOSE 20 GM/30 ML UDC PO SCH (09:00)
[2018-03-10] MEDS ORDERED: METHADONE 10 MG TAB PO SCH ×2 (09:00→10:00)
[2018-03-10] MEDS: RIFAXIMIN 550 MG TAB PO SCH ×2 (10:01→20:14)
[2018-03-10] MEDS: LISINOPRIL 10 MG TAB PO SCH (10:03)
[2018-03-10] MEDS: METOPROLOL 25 MG TAB PO SCH ×2 (10:05→20:14)
[2018-03-10] MEDS: ASPIRIN 81 MG TAB.CHEW PO SCH (10:05)
[2018-03-10] MEDS: POTASSIUM CHLORIDE 10 MEQ TABER PO SCH (10:06)
[2018-03-10] MEDS: FUROSEMIDE 40 MG TAB PO SCH ×2 (10:06→20:14)
[2018-03-10] MEDS: ATORVASTATIN 20 MG TAB PO SCH (10:06)
--- NOTE | 2018-03-10 10:10 | NUR ---
ADMINISTERED ORDERED MEDICATIONS. PATIENT TOLERATED THEM WELL. PATIENT SITTING UP IN CHAIR BY SIDE OF BED. NO DISTRESS OR SOB NOTED ON ROOM AIR. PATIENT DENIES PAIN AT THIS MOMENT. SAFETY PRECAUTION IN PLACE, CALL LIGHT WITHIN REACH. WILL CONTINUE TO MONITOR PATIENT.
[2018-03-10 10:15] LABS: T4 (THYROXINE) 7.9 ug/dL (4.5-12.0)
[2018-03-10 11:04] LABS: BASOPHILS % (AUTO) 0.9 % (0.0-2.0); EOSINOPHILS # (AUTO) 0.2 K/uL (0-0.4); EOSINOPHILS % (AUTO) 3.3 % (0.0-4.0); HEMATOCRIT 32.9 % (36-52); HEMOGLOBIN 11.5 g/dL (12.0-18.0); LYMPHOCYTES # (AUTO) 1.4 K/uL (2.0-11.5); LYMPHOCYTES % (AUTO) 30.2 % (20.5-51.1); MEAN CORPUSCULAR HEMOGLOBIN 31 pg (27-31); MEAN CORPUSCULAR HGB CONC 35 g/dL (33-37); MEAN CORPUSCULAR VOLUME 89.6 fL (80-94); MONOCYTES # (AUTO) 0.4 K/uL (0.8-1.0); MONOCYTES % (AUTO) 8.4 % (1.7-9.3); NEUTROPHILS # (AUTO) 2.7 K/uL (1.8-7.7); NEUTROPHILS % (AUTO) 57.2 % (42.2-75.2); PLATELET COUNT (AUTO) 94 K/uL (140-450); RED BLOOD CELL COUNT(AUTO) 3.68 MIL/uL (4.20-6.10); RED CELL DISTRIBUTION WIDTH 16.7 % (11.6-13.7); WHITE BLOOD COUNT (AUTO) 4.7 K/uL (4.8-10.8)
[2018-03-10 11:23] LABS: ANION GAP 12.9 (8-16); CREATININE 1.5 mg/dL (0.7-1.3); POTASSIUM 4.9 mmol/L (3.5-5.1)
[2018-03-10 11:24] LABS: MAGNESIUM 2.1 mg/dL (1.8-2.4); PHOSPHORUS 4.6 mg/dL (2.5-4.9)
[2018-03-10 12:00] VITALS: BP 118/55
[2018-03-10] MEDS: LACTULOSE 20 GM/30 ML UDC PO SCH ×2 (12:13→16:30)
--- NOTE | 2018-03-10 15:10 | NUR ---
PT IV INFILTRATED, IV REMOVED, IV CATHETER INTACT, MINIMAL BLOOD NOTED. RESIDENTS AWARE. NO NEW IV INSERTED, PATIENT ON P.O MEDICATIONS AND EATS WELL.
[2018-03-10 16:00] VITALS: BP 110/58
--- NOTE | 2018-03-10 16:04 | NUR ---
NOTIFIED DR. ARANA ON PRIOR ECHO DONE WITHIN 6 MONTHS. REQUESTED ECHO TO BE CANCELLED
--- NOTE | 2018-03-10 17:45 | NUR ---
PATIENT SITTING UP IN CHAIR BY SIDE OF BED EATING DINNER. NO DISTRESS OR SOB NOTED ON ROOM AIR. PATIENT DENIES PAIN AT THIS MOMENT. SAFETY PRECAUTION IN PLACE, CALL LIGHT WITHIN REACH. WILL CONTINUE TO MONITOR PATIENT.
--- NOTE | 2018-03-10 19:12 | NUR ---
REPORT GIVEN TO TIRE REPAIR MECHANIC NURSE AT BEDSIDE FOR CONTINUITY OF CARE. PATIENT IN STABLE CONDITION.
--- NOTE | 2018-03-10 19:13 | NUR ---
RECEIVED REPORT FROM DAY SHIFT NURSE SIMA RN AT BEDSIDE FOR CONTINUITY OF CARE. PATIENT AOX4, AMBULATES ON STEADY GAIT. RESPIRATIONS EVEN AND UNLABORED ON ROOM AIR. NO SIGNS OF DISTRESS OR SOB NOTED. PATIENT DENIES PAIN. IV NO LONGER IN, PER DAY SHIFT NURSE STATES PT DOES NOT NEED IT. SAFETY PRECAUTION IN PLACE, CALL LIGHT WITHIN REACH. WILL CONTINUE TO MONITOR PATIENT.
[2018-03-10 20:00] VITALS: BP 120/58
[2018-03-10] MEDS: HYDROcodone/APAP 7.5/325 MG 1 TAB PO PRN (22:58)
[2018-03-11] VITALS: BP 124/62
[2018-03-11 04:00] VITALS: BP 126/64
[2018-03-11] MEDS: PANTOPRAZOLE 40 MG TABEC PO SCH (05:51)
--- NOTE | 2018-03-11 07:06 | NUR ---
ASSUMED CONTINUITY OF CARE. NO SIGNS AND SYMPTOMS OF ACUTE DISTRESS NOTED. INITIAL ASSESSMENT DONE. NO IV ACCESS. REFUSED IV INSERTION. EXPLAINED DIAGNOSIS, PLAN OF CARE, PAIN MANAGEMENT TEACHING, USE OF CALL LIGHT/BED/TV/BATHROOM. VERBALIZED UNDERSTANDING. CALL LIGHT WITHIN REACH.
--- NOTE | 2018-03-11 07:18 | NUR ---
REPORT GIVEN TO DAY NURSE FOR CONTINUITY OF CARE, PT IN STABLE CONDITION.
--- NOTE | 2018-03-11 07:20 | NUR ---
Patient's Plan of Care was discussed and reviewed with SEPARATOR OPERATOR [employer]LL[employer]: Bebeto RODARTE
[2018-03-11 08:00] VITALS: BP 121/59
[2018-03-11] MEDS: METOPROLOL 25 MG TAB PO SCH ×2 (09:00→20:56)
[2018-03-11] MEDS: LISINOPRIL 10 MG TAB PO SCH (09:00)
[2018-03-11] MEDS: FUROSEMIDE 40 MG TAB PO SCH ×2 (09:13→20:55)
[2018-03-11] MEDS: POTASSIUM CHLORIDE 10 MEQ TABER PO SCH (09:13)
[2018-03-11] MEDS: ATORVASTATIN 20 MG TAB PO SCH (09:13)
[2018-03-11] MEDS: LACTULOSE 20 GM/30 ML UDC PO SCH ×3 (09:14→16:44)
[2018-03-11] MEDS: ASPIRIN 81 MG TAB.CHEW PO SCH (09:14)
[2018-03-11] MEDS: METHADONE 10 MG TAB PO SCH (09:15)
[2018-03-11] MEDS: RIFAXIMIN 550 MG TAB PO SCH ×2 (09:15→20:56)
--- NOTE | 2018-03-11 10:20 | NUR ---
DR. ARANA CAME AND SPOKE TO PT. AT BEDSIDE.
--- NOTE | 2018-03-11 11:24 | NUR ---
PATIENT HAS BEEN SCREENED AND CATEGORIZED MODERATE NUTRITION RISK. PATIENT WILL BE SEEN WITHIN 3-5 DAYS OF ADMISSION. 03/12/18 03/14/[address] Addendum: 03/11/18 at [address] PATIENT HAS BEEN RESCREENED AND RECATEGORIZED HIGH NUTRITION RISK. PATIENT WILL BE SEEN WITHIN 1-2 DAYS OF ADMISSION. 03/30/18 - 04/10/[address]
[2018-03-11 12:00] VITALS: BP 109/43
--- NOTE | 2018-03-11 14:44 | NUR ---
AMBULATES ON HALLWAY WITH CANE. HAD STEADY GAIT AND BALANCE. TOLERATED WELL. NO C/O PAIN.
[2018-03-11] MEDS: NACL 0.9% 1,000 ML IV SCH (15:14)
[2018-03-11 16:00] VITALS: BP 103/43
--- NOTE | 2018-03-11 16:50 | NUR ---
AMBULATES ON HALLWAY WITH CANE. TOLERATED WELL. NO C/O PAIN. NO SOB, NOTED.
--- NOTE | 2018-03-11 19:12 | NUR ---
REPORT GIVEN TO BRANDON GRADY. IN STABLE CONDITION.
--- NOTE | 2018-03-11 19:30 | NUR ---
RECEIVED PT IN STABLE CONDITION . AWAKE,ALERT AND ORIENTED X4. AMBULATORY WITH CANE. ON TELE MONITOR. SITTING IN CHAIR. NO C/O ANY DISCOMFORT NOR PAIN NOTED. NO IV ACCESS, MD AWARE PER AM RN. PLAN OF CARE DISCUSSED AND VERBALIZED UNDERSTANDING. BED ON LOWEST POSITION. CALL LIGHT NAD URINAL WITHIN EASY REACH. BLE STILL WITH SOME EDEMA NOTED. WILL CONTINUE TO MONITOR.
[2018-03-11 20:00] VITALS: BP 115/79
[2018-03-11] MEDS ORDERED: ZOLPIDEM 5 MG TAB PO SCH (21:00)
--- NOTE | 2018-03-11 21:30 | NUR ---
STILL AWAKE. NO C/O OF ANY DISCOMFORT NOTED.
[2018-03-12] VITALS: BP 110/48
--- NOTE | 2018-03-12 02:30 | NUR ---
MADE ROUNDS. PT IS ASLEEP. NO S/S OF ANY DISCOMFORT NOR PAIN NOTED. WILL CONTINUE TO MONITOR.
--- NOTE | 2018-03-12 03:35 | NUR ---
DR. AHMADI,RESIDENT CAME TO TALKED TO PT REGARDING PT CONCERN ABOUT HIS AM LABS FOR AMMONIA LEVEL .
[2018-03-12 04:05] VITALS: BP 113/41
--- NOTE | 2018-03-12 06:00 | NUR ---
AWAKE, AMBULATING TO THE HALLWAY. NO S/S OF ANY DISCOMFORT NOTED.
[2018-03-12] MEDS: PANTOPRAZOLE 40 MG TABEC PO SCH (06:01)
--- NOTE | 2018-03-12 07:25 | NUR ---
ENDORSED PT IN STABLE CONDITION TO AM NURSE.
--- NOTE | 2018-03-12 07:30 | NUR ---
RECEIVED PT ON BED AAOX4. NO SOB NOTED. NO C/O PAIN AT THIS TIME. NO IV ACCESS, PT REFUSED REINSERTION, MD AWARE. CHEST CLEAR. ABDOMEN SOFT, BOWEL SOUNDS. +1 PITTING EDEMA NOTED ON BLE, INSTRUCTED TO ELEVATE BLE WHILE ON BED. INSTRUCTED PT TO CALL FOR ASSISTANCE, CALL LIGHT WITHIN REACH. PT VERBALIZED UNDERSTANDING.
[2018-03-12] MEDS: NACL 0.9% 1,000 ML IV SCH (07:54)
[2018-03-12 08:00] VITALS: BP 113/49
[2018-03-12] MEDS: LACTULOSE 20 GM/30 ML UDC PO SCH (08:16)
[2018-03-12] MEDS: RIFAXIMIN 550 MG TAB PO SCH (08:18)
[2018-03-12] MEDS: POTASSIUM CHLORIDE 10 MEQ TABER PO SCH (08:18)
[2018-03-12] MEDS: FUROSEMIDE 40 MG TAB PO SCH (08:18)
[2018-03-12] MEDS: ATORVASTATIN 20 MG TAB PO SCH (08:19)
[2018-03-12] MEDS: ASPIRIN 81 MG TAB.CHEW PO SCH (08:19)
[2018-03-12] MEDS: METHADONE 10 MG TAB PO SCH (08:20)
[2018-03-12] MEDS: LISINOPRIL 10 MG TAB PO SCH (09:00)
[2018-03-12] MEDS: METOPROLOL 25 MG TAB PO SCH (09:00)
--- NOTE | 2018-03-12 09:30 | NUR ---
PT STATED HE HAD 5X BMs TOTAL RIGHT AFTER HE ATE BREAKFAST.
--- NOTE | 2018-03-12 10:00 | NUR ---
BLOOD DRAWN FOR TODAY'S BLOOD WORKS.
--- NOTE | 2018-03-12 10:15 | NUR ---
SPOKE TO PT ,SKIN ASSESSMENT DONE, NO ACTIVE OPEN WOUND, MULTIPLE TATTOOS TO SHOULDERS AND ARMS, OLD HEALED SCAR TO LEFT/ RIGHT UPPER AND LOWER EXTREMITIES. PT AAX4, AMBULATORY. PT VERBALIZES UNDERSTAND TO KEEP SKIN DRY AND CLEAN AT ALL TIMES. PLAN OF CARE DISCUSSED WITH PRIMARY RN.
[2018-03-12 10:50] LABS: BASOPHILS % (AUTO) 0.9 % (0.0-2.0); EOSINOPHILS # (AUTO) 0.1 K/uL (0-0.4); HEMATOCRIT 29.8 % (36-52); HEMOGLOBIN 10.7 g/dL (12.0-18.0); LYMPHOCYTES # (AUTO) 1.4 K/uL (2.0-11.5); LYMPHOCYTES % (AUTO) 28.4 % (20.5-51.1); MEAN CORPUSCULAR HEMOGLOBIN 32 pg (27-31); MEAN CORPUSCULAR HGB CONC 36 g/dL (33-37); MEAN CORPUSCULAR VOLUME 88.2 fL (80-94); MONOCYTES # (AUTO) 0.4 K/uL (0.8-1.0); MONOCYTES % (AUTO) 7.7 % (1.7-9.3); NEUTROPHILS # (AUTO) 2.9 K/uL (1.8-7.7); PLATELET COUNT (AUTO) 93 K/uL (140-450); RED BLOOD CELL COUNT(AUTO) 3.38 MIL/uL (4.20-6.10); RED CELL DISTRIBUTION WIDTH 16.7 % (11.6-13.7); WHITE BLOOD COUNT (AUTO) 4.8 K/uL (4.8-10.8)
[2018-03-12 11:18] LABS: ANION GAP 14.2 (8-16); CARBON DIOXIDE 23.6 mmol/L (21-32); CREATININE 1.5 mg/dL (0.7-1.3); POTASSIUM 4.8 mmol/L (3.5-5.1)
[2018-03-12 11:20] LABS: MAGNESIUM 2.1 mg/dL (1.8-2.4); PHOSPHORUS 4.7 mg/dL (2.5-4.9)
[2018-03-12 12:00] VITALS: BP 110/48
--- NOTE | 2018-03-12 12:15 | NUR ---
DISCHARGE INSTRUCTIONS GIVEN TO PT WHICH VERBALIZED FULL UNDERSTANDING OF THE TEACHINGS AND THE NEED TO FOLLOW WITH DR. EVANS OUT PT ON A GIVEN DATE.
--- NOTE | 2018-03-12 13:00 | NUR ---
DISCHARGE PAPERS SIGNED BY PT, ARM BAND REMOVED. PT ESCORTED OUT TO THE PARKING LOT, AMBULATORY. NO SOB NOTED. NO C/O PAIN AT THIS TIME. PT IS D/C HOME IN STABLE CONDITION,
== END 2018-03-12 13:00 | disposition home or self-care (01) | DRG 441 ==
LOC: MED 11:27 → MTU 13:18
PROVIDERS: ADMIT Family Medicine; ATTEND Family Medicine
DX: K72.90 Hepatic failure, unspecified without coma (principal); N17.0 Acute kidney failure with tubular necrosis; E87.5 Hyperkalemia; E66.01 Morbid (severe) obesity due to excess calories; E83.39 Other disorders of phosphorus metabolism; D69.6 Thrombocytopenia, unspecified; I42.0 Dilated cardiomyopathy; Z68.41 Body mass index [BMI] 40.0-44.9, adult; D64.9 Anemia, unspecified; K21.9 Gastro-esophageal reflux disease without esophagitis; I73.9 Peripheral vascular disease, unspecified; I10 Essential (primary) hypertension; K74.60 Unspecified cirrhosis of liver; I89.0 Lymphedema, not elsewhere classified; B19.20 Unspecified viral hepatitis C without hepatic coma; F17.210 Nicotine dependence, cigarettes, uncomplicated; Z79.82 Long term (current) use of aspirin; Z79.899 Other long term (current) drug therapy; Z91.19 Patient's noncompliance with other medical treatment and regimen
CPT/HCPCS: 36415; 70450; 71045; 80048; 80053; 80305; 81003; 82140; 82150; 83036; 83690; 83735; 83880; 84100; 84436; 84439; 84443; 84479; 84484; 85025; 85610; 85730; 87081; 93005; 93880; 99285; G0482; J7030; Q0092

== ENCOUNTER 2018-03-14 21:27 | Emergency (ER) | payer OTHER ==
[~2018-03-14] VITALS: Ht 185.4 cm; Wt 134.3 kg
[2018-03-14 21:31] VITALS: BP 113/50
--- NOTE | 2018-03-14 21:36 | NUR ---
PT.AMBULATED TO [facility]
--- NOTE | 2018-03-14 22:31 | NUR ---
62/M WITH C/O HEADACHE AND "BURNING" STOMACH PAIN. REPORTS HE WAS SEEN BY PMD TODAY AND WAS RECOMMENDED TO COME TO ER FOR AMMONIA LEVEL CHECK. PT AOX4, GCS 15. pMH: HTN, GERN, LIVER CIRRHOSIS
[2018-03-14] MEDS ORDERED: LACTULOSE 20 GM/30 ML UDC PO ONE (22:35)
[2018-03-14] MEDS ORDERED: DICYCLOMINE HCL LIQUID 20 MG, ALUMINUM HYD/MAG/SIMETHICONE 30 ML, LIDOCAINE VISCOUS 2% ... PO ONE ×3 (22:50)
[2018-03-15 01:39] VITALS: BP 126/72
== END 2018-03-15 01:39 | disposition home or self-care (01) ==
LOC: MED 21:27
DX: E72.20 Disorder of urea cycle metabolism, unspecified (principal); K21.9 Gastro-esophageal reflux disease without esophagitis; I10 Essential (primary) hypertension; Z79.899 Other long term (current) drug therapy; Z79.82 Long term (current) use of aspirin
CPT/HCPCS: 36415; 82140; 99283; 99284

== ENCOUNTER 2018-03-15 10:48 | Emergency (ER) | payer OTHER ==
[~2018-03-15] VITALS: Ht 182.9 cm; Wt 134.4 kg
[2018-03-15 10:54] VITALS: BP 104/56
--- NOTE | 2018-03-15 10:58 | NUR ---
PT AMBULATED TO BED 7
--- NOTE | 2018-03-15 11:01 | NUR ---
PT COMES TO ED FOR RECHECK OF AMMONIA LEVEL. PT WAS HERE YESTERDAY AND SENT HOME AFTER BEING TOLD TO COME BACK TODAY AND HAVE LEVEL RECHECKED. PT STATES HIS MEDICATION TO CONTROL HIS AMMONIA LEVEL IS AND IS CONCERNED IT IS NOT WORKING LIKE IT SHOULD BE. DENIES ANY PAIN, SOB N/V OR SOB. PT IS AXO X4, AMBULATES WITH NORMAL GAIT. DR RAYMUNDO AT BEDSIDE TO GABBY
[2018-03-15 12:10] VITALS: BP 118/89
== END 2018-03-15 12:11 | disposition home or self-care (01) ==
LOC: MED 10:48
DX: K70.9 Alcoholic liver disease, unspecified (principal); E72.20 Disorder of urea cycle metabolism, unspecified; K21.9 Gastro-esophageal reflux disease without esophagitis; I10 Essential (primary) hypertension; Z86.19 Personal history of other infectious and parasitic diseases
CPT/HCPCS: 36415; 82140; 99283

== ENCOUNTER 2018-04-01 10:24 | Emergency (ER) | payer OTHER ==
[~2018-04-01] VITALS: Ht 188 cm; Wt 132.1 kg
[2018-04-01 10:29] VITALS: BP 120/55
--- NOTE | 2018-04-01 10:36 | NUR ---
PT AMBULATED WITH CANE ASSISTANCE TO BED 2
--- NOTE | 2018-04-01 10:37 | NUR ---
REPORT GIVEN TO DAPHNEY
--- NOTE | 2018-04-01 10:38 | NUR ---
PATIENT PRESENTS TO ED FOR COMPLAINTS OF POSSIBLE HIGH AMONIA LEVELS. PATIENT STATES HE HAS ABDOMINAL PAIN AND NAUSEA AND THAT IS HOW HE FEELS WHEN HIS AMONIA LEVELS ARE HIGH. SKIN IS PINK/WARM/DRY WITH PITTING +2 EDEMA OF LOWER LEGS AND CELLULITIS; AAOX4 WITH EVEN AND STEADY GAIT; LUNGS CLEAR BL; HR EVEN AND REGULAR; PT DENIES ANY FEVER, CP, SOB, OR COUGH AT THIS TIME; PATIENT STATES PAIN OF 7/10 AT THIS TIME; VSS; PATIENT POSITIONED FOR COMFORT; HOB ELEVATED; BEDRAILS UP X2; BED DOWN. ER MD MADE AWARE OF PT STATUS.
--- NOTE | 2018-04-01 11:18 | NUR ---
DR YATES EVALUATING PT AT BEDSIDE
[2018-04-01] MEDS ORDERED: ALUMINUM HYD/MAG/SIMETHICONE 30 ML, DICYCLOMINE HCL LIQUID 20 MG, LIDOCAINE VISCOUS 2% ... PO ONE ×3 (11:30)
[2018-04-01 13:20] VITALS: BP 122/54
--- NOTE | 2018-04-01 13:20 | NUR ---
Patient discharged with v/s stable. Written and verbal after care instructions given and explained. Patient alert, oriented and verbalized understanding of instructions. Ambulatory with steady gait. All questions addressed prior to discharge. ID band removed. Patient advised to follow up with PMD. Rx of LACTULOSE given. Patient educated on indication of medication including possible reaction and side effects. Opportunity to ask questions provided and answered.
== END 2018-04-01 13:20 | disposition home or self-care (01) ==
LOC: MED 10:24
DX: E72.20 Disorder of urea cycle metabolism, unspecified (principal); K21.9 Gastro-esophageal reflux disease without esophagitis; I10 Essential (primary) hypertension; Z79.899 Other long term (current) drug therapy; Z79.82 Long term (current) use of aspirin
CPT/HCPCS: 36415; 82140; 99284

== ENCOUNTER 2018-05-21 00:45 | Emergency (ER) | payer OTHER ==
[~2018-05-21] VITALS: Ht 185.4 cm; Wt 138.3 kg
[2018-05-21 00:52] VITALS: BP 142/78
--- NOTE | 2018-05-21 00:54 | NUR ---
TO BED # 4 AMBULATORY, REPORT GIVEN TO GRACIE HERNANDEZ.
--- NOTE | 2018-05-21 01:07 | NUR ---
62/M CAME IN ED, C/O 9/10 ACHING, "ACIDIC" DIFFUSE ABD PAIN, X1 HR. PT REPORTS NAUSEA, DIARRHEA. DENIES VOMITING. ABD SOFT, ROUND, BS ACTIVE X4, SLIGHT TENDERNESS ON PALPATION. BUE AND BLE EDEMA NOTED, SKIN IS INTACT, PINK/WARM/DRY; AAOX4, PERRL, WITH EVEN AND STEADY GAIT; LUNGS WHEEZES BL, BREATHING UNLABORED; PT DENIES ANY FEVER, CP, SOB, OR COUGH AT THIS TIME; PATIENT POSITIONED FOR COMFORT; HOB ELEVATED; BEDRAILS UP X2; BED DOWN.
--- NOTE | 2018-05-21 01:45 | NUR ---
Dr. Walls evaluating patient at bedside.
[2018-05-21] MEDS ORDERED: ONDANSETRON 4 MG ODT PO ONE (02:05)
[2018-05-21] MEDS ORDERED: ALUMINUM HYD/MAG/SIMETHICONE 30 ML, DICYCLOMINE HCL LIQUID 20 MG, LIDOCAINE VISCOUS 2% ... PO ONE ×3 (02:05)
[2018-05-21 02:42] VITALS: BP 130/61
--- NOTE | 2018-05-21 02:43 | NUR ---
Patient discharged with v/s stable. Written and verbal after care instructions given and explained. Patient alert, oriented and verbalized understanding of instructions. Ambulatory with steady gait. All questions addressed prior to discharge. ID band removed. Patient advised to follow up with PMD. Rx of ZOFRAN ODT given. Patient educated on indication of medication including possible reaction and side effects. Opportunity to ask questions provided and answered.
== END 2018-05-21 02:43 | disposition home or self-care (01) ==
LOC: MED 00:45
DX: K29.70 Gastritis, unspecified, without bleeding (principal); K21.9 Gastro-esophageal reflux disease without esophagitis; I10 Essential (primary) hypertension; Z79.899 Other long term (current) drug therapy
CPT/HCPCS: 99283; S0119

== ENCOUNTER 2018-05-23 13:23 | Emergency (ER) | payer OTHER ==
[~2018-05-23] VITALS: Ht 185.4 cm; Wt 138.3 kg
[2018-05-23 13:28] VITALS: BP 117/65
--- NOTE | 2018-05-23 13:40 | NUR ---
62m bib self with c/o spitting up "pink in color" phelgm x 1 today with 8/10 "burning" intermittent generalized abd pain. Patient denies fevers, diarrhea, or chest pain. Pt is aox4 to person, place, situation, and time. RR are even and unlabored. 4+ pitting edema to bl lower legs. Patient repors edema has decreased for the past "couple of weeks". Skin is dry/color appropriate for ethnicity. Clear speech with full sentences. Patient refused to change into gown. Patient to cardiac, bp, pulse, and pulse ox monitoring. Awaiting er md trivedi. All needs met at [facility]. Will continue to monitor.
[2018-05-23] MEDS ORDERED: PROMETHAZINE 25 MG/ML VIAL IM ONE (14:05)
--- NOTE | 2018-05-23 14:27 | NUR ---
PT BACK FROM CT SCAN AT THIS TIME VIA MEGAN.
--- NOTE | 2018-05-23 14:30 | NUR ---
LAB AT BEDSIDE AT THIS TIME
[2018-05-23 14:52] LABS: BASOPHILS % (AUTO) 0.7 % (0.0-2.0); EOSINOPHILS # (AUTO) 0.1 K/uL (0-0.4); EOSINOPHILS % (AUTO) 2.9 % (0.0-4.0); HEMATOCRIT 32.6 % (36-52); LYMPHOCYTES # (AUTO) 1.3 K/uL (2.0-11.5); LYMPHOCYTES % (AUTO) 31.6 % (20.5-51.1); MEAN CORPUSCULAR HEMOGLOBIN 32 pg (27-31); MEAN CORPUSCULAR HGB CONC 34 g/dL (33-37); MEAN CORPUSCULAR VOLUME 94.1 fL (80-94); MONOCYTES # (AUTO) 0.4 K/uL (0.8-1.0); MONOCYTES % (AUTO) 10.3 % (1.7-9.3); NEUTROPHILS # (AUTO) 2.2 K/uL (1.8-7.7); NEUTROPHILS % (AUTO) 54.5 % (42.2-75.2); PLATELET COUNT (AUTO) 74 K/uL (140-450); RED BLOOD CELL COUNT(AUTO) 3.46 MIL/uL (4.20-6.10); RED CELL DISTRIBUTION WIDTH 14.4 % (11.6-13.7)
[2018-05-23 15:08] LABS: PROTHROMBIN TIME 12.6 secs (10.8-13.4)
[2018-05-23 15:10] LABS: ANION GAP 9.8 (8-16); CHLORIDE 103 mmol/L (98-107); CREATININE 1.1 mg/dL (0.7-1.3); GFR ARICAN-AMERICAN 88 mL/min (>90); GLUCOSE 74 mg/dL (74-106); POTASSIUM 3.8 mmol/L (3.5-5.1); SODIUM SERUM 138 mmol/L (136-145); UREA NITROGEN, BLOOD 25 mg/dL (7-18)
[2018-05-23 15:17] LABS: ALBUMIN 3.7 g/dL (3.4-5.0); AMYLASE 45 U/L (25-115); ASPARTATE AMINOTRANSFERASE 25 U/L (15-37); LIPASE 130 U/L (73-393)
--- NOTE | 2018-05-23 15:30 | NUR ---
pt resting comfortably in [facility] at this time w/ vss and rr even and unlabored. safety precautions in place, will continue to monitor.
[2018-05-23 15:51] LABS: APPEARANCE,URINE CLEAR (CLEAR); BILIRUBIN,URINE 1+ (NEGATIVE); BLOOD, URINE NEGATIVE (NEGATIVE); COLOR,URINE YELLOW (YELLOW); LEUKOCYTE ESTERASE ,URINE NEGATIVE (NEGATIVE); NITRITE, URINE NEGATIVE (NEGATIVE); PH,URINE 7.5 (5.0-9.0); UGLUCOSE NEGATIVE (NEGATIVE)
[2018-05-23 16:01] LABS: BARBITURATE, URINE NEG. ng/ml (NEG <=200); BENZODIAZEPINE, URINE NEG. ng/mL (NEG <=200); CANNABINOID, URINE NEG. ng/mL (NEG <=50); COCAINE, URINE NEG. ng/mL (NEG <=300); OPIATE, URINE NEG. ng/mL (NEG <=2000); PHENCYCLIDINE SCREEN,URINE NEG. ng/mL (NEG <=25)
--- NOTE | 2018-05-23 16:20 | NUR ---
pt resting comfortably in [facility]. vss and rr even and unlabored. safety precautions in place, will continue to monitor.
[2018-05-23 16:30] LABS: RBC,URINE 0-5 (RARE) /HPF (0-5); WBC,URINE 0-5 (RARE) /HPF (0-5)
[2018-05-23] MEDS ORDERED: LACTULOSE 20 GM/30 ML UDC PO ONE (16:40)
[2018-05-23 17:13] VITALS: BP 122/65
--- NOTE | 2018-05-23 17:14 | NUR ---
Patient discharged with v/s stable. Written and verbal after care instructions given and explained. Patient alert, oriented and verbalized understanding of instructions. Ambulatory with steady gait. All questions addressed prior to discharge. ID band removed. Patient advised to follow up with PMD. Rx of Lactulose given. Patient educated on indication of medication including possible reaction and side effects. Opportunity to ask questions provided and answered.
== END 2018-05-23 17:14 | disposition home or self-care (01) ==
LOC: MED 13:23
DX: I85.00 Esophageal varices without bleeding (principal); K70.30 Alcoholic cirrhosis of liver without ascites; I10 Essential (primary) hypertension; E72.20 Disorder of urea cycle metabolism, unspecified; R94.31 Abnormal electrocardiogram [ECG] [EKG]; K21.9 Gastro-esophageal reflux disease without esophagitis; Z79.899 Other long term (current) drug therapy; Z79.82 Long term (current) use of aspirin
CPT/HCPCS: 36415; 74176; 80053; 80305; 81001; 82140; 82150; 83690; 84484; 85025; 85610; 93005; 96372; 99285; G0482; J2550

== ENCOUNTER 2018-08-13 01:30 | Emergency (ER) | payer OTHER ==
[~2018-08-13] VITALS: Ht 185.4 cm; Wt 138.3 kg
[2018-08-13 01:35] VITALS: BP 123/63
--- NOTE | 2018-08-13 01:38 | NUR ---
TO LOBBY A/W BED, CEDRIC MINOR NOTED
[2018-08-13 01:40] VITALS: BP 123/63
--- NOTE | 2018-08-13 02:40 | NUR ---
PATIENT LEFT WITHOUT BEING SEEN BY DR. GONZALEZ. NO FURTHER CARE PROVIDED FOR PATIENT.
== END 2018-08-13 02:40 | disposition left against medical advice (07) ==
LOC: MED 01:30
DX: R06.00 Dyspnea, unspecified (principal); Z53.21 Procedure and treatment not carried out due to patient leaving prior to being seen by health care provider

== ENCOUNTER 2018-08-13 10:26 | Emergency (ER) | payer OTHER ==
[~2018-08-13] VITALS: Ht 185.4 cm; Wt 145.1 kg
[2018-08-13 10:46] VITALS: BP 101/56
[2018-08-13] MEDS: LIDOCAINE VISCOUS 2% 20 ML UDC PO ONE (11:37)
[2018-08-13] MEDS: ALUMINUM HYD/MAG/SIMETHICONE 30 ML UDC PO ONE (11:38)
[2018-08-13] MEDS: FAMOTIDINE 20 MG TAB PO ONE (11:38)
[2018-08-13 11:57] LABS: BASOPHILS % (AUTO) 0.4 % (0.0-2.0); EOSINOPHILS # (AUTO) 0.1 K/uL (0-0.4); EOSINOPHILS % (AUTO) 2.9 % (0.0-4.0); HEMATOCRIT 31.7 % (36-52); HEMOGLOBIN 11.1 g/dL (12.0-18.0); LYMPHOCYTES # (AUTO) 1.6 K/uL (2.0-11.5); LYMPHOCYTES % (AUTO) 32.5 % (20.5-51.1); MEAN CORPUSCULAR HEMOGLOBIN 32 pg (27-31); MEAN CORPUSCULAR HGB CONC 35 g/dL (33-37); MEAN CORPUSCULAR VOLUME 92.1 fL (80-94); MONOCYTES # (AUTO) 0.4 K/uL (0.8-1.0); MONOCYTES % (AUTO) 9.3 % (1.7-9.3); NEUTROPHILS # (AUTO) 2.6 K/uL (1.8-7.7); NEUTROPHILS % (AUTO) 54.9 % (42.2-75.2); PLATELET COUNT (AUTO) 84 K/uL (140-450); RED BLOOD CELL COUNT(AUTO) 3.44 MIL/uL (4.20-6.10); RED CELL DISTRIBUTION WIDTH 14.8 % (11.6-13.7); WHITE BLOOD COUNT (AUTO) 4.8 K/uL (4.8-10.8)
[2018-08-13 12:37] LABS: ALBUMIN 3.1 g/dL (3.4-5.0); ANION GAP 9.1 (8-16); CARBON DIOXIDE 29.5 mmol/L (21-32); POTASSIUM 4.6 mmol/L (3.5-5.1)
[2018-08-13 13:12] VITALS: BP 110/58
== END 2018-08-13 13:12 | disposition home or self-care (01) ==
LOC: MED 10:26
DX: R06.00 Dyspnea, unspecified (principal); K21.9 Gastro-esophageal reflux disease without esophagitis; K74.60 Unspecified cirrhosis of liver; I10 Essential (primary) hypertension; Z79.899 Other long term (current) drug therapy; Z79.82 Long term (current) use of aspirin
CPT/HCPCS: 36415; 71045; 80053; 83880; 84484; 85025; 99285; Q0092

== ENCOUNTER 2018-08-22 01:13 | Inpatient (IN) | payer OTHER ==
[~2018-08-22] VITALS: Ht 182.9 cm; Wt 145.1 kg
[2018-08-22 01:13] VITALS: BP 163/119
--- NOTE | 2018-08-22 01:15 | NUR ---
Hannah reyes in [facility] - 08/22/18 at 0115 by RUBY PT TAKEN TO BED 4
--- NOTE | 2018-08-22 01:15 | NUR ---
PT BIBA BLS. TAKEN TO BED 4 Addendum: 08/22/18 at 0117 by RUBY PT BROUGHT IN ALS
--- NOTE | 2018-08-22 01:16 | NUR ---
Dr. Vazquez evaluating patient at bedside.
[2018-08-22] MEDS ORDERED: fentaNYL 0.05 MG/ML VIAL IVP ONE ×2 (01:30→02:30)
--- NOTE | 2018-08-22 01:45 | NUR ---
Unable to establish vein in periphery. Pt unable to tolerate lying flat, much less trendelenburg. Inserted 22 ga to right chest superficial vein. Notified Dr Vazquez.
--- NOTE | 2018-08-22 01:50 | NUR ---
PT BIBA FOR GENERALIZED BODY PAIN D/T "MUSCLE SPASMS FROM HIGH AMONIA LEVELS". PT TAKES DAILY MEDICATION FOR AMMONIA BUT DID NOT TAKE MEDICATION LAST 2 DAYS D/T DIARRHEA. PT C/O GENERALIZED BODY PAIN AND MUSCLE SPASMS. PT C/O ABD PAIN AND NAUSEA, ABD IS ROUND, SOFT, NON TENDER, ACTIVE BS X4. PT HAS DIARRHEA FOR PAST TWO DAYS. BL LOWER LEGS HAVE EDEMA , NO OPEN SKIN NOTED. SKIN TO AREA IS REDDENED AND TAUNT. PT ON ARRIVAL IS TACHYPNIC AND LABORED BREATHING ARRVIES W/ NC AT 3/L MIN , PT DENIES OXYGEN USE AT HOME.
[2018-08-22 02:29] LABS: ANION GAP 9.9 (8-16); POTASSIUM 3.9 mmol/L (3.5-5.1)
[2018-08-22] MEDS ORDERED: DICYCLOMINE HCL LIQUID 20 MG, ALUMINUM HYD/MAG/SIMETHICONE 30 ML, LIDOCAINE VISCOUS 2% ... PO ONE ×3 (02:30)
[2018-08-22 02:41] LABS: TOTAL BILIRUBIN 2.4 mg/dL (0.0-1.0)
[2018-08-22 02:42] LABS: ALBUMIN 3.4 g/dL (3.4-5.0)
[2018-08-22 02:45] LABS: HEMATOCRIT 33.9 % (36-52); MEAN CORPUSCULAR HEMOGLOBIN 33 pg (27-31); MEAN CORPUSCULAR HGB CONC 35 g/dL (33-37); MEAN CORPUSCULAR VOLUME 93.8 fL (80-94); PLATELET COUNT (AUTO) 89 K/uL (140-450); RED BLOOD CELL COUNT(AUTO) 3.62 MIL/uL (4.20-6.10); RED CELL DISTRIBUTION WIDTH 13.7 % (11.6-13.7); WHITE BLOOD COUNT (AUTO) 6.3 K/uL (4.8-10.8)
[2018-08-22 02:46] LABS: BASOPHILS # (AUTO) 0.1 K/uL (0.00-0.22); BASOPHILS % (AUTO) 1.4 % (0.0-2.0); EOSINOPHILS # (AUTO) 0.1 K/uL (0-0.4); LYMPHOCYTES # (AUTO) 0.7 K/uL (2.0-11.5); MONOCYTES # (AUTO) 0.3 K/uL (0.8-1.0); NEUTROPHILS # (AUTO) 5.1 K/uL (1.8-7.7); NEUTROPHILS % (AUTO) 81.6 % (42.2-75.2)
--- NOTE | 2018-08-22 03:45 | NUR ---
PT ASSISTED TO BATHROOM VIA WHEELCHAIR, PT STATES HE HAD DIARRHEA AND STOMACH IS "UPSET", PT ASSISTED BACK TO BED, LABORED BREATHING PT DOES NOT TOLERATE MOVEMENT WELL, PT PLACED ON O2, VSS, PT ASSISTED TO COMFORT.
--- NOTE | 2018-08-22 04:00 | NUR ---
PT REFUSED HOSPITAL GOWN, STATES IT WILL HURT HIS SHOULDER D/T "FROZEN SHOULDER".
[2018-08-22] MEDS ORDERED: DOCUSATE SODIUM 100 MG GELCAP PO PRN (05:00)
[2018-08-22] MEDS ORDERED: HYDROcodone/APAP 5/325 MG 1 TAB TAB PO PRN (05:00)
[2018-08-22] MEDS ORDERED: ONDANSETRON 4 MG/2 ML VIAL IM/IVP PRN (05:00)
[2018-08-22] MEDS ORDERED: ACETAMINOPHEN 325 MG TAB PO PRN (05:00)
[2018-08-22] MEDS ORDERED: ZOLPIDEM 5 MG TAB PO PRN (05:00)
[2018-08-22] MEDS ORDERED: MORPHINE SULFATE 4 MG/ML SYR IVP PRN (05:00)
[2018-08-22] MEDS ORDERED: LORazepam 2 MG/ML VIAL IM/IVP PRN (05:00)
--- NOTE | 2018-08-22 05:20 | NUR ---
RECEIVED FROM ER PER CINDY AWAKE AND ALERT. MORBIDLY OBESE MALE PT. WITH DX. OF LIVER CIRRHOSIS. C/O BACK PAIN. TELE,METRY MONITORING. IVF SITE TO RIGHT UPPER CHEST. CARE PLANS FOR THE NIGHT DISCUSSED WITH HIM AND CALL LIGHT WITH IN REACH AT ALL TIMES. ORIENTED X 4. BILATERAL LOWE EXTREMITIES NOTED INFLAMED . SKIN INTACT.
--- NOTE | 2018-08-22 05:30 | NUR ---
Patient will be admitted to care of DR SMALL. Admited to TELE. Will go to [id number]. Belongings list completed. Report to MARY GOODWIN.
[2018-08-22 05:58] VITALS: BP 169/83
--- NOTE | 2018-08-22 06:28 | NUR ---
PT. WAS COMPLAINING TO RESIDENT MD EARLIER THAT HE HAS PAIN. BUT AT THIS TIME PT. SLEEPING WELL. NO RESTLESSNESS NOTED. SNORING. TELEMETRY MONITORING. CALL LIGHT WITH IN REACH.
[2018-08-22] MEDS ORDERED: LACTULOSE 20 GM/30 ML UDC PO SCH ×2 (06:30→09:00)
[2018-08-22 06:43] LABS: CHOL/HDL RATIO 1.6 (1-4.5); MAGNESIUM 1.8 mg/dL (1.8-2.4); PHOSPHORUS 3.2 mg/dL (2.5-4.9); THYROID STIMULATING HORMONE 1.05 uIU/mL (0.34-3.74)
[2018-08-22 06:44] LABS: PROTHROMBIN TIME 12.1 secs (10.8-13.4)
[2018-08-22] MEDS: NACL 0.9% 1,000 ML IV SCH ×2 (06:54→21:38)
[2018-08-22] MEDS ORDERED: ALBUTEROL SULFATE/IPRATROPIU 3 ML SOL IH SCH (07:00)
--- NOTE | 2018-08-22 07:08 | NUR ---
MEDICATED WITH MORPHINE 1 MG REQUESTED. REFUSED LACTULOSE . :I KNOW MY BODY AND IT IS NOT TOO BAD" "I PREFER TO HAVE MY PAIN RELIEVER." ENDORSED TO THE NEXT RN FOR CONTINUITY OF CARE. AWAKE AND ALERT AT THIS TIME. PT. NOTED TO BE SLEEPY. IVF SITE TO RIGH UPPER CHEST INTACT AND WITH GOOD BLOOD RETURN.
--- NOTE | 2018-08-22 07:25 | NUR ---
RECEIVED PATIENT REPORT AT BEDSIDE. PATIENT AWAKE, ALERT AND ORIENTED. EDEMA NOTED ON BUE AND BLE. SCANT DRAINAGE ON THE RIGHT LEG. PATIENT ON TELE MONITORING. FALL PRECAUTIONS IN PLACE. WILL CONTINUE TO MONITOR
[2018-08-22 08:00] VITALS: BP 115/67
--- NOTE | 2018-08-22 08:27 | NUR ---
PATIENT HAS BEEN SCREENED AND CATEGORIZED HIGH NUTRITION RISK. PATIENT WILL BE SEEN WITHIN 1-2 DAYS OF ADMISSION. 08/22/18 08/23/[address]
[2018-08-22] MEDS ORDERED: LACTULOSE PO SCH (09:00)
[2018-08-22] MEDS ORDERED: ALBUTEROL SULFATE/IPRATROPIU 3 ML SOL IH PRN (10:00)
[2018-08-22] MEDS: PANTOPRAZOLE 40 MG TABEC PO SCH (10:44)
[2018-08-22] MEDS: POTASSIUM CHLORIDE 10 MEQ TABER PO SCH (10:44)
[2018-08-22] MEDS: LISINOPRIL 20 MG TAB PO SCH (10:44)
[2018-08-22] MEDS: FUROSEMIDE 40 MG TAB PO SCH ×2 (10:45→20:59)
[2018-08-22] MEDS: METOPROLOL 25 MG TAB PO SCH ×2 (10:45→20:56)
[2018-08-22] MEDS: ASPIRIN 81 MG TAB.CHEW PO SCH (10:45)
[2018-08-22] MEDS: RIFAXIMIN 550 MG TAB PO SCH ×2 (10:46→20:56)
[2018-08-22] MEDS: METHADONE 10 MG TAB PO SCH (10:46)
[2018-08-22] MEDS: LACTULOSE 20 GM/30 ML UDC PO SCH ×3 (10:47→17:22)
--- NOTE | 2018-08-22 10:47 | NUR ---
PATIENT REFUSED TO TAKE ORDERED DOSE OF 45 ML OF LACTULOSE. PATIENT AGREED TO ONLY TAKE 30ML. EXPLAINED RISK OF NOT TAKING ORDERED DOSE TO THE PATIENT. PATIENT VERBALIZED UNDERSTANDING
[2018-08-22 11:43] LABS: APPEARANCE,URINE CLEAR (CLEAR); BILIRUBIN,URINE NEGATIVE (NEGATIVE); BLOOD, URINE TRACE-I (NEGATIVE); COLOR,URINE YELLOW (YELLOW); LEUKOCYTE ESTERASE ,URINE NEGATIVE (NEGATIVE); NITRITE, URINE NEGATIVE (NEGATIVE); PH,URINE 6.5 (5.0-9.0); UGLUCOSE NEGATIVE (NEGATIVE)
[2018-08-22 11:52] LABS: BARBITURATE, URINE NEG. ng/ml (NEG <=200); BENZODIAZEPINE, URINE NEG. ng/mL (NEG <=200); COCAINE, URINE NEG. ng/mL (NEG <=300); OPIATE, URINE NEG. ng/mL (NEG <=2000)
[2018-08-22 11:54] LABS: RBC,URINE 0-5 (RARE) /HPF (0-5); WBC,URINE 0-5 (RARE) /HPF (0-5)
[2018-08-22 12:00] VITALS: BP 118/55
[2018-08-22] MEDS ORDERED: FUROSEMIDE 20 MG/2 ML VIAL IVP SCH (12:00)
[2018-08-22 12:08] LABS: CANNABINOID, URINE NEGATIVE ng/mL (NEG <=50); PHENCYCLIDINE SCREEN,URINE NEGATIVE ng/mL (NEG <=25)
[2018-08-22] MEDS: ALBUTEROL SULFATE/IPRATROPIU 3 ML SOL IH SCH ×2 (13:21→19:32)
--- NOTE | 2018-08-22 13:36 | NUR ---
DECCREASED O2 FROM 4LPM NC TO 2LPM NC SPO2 .96
[2018-08-22 16:00] VITALS: BP 149/62
--- NOTE | 2018-08-22 16:05 | NUR ---
08/22/18 RD INITIAL ASSESSMENT COMPLETED PLEASE REFER TO NUTRITION ASSESSMENT UNDER CARE ACTIVITY FOR ESTIMATED NUTRITIONAL NEEDS. 1. RECOMMEND CARDIAC DIET TOLERATED 2. RD PROVIDED NUTRITION EDUCATION ON CIRRHOSIS 3. RD TO FOLLOW-UP 3-5 DAYS, MODERATE RISK GRISELDA NARANJO RD
--- NOTE | 2018-08-22 16:25 | NUR ---
PATIENT AMBULATED TO THE BATHROOM TO HAVE A BM. NO S/S OF DISTRESS NOTED
[2018-08-22] MEDS ORDERED: IBUPROFEN 600 MG TAB PO PRN (17:30)
[2018-08-22] MEDS ORDERED: ALUMINUM HYD/MAG/SIMETHICONE 30 ML UDC PO SCH (18:00)
[2018-08-22] MEDS ORDERED: DICYCLOMINE HCL LIQUID 10 MG/5 ML UDC PO SCH (18:00)
[2018-08-22] MEDS ORDERED: LIDOCAINE VISCOUS 2% 20 ML UDC PO SCH (18:00)
--- NOTE | 2018-08-22 18:00 | NUR ---
PATIENT EATING DINNER. PRESENT AT BEDSIDE. NO S/S OF DISTRESS NOTED
--- NOTE | 2018-08-22 19:24 | NUR ---
PATIENT REPORT GIVEN AT BEDSIDE. PATIENT ENDORSED IN STABLE CONDITION
--- NOTE | 2018-08-22 19:30 | NUR ---
RECEIVED PATIENT AWAKE RESTING ON BED. DISCUSSED PLAN OF CARE AND VERBALIZED UNDERSTANDING. FALL PRECAUTION IN PLACE. PATIENT [id number], AMBULATORY USING CANE WITH BRP. PATIENT DENIES ANY DISCOMFORT AT THIS TIME. CALL LIGHT WITHIN REACH.
[2018-08-22 20:00] VITALS: BP 118/54
--- NOTE | 2018-08-22 21:00 | NUR ---
SCHEDULE MEDICATION GIVEN TOLERATED WELL. HOLD LASIX DUE TO DECREASED PER DR. ARRIOLA. PATIENT IS CONVERSANT AND PLEASANT. V/S TAKEN AND RECORDED. NO S/S OF DISTRESS NOTED AT THIS TIME. WILL CONTINUE TO MONITOR.
--- NOTE | 2018-08-22 21:50 | NUR ---
PATIENT PICK-UP VIA WC BY [employer] OPERATOR FOR HEAD CT W/O CONTRAST. PATIENT LEFT IN STABLE CONDITION.
--- NOTE | 2018-08-22 22:05 | NUR ---
PATIENT BACK FROM IMAGING DEPARTMENT. HEAD CT W/OUT CONTRAST DONE.
--- NOTE | 2018-08-23 | NUR ---
V/S TAKEN AND RECORDED. BP 87/48. DR. ARRIOLA NOTIFIED AND ORDER TO INCREASED IVF RATE TO 150 PER HR. RECHECKED BP 92/45. MD MADE AWARE. PATIENT DENIES DISCOMFORT. PATIENT IS COHERENT , NO CHANGE IN LOC. WILL CONTINUE TO MONITOR.
[2018-08-23 00:46] VITALS: BP 92/45
--- NOTE | 2018-08-23 01:27 | NUR ---
CALLED DR. ARRIOLA AND FOLLOW-UP ABOUT PATIENT BP 102/44. WILL CONTINUE THE IVF RATE TO 150ML/HR UNTIL 3AM PER MD, CHECK BP IN 2 HOURS PER MD INSTRUCTION. WILL CONTINUE TO FOLLOW-UP AND PATIENT MONITORING. PATIENT COHERENT, NO CHANGE IN LOC. NO S/S OF DISTRESS NOTED. 2L O2 NC IN PLACE.
--- NOTE | 2018-08-23 03:26 | NUR ---
RECHECKED BP 102/47. NOTIFIED DR. ARRIOLA. NO NEW ORDERS MADE. KEEP IVF RATE OF 150 ML/HR INSTRUCTED. WILL CONTINUE TO MONITOR.
[2018-08-23 04:00] VITALS: BP 110/50
--- NOTE | 2018-08-23 04:00 | NUR ---
V/S TAKEN AND RECORDED. BP 110/50. AM CARE DONE. ALL NEEDS ATTENDED. NO S/S OF DISTRESS NOTED WILL CONTINUE TO MONITOR.
[2018-08-23 06:57] LABS: BASOPHILS % (AUTO) 0.3 % (0.0-2.0); EOSINOPHILS # (AUTO) 0.1 K/uL (0-0.4); EOSINOPHILS % (AUTO) 0.8 % (0.0-4.0); HEMATOCRIT 31.1 % (36-52); HEMOGLOBIN 11.1 g/dL (12.0-18.0); LYMPHOCYTES # (AUTO) 1.2 K/uL (2.0-11.5); LYMPHOCYTES % (AUTO) 18.7 % (20.5-51.1); MEAN CORPUSCULAR HEMOGLOBIN 33 pg (27-31); MEAN CORPUSCULAR HGB CONC 36 g/dL (33-37); MEAN CORPUSCULAR VOLUME 91.8 fL (80-94); MONOCYTES # (AUTO) 0.5 K/uL (0.8-1.0); MONOCYTES % (AUTO) 7.8 % (1.7-9.3); NEUTROPHILS # (AUTO) 4.8 K/uL (1.8-7.7); NEUTROPHILS % (AUTO) 72.4 % (42.2-75.2); PLATELET COUNT (AUTO) 63 K/uL (140-450); RED BLOOD CELL COUNT(AUTO) 3.39 MIL/uL (4.20-6.10); RED CELL DISTRIBUTION WIDTH 14.7 % (11.6-13.7); WHITE BLOOD COUNT (AUTO) 6.6 K/uL (4.8-10.8)
[2018-08-23] MEDS: ALBUTEROL SULFATE/IPRATROPIU 3 ML SOL IH SCH (07:06)
[2018-08-23 07:07] LABS: CARBON DIOXIDE 26.8 mmol/L (21-32); CREATININE 1.2 mg/dL (0.7-1.3); POTASSIUM 3.8 mmol/L (3.5-5.1)
[2018-08-23 07:14] LABS: MAGNESIUM 2.1 mg/dL (1.8-2.4); PHOSPHORUS 3.3 mg/dL (2.5-4.9)
--- NOTE | 2018-08-23 07:22 | NUR ---
ENDORSEMENT GIVEN AT BEDSIDE TO AM SHIFT NURSE FOR CONTINUITY OF CARE. PATIENT IN STABLE CONDITION. CALL LIGHT WITHIN REACH.
--- NOTE | 2018-08-23 07:29 | NUR ---
RECEIVED REPORT FROM MERCHANDISE PLANNING MANAGER RN AT BEDSIDE. PT IN STABLE CONDITION, AO X4. DENIES PAIN AND DISCOMFORT AT THIS TIME. PT IS AMBULATORY WITH CANE. SMALL OPEN WOUND ON RIGHT LEG. LUNGS CTA. SATURATING WELL ON 2L NC. HEART RHYTHM REGULAR. IV SITE PATENT AND ASYMPTOMATIC, INFUSING IVF PER MD ORDERS. UPDATED BOARD AND INTRODUCED SELF. DISCUSSED PLAN OF CARE WITH PATIENT. ALL SAFETY PRECAUTIONS IN PLACE, WILL CONTINUE TO MONITOR. Addendum: 08/23/18 at 0945 by Abigail Jon Meng RN BILATERAL LOWER EXTREMITY NON-PITTING EDEMA. WITH SMALL OPEN WOUND ON RIGHT LEG.
[2018-08-23] MEDS ORDERED: CEPH250C16 PO (07:58)
[2018-08-23 08:00] VITALS: BP 126/62
[2018-08-23] MEDS ORDERED: INFLUENZA VIRUS VACCINE QUAD 0.5 ML SYR IMVAC PRN (08:25)
[2018-08-23] MEDS: NACL 0.9% 1,000 ML IV SCH (08:25)
[2018-08-23] MEDS: LISINOPRIL 20 MG TAB PO SCH (08:54)
[2018-08-23] MEDS: PANTOPRAZOLE 40 MG TABEC PO SCH (08:55)
[2018-08-23] MEDS: FUROSEMIDE 40 MG TAB PO SCH (08:55)
[2018-08-23] MEDS: METHADONE 10 MG TAB PO SCH (08:55)
[2018-08-23] MEDS: METOPROLOL 25 MG TAB PO SCH (08:56)
[2018-08-23] MEDS: POTASSIUM CHLORIDE 10 MEQ TABER PO SCH (08:56)
[2018-08-23] MEDS: ASPIRIN 81 MG TAB.CHEW PO SCH (08:56)
--- NOTE | 2018-08-23 08:56 | NUR ---
REAL TIME ADMINISTRATION OF INFLUENZA VACCINE.
[2018-08-23] MEDS ORDERED: LACTULOSE 20 GM/30 ML UDC PO SCH (09:00)
[2018-08-23] MEDS ORDERED: LACTOBACILLUS RHAMNOSUS GG 1 EACH CAP PO SCH (09:00)
[2018-08-23] MEDS: RIFAXIMIN 550 MG TAB PO SCH (09:08)
--- NOTE | 2018-08-23 09:14 | NUR ---
HEPARIN NOT ADMINISTERED DUE TO PLT COUNT 63.
--- NOTE | 2018-08-23 09:40 | NUR ---
DR. MITTAL CLEARED PATIENT FOR DISCHARGE. IN ROOM TO SPEAK WITH PATIENT REGARDING FOLLOW UP PLAN OF CARE. PATIENT VERBALIZED COMPLETE UNDERSTANDING.
[2018-08-23] MEDS ORDERED: NICOTINE TRANSD SYS 21 MG/24 HR PATCH TD SCH (10:00)
--- NOTE | 2018-08-23 10:28 | NUR ---
PT TO STOP BY ADMITTING BEFORE DISCHARGE TO SIGN ADMISSION PAPERS. PATIENT VERBALIZED UNDERSTANDING. AIRPORT CLERK ACCOMPANYING PATIENT FOR DISCHARGE AWARE.
--- NOTE | 2018-08-23 10:30 | NUR ---
DISCHARGE PAPERWORK, INCLUDING INSTRUCTIONS TO FOLLOW UP WITH PCP (INCLUDING BLOOD DRAW TO TREND AMMONIA LEVELS) AND NEW PRESCRIPTIONS, GIVEN TO PATIENT. MEDICATION TEACHING GIVEN. PATIENT IS AOX4, HE VERBALIZED COMPLETE UNDERSTANDING OF ALL DISCHARGE TEACHING. ID BANDS REMOVED. IV SITE REMOVED WITH MINIMAL BLOOD LOSS AND LUMEN COMPLETELY INTACT. PATIENT IN STABLE CONDITION. LEFT UNIT WITH SPOT MAN BY HIS SIDE. ALL PERSONAL BELONGINGS ARE WITH PATIENT. WILL GO HOME VIA PRIVATE VEHICLE WITH FAMILY MEMBER.
[2018-08-23 12:30] LABS: T4 (THYROXINE) 9.5 ug/dL (4.5-12.0)
[2018-08-24] MEDS ORDERED: NICOTINE TRANSD SYS 21 MG/24 HR PATCH TD SCH (09:00)
== END 2018-08-23 10:30 | disposition home or self-care (01) | DRG 441 ==
LOC: MED 01:13 → MTU 05:02
PROVIDERS: ADMIT General Practice; ATTEND General Practice
PROC: 3E0234Z Introduction of Serum, Toxoid and Vaccine into Muscle, Percutaneous Approach (ICD-10-PCS; principal; 2018-08-23)
DX: K72.90 Hepatic failure, unspecified without coma (principal); N17.0 Acute kidney failure with tubular necrosis; I50.43 Acute on chronic combined systolic (congestive) and diastolic (congestive) heart failure; I42.0 Dilated cardiomyopathy; K76.6 Portal hypertension; Z68.41 Body mass index [BMI] 40.0-44.9, adult; K74.60 Unspecified cirrhosis of liver; B19.20 Unspecified viral hepatitis C without hepatic coma; K21.9 Gastro-esophageal reflux disease without esophagitis; E66.01 Morbid (severe) obesity due to excess calories; J32.0 Chronic maxillary sinusitis; I11.0 Hypertensive heart disease with heart failure; I27.20 Pulmonary hypertension, unspecified; F17.210 Nicotine dependence, cigarettes, uncomplicated; D64.9 Anemia, unspecified; I89.0 Lymphedema, not elsewhere classified; I73.9 Peripheral vascular disease, unspecified; I87.2 Venous insufficiency (chronic) (peripheral); Z91.14 Patient's other noncompliance with medication regimen; Z23 Encounter for immunization; Z79.82 Long term (current) use of aspirin; Z79.899 Other long term (current) drug therapy
CPT/HCPCS: 36415; 70450; 71045; 76705; 80048; 80053; 80305; 81001; 82140; 82150; 82550; 83036; 83615; 83690; 83735; 83880; 84100; 84134; 84436; 84443; 84484; 85025; 85610; 85730; 87070; 87081; 90658; 93005; 94640; 96374; 96376; 99285; J0696; J1644; J1940; J2270; J3010; J7030; J7060; J7620; Q0092

== ENCOUNTER 2018-08-30 08:52 | Emergency (ER) | payer OTHER ==
[~2018-08-30] VITALS: Ht 182.9 cm; Wt 145.1 kg
[~2018-08-30 08:52] MED LIST changes: +CEPH250C16 PO
[2018-08-30 09:00] VITALS: BP 156/75
--- NOTE | 2018-08-30 09:01 | NUR ---
PT TO BED 4 VIA WHEELCHAIR
--- NOTE | 2018-08-30 09:10 | NUR ---
63YO M bib self with c/o sob, generalized abd pain, and spasms "locking up". Patient also reports of nausea but denies any v/d. Pt states cp in bilat lower chest with deep inspiration non radiating since spasams started this morning. RR are tachypenic and even, noted sublte audible wheesing, with mild wheezing throughout. pt states generalized abd pain with tenderness, bs active x4. Clear speech with full setences. bilat lower extremity pitting edema, pt states chronic condition. er md made aware, will continue to monitor. pt positioned for comfort. hx--"heart problems", hep c, htn, cirrhosis, GERD
[2018-08-30] MEDS ORDERED: NACL 0.9% 1,000 ML IV SCH (09:30)
[2018-08-30] MEDS ORDERED: ONDANSETRON 4 MG/2 ML VIAL IVP ONE (09:30)
[2018-08-30] MEDS ORDERED: ALUMINUM HYD/MAG/SIMETHICONE 30 ML, DICYCLOMINE HCL LIQUID 20 MG, LIDOCAINE VISCOUS 2% ... PO ONE ×3 (09:30)
--- NOTE | 2018-08-30 09:36 | NUR ---
Patient being evaluated by physician at bedside.
--- NOTE | 2018-08-30 09:41 | NUR ---
XRAY AT BEDSIDE
--- NOTE | 2018-08-30 09:42 | NUR ---
lab at bedside
[2018-08-30] MEDS ORDERED: ONDANSETRON 4 MG ODT PO ONE (09:45)
[2018-08-30 10:02] LABS: BASOPHILS % (AUTO) 0.3 % (0.0-2.0); EOSINOPHILS % (AUTO) 0.3 % (0.0-4.0); HEMOGLOBIN 12.4 g/dL (12.0-18.0); LYMPHOCYTES # (AUTO) 0.6 K/uL (2.0-11.5); LYMPHOCYTES % (AUTO) 8.8 % (20.5-51.1); MEAN CORPUSCULAR HEMOGLOBIN 32 pg (27-31); MEAN CORPUSCULAR HGB CONC 34 g/dL (33-37); MEAN CORPUSCULAR VOLUME 93.5 fL (80-94); MONOCYTES # (AUTO) 0.3 K/uL (0.8-1.0); MONOCYTES % (AUTO) 4.7 % (1.7-9.3); NEUTROPHILS % (AUTO) 85.9 % (42.2-75.2); PLATELET COUNT (AUTO) 91 K/uL (140-450); RED BLOOD CELL COUNT(AUTO) 3.85 MIL/uL (4.20-6.10); RED CELL DISTRIBUTION WIDTH 15.3 % (11.6-13.7); WHITE BLOOD COUNT (AUTO) 6.9 K/uL (4.8-10.8)
[2018-08-30 10:11] LABS: ANION GAP 10.9 (8-16); CARBON DIOXIDE 30.7 mmol/L (21-32); CREATININE 1.1 mg/dL (0.7-1.3); POTASSIUM 4.6 mmol/L (3.5-5.1)
[2018-08-30 10:18] LABS: ALBUMIN 3.4 g/dL (3.4-5.0)
[2018-08-30 10:40] VITALS: BP 154/75
== END 2018-08-30 10:40 | disposition home or self-care (01) ==
LOC: MED 08:52
DX: E72.20 Disorder of urea cycle metabolism, unspecified (principal); M62.838 Other muscle spasm; I42.9 Cardiomyopathy, unspecified; K21.9 Gastro-esophageal reflux disease without esophagitis; E11.9 Type 2 diabetes mellitus without complications; I10 Essential (primary) hypertension; F17.200 Nicotine dependence, unspecified, uncomplicated; Z79.899 Other long term (current) drug therapy; Z79.1 Long term (current) use of non-steroidal anti-inflammatories (NSAID)
CPT/HCPCS: 36415; 71045; 80053; 82140; 83690; 85025; 99285; Q0092; Q0162

== ENCOUNTER 2018-09-10 22:09 | Emergency (ER) | payer OTHER ==
[~2018-09-10] VITALS: Ht 185.4 cm; Wt 142.9 kg
[2018-09-10 22:25] VITALS: BP 110/90
[2018-09-10 22:31] VITALS: BP 110/90
--- NOTE | 2018-09-10 22:32 | NUR ---
TO LOBBY, A/W CEDRIC CASTRO, JANAY ERMD NOTED
--- NOTE | 2018-09-10 23:29 | NUR ---
PT TAKEN TO BED 4
--- NOTE | 2018-09-10 23:29 | NUR ---
Hannah reyes in [facility] - 09/10/18 at 2329 by RUBY pt taken to bed 3
[2018-09-10 23:38] LABS: BASOPHILS % (AUTO) 0.3 % (0.0-2.0); EOSINOPHILS # (AUTO) 0.1 K/uL (0-0.4); EOSINOPHILS % (AUTO) 0.7 % (0.0-4.0); HEMOGLOBIN 13.2 g/dL (12.0-18.0); LYMPHOCYTES % (AUTO) 12.6 % (20.5-51.1); MEAN CORPUSCULAR HEMOGLOBIN 32 pg (27-31); MEAN CORPUSCULAR HGB CONC 35 g/dL (33-37); MEAN CORPUSCULAR VOLUME 91.3 fL (80-94); MONOCYTES # (AUTO) 0.3 K/uL (0.8-1.0); MONOCYTES % (AUTO) 3.6 % (1.7-9.3); NEUTROPHILS # (AUTO) 6.9 K/uL (1.8-7.7); NEUTROPHILS % (AUTO) 82.8 % (42.2-75.2); PLATELET COUNT (AUTO) 120 K/uL (140-450); RED BLOOD CELL COUNT(AUTO) 4.16 MIL/uL (4.20-6.10); RED CELL DISTRIBUTION WIDTH 15.5 % (11.6-13.7); WHITE BLOOD COUNT (AUTO) 8.3 K/uL (4.8-10.8)
--- NOTE | 2018-09-10 23:40 | NUR ---
63/M CAME IN ED, C/O 07/22 "ACIDY" DIFFUSE ABD PAIN, X1 DAY. PT REPORTS N/V/D. PT ALSO REPORTS LLE CELLULITIS X3 DAYS, PT REPORTS WOUND TO BE "OOZING WITH WATER". AOX4, AMBULATORY, RR EVEN AND UNLABORED. BUE AND BLE EDEMA +2 PITTING NOTED WITH DRY SCABS. HX CIRRHOSIS, ARRHYTHMIA, HTN, LIVER SHUNT, ARTHRITIS
[2018-09-10 23:51] LABS: ANION GAP 11.5 (8-16); CARBON DIOXIDE 28.4 mmol/L (21-32); POTASSIUM 3.9 mmol/L (3.5-5.1)
--- NOTE | 2018-09-11 | NUR ---
PT INSTRUCTED TO COLLECT UA, PT VERBALIZED UNDERSTANDING
[2018-09-11 00:06] LABS: ALBUMIN 3.5 g/dL (3.4-5.0); TOTAL BILIRUBIN 2.7 mg/dL (0.0-1.0)
--- NOTE | 2018-09-11 00:24 | NUR ---
Dr. Bush evaluating patient at bedside.
[2018-09-11] MEDS ORDERED: VANCOMYCIN HCL 750 MG in DEXTROSE 5% 250 ML IV SCH (00:30)
[2018-09-11] MEDS ORDERED: PIPERACILLIN/TAZOBACTAM 3.375 GM in DEXTROSE 5% 50 ML IV ONE (00:30)
[2018-09-11] MEDS ORDERED: PIPERACILLIN/TAZOBACTAM 3.375 GM VIAL IV ONE (00:44)
[2018-09-11] MEDS ORDERED: VANCOMYCIN 1,000 MG VIAL ONE (00:45)
--- NOTE | 2018-09-11 00:58 | NUR ---
Patient does not wish to proceed with medical care recommended by DR. WILLSON. Patient given information related to possible complications, up to and including , which could occur as a result of leaving hospital at this time. Patient verbalizes understanding of risks involved leaving against medical advice. Patient has signed AMA form.
== END 2018-09-11 00:58 | disposition left against medical advice (07) ==
LOC: MED 22:09
DX: L03.115 Cellulitis of right lower limb (principal); K21.9 Gastro-esophageal reflux disease without esophagitis; I10 Essential (primary) hypertension; F17.210 Nicotine dependence, cigarettes, uncomplicated; Z79.899 Other long term (current) drug therapy; Z79.82 Long term (current) use of aspirin
CPT/HCPCS: 36415; 80053; 83690; 85025; 87040; 99284; J2543; J3370; J7060

== ENCOUNTER 2018-09-16 17:26 | Emergency (ER) | payer OTHER ==
[~2018-09-16] VITALS: Ht 185.4 cm; Wt 142.9 kg
[2018-09-16 17:55] VITALS: BP 122/71
--- NOTE | 2018-09-16 17:58 | NUR ---
PT TO LOBBY IN STABLE CONDITION
--- NOTE | 2018-09-16 19:23 | NUR ---
PT TO ER BED 2
--- NOTE | 2018-09-16 19:30 | NUR ---
PATIENT PRESENTS TO ED WITH C/O AB PAIN +N/V/D SINCE THIS AM ; SKIN IS PINK/WARM/DRY; AAOX4 WITH EVEN AND STEADY GAIT; LUNGS CLEAR BL; HR EVEN AND REGULAR; PT DENIES ANY FEVER, CP, SOB, OR COUGH AT THIS TIME; PATIENT STATES PAIN OF 8/10 AT THIS TIME; VSS; PATIENT POSITIONED FOR COMFORT; HOB ELEVATED; BEDRAILS UP X2; BED DOWN. ER MD MADE AWARE OF PT STATUS.
--- NOTE | 2018-09-16 20:31 | NUR ---
Dr. Martinez evaluating patient at bedside.
[2018-09-16] MEDS ORDERED: DICYCLOMINE HCL LIQUID 10 MG/5 ML UDC PO ONE (20:40)
[2018-09-16] MEDS ORDERED: LIDOCAINE VISCOUS 2% 20 ML UDC PO ONE (20:40)
[2018-09-16] MEDS ORDERED: ALUMINUM HYD/MAG/SIMETHICONE 30 ML UDC PO ONE (20:40)
[2018-09-16 21:18] VITALS: BP 138/72
== END 2018-09-16 21:18 | disposition home or self-care (01) ==
LOC: MED 17:26
DX: R10.13 Epigastric pain (principal); K21.9 Gastro-esophageal reflux disease without esophagitis; I10 Essential (primary) hypertension; F17.210 Nicotine dependence, cigarettes, uncomplicated; Z79.82 Long term (current) use of aspirin; Z79.899 Other long term (current) drug therapy
CPT/HCPCS: 99283

== ENCOUNTER 2018-11-07 21:07 | Emergency (ER) | payer OTHER ==
[~2018-11-07] VITALS: Ht 185.4 cm; Wt 140.6 kg
[2018-11-07 21:13] VITALS: BP 140/83
--- NOTE | 2018-11-07 21:22 | NUR ---
PT AMBULATED TO BED 12
[2018-11-07] MEDS ORDERED: DICYCLOMINE HCL LIQUID 20 MG, ALUMINUM HYD/MAG/SIMETHICONE 30 ML, LIDOCAINE VISCOUS 2% ... PO ONE ×3 (22:00)
[2018-11-07] MEDS ORDERED: ONDANSETRON 4 MG ODT PO ONE (22:00)
--- NOTE | 2018-11-07 22:59 | NUR ---
PT STATES TO FEELING SOME RELIEF. STILL IN 7/10 PAIN BUT STATES TO "FEELING A LITTLE BETTER".
--- NOTE | 2018-11-07 23:00 | NUR ---
PT REQUESTING PAIN MEDICATION AT THIS TIME.
[2018-11-07] MEDS ORDERED: KETOROLAC 30 MG/ML VIAL IM ONE (23:15)
[2018-11-07 23:45] VITALS: BP 140/83
--- NOTE | 2018-11-07 23:45 | NUR ---
Patient discharged with v/s stable. Written and verbal after care instructions given and explained. Patient alert, oriented and verbalized understanding of instructions. Ambulatory with steady gait. All questions addressed prior to discharge. ID band removed. Patient advised to follow up with PMD. Rx of MYLANTA given. Patient educated on indication of medication including possible reaction and side effects. Opportunity to ask questions provided and answered.
== END 2018-11-07 23:45 | disposition home or self-care (01) ==
LOC: MED 21:07
DX: R10.9 Unspecified abdominal pain (principal); R11.10 Vomiting, unspecified; K21.9 Gastro-esophageal reflux disease without esophagitis; I10 Essential (primary) hypertension; Z79.899 Other long term (current) drug therapy; Z79.82 Long term (current) use of aspirin
CPT/HCPCS: 96372; 99283; J1885; Q0162

== ENCOUNTER 2018-11-18 23:46 | Emergency (ER) | payer OTHER ==
[~2018-11-18] VITALS: Ht 185.4 cm; Wt 145.1 kg
[2018-11-18 23:52] VITALS: BP 136/81
== END 2018-11-19 00:58 | disposition left against medical advice (07) ==
LOC: MED 23:46
DX: T40.3X1A Poisoning by methadone, accidental (unintentional), initial encounter (principal); Z53.21 Procedure and treatment not carried out due to patient leaving prior to being seen by health care provider

== ENCOUNTER 2018-12-17 05:40 | Emergency (ER) | payer OTHER ==
[~2018-12-17] VITALS: Ht 185.4 cm; Wt 145.1 kg
[~2018-12-17 05:40] MED LIST changes: +ASPI-1718 PO; -ASPI81CT89 PO
[2018-12-17 05:52] VITALS: BP 126/59
--- NOTE | 2018-12-17 05:52 | NUR ---
PT AMBULATED TO BED 4 WITH VSS.
--- NOTE | 2018-12-17 05:52 | NUR ---
PT PRESENTS TO ED FOR WOUND CHECK TO RIGHT ANTERIOR LOWER LEG. PT STATES PROBLEM WORSENING X5 DAYS. 6" ROUND AREA, RED/PINK, MOIST, WHEEPING, AND X3 2MM OPEN AREAS. PT STATES 0/10 PAIN. PT AMBULATES WITH CANE. VSS. POSITIONED IN BED FOR COMFORT. ER MD NOTIFIED. CONTINUE TO MONITOR.
--- NOTE | 2018-12-17 06:11 | NUR ---
ABDOMINAL PAD PLACED OVER R LEG, WRAPPED WITH COFLEX. +CSM
[2018-12-17 06:16] VITALS: BP 96/61
--- NOTE | 2018-12-17 06:16 | NUR ---
Patient discharged with v/s stable. Written and verbal after care instructions given and explained. Patient alert, oriented and verbalized understanding of instructions. Ambulatory with steady gait. All questions addressed prior to discharge. ID band removed. Patient advised to follow up with PMD. Rx of Keflex and Bactrim given. Patient educated on indication of medication including possible reaction and side effects. Opportunity to ask questions provided and answered.
== END 2018-12-17 06:16 | disposition home or self-care (01) ==
LOC: MED 05:40
DX: L03.115 Cellulitis of right lower limb (principal); E11.9 Type 2 diabetes mellitus without complications; K21.9 Gastro-esophageal reflux disease without esophagitis; I10 Essential (primary) hypertension; Z79.82 Long term (current) use of aspirin; Z79.2 Long term (current) use of antibiotics; Z79.899 Other long term (current) drug therapy; Z79.84 Long term (current) use of oral hypoglycemic drugs
CPT/HCPCS: 99283

== ENCOUNTER 2018-12-17 18:42 | Emergency (ER) | payer OTHER ==
[~2018-12-17] VITALS: Ht 185.4 cm; Wt 145.1 kg
[2018-12-17 18:50] VITALS: BP 132/80
--- NOTE | 2018-12-17 18:50 | NUR ---
TO BED # 5 AMBULATORY
--- NOTE | 2018-12-17 19:00 | NUR ---
PT BIB SELF C/O BILAT LOWER EXTREM LEG PAIN 8/10 AND ABD PAIN 8/10 WORSENING SINCE DISCHARGE THIS AM AND TAKING ANTIBIOTIC. DENIES N/V, ADMITS DIARRHEA IS NORMAL FOR HIM SINCE HE TAKES LACTULOSE AND LASIX. BILAT LOWER EXTREMS +4 PITTING EDEMA AND RLE HAS SEEPING WOUND WITH SANGUINOUS DRAINAGE. PATIENT ABLE TO AMBULATE WITH STEADY GAIT. AAOX4, PERRL; LUNGS CLEAR BL, BREATHING UNLABORED; HR EVEN AND REGULAR, BL PERIPHERAL PULSES PRESENT; BS ACTIVE X4, NO TENDERNESS TO PALPATION, NO HEPATOSPLENOMEGALLY PALPATED, RESONANT TO PERCUSSION; PT DENIES ANY FEVER, CP, SOB, OR COUGH AT THIS TIME; PT STATES 8/10 PAIN AT THIS TIME; VSS; PATIENT POSITIONED FOR COMFORT; HOB ELEVATED; BEDRAILS UP X2; BED DOWN.
--- NOTE | 2018-12-17 19:07 | NUR ---
PATIENT REFUSED EKG
--- NOTE | 2018-12-17 19:15 | NUR ---
PT STATES HE NOW WANTS EKG AND ALL TESTS DONE
[2018-12-17] MEDS ORDERED: FUROSEMIDE 40 MG/4 ML VIAL IVP ONE (19:20)
[2018-12-17] MEDS ORDERED: MORPHINE SULFATE 4 MG/ML SYR IVP ONE (19:20)
--- NOTE | 2018-12-17 19:38 | NUR ---
PT REFUSING IV AND MEDICATION UNTIL HE SPEAKS WITH EDMD, DR. WILLSON MADE AWARE
--- NOTE | 2018-12-17 19:49 | NUR ---
PT REFUSING LAB DRAW
--- NOTE | 2018-12-17 19:49 | NUR ---
PT REFUSING MEDICAL TREATMENT, LABS, MEDICATION. EDMD AWARE, PATIENT STATED HE WANTS TO LEAVE. REFUSED TO SIGN AMA FORM.
--- NOTE | 2018-12-17 19:52 | NUR ---
Patient does not wish to proceed with medical care recommended by DR. WILLSON. Patient given information related to possible complications, up to and including , which could occur as a result of leaving hospital at this time. Patient verbalizes understanding of risks involved leaving against medical advice. Patient has REFUSED TO SIGN AMA FORM. 2 RN SIGNATURES VERIFIED FOR PT REFUSAL.
[2018-12-17 19:53] VITALS: BP 155/75
== END 2018-12-17 19:52 | disposition left against medical advice (07) ==
LOC: MED 18:42
DX: L03.116 Cellulitis of left lower limb (principal); L03.115 Cellulitis of right lower limb; R10.9 Unspecified abdominal pain; R19.7 Diarrhea, unspecified; E11.9 Type 2 diabetes mellitus without complications; Z79.2 Long term (current) use of antibiotics; Z79.82 Long term (current) use of aspirin; Z79.899 Other long term (current) drug therapy; Z79.84 Long term (current) use of oral hypoglycemic drugs
CPT/HCPCS: 71045; 93005; 99283; Q0092; J1940; J2270

== ENCOUNTER 2019-01-03 13:30 | Emergency (ER) | payer OTHER ==
[~2019-01-03] VITALS: Ht 182.9 cm; Wt 127.0 kg
[2019-01-03 13:41] VITALS: BP 152/52
--- NOTE | 2019-01-03 13:51 | NUR ---
PT AMBULATED TO ER BED 12
[2019-01-03] MEDS ORDERED: KETOROLAC 60 MG/2 ML VIAL IM ONE (14:05)
[2019-01-03] MEDS ORDERED: hydrOXYzine HCL 25 MG TAB PO ONE (14:05)
[2019-01-03] MEDS ORDERED: cefTRIAXone 1,000 MG in LIDOCAINE 1% ***ER ONLY *** 2.1 ML IM ONE (14:05)
[2019-01-03] MEDS ORDERED: ALBUTEROL SULFATE/IPRATROPIU 3 ML SOL IH ONE (14:05)
--- NOTE | 2019-01-03 14:52 | NUR ---
63 YO M BIB FAMILY W/ C/O FEVER/SHAKINESS X TODAY. PT WORRIED THAT HIS AMMONIA LEVEL IS ELEVATED BECAUSE THAT IS USUALLY WHAT IS WRONG WHEN HE HAS THESE SYMPTOMS. PT AAOX4, GCS 15. AMB W/ SLOW, STEADY GAIT W/ CANE. DENIES N/V. FEELING WEAK.
[2019-01-03] MEDS ORDERED: cefTRIAXone 1,000 MG VIAL ONE (15:05)
[2019-01-03] MEDS ORDERED: LIDOCAINE MPF 1% 5mL VIAL ONE (15:06)
[2019-01-03 15:31] LABS: APPEARANCE,URINE CLEAR (CLEAR); BILIRUBIN,URINE NEGATIVE (NEGATIVE); BLOOD, URINE NEGATIVE (NEGATIVE); COLOR,URINE ORANGE (YELLOW); LEUKOCYTE ESTERASE ,URINE NEGATIVE (NEGATIVE); NITRITE, URINE NEGATIVE (NEGATIVE); PH,URINE 5.5 (5.0-9.0); UGLUCOSE NEGATIVE (NEGATIVE)
[2019-01-03 15:39] LABS: HEMOGLOBIN 12.9 g/dL (12.0-18.0); MEAN CORPUSCULAR HEMOGLOBIN 32 pg (27-31)
[2019-01-03 15:48] LABS: HEMATOCRIT 37.5 % (36-52); MEAN CORPUSCULAR HGB CONC 34 g/dL (33-37); MEAN CORPUSCULAR VOLUME 94.1 fL (80-94); RED BLOOD CELL COUNT(AUTO) 3.98 MIL/uL (4.20-6.10)
[2019-01-03 15:53] LABS: ALBUMIN 3.6 g/dL (3.4-5.0); ANION GAP 7.8 (8-16); ASPARTATE AMINOTRANSFERASE 48 U/L (15-37); CARBON DIOXIDE 30.8 mmol/L (21-32); CHLORIDE 105 mmol/L (98-107); CREATININE 1.2 mg/dL (0.7-1.3); GFR ARICAN-AMERICAN 79 mL/min (>90); GLUCOSE 99 mg/dL (74-106); MAGNESIUM 1.9 mg/dL (1.8-2.4); POTASSIUM 3.6 mmol/L (3.5-5.1); SODIUM SERUM 140 mmol/L (136-145); TOTAL BILIRUBIN 2.9 mg/dL (0.0-1.0); UREA NITROGEN, BLOOD 18 mg/dL (7-18)
--- NOTE | 2019-01-03 16:00 | NUR ---
LACTIC ACID 2.3 RESULT RECEIVED AT THIS TIME. ER NOTIFIED
[2019-01-03 16:13] LABS: BASOPHILS % (MANUAL) 0 % (0-2); EOSINOPHILS % (MANUAL) 0 % (0-4); LYMPHOCYTES % (MANUAL) 3 % (20-46); MONOCYTES % (MANUAL) 2 % (5-12)
[2019-01-03 16:16] LABS: PLATELET COUNT (AUTO) 98 K/uL (140-450)
[2019-01-03 16:47] LABS: PROTHROMBIN TIME 11.5 secs (10.8-13.4)
[2019-01-03 17:00] VITALS: BP 147/61
--- NOTE | 2019-01-03 17:00 | NUR ---
Patient discharged with v/s stable. Written and verbal after care instructions given and explained. Patient alert, oriented and verbalized understanding of instructions. Ambulatory with steady gait. All questions addressed prior to discharge. ID band removed. Patient advised to follow up with PMD. Rx of TAMIFLU, MOTRIN, PROMETHAZINE WITH CODIENE given. Patient educated on indication of medication including possible reaction and side effects. Opportunity to ask questions provided and answered.
[2019-01-03 17:05] LABS: ACETONE, SERUM NEGATIVE (NEGATIVE)
== END 2019-01-03 17:00 | disposition home or self-care (01) ==
LOC: MED 13:30
DX: R50.9 Fever, unspecified (principal); R10.84 Generalized abdominal pain; M79.18 Myalgia, other site; M25.50 Pain in unspecified joint; E11.9 Type 2 diabetes mellitus without complications; J39.8 Other specified diseases of upper respiratory tract; Z79.2 Long term (current) use of antibiotics; Z79.01 Long term (current) use of anticoagulants; Z79.84 Long term (current) use of oral hypoglycemic drugs; Z79.82 Long term (current) use of aspirin
CPT/HCPCS: 36415; 71045; 80053; 81003; 82009; 82140; 83605; 83735; 84484; 84550; 85025; 85610; 85730; 87040; 87086; 87186; 87804; 93005; 94640; 96372; 99284; G0482; J0696; J1885; J2001; J7620; Q0092

== ENCOUNTER 2019-01-06 08:46 | Emergency (ER) | payer OTHER ==
[~2019-01-06] VITALS: Ht 185.4 cm; Wt 145.1 kg
--- NOTE | 2019-01-06 09:09 | NUR ---
PT AMBULATES WITH GUARDED GAIT TO BED 8
[2019-01-06 09:17] VITALS: BP 117/58
--- NOTE | 2019-01-06 09:22 | NUR ---
BIB SELF WITH C/O CHRONIC BL LOWER EXTRIMITY PAIN GREATER ON THE LT WORSE THE LAST 18 DAYS WITH CLEAR DISCHARGE ON HIS RT LOWER EXREMITY. DENIES RECENT INJURY. VSS; PATIENT POSITIONED FOR COMFORT; HOB ELEVATED; BEDRAILS UP X1; BED DOWN. ER MD MADE AWARE OF PT STATUS.
[2019-01-06] MEDS ORDERED: cefTRIAXone 1,000 MG in LIDOCAINE MPF 1% - 5 mL VIAL 2.1 ML IM ONE (09:35)
[2019-01-06] MEDS ORDERED: KETOROLAC 60 MG/2 ML VIAL IM ONE (09:35)
[2019-01-06 10:17] VITALS: BP 117/58
--- NOTE | 2019-01-06 10:17 | NUR ---
Patient discharged with v/s stable. Written and verbal after care instructions given and explained. Patient alert, oriented and verbalized understanding of instructions. Ambulatory with steady gait. All questions addressed prior to discharge. ID band removed. Patient advised to follow up with PMD. Rx of naprosyn and keflex given. Patient educated on indication of medication including possible reaction and side effects. Opportunity to ask questions provided and answered.
== END 2019-01-06 10:17 | disposition home or self-care (01) ==
LOC: MED 08:46
DX: L03.115 Cellulitis of right lower limb (principal); M16.12 Unilateral primary osteoarthritis, left hip; E11.9 Type 2 diabetes mellitus without complications; K21.9 Gastro-esophageal reflux disease without esophagitis; I10 Essential (primary) hypertension; Z79.82 Long term (current) use of aspirin; Z79.2 Long term (current) use of antibiotics; Z79.84 Long term (current) use of oral hypoglycemic drugs; Z79.899 Other long term (current) drug therapy
CPT/HCPCS: 96372; 99283; J0696; J1885; J2001

== ENCOUNTER 2019-01-15 07:52 | Emergency (ER) | payer OTHER ==
[~2019-01-15] VITALS: Ht 185.4 cm; Wt 145.1 kg
--- NOTE | 2019-01-15 08:01 | NUR ---
PT TO ER BED 8
[2019-01-15 08:02] VITALS: BP 132/78
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
[2019-01-15] MEDS ORDERED: hydrOXYzine HCL 25 MG TAB PO ONE (08:45)
[2019-01-15] MEDS ORDERED: DEXAMETHASONE 10 MG/ML VIAL IM ONE (08:45)
[2019-01-15] MEDS ORDERED: diphenhydrAMINE 50 MG/ML VIAL IM ONE (08:45)
[2019-01-15] MEDS ORDERED: diphenhydrAMINE 50 MG/ML VIAL ONE (09:27)
[2019-01-15] MEDS ORDERED: DEXAMETHASONE 4 MG/ML VIAL ONE (09:28)
[2019-01-15 09:50] VITALS: BP 157/85
--- NOTE | 2019-01-15 09:50 | NUR ---
Patient discharged with BP 157/85, DENIES CARROLL OR DIZZINESS AT THIS TIME, MD MADE AWARE. Written and verbal after care instructions given and explained. Patient alert, oriented and verbalized understanding of instructions. Ambulatory with CANE. All questions addressed prior to discharge. ID band removed. Patient advised to follow up with PMD. Rx of PREDNISONE, ATARAX given. Patient educated on indication of medication including possible reaction and side effects. Opportunity to ask questions provided and answered.
== END 2019-01-15 09:50 | disposition home or self-care (01) ==
LOC: MED 07:52
DX: L50.9 Urticaria, unspecified (principal); J45.909 Unspecified asthma, uncomplicated; E11.9 Type 2 diabetes mellitus without complications; K21.9 Gastro-esophageal reflux disease without esophagitis; I10 Essential (primary) hypertension; Z98.2 Presence of cerebrospinal fluid drainage device; Z79.82 Long term (current) use of aspirin; Z79.2 Long term (current) use of antibiotics; Z79.84 Long term (current) use of oral hypoglycemic drugs; Z79.899 Other long term (current) drug therapy
CPT/HCPCS: 96372; 99283; J1100; J1200

== ENCOUNTER 2019-02-24 09:46 | Emergency (ER) | payer OTHER ==
[~2019-02-24] VITALS: Ht 188 cm; Wt 120.7 kg
--- NOTE | 2019-02-24 09:46 | NUR ---
PT TE BLS TO ER BED 01
[2019-02-24 09:49] VITALS: BP 169/66
--- NOTE | 2019-02-24 09:50 | NUR ---
BIBA. AAOX4. C/O SOB UPON EXERTION X 30DAYS, NO CP, BILAT LOW LEG SWELLING X 4 YEARS. PT STATES COUGHING WITH GREEN PHLEGM X 2 MONTHS. PT STATES HE HAS BEEN SEEN BY PCP, BUT NO MEDS GIVEN. PEARL LUNGS UPPER AND LOWER LOBES WHEEZING ON EXPIRATORY UPON AUSCULTATION. 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 HOB UP. ON LOW BED POSITION. LOW BED POSITION, LOCKED. ER MADE AWARE OF PT STATUS.
[2019-02-24] MEDS ORDERED: MORPHINE SULFATE 2 MG/ML SYR IVP ONE (10:45)
[2019-02-24 10:57] LABS: BASOPHILS % (AUTO) 0.8 % (0.0-2.0); EOSINOPHILS # (AUTO) 0.1 K/uL (0-0.4); EOSINOPHILS % (AUTO) 1.7 % (0.0-4.0); HEMATOCRIT 28.1 % (36-52); HEMOGLOBIN 9.5 g/dL (12.0-18.0); LYMPHOCYTES # (AUTO) 0.7 K/uL (2.0-11.5); LYMPHOCYTES % (AUTO) 19.9 % (20.5-51.1); MEAN CORPUSCULAR HEMOGLOBIN 32 pg (27-31); MEAN CORPUSCULAR HGB CONC 34 g/dL (33-37); MEAN CORPUSCULAR VOLUME 94.8 fL (80-94); MONOCYTES # (AUTO) 0.3 K/uL (0.8-1.0); MONOCYTES % (AUTO) 7.8 % (1.7-9.3); NEUTROPHILS # (AUTO) 2.4 K/uL (1.8-7.7); NEUTROPHILS % (AUTO) 69.8 % (42.2-75.2); PLATELET COUNT (AUTO) 119 K/uL (140-450); RED BLOOD CELL COUNT(AUTO) 2.96 MIL/uL (4.20-6.10); RED CELL DISTRIBUTION WIDTH 16.5 % (11.6-13.7); WHITE BLOOD COUNT (AUTO) 3.5 K/uL (4.8-10.8)
[2019-02-24 11:22] LABS: ANION GAP 6.3 (8-16); CARBON DIOXIDE 33.4 mmol/L (21-32); CREATININE 1.1 mg/dL (0.7-1.3); POTASSIUM 3.7 mmol/L (3.5-5.1)
[2019-02-24 11:27] LABS: ALBUMIN 2.7 g/dL (3.4-5.0); TOTAL BILIRUBIN 1.2 mg/dL (0.0-1.0)
--- NOTE | 2019-02-24 12:24 | NUR ---
PT AMB TO [facility] W/O ASST
--- NOTE | 2019-02-24 13:00 | NUR ---
UNABLE TO OBTAIN URINE SPECIMEN. WILL TRY AGAIN LATER
[2019-02-24] MEDS ORDERED: FUROSEMIDE 40 MG/4 ML VIAL IVP ONE (13:35)
[2019-02-24] MEDS ORDERED: NITROGLYCERIN 2% 1 GM PKT TP ONE (13:35)
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
--- NOTE | 2019-02-24 16:15 | NUR ---
PT WANTS TO GO AMA. DR MCCRARY MADE AWARE. PER DR MCCRARY, TO TAKE OFF OXYGEN AND NITROBID TO CHECK PT'S O2 SATS. PT'S O2 SAT'S FLUCTUATED 85%-89% ON ROOM AIR. PT STATES SOB. PT STILL INSISTS TO BE DISCHARGED AT THIS TIME. DR. MCCRARY NOTIFIED. PT PUT BACK ON O2 2LPM VIA NASAL CANNULA. O2 SATS 97%
--- NOTE | 2019-02-24 16:17 | NUR ---
PT GIVEN TELEPHONE TO CALL HIS .
--- NOTE | 2019-02-24 16:30 | NUR ---
PT GIVEN AMA PAPER. PT TEACHING RISKS AND BENEFITS X3. PT VERBALIZED UNDERSTANDING. PT SIGNED AMA. IV TO LAC 22G TAKEN OUT.
--- NOTE | 2019-02-24 16:40 | NUR ---
DR MCCRARY AT BEDSIDE TO TALK TO PT
[2019-02-24 16:52] LABS: APPEARANCE,URINE CLEAR (CLEAR); BILIRUBIN,URINE NEGATIVE (NEGATIVE); BLOOD, URINE NEGATIVE (NEGATIVE); COLOR,URINE DARK YELLOW (YELLOW); LEUKOCYTE ESTERASE ,URINE NEGATIVE (NEGATIVE); NITRITE, URINE NEGATIVE (NEGATIVE); UGLUCOSE NEGATIVE (NEGATIVE)
[2019-02-24] MEDS ORDERED: SPIRONOLACTONE 50 MG TAB PO ONE (17:35)
[2019-02-24 18:21] VITALS: BP 140/78
--- NOTE | 2019-02-24 18:21 | NUR ---
Patient discharged with v/s stable. Written and verbal after care instructions given and explained. Patient alert, oriented and verbalized understanding of instructions. Ambulatory with steady gait. All questions addressed prior to discharge. ID band removed. Patient advised to follow up with PMD. Rx of Nitroglycerin Transdermal Patch, Spironolactone given. Patient educated on indication of medication including possible reaction and side effects. Opportunity to ask questions provided and answered.
== END 2019-02-24 18:21 | disposition left against medical advice (07) ==
LOC: MED 09:46
DX: I50.9 Heart failure, unspecified (principal); I11.0 Hypertensive heart disease with heart failure; J45.909 Unspecified asthma, uncomplicated; E11.9 Type 2 diabetes mellitus without complications; K21.9 Gastro-esophageal reflux disease without esophagitis; Z79.82 Long term (current) use of aspirin; Z79.899 Other long term (current) drug therapy
CPT/HCPCS: 36415; 71045; 80053; 81003; 82140; 83605; 83880; 84484; 85025; 85610; 85730; 87040; 93005; 96374; 96375; 99284; J1940; J2270; Q0092

== ENCOUNTER 2019-03-04 09:01 | Emergency (ER) | payer OTHER ==
[~2019-03-04] VITALS: Ht 185.4 cm; Wt 152.9 kg
--- NOTE | 2019-03-04 09:04 | NUR ---
OLIVE TIWARI ALS TO ER BED 06
[2019-03-04 09:06] VITALS: BP 134/41
--- NOTE | 2019-03-04 09:11 | NUR ---
63 Y MALE BIBA ACLS FOR SOB FROM HOME. ALBUTEROL BREATHING TREATMENT DONE ON FIELD, PT STATES HE FEELS HE CAN BREATHE BETTER NOW. NO IV WAS ESTABLISHED ON FIELD. 12 LEAD ON FIELD SHOWS AFIB. LABORED BREATHING, EXPIRATORY WHEEZING THROUGHOUT LUNGS. BILATERAL PITTING EDEMA LOWER EXTREMITIES. AA0X4, VSS AT THIS TIME. BED IS DOWN, LOCKED, BED RAIL X 1, ERMD NOTIFIED. PMH- CHF, CONTROLLED AFIB, ARTHRITIS, LIVER CIRRHOSIS
--- NOTE | 2019-03-04 09:15 | NUR ---
DR RAYMUNDO AT BEDSIDE
[2019-03-04] MEDS ORDERED: NITROGLYCERIN 2% 1 GM PKT TP ONE (09:20)
[2019-03-04] MEDS ORDERED: ASPIRIN 81 MG TAB.CHEW PO ONE (09:20)
--- NOTE | 2019-03-04 09:42 | NUR ---
PT STATES HE TOOK OFF HIS 12 HOUR NITRO PATCH THIS MORNING, ORDERED NITRO TP NOT ADMINISTERED
--- NOTE | 2019-03-04 09:46 | NUR ---
LAB AT BEDSIDE
--- NOTE | 2019-03-04 09:55 | NUR ---
PT UNABLE TO GIVE URINE AT THIS TIME
--- NOTE | 2019-03-04 10:03 | NUR ---
XRAY AT BEDSIDE
[2019-03-04 10:05] LABS: BASOPHILS % (AUTO) 0.3 % (0.0-2.0); HEMOGLOBIN 9.8 g/dL (12.0-18.0); LYMPHOCYTES # (AUTO) 0.7 K/uL (2.0-11.5); MEAN CORPUSCULAR HEMOGLOBIN 32 pg (27-31); MEAN CORPUSCULAR HGB CONC 34 g/dL (33-37); MEAN CORPUSCULAR VOLUME 94.9 fL (80-94); MONOCYTES # (AUTO) 0.2 K/uL (0.8-1.0); MONOCYTES % (AUTO) 6.5 % (1.7-9.3); NEUTROPHILS # (AUTO) 2.2 K/uL (1.8-7.7); NEUTROPHILS % (AUTO) 71.2 % (42.2-75.2); PLATELET COUNT (AUTO) 102 K/uL (140-450); RED BLOOD CELL COUNT(AUTO) 3.06 MIL/uL (4.20-6.10); RED CELL DISTRIBUTION WIDTH 16.8 % (11.6-13.7); WHITE BLOOD COUNT (AUTO) 3.2 K/uL (4.8-10.8)
--- NOTE | 2019-03-04 10:11 | NUR ---
PT AMB TO BATHROOM WITH WALKER
[2019-03-04 10:17] LABS: ALBUMIN 2.7 g/dL (3.4-5.0); ANION GAP 9.2 (8-16); CARBON DIOXIDE 28.9 mmol/L (21-32); POTASSIUM 4.1 mmol/L (3.5-5.1); TOTAL BILIRUBIN 1.6 mg/dL (0.0-1.0)
--- NOTE | 2019-03-04 10:39 | NUR ---
VSS AT THIS TIME. AA0X4. PT SITTING IN BED
[2019-03-04 11:28] VITALS: BP 152/60
== END 2019-03-04 11:28 | disposition home or self-care (01) ==
LOC: MED 09:01
DX: J44.1 Chronic obstructive pulmonary disease with (acute) exacerbation (principal); I11.0 Hypertensive heart disease with heart failure; I50.9 Heart failure, unspecified; R51 Headache; R19.7 Diarrhea, unspecified; E11.9 Type 2 diabetes mellitus without complications; K21.9 Gastro-esophageal reflux disease without esophagitis; F17.210 Nicotine dependence, cigarettes, uncomplicated; Z79.2 Long term (current) use of antibiotics; Z79.82 Long term (current) use of aspirin; Z79.899 Other long term (current) drug therapy
CPT/HCPCS: 36415; 71045; 80053; 82140; 83605; 83880; 84484; 85025; 87040; 93005; 99284; Q0092

== ENCOUNTER 2019-04-16 16:36 | Emergency (ER) | payer OTHER ==
[~2019-04-16] VITALS: Ht 185.4 cm; Wt 149.7 kg
--- NOTE | 2019-04-16 16:36 | NUR ---
PATIENT BIBA TO BED 3 AT THIS TIME.
[2019-04-16 16:44] VITALS: BP 145/44
[2019-04-16] MEDS ORDERED: ONDANSETRON 4 MG ODT PO ONE (16:55)
[2019-04-16] MEDS ORDERED: ALUMINUM HYD/MAG/SIMETHICONE 30 ML UDC PO ONE (16:55)
[2019-04-16] MEDS ORDERED: FAMOTIDINE 20 MG TAB PO ONE (16:55)
--- NOTE | 2019-04-16 17:16 | NUR ---
BIBA FROM HOME FOR SOB AND DIZZINESS, PER EMS PT WAS IN [place] ON ARRIVAL ON MONITOR, PT STATES DIZZINESS HAS RESOVLED SINCE OXYGEN APPLICATION AND ARRIVAL IN ER. PT ON 4L NC. BLE SWELLING WITH REDNESS. PT ALSO C/O CRAMPING ABD PAIN X5 DAYS, 06/21. DENIES N/V/D; SKIN IS PINK/WARM/DRY WITH EDEMAOUS 3+ LOWER LEGS ; AAOX4; LUNGS WHEEZEZ AUSCULTATED BILATERAL; HEART MURMURS AUSCULTATED; PT DENIES ANY FEVER OR COUGH AT THIS TIME; PATIENT STATES UNLOCATED CHRONIC CHEST PAIN OF 06/21 ON AND OFF FOR COUPLE OF YEARS; VSS; PATIENT POSITIONED FOR COMFORT; HOB ELEVATED; BEDRAILS UP X1; BED DOWN. ER MD MADE AWARE OF PT STATUS.
--- NOTE | 2019-04-16 17:20 | NUR ---
PT'S NASAL CANNULA OXYGEN STOPPED BY . PT C/O SOB OXYGEN GIVEN 2 L/MIN. SAT IS 96%.
[2019-04-16 17:33] LABS: BASOPHILS % (AUTO) 0.6 % (0.0-2.0); EOSINOPHILS # (AUTO) 0.1 K/uL (0-0.4); EOSINOPHILS % (AUTO) 2.6 % (0.0-4.0); HEMATOCRIT 26.3 % (36-52); HEMOGLOBIN 9.2 g/dL (12.0-18.0); LYMPHOCYTES % (AUTO) 26.3 % (20.5-51.1); MEAN CORPUSCULAR HEMOGLOBIN 32 pg (27-31); MEAN CORPUSCULAR HGB CONC 35 g/dL (33-37); MEAN CORPUSCULAR VOLUME 90.8 fL (80-94); MONOCYTES # (AUTO) 0.3 K/uL (0.8-1.0); MONOCYTES % (AUTO) 8.2 % (1.7-9.3); NEUTROPHILS # (AUTO) 2.4 K/uL (1.8-7.7); NEUTROPHILS % (AUTO) 62.3 % (42.2-75.2); PLATELET COUNT (AUTO) 161 K/uL (140-450); RED BLOOD CELL COUNT(AUTO) 2.89 MIL/uL (4.20-6.10); RED CELL DISTRIBUTION WIDTH 17.6 % (11.6-13.7); WHITE BLOOD COUNT (AUTO) 3.8 K/uL (4.8-10.8)
[2019-04-16 17:46] LABS: ANION GAP 6.1 (8-16); CARBON DIOXIDE 33.4 mmol/L (21-32); CREATININE 1.1 mg/dL (0.7-1.3); POTASSIUM 3.5 mmol/L (3.5-5.1)
[2019-04-16 17:51] LABS: ALBUMIN 2.7 g/dL (3.4-5.0); TOTAL BILIRUBIN 1.3 mg/dL (0.0-1.0)
[2019-04-16 18:47] VITALS: BP 129/54
--- NOTE | 2019-04-16 18:48 | NUR ---
Patient discharged with v/s stable. Written and verbal after care instructions given and explained. Patient alert, oriented and verbalized understanding of instructions. Wheel Chair Assisted with to LOBBY. All questions addressed prior to discharge. Patient advised to follow up with PMD. Rx of Protonix given. Patient educated on indication of medication including possible reaction and side effects. Opportunity to ask questions provided and answered.
== END 2019-04-16 18:48 | disposition home or self-care (01) ==
LOC: MED 16:36
DX: K21.9 Gastro-esophageal reflux disease without esophagitis (principal); T47.3X5A Adverse effect of saline and osmotic laxatives, initial encounter; K74.60 Unspecified cirrhosis of liver; R19.7 Diarrhea, unspecified; J45.909 Unspecified asthma, uncomplicated; E11.9 Type 2 diabetes mellitus without complications; I10 Essential (primary) hypertension; F17.210 Nicotine dependence, cigarettes, uncomplicated; Z79.82 Long term (current) use of aspirin; Z79.899 Other long term (current) drug therapy; Y92.89 Other specified places as the place of occurrence of the external cause
CPT/HCPCS: 36415; 80053; 83690; 84484; 85025; 93005; 99284; Q0162

== ENCOUNTER 2019-04-20 19:30 | Emergency (ER) | payer OTHER ==
[~2019-04-20] VITALS: Ht 185.4 cm; Wt 145.1 kg
[2019-04-20 19:35] VITALS: BP 130/59
--- NOTE | 2019-04-20 19:40 | NUR ---
PT WAS WHEEL CHAIRED TO BED #6
--- NOTE | 2019-04-20 19:48 | NUR ---
63 Y/O M PRESENTED TO ED WITH C/O SOB X7 DAYS, WORSENING 2 DAYS AGO. AAOX4. O2 SATURATION 89% ON ROOM AIR. PER PT, "UNABLE TO KEEP FOOD DOWN. ITS BEEN HARD TO BREATHE." WHEEZING HEARD TO BILATERAL UPPER LOBES. NON-PITTING EDEMA TO BLE. CAP REFILL LESS THAN 3 SECONDS. ERMD NOTIFIED. WILL CONTINUE TO MONITOR. -OXYGEN THERAPY INTIATED. 2L VIA NASAL CANNULA, 02 SATURATION AT 92%. -INCREASED TO 3L, 02 SATURATION AT 93%. -INCREASED TO 4L, 02 SATURATION AT 96%.
--- NOTE | 2019-04-20 20:05 | NUR ---
DR. WILLSON BEDSIDE EVALUATING PT
[2019-04-20] MEDS ORDERED: ALBUTEROL SULFATE/IPRATROPIU 3 ML SOL IH ONE ×2 (20:15→21:00)
[2019-04-20] MEDS ORDERED: LOPERAMIDE 2 MG CAP PO ONE (20:15)
[2019-04-20] MEDS ORDERED: ONDANSETRON 4 MG ODT PO ONE (20:15)
--- NOTE | 2019-04-20 20:50 | NUR ---
WHEEZING STILL HEARD TO BILATERAL UPPER LOBES. PT REMAINS ON 4L O2, O2 SATURATION MAINTAINED AT 95%. DR. WILLSON MADE AWARE.
[2019-04-20 20:51] LABS: BASOPHILS % (AUTO) 0.2 % (0.0-2.0); EOSINOPHILS # (AUTO) 0.1 K/uL (0-0.4); HEMATOCRIT 26.7 % (36-52); HEMOGLOBIN 9.3 g/dL (12.0-18.0); LYMPHOCYTES # (AUTO) 0.7 K/uL (2.0-11.5); LYMPHOCYTES % (AUTO) 14.6 % (20.5-51.1); MEAN CORPUSCULAR HEMOGLOBIN 31 pg (27-31); MEAN CORPUSCULAR HGB CONC 35 g/dL (33-37); MEAN CORPUSCULAR VOLUME 90.5 fL (80-94); MONOCYTES # (AUTO) 0.4 K/uL (0.8-1.0); MONOCYTES % (AUTO) 8.9 % (1.7-9.3); NEUTROPHILS # (AUTO) 3.6 K/uL (1.8-7.7); NEUTROPHILS % (AUTO) 75.3 % (42.2-75.2); PLATELET COUNT (AUTO) 159 K/uL (140-450); RED BLOOD CELL COUNT(AUTO) 2.95 MIL/uL (4.20-6.10); RED CELL DISTRIBUTION WIDTH 17.3 % (11.6-13.7); WHITE BLOOD COUNT (AUTO) 4.9 K/uL (4.8-10.8)
[2019-04-20] MEDS ORDERED: methylPREDNISolone SS 125 MG/2 ML VIAL IM ONE (21:00)
[2019-04-20 21:01] LABS: ANION GAP 6.9 (8-16); CARBON DIOXIDE 33.7 mmol/L (21-32); CREATININE 1.2 mg/dL (0.7-1.3); POTASSIUM 3.6 mmol/L (3.5-5.1)
[2019-04-20 21:06] LABS: TOTAL BILIRUBIN 2.9 mg/dL (0.0-1.0)
[2019-04-20 21:07] LABS: ALBUMIN 2.6 g/dL (3.4-5.0)
[2019-04-20 22:13] VITALS: BP 130/59
--- NOTE | 2019-04-20 22:13 | NUR ---
Patient discharged with v/s stable. Written and verbal after care instructions given and explained. Patient alert, oriented and verbalized understanding of instructions. Wheel Chair Assisted with to car. All questions addressed prior to discharge. ID band removed. Patient advised to follow up with PMD. Rx of ALBUTEROL AND PREDNISONE WAS given. Patient educated on indication of medication including possible reaction and side effects. Opportunity to ask questions provided and answered. PT O2 SATURATION WAS 95 PERCENT ON 3 L. PT STATED HIS PAIN HAS DECREASED TO 3/10 PRIOR TO D/C
== END 2019-04-20 22:13 | disposition home or self-care (01) ==
LOC: MED 19:30
DX: R06.02 Shortness of breath (principal); R06.2 Wheezing; D64.9 Anemia, unspecified; K74.60 Unspecified cirrhosis of liver; R74.0 Nonspecific elevation of levels of transaminase and lactic acid dehydrogenase [LDH]; R19.7 Diarrhea, unspecified; J45.909 Unspecified asthma, uncomplicated; E11.9 Type 2 diabetes mellitus without complications; K21.9 Gastro-esophageal reflux disease without esophagitis; I10 Essential (primary) hypertension; F17.200 Nicotine dependence, unspecified, uncomplicated; Z79.82 Long term (current) use of aspirin; Z79.899 Other long term (current) drug therapy; Z71.6 Tobacco abuse counseling
CPT/HCPCS: 36415; 71045; 80053; 83880; 85025; 94640; 96372; 99284; J2930; J7620; Q0092; Q0162

== ENCOUNTER 2019-04-26 06:44 | Inpatient (IN) | payer OTHER ==
[~2019-04-26] VITALS: Ht 182.9 cm; Wt 148.8 kg
--- NOTE | 2019-04-26 06:46 | NUR ---
0641-- PT BIBA BLS TO ER BED 3
[2019-04-26 06:47] VITALS: BP 179/68
--- NOTE | 2019-04-26 06:48 | NUR ---
63 YO M TE FROM HOME PRESENTS TO ED C/O 08/21 SEVERE LEFT LEG PAIN THAT RADIATES FROM HIP TO LOWER LEG. PT STATES HE HAS BEEN UNABLE TO AMBULATE X 1 DAY. PT STATES HE TAKES METHADONE REGULARLY AND IT HASN'T HELPED. DENIES RECENT TRAUMA/INJURY. -- PT ARRIVES AWAKE, ALERT, ORIENTED X 4. VSS. -- PT APPEARS TO BE IN PAIN. FACIAL GRIMACING AND GROANING NOTED. SKIN PINK, WARM, DRY. BREATHING EVEN, UNLABORED. -- SWELLING, REDNESS AND CELLULITIS NOTED TO BILATERAL LOWER LEGS. PMH-- CIRROHSIS, CELLULITIS
--- NOTE | 2019-04-26 07:26 | NUR ---
Dr. Cook evaluating patient at bedside.
--- NOTE | 2019-04-26 07:30 | NUR ---
RECEIVED REPORT FROM PM NURSE. PT VITALS STABLE, NO SOB, ON O2 NC 2L/MIN, INTRODUCED MYSELF, WILL CONTINUE TO MONITOR.
[2019-04-26] MEDS ORDERED: MORPHINE SULFATE 2 MG/ML SYR IVP ONE (07:40)
[2019-04-26] MEDS ORDERED: MORPHINE SULFATE 2 MG/ML SYR IM ONE ×2 (08:45→09:40)
[2019-04-26 09:12] LABS: BASOPHILS % (AUTO) 0.4 % (0.0-2.0); EOSINOPHILS % (AUTO) 0.3 % (0.0-4.0); HEMOGLOBIN 10.2 g/dL (12.0-18.0); LYMPHOCYTES # (AUTO) 0.8 K/uL (2.0-11.5); LYMPHOCYTES % (AUTO) 10.8 % (20.5-51.1); MEAN CORPUSCULAR HEMOGLOBIN 31 pg (27-31); MEAN CORPUSCULAR HGB CONC 34 g/dL (33-37); MONOCYTES # (AUTO) 0.8 K/uL (0.8-1.0); MONOCYTES % (AUTO) 9.9 % (1.7-9.3); NEUTROPHILS # (AUTO) 6.1 K/uL (1.8-7.7); NEUTROPHILS % (AUTO) 78.6 % (42.2-75.2); PLATELET COUNT (AUTO) 144 K/uL (140-450); RED BLOOD CELL COUNT(AUTO) 3.25 MIL/uL (4.20-6.10); RED CELL DISTRIBUTION WIDTH 17.2 % (11.6-13.7); WHITE BLOOD COUNT (AUTO) 7.8 K/uL (4.8-10.8)
[2019-04-26 09:36] LABS: ANION GAP 6.1 (8-16); CARBON DIOXIDE 33.5 mmol/L (21-32); CREATININE 1.1 mg/dL (0.7-1.3); POTASSIUM 3.6 mmol/L (3.5-5.1)
[2019-04-26 09:40] LABS: PROTHROMBIN TIME 12.4 secs (10.8-13.4)
[2019-04-26 09:41] LABS: ALBUMIN 2.6 g/dL (3.4-5.0); TOTAL BILIRUBIN 2.1 mg/dL (0.0-1.0)
[2019-04-26] MEDS ORDERED: FUROSEMIDE 40 MG TAB PO ONE (09:50)
--- NOTE | 2019-04-26 10:40 | NUR ---
OFFER PT URINAL. PT HAD URINE AROUND 300 CC.
[2019-04-26] MEDS ORDERED: fentaNYL 0.05 MG/ML VIAL IM ONE (10:50)
--- NOTE | 2019-04-26 11:50 | NUR ---
DR. MCCRARY EXPLAINED PICC RISHS AND BENEFITS TO PT.
[2019-04-26 11:53] LABS: APPEARANCE,URINE HAZY (CLEAR); BILIRUBIN,URINE NEGATIVE (NEGATIVE); BLOOD, URINE NEGATIVE (NEGATIVE); COLOR,URINE ORANGE (YELLOW); LEUKOCYTE ESTERASE ,URINE NEGATIVE (NEGATIVE); NITRITE, URINE NEGATIVE (NEGATIVE); PH,URINE 8.5 (5.0-9.0); UGLUCOSE NEGATIVE (NEGATIVE)
[2019-04-26 12:00] VITALS: BP 147/47
--- NOTE | 2019-04-26 12:00 | NUR ---
RECEIVED ENDORSEMENT FROM ED NURSE. PATIENT ARRIVED VIA GURNEY ON UNIT. PATIENT IS AAOX4, NAMIBIAN SPEAKING. RESPIRATIONS ARE EVEN AND UNLABORED ON 3L NC. PATIENT C/O OF PAIN AT THIS TIME WITH MOVEMENT. THERE IS NO IV ACCESS AT THIS TIME, PENDING PICC INSERTION. CONSENT IS SIGNED. PLAN OF CARE WAS REVIEWED WITH PATIENT, PATIENT VERBALIZED UNDERSTANDING. SAFETY MEASURES IN PLACE, CALL LIGHT WITHIN REACH. PENDING ORDERS AT THIS TIME.
--- NOTE | 2019-04-26 12:00 | NUR ---
Patient will be admitted to care of [facility]. Will go to [facility]. Belongings list completed. Report to MERLIN.
--- NOTE | 2019-04-26 12:03 | NUR ---
PICC RN CALLED AND LEFT MESSAGE.
[2019-04-26 12:30] LABS: RBC,URINE 0-5 /HPF (0-5); WBC,URINE 0-5 /HPF (0-5)
--- NOTE | 2019-04-26 13:20 | NUR ---
CALLED MD FOR ORDER. MD TO SEE PATIENT FIRST. PATIENT IS AWARE.
--- NOTE | 2019-04-26 13:45 | NUR ---
RECEIVED CALL FOR KATHY FOR PICC LINE INSERTION, STATED HE WILL BE ON THE UNIT IN 30 MIN. US NOTIFIED FOR US GUIDED INSERTIONS.
[2019-04-26] MEDS ORDERED: HYDROcodone/APAP 5/325 MG 1 TAB TAB PO PRN (14:05)
[2019-04-26] MEDS ORDERED: ONDANSETRON 4 MG/2 ML VIAL IVP PRN (14:05)
[2019-04-26] MEDS ORDERED: ACETAMINOPHEN 325 MG TAB PO PRN (14:05)
[2019-04-26] MEDS ORDERED: hydrALAZINE 20 MG/ML VIAL IVP PRN (14:25)
--- NOTE | 2019-04-26 15:00 | NUR ---
TIME OUT FOR PICC INSERTION WAS DONE WITH KATHY PICC RN. CONSENT WAS GIVEN TO KATHY. PENDING PICC PLACEMENT FOR CASINO SHIFT MANAGER.
[2019-04-26] MEDS: ALBUTEROL 0.083% 2.5 MG/3 ML NEBU INH PRN ×2 (15:53→19:29)
[2019-04-26 16:00] VITALS: BP 138/40
--- NOTE | 2019-04-26 16:09 | NUR ---
PICC LINE PLACE BY KATHY PICC RN. X-RAY TO CONFIRM PLACEMENT DONE. AWAITING RESULTS TO ADMINISTER SCHEDULE MEDS. NO OTHER NEEDS AT THIS TIME. PATIENT REFUSED GOWN OR TO HAVE SHEET FOR POSITIONING REMOVED. PAIN INTOLERABLE FOR MOVEMENT. REFUSES PO PAIN MEDICATIONS AT THIS TIME.
--- NOTE | 2019-04-26 16:32 | NUR ---
PER KATHY PICC PAULETTE RN, PICC IS READY FOR USE.
[2019-04-26] MEDS: MORPHINE SULFATE 4 MG/ML SYR IVP PRN ×2 (16:39→21:03)
[2019-04-26] MEDS: LACTULOSE 20 GM/30 ML UDC PO SCH ×3 (16:39→17:00)
[2019-04-26] MEDS: FUROSEMIDE 40 MG/4 ML VIAL IVP SCH (16:40)
--- NOTE | 2019-04-26 17:23 | NUR ---
ADMINISTERED SCHEDULED MEDICATIONS. PATIENT REFUSED LACTULOSE. PATIENT ALSO STATED THAT PER F.C WAS TO BE INSERTED. PAGED MD TO CLARIFY. AWAITING CALL BACK.
--- NOTE | 2019-04-26 18:00 | NUR ---
F/C INSERTED. PATIENT TOLERATED PROCEDURE WELL.
--- NOTE | 2019-04-26 19:15 | NUR ---
ENDORSED TO WESTERN TACK ASSEMBLY LINE WORKER NURSE FOR CONTINUITY OF CARE. PATIENT IS STABLE AT THIS TIME.
--- NOTE | 2019-04-26 19:15 | NUR ---
RECEIVED REPORT FROM DAY SHIFT NURSE FOR CONTINUITY OF CARE. PATIENT LYING DOWN AWAKE AND ALERT. PATIENT IS ON ROOM AIR. DENIES PAIN AT THIS TIME. PATIENT IN STABLE CONDITION. BED IN LOW POSITION, CALL LIGHT WITHIN REACH. WILL CONTINUE TO MONITOR PATIENT.
[2019-04-26] MEDS ORDERED: METOLAZONE 5 MG TAB PO SCH (19:30)
[2019-04-26 20:00] VITALS: BP 118/60
[2019-04-26] MEDS: RIFAXIMIN 550 MG TAB PO SCH (20:22)
[2019-04-26] MEDS: METOPROLOL 25 MG TAB PO SCH (20:22)
--- NOTE | 2019-04-26 21:03 | NUR ---
PATIENT COMPLAINS OF BILATERAL LEGS PAIN. ADMINISTERED PAIN MEDICATION ORDERED. WILL CONTINUE TO MONITOR PATIENT.
--- NOTE | 2019-04-26 22:15 | NUR ---
PATIENT REPORTS NO RELIEF OF PAIN FROM PRIOR MEDICATION. ADMINISTERED ANOTHER PAIN MEDICATION ORDERED. WILL CONTINUE TO OFFER NON-PHARMACOLOGICAL TECHNIQUES TO RELIEF PAIN. WILL CONTINUE TO MONITOR PATIENT.
[2019-04-26] MEDS: oxyCODONE 5 MG TAB PO PRN (22:17)
[2019-04-27] VITALS: BP 150/58
--- NOTE | 2019-04-27 | NUR ---
PATIENT LYING DOWN IN BED, APPEARED TO BE ASLEEP. VITAL SIGNS TAKEN AND NOTED. PATIENT REPORTS OF UNRELIEVED PAIN. WILL MEDICATE ORDERED, AND PATIENT VERBALIZED UNDERSTANDING. WILL CONTINUE TO OFFER NON-PHARMACOLOGIC TECHNIQUES TO HELP RELIEVE PAIN. ON 3L O2 VIA NC, BED IS IN LOW POSITION, SIDE RAILS ARE UP, AND CALL LIGHT WITHIN REACH. WILL CONTINUE TO MONITOR PATIENT.
[2019-04-27] MEDS: MORPHINE SULFATE 4 MG/ML SYR IVP PRN ×5 (01:36→21:13)
--- NOTE | 2019-04-27 01:36 | NUR ---
PATIENT LYING DOWN IN BED, STATES PAIN IS STILL NOT RELIEVED. ADMINISTERED IV PUSH PAIN MEDICATION ORDERED. WILL CONTINUE TO MONITOR PATIENT.
[2019-04-27 04:00] VITALS: BP 123/60
[2019-04-27] MEDS: oxyCODONE 5 MG TAB PO PRN ×2 (04:09→18:45)
--- NOTE | 2019-04-27 04:09 | NUR ---
PATIENT LYING DOWN IN BED, APPEARED TO BE ASLEEP. VS TAKEN AND CHARTED. PATIENT WOKE UP AND STATED PAIN ON BILATERAL LOWER EXTREMITY STILL UNRELIEVED. ADMINISTERED PO PAIN MEDICATION ORDERED. EDUCATED PATIENT REGARDING ROUTINE INTAKE OF OPIOID MEDICATION SIDE EFFECT TO BE CONSTIPATION. PATIENT VERBALIZED UNDERSTANDING. WILL CONTINUE TO MONITOR PATIENT AND OFFER NON-PHARMACOLOGICAL TECHNIQUES TO RELIEVE PAIN.
--- NOTE | 2019-04-27 06:30 | NUR ---
PATIENT HAS BEEN SCREENED AND CATEGORIZED HIGH NUTRITION RISK. PATIENT WILL BE SEEN WITHIN 1-2 DAYS OF ADMISSION. 04/27/19-04/28/19 JUDY SAEZ MS, RDN
--- NOTE | 2019-04-27 07:18 | NUR ---
PT SLEEPING, NO SIGNS OF DISTRESS, REPORT GIVEN TO MARY TREVIZO FOR CONTINUITY OF CARE.
--- NOTE | 2019-04-27 07:19 | NUR ---
RECEIVED REPORT FROM RENTAL COORDINATOR NURSE. PATIENT LYING DOWN IN BED SLEEPING, AROUSABLE BY VOICE. NO DISTRESS NOTED. PAIN WITHIN TOLERABLE AT THIS TIME. AAOX4, CALM, COOPERATIVE, SKIN COLOR APPROPRIATE TO ETHNICITY, WARM TO TOUCH. SKIN INTACT, HOWEVER DISCOLORATION NOTED ON BLE. +2 PITTING EDEMA NOTED ON BLE. HAS LEFT UPPER ARM PICC LINE, INTACT, PATENT, AND ON TKO. REVIEWED PLAN OF CARE WITH PATIENT. PATIENT VERBALIZED UNDERSTANDING. SAFETY MEASURES IN PLACE, CALL LIGHT WITHIN REACH. WILL CONTINUE TO MONITOR.
[2019-04-27 08:00] VITALS: BP 132/55
[2019-04-27 08:01] LABS: BASOPHILS % (AUTO) 0.2 % (0.0-2.0); EOSINOPHILS % (AUTO) 0.3 % (0.0-4.0); HEMATOCRIT 27.3 % (36-52); HEMOGLOBIN 9.4 g/dL (12.0-18.0); LYMPHOCYTES % (AUTO) 14.8 % (20.5-51.1); MEAN CORPUSCULAR HEMOGLOBIN 31 pg (27-31); MEAN CORPUSCULAR HGB CONC 34 g/dL (33-37); MEAN CORPUSCULAR VOLUME 90.8 fL (80-94); MONOCYTES # (AUTO) 0.8 K/uL (0.8-1.0); MONOCYTES % (AUTO) 12.5 % (1.7-9.3); NEUTROPHILS # (AUTO) 4.7 K/uL (1.8-7.7); NEUTROPHILS % (AUTO) 72.2 % (42.2-75.2); PLATELET COUNT (AUTO) 136 K/uL (140-450); RED CELL DISTRIBUTION WIDTH 16.8 % (11.6-13.7); WHITE BLOOD COUNT (AUTO) 6.6 K/uL (4.8-10.8)
[2019-04-27 08:16] LABS: CARBON DIOXIDE 32.7 mmol/L (21-32); CREATININE 1.1 mg/dL (0.7-1.3); POTASSIUM 3.7 mmol/L (3.5-5.1)
[2019-04-27] MEDS: ENOXAPARIN 40 MG/0.4 ML SYR SUBQ SCH (09:00)
[2019-04-27 09:01] LABS: PHOSPHORUS 4.5 mg/dL (2.5-4.9)
[2019-04-27] MEDS: LACTULOSE 20 GM/30 ML UDC PO SCH ×3 (09:30→16:02)
[2019-04-27] MEDS: METHADONE 10 MG TAB PO SCH (09:31)
[2019-04-27] MEDS: FUROSEMIDE 40 MG/4 ML VIAL IVP SCH ×2 (09:31→16:03)
[2019-04-27] MEDS: ASPIRIN 81 MG TAB.CHEW PO SCH (09:32)
[2019-04-27] MEDS: METOLAZONE 5 MG TAB PO SCH (09:32)
[2019-04-27] MEDS: PANTOPRAZOLE 40 MG TABEC PO SCH (09:32)
[2019-04-27] MEDS: METOPROLOL 25 MG TAB PO SCH ×2 (09:32→20:02)
[2019-04-27] MEDS: POTASSIUM CHLORIDE 10 MEQ TABER PO SCH (09:32)
[2019-04-27] MEDS: LISINOPRIL 20 MG TAB PO SCH (09:32)
[2019-04-27] MEDS: RIFAXIMIN 550 MG TAB PO SCH ×2 (09:34→20:02)
--- NOTE | 2019-04-27 09:42 | NUR ---
PATIENT SITTING IN BED. NO DISTRESS NOTED. PAIN WITHIN TOLERABLE. SCHEDULED MEDICATIONS DUE GIVEN. WILL CONTINUE TO MONITOR.
[2019-04-27] MEDS: ALBUTEROL 0.083% 2.5 MG/3 ML NEBU INH PRN (10:23)
--- NOTE | 2019-04-27 10:35 | NUR ---
TOLERATED INCENTIVE SPIROMETRY WELL WITHOUT INCIDENT ENCOURAGED PATIENT TO DARIUS INCENTIVE SPIROMETRY EVERY 1-2 HOURS WHILE AWAKE
--- NOTE | 2019-04-27 10:41 | NUR ---
PATIENT LYING DOWN IN BED SLEEPING, AROUSABLE BY VOICE. NO DISTRESS NOTED. CONDITION UNCHANGED. WILL CONTINUE TO MONITOR.
[2019-04-27 12:00] VITALS: BP 135/52
--- NOTE | 2019-04-27 12:05 | NUR ---
PATIENT SITTING IN BED WITH COMPLAINTS OF BLE PAIN, MORPHINE GIVEN AT THIS TIME. OTHER SCHEDULED MEDICATIONS DUE GIVEN. WILL CONTINUE TO MONITOR.
[2019-04-27] MEDS ORDERED: POTASSIUM CHLORIDE 10 MEQ TABER PO SCH (14:00)
--- NOTE | 2019-04-27 14:00 | NUR ---
PER DR. REA VERBAL ORDERS, GIVE 40 MEQ ORAL POTASSIUM X 1 DOSE EVEN THOUGHT K=3.7 HE WANTS K BETWEEN 4.0-5.0 RANGE FOR PROPER HEART CONTRACTION DUE TO [place] HX.
--- NOTE | 2019-04-27 14:05 | NUR ---
PATIENT SITTING IN BED TALKING TO AT BEDSIDE. NO DISTRESS NOTED. PAIN WITHIN TOLERABLE. SCHEDULED MEDICATIONS DUE GIVEN. WILL CONTINUE TO MONITOR.
--- NOTE | 2019-04-27 15:21 | NUR ---
PLACED PATIENT ON BEDPAN, PT PASSING GAS BUT NO BM. TOOK PATIENT OFF BEDPAN. WILL CONTINUE TO MONITOR.
[2019-04-27 16:00] VITALS: BP 143/56
--- NOTE | 2019-04-27 16:32 | NUR ---
ASSISTED PATIENT TO BEDPAN, PATIENT HAD 1 BM, BUT FEELS LIKE HAVING ANOTHER BM. BEDPAN CLEANED AND REPOSITIONED ON PATIENT. PATIENT TO CALL WHEN DONE WITH BEDPAN. WILL CONTINUE TO MONITOR.
--- NOTE | 2019-04-27 17:08 | NUR ---
PATIENT DONE ON BEDPAN. MORPHINE GIVEN PATIENT COMPLAINS OF BLE PAIN DURING REPOSITIONING. ASSISTED STORY TELLER IN CLEANING AND REPOSITIONING PATIENT. WILL CONTINUE TO MONITOR.
--- NOTE | 2019-04-27 18:24 | NUR ---
PATIENT SITTING IN BED COMFORTABLY. CONDITION UNCHANGED. WILL CONTINUE TO MONITOR.
--- NOTE | 2019-04-27 18:47 | NUR ---
ASSISTED PATIENT ON BEDPAN, WANTS TO LEAVE BEDPAN ON FOR A WHILE TO HAVE BM. COMPLAINS OF BLE PAIN WHEN REPOSITIONING. OXYCODONE GIVEN AT THIS TIME. WILL CONTINUE TO MONITOR.
--- NOTE | 2019-04-27 19:28 | NUR ---
GAVE REPORT TO CLIENT TECHNICAL SUPPORT ASSOCIATE NURSE FOR CONTINUITY OF CARE. PATIENT IN STABLE CONDITION.
--- NOTE | 2019-04-27 19:30 | NUR ---
RECEIVED PT ON BED, AAOX4, ABLE TO MAKE NEEDS KNOWN, 4/10 PAIN LEVEL AT THIS TIME, WILL MEDICATE WHEN NEXT DUE PRN MED, VITAL SIGNS STABLE, SAT-93% ON O2 2L NC, NO SOB NOTED, WITH LT UA PICC LINE 2 LUMEN WITH IVF NS 5ML/H, DRESSING DRY AND INTACT, BLE EDEMA AND SKIN DISCOLORATION NOTED, GOOD CAP REFILL AND PALPABLE PEDAL PULSES, HINTON CATH IN PLACE DRAINING CLEAR YELLOW OUTPUT, PLAN OF CARE DISCUSSED, SAFETY MEASURES IN PLACE, CALL LIGHT WITHIN REACH.
[2019-04-27 20:00] VITALS: BP 116/63
--- NOTE | 2019-04-27 21:15 | NUR ---
PT HAD LOOSE YELLOW STOOL MODERATE AMOUNT, PT CLEANED AND REPOSITIONED, PT COMPLAINING OF LEG PAIN FROM MOVING, MEDICATED PRN WITH MORPHINE IVP, MONITORED CLOSELY.
--- NOTE | 2019-04-27 22:10 | NUR ---
PT REQUESTED FOR BEDPAN, HE FEELS LIKE HE WANTS TO HAVE A BM, BED MILLS PROVIDED, INSTRUCTED TO CALL WHEN HE IS DONE, CALL LIGHT WITHIN REACH.
--- NOTE | 2019-04-27 23:20 | NUR ---
PT HAD A SMEAR BM, MOSTLY PASSING GAS, CLEANED AND REPOSITIONED, MONITORED CLOSELY.
[2019-04-28] VITALS: BP 137/59
[2019-04-28] MEDS: MORPHINE SULFATE 4 MG/ML SYR IVP PRN ×2 (00:59→20:16)
--- NOTE | 2019-04-28 01:20 | NUR ---
PT PROVIDED WITH BEDPAN, BM WITH SMALL LOOSE STOOL, CLEANED AND REPOSITIONED, MEDICATED PRN FOR PAIN, MONITORED CLOSELY.
--- NOTE | 2019-04-28 03:40 | NUR ---
PT HAD LARGE LOOSE BM, CLEANED AND REPOSITIONED, VITAL SIGNS TAKEN, SB-SR ON TELE, TOLERABLE PAIN AT THIS TIME, WILL MEDICATE WHEN DUE, MONITORED CLOSELY.
[2019-04-28 04:00] VITALS: BP 119/57
[2019-04-28] MEDS: oxyCODONE 5 MG TAB PO PRN (04:59)
--- NOTE | 2019-04-28 05:00 | NUR ---
PT MEDICATED WITH OXYCODONE FOR PAIN, NO NEEDS AT THIS TIME, STATED HE WILL CALL IF HE NEEDS SOMETHING, PT WENT TO SLEEP, MONITORED CLOSELY.
--- NOTE | 2019-04-28 05:50 | NUR ---
AM LABS DRAWN VIA LT UA PICC LINE WITH GOOD BLOOD RETURN, BOTH PORTS FLUSHES WELL, PT HAS NO NEEDS AT THIS TIME, PT WENT BACK TO SLEEP, MONITORED CLOSELY.
[2019-04-28 06:54] LABS: BASOPHILS % (AUTO) 0.2 % (0.0-2.0); EOSINOPHILS # (AUTO) 0.1 K/uL (0-0.4); EOSINOPHILS % (AUTO) 1.1 % (0.0-4.0); HEMATOCRIT 29.2 % (36-52); LYMPHOCYTES % (AUTO) 16.5 % (20.5-51.1); MEAN CORPUSCULAR HEMOGLOBIN 31 pg (27-31); MEAN CORPUSCULAR HGB CONC 34 g/dL (33-37); MEAN CORPUSCULAR VOLUME 89.8 fL (80-94); MONOCYTES # (AUTO) 0.8 K/uL (0.8-1.0); MONOCYTES % (AUTO) 12.9 % (1.7-9.3); NEUTROPHILS # (AUTO) 4.4 K/uL (1.8-7.7); NEUTROPHILS % (AUTO) 69.3 % (42.2-75.2); PLATELET COUNT (AUTO) 164 K/uL (140-450); RED BLOOD CELL COUNT(AUTO) 3.25 MIL/uL (4.20-6.10); RED CELL DISTRIBUTION WIDTH 16.3 % (11.6-13.7); WHITE BLOOD COUNT (AUTO) 6.3 K/uL (4.8-10.8)
[2019-04-28 07:10] LABS: ANION GAP 8.6 (8-16); CARBON DIOXIDE 33.7 mmol/L (21-32); CREATININE 1.1 mg/dL (0.7-1.3); POTASSIUM 3.3 mmol/L (3.5-5.1)
--- NOTE | 2019-04-28 07:15 | NUR ---
PT SLEEPING, NO SIGNS OF DISTRESS, REPORT GIVEN TO MARY TREVIZO FOR CONTINUITY OF CARE.
--- NOTE | 2019-04-28 07:16 | NUR ---
RECEIVED REPORT FROM RETAIL POS SPECIALIST NURSE. PATIENT LYING DOWN IN BED SLEEPING, AROUSABLE BY VOICE. NO DISTRESS NOTED. PAIN WITHIN TOLERABLE AT THIS TIME. AAOX4, CALM, COOPERATIVE, SKIN COLOR APPROPRIATE TO ETHNICITY, WARM TO TOUCH. SKIN INTACT, HOWEVER DISCOLORATION NOTED ON BLE, BLE CELLULITIS AND +2 PITTING EDEMA NOTED ON BLE. HAS LEFT UPPER ARM PICC LINE, INTACT, PATENT, AND ON TKO. REVIEWED PLAN OF CARE WITH PATIENT. PATIENT VERBALIZED UNDERSTANDING. SAFETY MEASURES IN PLACE, CALL LIGHT WITHIN REACH. WILL CONTINUE TO MONITOR.
[2019-04-28 07:17] LABS: MAGNESIUM 1.9 mg/dL (1.8-2.4); PHOSPHORUS 3.7 mg/dL (2.5-4.9)
[2019-04-28 08:00] VITALS: BP 123/77
[2019-04-28] MEDS: METOPROLOL 25 MG TAB PO SCH ×2 (09:00→20:16)
[2019-04-28] MEDS: ENOXAPARIN 40 MG/0.4 ML SYR SUBQ SCH (09:00)
--- NOTE | 2019-04-28 09:20 | NUR ---
PHYSICAL THERAPIST AT BEDSIDE EVALUATING PATIENT. WILL CONTINUE TO MONITOR.
[2019-04-28] MEDS: ASPIRIN 81 MG TAB.CHEW PO SCH (09:35)
[2019-04-28] MEDS: METHADONE 10 MG TAB PO SCH (09:35)
[2019-04-28] MEDS: PANTOPRAZOLE 40 MG TABEC PO SCH (09:35)
[2019-04-28] MEDS: POTASSIUM CHLORIDE 10 MEQ TABER PO SCH ×3 (09:35→20:15)
[2019-04-28] MEDS: METOLAZONE 5 MG TAB PO SCH (09:35)
[2019-04-28] MEDS: LISINOPRIL 20 MG TAB PO SCH (09:36)
[2019-04-28] MEDS: RIFAXIMIN 550 MG TAB PO SCH ×2 (09:36→20:16)
[2019-04-28] MEDS: LACTULOSE 20 GM/30 ML UDC PO SCH ×3 (09:36→17:46)
[2019-04-28] MEDS: FUROSEMIDE 40 MG/4 ML VIAL IVP SCH ×2 (09:36→17:47)
--- NOTE | 2019-04-28 09:50 | NUR ---
PATIENT SITTING DOWN IN BED. NO DISTRESS NOTED. SCHEDULED MEDICATIONS DUE GIVEN. WILL CONTINUE TO MONITOR.
[2019-04-28 12:00] VITALS: BP 104/53
--- NOTE | 2019-04-28 13:00 | NUR ---
PATIENT REFUSES LACTULOSE AT THIS TIME. NOTIFIED DR. GALDAMEZ ON UNIT. VERBALIZED UNDERSTANDING. WILL CONTINUE TO MONITOR.
--- NOTE | 2019-04-28 14:17 | NUR ---
04/28/19 RD INITIAL ASSESSMENT COMPLETED PLEASE REFER TO NUTRITION ASSESSMENT UNDER CARE ACTIVITY FOR ESTIMATED NUTRITIONAL NEEDS. 1. RECOMMEND MECHANICAL SOFT HEPATIC DIET 2. RECOMMEND FEEDING ACCOUNT REVIEW SPECIALIST 3. CIRRHOSIS EDUCATION WAS PROVIDED TO PT 4. RD TO FOLLOW-UP 3-5 DAYS, MODERATE RISK GRISELDA NARANJO RD
--- NOTE | 2019-04-28 15:56 | NUR ---
PATIENT LYING DOWN IN BED SLEEPING, AROUSABLE BY VOICE. NO DISTRESS NOTED. DENIES ANY PAIN. SCHEDULED MEDICATIONS DUE GIVEN. WILL CONTINUE TO MONITOR.
[2019-04-28 16:00] VITALS: BP 132/55
--- NOTE | 2019-04-28 17:52 | NUR ---
PATIENT SITTING IN BED WITH DINNER TRAY IN FRONT. NO DISTRESS NOTED. PAIN WITHIN TOLERABLE. SCHEDULED MEDICATIONS DUE GIVEN. WILL CONTINUE TO MONITOR.
--- NOTE | 2019-04-28 19:16 | NUR ---
GAVE REPORT TO GROUP MARKETING VP FOR CONTINUITY OF CARE. PATIENT IN STABLE CONDITION.
--- NOTE | 2019-04-28 19:18 | NUR ---
Received endorsement from AM shift RN; patient A/Ox4, able to make needs known, bedbound. Patient watching TV; introduced self, updated board. No SOB or distress noted, on O2 2LPM via nasal cannula. IV site left upper arm PICC line, double lumen, running IVF at TKO rate. Skin intact. Bilateral edema +3 noted on bilateral lower extremity. Clemons catheter in place. Bed in the lowest position, call light within reach. Initial assessment done. Will continue to monitor.
[2019-04-28] MEDS: ALBUTEROL 0.083% 2.5 MG/3 ML NEBU INH PRN (19:45)
[2019-04-28 20:00] VITALS: BP 126/50
--- NOTE | 2019-04-28 20:15 | NUR ---
Vitals taken, no distress noted.
--- NOTE | 2019-04-28 20:31 | NUR ---
Due meds given; tolerated well.
--- NOTE | 2019-04-28 22:57 | NUR ---
Checks made; patient resting quietly.
[2019-04-29] VITALS: BP 121/57
--- NOTE | 2019-04-29 00:35 | NUR ---
Vitals taken, no distress noted.
[2019-04-29] MEDS: POTASSIUM CHLORIDE 10 MEQ TABER PO SCH ×2 (01:32→09:26)
[2019-04-29] MEDS: MORPHINE SULFATE 4 MG/ML SYR IVP PRN ×3 (01:33→23:48)
--- NOTE | 2019-04-29 02:20 | NUR ---
Checks made; patient asleep, visible chest rise and fall noted.
[2019-04-29 04:00] VITALS: BP 107/54
--- NOTE | 2019-04-29 04:30 | NUR ---
Vitals taken; no distress noted. Patient resting.
--- NOTE | 2019-04-29 07:05 | NUR ---
Endorsed patient to AM shift RN for continuity of care; patient in stable condition.
--- NOTE | 2019-04-29 07:06 | NUR ---
RECEIVED REPORT FROM SEED ANALYSIS LABORATORY ASSISTANT NURSE. PATIENT LYING DOWN IN BED SLEEPING, AROUSABLE BY VOICE. NO DISTRESS NOTED. PAIN WITHIN TOLERABLE AT THIS TIME. AAOX4, CALM, COOPERATIVE, SKIN COLOR APPROPRIATE TO ETHNICITY, WARM TO TOUCH. SKIN INTACT, HOWEVER DISCOLORATION NOTED ON BLE, BLE CELLULITIS AND +2 PITTING EDEMA NOTED ON BLE. HAS LEFT UPPER ARM PICC LINE, INTACT, PATENT, AND ON SALINE LOCK. REVIEWED PLAN OF CARE WITH PATIENT. PATIENT VERBALIZED UNDERSTANDING. SAFETY MEASURES IN PLACE, CALL LIGHT WITHIN REACH. WILL CONTINUE TO MONITOR.
[2019-04-29 07:14] LABS: BASOPHILS % (AUTO) 0.5 % (0.0-2.0); EOSINOPHILS # (AUTO) 0.1 K/uL (0-0.4); EOSINOPHILS % (AUTO) 1.5 % (0.0-4.0); HEMATOCRIT 28.5 % (36-52); HEMOGLOBIN 9.8 g/dL (12.0-18.0); LYMPHOCYTES # (AUTO) 1.2 K/uL (2.0-11.5); LYMPHOCYTES % (AUTO) 21.9 % (20.5-51.1); MEAN CORPUSCULAR HEMOGLOBIN 31 pg (27-31); MEAN CORPUSCULAR HGB CONC 34 g/dL (33-37); MEAN CORPUSCULAR VOLUME 89.5 fL (80-94); MONOCYTES # (AUTO) 0.7 K/uL (0.8-1.0); MONOCYTES % (AUTO) 12.3 % (1.7-9.3); NEUTROPHILS # (AUTO) 3.6 K/uL (1.8-7.7); NEUTROPHILS % (AUTO) 63.8 % (42.2-75.2); PLATELET COUNT (AUTO) 161 K/uL (140-450); RED BLOOD CELL COUNT(AUTO) 3.19 MIL/uL (4.20-6.10); RED CELL DISTRIBUTION WIDTH 16.2 % (11.6-13.7); WHITE BLOOD COUNT (AUTO) 5.7 K/uL (4.8-10.8)
[2019-04-29 07:35] LABS: MAGNESIUM 1.9 mg/dL (1.8-2.4)
[2019-04-29 07:56] LABS: ANION GAP 7.6 (8-16); CARBON DIOXIDE 35.2 mmol/L (21-32); CREATININE 1.5 mg/dL (0.7-1.3); POTASSIUM 3.8 mmol/L (3.5-5.1)
[2019-04-29 08:00] VITALS: BP 118/53
[2019-04-29] MEDS: ENOXAPARIN 40 MG/0.4 ML SYR SUBQ SCH (09:00)
[2019-04-29] MEDS: METOPROLOL 25 MG TAB PO SCH ×2 (09:00→20:32)
[2019-04-29] MEDS: LACTULOSE 20 GM/30 ML UDC PO SCH ×3 (09:24→17:10)
[2019-04-29] MEDS: PANTOPRAZOLE 40 MG TABEC PO SCH (09:26)
[2019-04-29] MEDS: METHADONE 10 MG TAB PO SCH (09:27)
[2019-04-29] MEDS: METOLAZONE 5 MG TAB PO SCH (09:28)
[2019-04-29] MEDS: ASPIRIN 81 MG TAB.CHEW PO SCH (09:28)
[2019-04-29] MEDS: LISINOPRIL 20 MG TAB PO SCH (09:28)
[2019-04-29] MEDS: SPIRONOLACTONE 25 MG TAB PO SCH (09:29)
[2019-04-29] MEDS: FUROSEMIDE 40 MG/4 ML VIAL IVP SCH (09:29)
[2019-04-29] MEDS: RIFAXIMIN 550 MG TAB PO SCH ×2 (09:31→20:32)
--- NOTE | 2019-04-29 09:43 | NUR ---
PATIENT SITTING DOWN IN BED. NO DISTRESS NOTED. PAIN WITHIN TOLERABLE. SCHEDULED MEDICATIONS DUE GIVEN. WILL CONTINUE TO MONITOR.
[2019-04-29 10:03] LABS: BILIRUBIN,DIRECT 0.8 mg/dL (0.0-0.3); TOTAL BILIRUBIN 2.1 mg/dL (0.0-1.0)
--- NOTE | 2019-04-29 11:30 | NUR ---
PHYSICAL THERAPIST AT BEDSIDE WORKING WITH PATIENT. WILL CONTINUE TO MONITOR.
[2019-04-29 12:00] VITALS: BP 102/46
--- NOTE | 2019-04-29 12:51 | NUR ---
PATIENT SITTING IN BED. NO DISTRESS NOTED. PAIN WITHIN TOLERABLE. CONDITION UNCHANGED. AT BEDSIDE. WILL CONTINUE TO MONITOR.
--- NOTE | 2019-04-29 13:30 | NUR ---
ORDERED FOR [facility], SPOKE TO PATIENT AND STEPHANIE AT BEDSIDE AND BOTH AGREED AND AWARE OF [facility], CALLED [facility] [phone] SPOKE TO KEVIN SEASONAL RECRUITER, SHE REQUESTED FOR CLINICALS, FAXED TO [phone].
--- NOTE | 2019-04-29 14:46 | NUR ---
PHU NURSE LIASON FROM [facility] CALLED [phone] AND STATED THAT AFTER REVIEWING CLINICALS AND SHE SPOKE WITH THE PATIENT, SHE SAID THAT PATIENT IS LOW FUNCTIONING AND NEEDS MAXIMUM ASSIST AND NEEDS 3 HOURS OF INTENSE THERAPY DAILY FOR THEM TO ACCEPT PATIENT. PER PHU, PATIENT AGREED TO DO MORE THERAPY TOMORROW AND WILL RE EVALUATE TOMORROW.
[2019-04-29] MEDS: oxyCODONE 5 MG TAB PO PRN (15:23)
--- NOTE | 2019-04-29 15:25 | NUR ---
PATIENT LYING DOWN IN BED WITH COMPLAINS OF PAIN. OXYCODONE GIVEN AT THIS TIME. OTHER SCHEDULED MEDICATIONS DUE GIVEN. WILL CONTINUE TO MONITOR.
[2019-04-29 16:00] VITALS: BP 121/63
--- NOTE | 2019-04-29 17:11 | NUR ---
PATIENT SITTING DOWN IN BED. NO DISTRESS NOTED. PAIN WITHIN TOLERABLE. SCHEDULED MEDICATIONS DUE GIVEN. WILL CONTINUE TO MONITOR.
--- NOTE | 2019-04-29 18:55 | NUR ---
ASSISTED PATIENT ON BEDPAN. COMPLAINS OF SEVERE PAIN, MORPHINE GIVEN PER MD ORDERS. WILL CONTINUE TO MONITOR.
--- NOTE | 2019-04-29 19:14 | NUR ---
GAVE REPORT TO PUBLIC OPINION SURVEY TAKER NURSE FOR CONTINUITY OF CARE. PATIENT IN STABLE CONDITION.
--- NOTE | 2019-04-29 19:16 | NUR ---
Received endorsement from AM shift RN; patient A/Ox4, able to make needs known, bedbound. Patient watching TV; introduced self, updated board. No SOB or distress noted, on O2 2LPM via nasal cannula. IV site left upper arm PICC line, double lumen, saline locked. Skin intact. Bilateral edema +3 noted on bilateral lower extremity. Clemons catheter in place. Bed in the lowest position, call light within reach. Initial assessment done. Will continue to monitor.
[2019-04-29 20:00] VITALS: BP 109/62
[2019-04-29] MEDS: ALBUTEROL 0.083% 2.5 MG/3 ML NEBU INH PRN (20:18)
--- NOTE | 2019-04-29 20:24 | NUR ---
PT WAS ON 2L O2 NASAL CANULA SATTING AT 88%, CHANGED PT TO 3L O2 AND BEGAN TO SAT AT 92%
--- NOTE | 2019-04-29 20:45 | NUR ---
Vitals taken, due meds given. Tolerated well, no distress noted.
--- NOTE | 2019-04-29 22:05 | NUR ---
Assisted patient with bedpan, no BM noted.
--- NOTE | 2019-04-29 23:55 | NUR ---
Vitals taken; no distress noted.
[2019-04-30] VITALS: BP 120/46
--- NOTE | 2019-04-30 02:15 | NUR ---
Frequent checks made; no distress noted. Patient asleep, visible chest rise and fall noted.
[2019-04-30 04:00] VITALS: BP 101/34
--- NOTE | 2019-04-30 04:15 | NUR ---
Vitals taken, no distress noted. Patient cleaned, linens and chux changed. No BM noted.
--- NOTE | 2019-04-30 06:10 | NUR ---
Dr. Ross at bedside to consult patient.
[2019-04-30 06:55] LABS: BASOPHILS % (AUTO) 0.5 % (0.0-2.0); EOSINOPHILS # (AUTO) 0.2 K/uL (0-0.4); EOSINOPHILS % (AUTO) 2.4 % (0.0-4.0); HEMATOCRIT 28.2 % (36-52); HEMOGLOBIN 9.7 g/dL (12.0-18.0); LYMPHOCYTES # (AUTO) 1.4 K/uL (2.0-11.5); LYMPHOCYTES % (AUTO) 21.4 % (20.5-51.1); MEAN CORPUSCULAR HEMOGLOBIN 31 pg (27-31); MEAN CORPUSCULAR HGB CONC 35 g/dL (33-37); MEAN CORPUSCULAR VOLUME 89.5 fL (80-94); MONOCYTES # (AUTO) 0.8 K/uL (0.8-1.0); MONOCYTES % (AUTO) 13.3 % (1.7-9.3); NEUTROPHILS % (AUTO) 62.4 % (42.2-75.2); PLATELET COUNT (AUTO) 161 K/uL (140-450); RED BLOOD CELL COUNT(AUTO) 3.15 MIL/uL (4.20-6.10); RED CELL DISTRIBUTION WIDTH 16.3 % (11.6-13.7); WHITE BLOOD COUNT (AUTO) 6.4 K/uL (4.8-10.8)
[2019-04-30 07:10] LABS: ANION GAP 6.7 (8-16); CARBON DIOXIDE 34.2 mmol/L (21-32); CREATININE 1.6 mg/dL (0.7-1.3); POTASSIUM 3.9 mmol/L (3.5-5.1); TOTAL BILIRUBIN 1.9 mg/dL (0.0-1.0)
[2019-04-30 07:13] LABS: MAGNESIUM 2.1 mg/dL (1.8-2.4); PHOSPHORUS 4.3 mg/dL (2.5-4.9)
[2019-04-30] MEDS: ALBUTEROL 0.083% 2.5 MG/3 ML NEBU INH PRN ×2 (07:14→20:23)
--- NOTE | 2019-04-30 07:20 | NUR ---
Endorsed patient to AM shift RN for continuity of care; patient in stable condition.
--- NOTE | 2019-04-30 07:21 | NUR ---
RECEIVED BEDSIDE REPORT FROM MARY MIRANDA. PATIENT ON TELE MONITOR AND STANDARD PRECAUTIONS IN PLACE. AAOX3 AND ON 3L O2 NC, NO DISTRESS NOTED. PATIENT ON BEDREST WITH HINTON CATHETER IN PLACE SECURE AND INTACT. BLE EDEMA WITH CANE AT BEDSIDE. PICC LINE SUPRIYA DOUBLE LUMEN TKO, PATENT AND INTACT. FALL RISK PROTOCOL IN PLACE. OSORIO LIFT ON BED. BED IN LOW POSITION, CALL LIGHT WITHIN REACH, SIDE RAILS X2 UP Addendum: 04/30/19 at 1731 by Mehreen Cobb RN DISREGARD OSORIO LIFT. TRAPEZE ATTACHED TO BED FOR REPOSITIONING
[2019-04-30 08:00] VITALS: BP 101/61
[2019-04-30] MEDS ORDERED: ALBUMIN HUMAN 25% 100 ML IV SCH (08:00)
[2019-04-30] MEDS: FUROSEMIDE 40 MG/4 ML VIAL IVP SCH (08:24)
[2019-04-30] MEDS: ASPIRIN 81 MG TAB.CHEW PO SCH (08:25)
[2019-04-30] MEDS: SPIRONOLACTONE 25 MG TAB PO SCH (08:25)
[2019-04-30] MEDS: METOLAZONE 5 MG TAB PO SCH (08:28)
[2019-04-30] MEDS: METHADONE 10 MG TAB PO SCH (08:29)
[2019-04-30] MEDS: PANTOPRAZOLE 40 MG TABEC PO SCH (08:29)
[2019-04-30] MEDS: METOPROLOL 25 MG TAB PO SCH ×2 (08:30→21:00)
[2019-04-30] MEDS: POTASSIUM CHLORIDE 10 MEQ TABER PO SCH (08:30)
[2019-04-30] MEDS: RIFAXIMIN 550 MG TAB PO SCH ×2 (08:31→20:59)
[2019-04-30] MEDS: ENOXAPARIN 40 MG/0.4 ML SYR SUBQ SCH (08:32)
[2019-04-30] MEDS: LACTULOSE 20 GM/30 ML UDC PO SCH ×3 (08:51→17:39)
--- NOTE | 2019-04-30 08:53 | NUR ---
ADMINISTERED SCHEDULED MEDS. PATIENT TOLERATED WELL
--- NOTE | 2019-04-30 11:57 | NUR ---
GEOFFREY CONNOLLY GIVING PATIENT BED BATH. SITTING ON SIDE OF BED WITH ASSISTANCE FROM METAL FILER AND PT
[2019-04-30 12:00] VITALS: BP 105/39
--- NOTE | 2019-04-30 13:49 | NUR ---
PATIENT REFUSED MEDICATION. SITTING UP IN BED, ON 3L O2 NC, NO DISTRESS WITH FAMILY AT BEDSIDE
[2019-04-30 16:00] VITALS: BP 110/47
--- NOTE | 2019-04-30 16:32 | NUR ---
Gluing Machine Operator Automatic Note: I acknowledged Tar Heat Exchanger Cleaner Abigail Alfonso documentation indicating patient's sn[facility] preference is [facility] . I faxed inquiry to [facility]. I spoke with Jaci from [facility], she stated they will review inquiry and would like to know if patient will need abx ivs. Per MARY Lopez she will ask physician if patient will need abx ivs and let me know.
--- NOTE | 2019-04-30 16:34 | NUR ---
PATIENT SLEEPING. FOUND PATIENT WITHOUT NASAL CANNULA STATING HE REMOVED IT BECAUSE HIS NOSE WAS ITCHY. TOOK HIS VITAL SIGNS AND O2 SAT 93% ON ROOM AIR, NO DISTRESS NOTED
--- NOTE | 2019-04-30 17:15 | NUR ---
Principal Database Developer Note: Giovanni Beatty from [facility] deputy director of nursing (LAYNE) is not able to review at this time and she is not sure if they can accept patient because she stated he is non ambulatory. I faxed inquiry to [facility]. Per Jacqueline from [facility] , they have a male bed available and will most likely be able to accept patient today, she stated if they are able to accept patient [facility] staff will arrange and pay for transportation, Charge Nurse Jessica made aware.
--- NOTE | 2019-04-30 17:27 | NUR ---
SATURNINO FROM [facility] CALLED AND ACCEPTED THE PATIENT. I SPOKE TO THE PATIENT THAT HIS GOING TO BE DISCHARGE TODAY, PATIENT REFUSED TO GO ANYWHERE AND WANTS TO TALK TO THE . LEFT MESSAGE TO SATURNINO ABOUT PATIENT DECISION. SPOKE TO DR. GALDAMEZ AND HE SAID THAT HE NEEDS TO APPEAL FOR DISCHARGE. LEFT MESSAGE TO CARLOS A, STOCK BUYER.
--- NOTE | 2019-04-30 17:46 | NUR ---
ADMINISTERED SCHEDULED MED. PATIENT TOLERATED WELL. SITTING UP EATING DINNER AT THIS TIME
--- NOTE | 2019-04-30 18:23 | NUR ---
PATIENT COMPLAINED OF SOB ON ROOM AIR AFTER BEING TURNED TO THE SIDE TO PLACE BEDPAN. CHECKED VITALS, O2 SAT 88% ON ROOM AIR, SO PUT PATIENT ON 2 L O2 NC, O2 SAT NOW 93%
--- NOTE | 2019-04-30 19:07 | NUR ---
RECEIVED REPORT FROM AM SHIFT NURSE FOR CONTINUITY OF CARE. PATIENT IS LYING DOWN IN BED, AWAKE, ALERT, WATCHING TV. ON 2L O2 VIA NASAL CANNULA. DENIES PAIN AT THIS TIME. WILL MONITOR PATIENT THROUGHOUT PM SHIFT.
--- NOTE | 2019-04-30 19:07 | NUR ---
BEDSIDE REPORT GIVEN TO CRIS RN FOR CONTINUITY OF CARE. PATIENT ENDORSED IN STABLE CONDITION
[2019-04-30 20:00] VITALS: BP 96/53
--- NOTE | 2019-04-30 20:37 | NUR ---
RECEIVED PATIENT ON 2L NASAL CANNULA, PULSE OX SAT 94%. PATIENT COMPLAINS OF FEELING "A LITTLE SHORT OF BREATH". PRN BREATHING TREATMENT ADMINISTERED. TOLERATED TX WELL, NO ADVERSE SIDE EFFECTS. PATIENT STATES TO "BE FEELING BETTER" POST TX. PLACED PATIENT BACK ON 2L NC. NO RESPIRATORY DISTRESS NOTED AT THIS TIME. WILL CONTINUE TO MONITOR.
[2019-04-30] MEDS: MORPHINE SULFATE 4 MG/ML SYR IVP PRN (22:44)
--- NOTE | 2019-04-30 22:44 | NUR ---
BP 115/49 MAP 81 GAVE MORPHINE FOR PAIN.
[2019-05-01] VITALS (7 sets, daily range): BP systolic 93–123; BP diastolic 42–51
--- NOTE | 2019-05-01 00:10 | NUR ---
REPOSITIONED PATIENT FOR COMFORT, PATIENT REQUESTED MORE MORPHINE WHEN DUE AGAIN
--- NOTE | 2019-05-01 02:10 | NUR ---
GAVE ZOFRAN DUE TO PATIENT FEELING NAUSEOUS
--- NOTE | 2019-05-01 02:13 | NUR ---
ENDORSED TO MARY GOODWIN FOR CONTINUITY OF CARE. PATIENT AWAKE, LYING IN BED, ASSISTED TO BEDPAN. PATIENT IN STABLE CONDITION.
--- NOTE | 2019-05-01 02:19 | NUR ---
RECEIVED FROM PREVIOUS RN IN BED AWAKE AND BEING ATTENDED BY PREVIOUS NURSE. ABLE TO VERBALIZE NEEDS WELL. NO SOB. CALL LIGHT WITH IN REACH. ABLE TO COMMUNICATE VERBALLY NEEDS WELL. A/O X 4. AFEBRILE. PICC LINE INTACT.
[2019-05-01] MEDS: MORPHINE SULFATE 4 MG/ML SYR IVP PRN (02:59)
--- NOTE | 2019-05-01 02:59 | NUR ---
ADMINISTERED MORPHINE PAIN MEDICATION IV PUSH, ORDERED. PERFORMED HINTON CATHETER CARE. WILL CONTINUE TO MONITOR PATIENT AND REASSESS FOR RELIEF OF PAIN.
--- NOTE | 2019-05-01 03:00 | NUR ---
PT. CHECKED AND SLEEPING WELL. NO RESTLESSNESS. TELEMETRY MONITORING. CALL LIGHT AT BEDSIDE AND REACHABLE BY PT.
--- NOTE | 2019-05-01 05:57 | NUR ---
PT. PICC LINE FLUSHED AND RE-POSITIONED HIM REQUESTED. PT. STATED HE HAD A SMALL BM AND WIPED IT IN TISSUE BY HIMSELF. ABLE TO VERBALIZE WELL AND CARRY A CONVERSATION. BLOOD SAMPLE FOR LAB WORKS TAKEN FROM PICC LINE DONE. CALL LIGHT WITH IN REACH. NO SOB. DENIES PAIN AT THIS TIME.
[2019-05-01 07:10] LABS: ANION GAP 6.1 (8-16); CARBON DIOXIDE 34.4 mmol/L (21-32); CREATININE 1.6 mg/dL (0.7-1.3); POTASSIUM 4.5 mmol/L (3.5-5.1)
[2019-05-01 07:13] LABS: BASOPHILS % (AUTO) 0.5 % (0.0-2.0); EOSINOPHILS # (AUTO) 0.2 K/uL (0-0.4); EOSINOPHILS % (AUTO) 3.1 % (0.0-4.0); HEMATOCRIT 26.5 % (36-52); HEMOGLOBIN 9.2 g/dL (12.0-18.0); LYMPHOCYTES # (AUTO) 1.5 K/uL (2.0-11.5); MEAN CORPUSCULAR HEMOGLOBIN 31 pg (27-31); MEAN CORPUSCULAR HGB CONC 35 g/dL (33-37); MEAN CORPUSCULAR VOLUME 88.5 fL (80-94); MONOCYTES # (AUTO) 0.7 K/uL (0.8-1.0); MONOCYTES % (AUTO) 10.8 % (1.7-9.3); NEUTROPHILS # (AUTO) 4.2 K/uL (1.8-7.7); NEUTROPHILS % (AUTO) 62.6 % (42.2-75.2); PLATELET COUNT (AUTO) 171 K/uL (140-450); RED CELL DISTRIBUTION WIDTH 16.2 % (11.6-13.7); WHITE BLOOD COUNT (AUTO) 6.7 K/uL (4.8-10.8)
[2019-05-01 07:20] LABS: MAGNESIUM 2.1 mg/dL (1.8-2.4); PHOSPHORUS 4.9 mg/dL (2.5-4.9)
--- NOTE | 2019-05-01 07:24 | NUR ---
ENDORSED TO THE NEXT RN FOR CONTINUITY OF CARE. AWAKE AND ALERT AND ABLE TO COMMUNICATE WELL WITH ME.
--- NOTE | 2019-05-01 07:40 | NUR ---
PATIENT WAS AWAKE, ALERT. PATIENT WAS FOUND OFF OXYGEN, SPO2 83%, NO DISTRESS, SOB NOTED. PATIENT WAS PLACED ON 3L NC SPO2 92%. SKIN DRY AND WARM. IV PATENT AND INTACT. COMPLAINED OF CONSTIPATION, AND STOMACH CRAMP, WILL MEDICATE PER ORDER. PLAN OF CARE WAS DISCUSSED WITH PATIENT. BED AT LOW POSITION, SIDE RAILS UP. CALL LIGHT WITHIN REACH
[2019-05-01] MEDS: ALBUTEROL 0.083% 2.5 MG/3 ML NEBU INH PRN ×3 (08:07→19:33)
[2019-05-01] MEDS: RIFAXIMIN 550 MG TAB PO SCH ×2 (08:52→20:35)
[2019-05-01] MEDS: PANTOPRAZOLE 40 MG TABEC PO SCH (08:52)
[2019-05-01] MEDS: METHADONE 10 MG TAB PO SCH (08:52)
[2019-05-01] MEDS: ASPIRIN 81 MG TAB.CHEW PO SCH ×2 (08:53→09:00)
[2019-05-01] MEDS: METOPROLOL 25 MG TAB PO SCH ×2 (08:53→20:38)
[2019-05-01] MEDS: LACTULOSE 20 GM/30 ML UDC PO SCH ×3 (08:54→17:00)
[2019-05-01] MEDS: ENOXAPARIN 40 MG/0.4 ML SYR SUBQ SCH (09:05)
[2019-05-01] MEDS ORDERED: MAGNESIUM HYDROXIDE 2400 MG/30 ML UDC PO PRN (09:30)
--- NOTE | 2019-05-01 09:30 | NUR ---
DR. GALDAMEZ WAS MADE AWARE OF PATIENT HAVING STOMACH CRAMP, AND LBM 04/28. ORDERS WERE RECEIVED, WILL MEDICATE PER ORDER
[2019-05-01] MEDS ORDERED: ALUMINUM HYD/MAG/SIMETHICONE 30 ML UDC PO SCH (10:00)
[2019-05-01] MEDS ORDERED: DICYCLOMINE HCL LIQUID 10 MG/5 ML UDC PO SCH (10:00)
[2019-05-01] MEDS ORDERED: LIDOCAINE VISCOUS 2% 20 ML UDC PO SCH (10:00)
--- NOTE | 2019-05-01 10:18 | NUR ---
ENDORSEMENT GIVEN TO CHLOÉ RN FOR CONTINUITY OF CARE. PATIENT IS STABLE AT THIS TIME
--- NOTE | 2019-05-01 10:50 | NUR ---
RECEIVED PT FROM MARY LUEVANO, PT IS AWAKE AND LYING ON THE BED WITH AN OVERHEAD TRAPEZE IN PLACE, PT HAS A PICC LINE ON THE LEFT UA ON SALINE LOCK, HAS A HINTON CATHETER IN PLACE, ON FALL PRECAUTION, SIDE RAILS ARE UP AND CALL LIGHT WITHIN REACH, NO SIGN OF DISTRESS NOTED AND WILL MONITOR PT.
--- NOTE | 2019-05-01 11:24 | NUR ---
DC PLANNING Order from yest to dc to SNF. Called [facility] to f/u & received msg from Sarah, ph , that cannot take pt. Received call from Jacqueline @ [facility], ph [phone], that accepted pt. Spoke w pt @ bedside updated denied @ [facility] & accepted @ [facility] & informed had choices. 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 Explained Medicare IM Letter to pt & verbalized understanding, pt signed IM Letter & copy given. Called & spoke w Sandi Joyner, cell [phone], & updated. States agreeable w SNf but does not want [facility] would prefer: #1 [facility], #2 [facility], #3 [facility]. Informed Coding Clerks Supervisor
--- NOTE | 2019-05-01 11:50 | NUR ---
SANTA contacted the following facilities and faxed clinical information for SNF: [facility]: P#[phone], F#[phone]; Spoke to [facility]: P#[phone], F#[phone]; Spoke to [facility]: P#[phone], F#[phone]; Spoke to Michelle PRATT will follow up as needed.
--- NOTE | 2019-05-01 12:40 | NUR ---
PT IS AWAKE AND REFUSED TO TAKE THE LACTULOSE, PT WAS MADE AWARE OF THE IMPORTANCE OF THE MEDICATION AND VERBALIZED UNDERSTANDING BUT STILL INSIST ON NOT TAKING THE MEDICATIONS. WILL MONITOR PT.
--- NOTE | 2019-05-01 14:26 | NUR ---
DC PLANNING Earlier this afternoon, Per Dr Harrison pt stable to dc to snf today. Per Adrian, Fuel Cell Systems Engineer, pt accepted @ [facility], denied @ [facility] still reviewing not sure can take on Methadone. Spoke w pt & @ bedside & informed [facility] accepted, both agreeable w [facility]. Pt states does not want to go today that wants to go tomorrow when is off. Explained order for dc, explained Medicare IM letter again to pt & . Per pt wants to appeal dc, he told to call to appeal dc. was leaving for work, states she will call from her work, has Medicare IM Letter. Informed pt I could assist pt to call, pt states wants to call. Per pt will be agreeable to dc to [facility] tomorrow. Updated pt's nurse Rachel, aware not to dc pt that pt/ appealing dc. States will call & inform Dr Harrison.
--- NOTE | 2019-05-01 14:30 | NUR ---
RECEIVED A CALL FROM MELODY OF AND INFORMED THAT PT IS REFUSING TO BE DISCHARGE TODAY AND THAT PT'S WILL MAKE AN IM APPEAL TO [facility] REGARDING THE DISCHARGE. CANDELARIO ALSO STATES THAT PT PREFERRED TO BE DISCHARGE TOMORROW SINCE THE IS OFF FROM WORK. MELODY PALOMINO ALSO SAID THAT MEDICARE ([facility]) WILL BE CALLING TO REVIEW IF PT IS ELIGIBLE TO BE DISCHARGE AND IF FOUND THAT PT IS ELIGIBLE TO AND PT STILL REFUSES THEN EXPENSES WILL NOT BE PAID BY MEDICARE.
--- NOTE | 2019-05-01 14:35 | NUR ---
INFORMED CHARGE NURSE, CHLOÉ ABOUT THE INFORMATION REPORTED BY MELODY PALOMINO REGARDING THE IM APPEAL THAT THE PT AND THE PT'S WILL BE MAKING TO MEDICARE.
--- NOTE | 2019-05-01 15:10 | NUR ---
PT VERBALIZED NOW THAT PT'S CALLED [facility] AND INQUIRED IF THE BED WILL BE SAVE FOR HIM IF HE WILL BE DISCHARGE TOMORROW AND PT SAID THAT CALLED THE [facility] AND SAID THAT BED WILL BE RESERVED.
--- NOTE | 2019-05-01 17:46 | NUR ---
PT REFUSED TO TAKE THE LACTULOSE NOW.
--- NOTE | 2019-05-01 19:10 | NUR ---
ENDORSED PT TO MIGRATORY FARM HAND NURSE FOR CONTINUITY OF CARE.
--- NOTE | 2019-05-01 19:12 | NUR ---
RECEIVED PT SLEEPING, AROUSABLE TO NAME, AAOX4, ABLE TO MAKE NEEDS KNOWN, VITAL SIGNS TAKEN, BP LOW BUT STABLE, SAT-93% ON O2 2L NC, NO SOB NOTED, BLE EDEMA NOTED, TOLERABLE PAIN AT THIS TIME, LT UA PICC LINE IN PLACE, DRESSING DRY AND INTACT, HINTON CATHETER IN PLACE WITH LIGHT ANUEL URINE OUTPUT, OVERHEAD TRAPEZE IN PLACE FOR MOBILITY ASSISTANCE, PLAN OF CARE DISCUSSED, SAFETY MEASURES IN PLACE, CALL LIGHT WITHIN REACH.
--- NOTE | 2019-05-01 20:50 | NUR ---
DUE LOPRESSOR PO HELD DUE TO LOW BP, ASYMPTOMATIC, ALL NEEDS ATTENDED.
--- NOTE | 2019-05-01 22:00 | NUR ---
PT REQUESTED TO BE PUT ON BED MILLS, BEDPAN REMOVED AFTER 20 MINUTES, NO BM JUST MINIMAL SMEAR NOTED, PT STATED PASSING GAS, MONITORED CLOSELY.
[2019-05-01] MEDS: oxyCODONE 5 MG TAB PO PRN (22:51)
--- NOTE | 2019-05-01 22:51 | NUR ---
MEDICATED PRN FOR LEG PAIN WITH OXYCODONE, PULLED UP AND REPOSITIONED WITH MAX ASSIST FROM 4 CARE PROVIDERS, MONITORED CLOSELY.
[2019-05-02] VITALS: BP 97/41
--- NOTE | 2019-05-02 | NUR ---
PT SLEEPING, EASILY AROUSABLE TO NAME, VITAL SIGNS TAKEN, BP LOW BUT STABLE, ASYMPTOMATIC, DENIES CHEST PAIN AND NO SOB NOTED, CONTINUE TO MONITOR CLOSELY.
[2019-05-02 03:50] VITALS: BP 101/42
--- NOTE | 2019-05-02 04:00 | NUR ---
RECEIVED ENDORSEMENT FROM MARY SEPULVEDA FOR CONTINUOUS OF CARE. PT IN STABLE CONDITION, NO DISTRESS NOTED, CALL LIGHT WITHIN REACH. WILL CONTINUE TO MONITOR.
--- NOTE | 2019-05-02 04:00 | NUR ---
PT SLEEPING, NO SIGNS OF DISTRESS, REPORT GIVEN TO MARY OBREGON FOR CONTINUITY OF CARE.
--- NOTE | 2019-05-02 06:00 | NUR ---
CHECKED ON PT, PT SLEEPING, NO DISTRESS NOTED, CALL LIGHT WITHIN REACH, WILL CONTINUE TO MONITOR.
[2019-05-02 06:11] LABS: ANION GAP 7.2 (8-16); CARBON DIOXIDE 34.8 mmol/L (21-32); CREATININE 1.6 mg/dL (0.7-1.3)
[2019-05-02 06:16] LABS: MAGNESIUM 2.4 mg/dL (1.8-2.4); PHOSPHORUS 4.6 mg/dL (2.5-4.9)
[2019-05-02 06:34] LABS: BASOPHILS % (AUTO) 0.6 % (0.0-2.0); EOSINOPHILS # (AUTO) 0.1 K/uL (0-0.4); EOSINOPHILS % (AUTO) 2.5 % (0.0-4.0); HEMATOCRIT 24.8 % (36-52); HEMOGLOBIN 8.5 g/dL (12.0-18.0); LYMPHOCYTES # (AUTO) 1.3 K/uL (2.0-11.5); LYMPHOCYTES % (AUTO) 23.1 % (20.5-51.1); MEAN CORPUSCULAR HEMOGLOBIN 31 pg (27-31); MEAN CORPUSCULAR HGB CONC 34 g/dL (33-37); MEAN CORPUSCULAR VOLUME 88.9 fL (80-94); MONOCYTES # (AUTO) 0.5 K/uL (0.8-1.0); MONOCYTES % (AUTO) 9.3 % (1.7-9.3); NEUTROPHILS # (AUTO) 3.6 K/uL (1.8-7.7); NEUTROPHILS % (AUTO) 64.5 % (42.2-75.2); PLATELET COUNT (AUTO) 153 K/uL (140-450); RED BLOOD CELL COUNT(AUTO) 2.79 MIL/uL (4.20-6.10); RED CELL DISTRIBUTION WIDTH 16.6 % (11.6-13.7); WHITE BLOOD COUNT (AUTO) 5.6 K/uL (4.8-10.8)
--- NOTE | 2019-05-02 07:15 | NUR ---
ENDORSED PT TO DAY SHIFT NURSE NICK RN, PT STABLE, NO DISTRESS NOTED, CALL LIGHT WITHIN REACH.
--- NOTE | 2019-05-02 07:16 | NUR ---
RECEIVED BEDSIDE REPORT FROM NIGHT NURSE. PT SLEEPING IN BED BREATHING UNLABORED AND SYMMETRICAL. ALL SAFETY MEASURES IN PLACE WITH CALL LIGHT WITHIN REACH AND TRAPEZE ABOVE BED. PT HAS HINTON CATHETER DRAINING AT THIS TIME WITH A PICC LINE IN LEFT UPPER ARM SALINE LOCKED. SWELLING TO BILATERAL LEGS.
[2019-05-02] MEDS: ALBUTEROL 0.083% 2.5 MG/3 ML NEBU INH PRN (07:59)
[2019-05-02 08:00] VITALS: BP 95/45
[2019-05-02] MEDS: RIFAXIMIN 550 MG TAB PO SCH ×2 (08:18→20:34)
[2019-05-02] MEDS: METHADONE 10 MG TAB PO SCH (08:19)
[2019-05-02] MEDS: ASPIRIN 81 MG TAB.CHEW PO SCH (08:19)
[2019-05-02] MEDS: PANTOPRAZOLE 40 MG TABEC PO SCH (08:19)
[2019-05-02] MEDS: ENOXAPARIN 40 MG/0.4 ML SYR SUBQ SCH (08:20)
[2019-05-02] MEDS: LACTULOSE 20 GM/30 ML UDC PO SCH ×3 (08:31→16:10)
[2019-05-02] MEDS: METOPROLOL 25 MG TAB PO SCH ×2 (08:33→20:37)
--- NOTE | 2019-05-02 08:34 | NUR ---
ADMINISTERED MEDICATIONS, REVIEWED INDICATIONS. DID NOT ADMINISTER METOPROLOL DUE TO PATIENT 95/45 BLOOD PRESSURE READING. PT IS AOX4 WITH NO SYMPTOMS OR OBVIOUS DISTRESS REPORTING THAT THAT NUMBER IS NORMAL FOR HIS BLOOD PRESSURE AND HE DOES NOT HAVE ANY DIZZINESS OR LIGHT HEADEDNESS. PT HAS NO OTHER REQUESTS AT THIS TIME.
--- NOTE | 2019-05-02 08:53 | NUR ---
[phone] and spoke to Michelle. Michelle stated that patient has a bed available (105 Bed 1) and that patient's accepting physician would be Dr. Purdy. Michelle stated she would be able to coordinate transportation at any time. SANTA will follow up as needed.
--- NOTE | 2019-05-02 09:51 | NUR ---
SPOKE TO DR GALDAMEZ AND NOTIFIED HIM OF PT LBM 04/28/19. HE INFORMED ME TO ORDER GOLITELY 1X DOSE FOR THE PATIENT. Addendum: 05/02/19 at 0959 by Angus Villela RN *CLARIFICATION DR GALDAMEZ STATED TO ORDER THE 4L DOSAGE.
[2019-05-02] MEDS ORDERED: ACETAMINOPHEN 325 MG TAB PO PRN ×2 (09:55→10:10)
[2019-05-02] MEDS ORDERED: BOWEL EVACUANT DRINK 4,000 ML PDS PO SCH (10:00)
--- NOTE | 2019-05-02 10:22 | NUR ---
INSTRUCTED PT ON GOLYTELY ADMINISTRATION. PHYSICAL THERAPY AT BEDSIDE AT THIS TIME. PT HAS NO OTHER REQUESTS NO SIGNS OF DISTRESS.
--- NOTE | 2019-05-02 10:26 | NUR ---
CARSON AT BEDSIDE SPEAKING WITH PT AND PT'S WHO IS ON SPEAKER PHONE ABOUT PATIENT DISCHARGE TO SNF DISCUSSING POSSIBLE LOCATIONS OF DISCHARGE.
--- NOTE | 2019-05-02 10:29 | NUR ---
PT IS DISAGREEABLE TO DISCHARGE STATING HE DOES NOT KNOW WHERE HE WANTS TO DISCHARGE AND WANTS HIS TO DECIDE AND STATES HE DOESN'T KNOW WHERE TO DISCHARGE AND DOESN'T WANT TO DISCHARGE UNTIL HE HAS A BOWEL MOVEMENT. PHYSICAL THERAPY STATES HIS BLOOD PRESSURE WAS 108/60
--- NOTE | 2019-05-02 10:37 | NUR ---
Spoke to patient and his on the phone. Patient disagree of discharge today stated that he will be ready tomorrow. Patient said he did not have a bowel movement since sunday and Dr. Harrison ordered Golytely 4 liters to drink. Also said his blood pressure is not stable BP 108/60. said that she will call [facility] to appeal d/c today and she did not do yesterday because she went to work. Called [facility] and admitting said that bed will be available tomorrow as well and will follow up with kinta sup tomorrow.
--- NOTE | 2019-05-02 11:25 | NUR ---
AT PT BEDSIDE, DR GALDAMEZ AND GERA AT BEDSIDE WELL. DISCUSSED WITH PRESENCE OF PATIENT PLAN FOR PATIENT TO CONTINUE GOLYTELY UNTIL BOWEL MOVEMENT IS HAD AND PT REQUESTS PREFERRED DISCHARGE TOMORROW.
[2019-05-02 12:00] VITALS: BP 96/47
[2019-05-02] MEDS ORDERED: SODIUM PHOSPHATE 118 ML ENEM RC PRN (12:05)
--- NOTE | 2019-05-02 12:10 | NUR ---
PATIENT DOESN'T WANT TO TAKE HIS LACTULOSE AT THIS TIME AND STATES HE WANTS TO CONTINUE HIS GOLYTELY THERAPY TO TRY AND REMEDY HIS CONSTIPATION.
--- NOTE | 2019-05-02 12:13 | NUR ---
PT STATING HE DOESN'T WANT TO TAKE ANY ENEMAS STATING "NOTHING IS GOING UP BY BUTT." NO OTHER REQUESTS AT THIS TIME.
--- NOTE | 2019-05-02 12:14 | NUR ---
Patient is drinking Golytely and Dr. Harrison stated that if patient has a bowel movement, can be discharge today. myself and charge nurse informed patient and he was upset and stated will see. He stated that his did Medicare appeal.
--- NOTE | 2019-05-02 12:55 | NUR ---
ASSISTED PATIENT WITH ATTEMPTING TO USE BEDPAN IN BED, PT UNABLE TO HAVE BOWEL MOVEMENT, STILL DRINKING HIS GOLYTELY STATES HE WILL CONTINUE TO DO SO.
[2019-05-02] MEDS ORDERED: MINERAL OIL 135 ML ENEM RC SCH (13:00)
--- NOTE | 2019-05-02 13:56 | NUR ---
D/C PLANNING: Received call from Elisa ROSADO advising CM that an appeal has been filed by the patient or on behalf of the patient. Case # [id number]. notified CM to contact nursing and HIM for submitting records. Addendum: 05/02/19 at 1627 by Pretty Anaya Added from previous note: spoke with Laurie. Omero ROSADO phone number for follow up: [phone] Case # [id number] faxed requested information to [employer] as requested to the fax number [phone]
--- NOTE | 2019-05-02 14:10 | NUR ---
PT IS RESTING IN BED, AT BEDSIDE. PT AND HAVE NO REQUESTS AT THIS TIME, PT IS STILL DRINKING GOLYTELY DRINKING IT HE TOLERATES PER PATIENT REPORT.
--- NOTE | 2019-05-02 15:35 | NUR ---
PT RESTING IN BED WITH AT BEDSIDE. PATIENT HAS NO REQUESTS AT THIS TIME AND NO OBVIOUS SIGNS OF DISTRESS.
[2019-05-02 16:00] VITALS: BP 103/44
--- NOTE | 2019-05-02 16:03 | NUR ---
PT AT BEDSIDE ASSISTED ME IN BRINGING PT UP IN BED POSITION PER THEIR REQUEST. STATES SHE IS LEAVING NOW AND WOULD CHECK UP ON HIM TOMORROW. PT HAS NO OTHER REQUESTS AT THIS TIME AND NO OBVIOUS SIGNS OF DISTRESS.
--- NOTE | 2019-05-02 16:10 | NUR ---
PATIENT REFUSES LACTULOSE STATING HE WANTS TO FOCUS ON DRINKING HIS GOLYTEL AND DOESN'T WANT ANY OTHER BOWEL MOVEMENT MEDICINE.
--- NOTE | 2019-05-02 17:26 | NUR ---
ASSISTED PATIENT IN USING BEDPAN, STILL UNABLE TO HAVE A BOWEL MOVEMENT. PATIENT CONTINUES TO DRINK GOLYTEL STATING HE IS DRINKING IT FAST HE CAN TOLERATE. NO OTHER REQUESTS AT THIS TIME AND NO SIGNS OF DISTRESS.
--- NOTE | 2019-05-02 17:49 | NUR ---
PT RESTING IN BED WITH NO REQUESTS AT THIS TIME. PT REQUESTS TO STAY ON BEDPAN HE IS SITTING ON CURRENTLY STATING HE IS STILL ACTIVELY TRYING TO HAVE A BOWEL MOVEMENT AND STATES THAT HE IS COMFORTABLE WHERE HE IS. NO OBVIOUS SIGNS OF DISTRESS AT THIS TIME.
--- NOTE | 2019-05-02 18:28 | NUR ---
PATIENT RESTING IN BED WITH NO REQUESTS AT THIS TIME. STATES HE WILL TRY USING THE BEDPAN AGAIN LATER.
--- NOTE | 2019-05-02 19:10 | NUR ---
GAVE BEDSIDE REPORT TO NIGHT NURSE, PT IN STABLE CONDITION. ENDORSED TO NIGHT NURSE NEED FOR PATIENT TO FINISH GOLYTEL TOLERATED FOR ENTIRE 4L DOSAGE FOR BOWEL MOVEMENT.
--- NOTE | 2019-05-02 19:11 | NUR ---
RECEIVED BEDSIDE REPORT FROM DAY NURSE. AAOX4, NO SOB OR ANY RESP DISTRESS NOTED, BREATHING UNLABORED AND EVEN. ALL SAFETY MEASURES IN PLACE AND TRAPEZE ABOVE BED. PT HAS HINTON CATHETER DRAINING AT THIS TIME. A PICC LINE IN LEFT UPPER ARM SALINE LOCKED. SWELLING TO BILATERAL LEGS NOTED. BED IN LOW POSITION. CALL LIGHT WITHIN REACH.
[2019-05-02 20:00] VITALS: BP 107/46
--- NOTE | 2019-05-02 20:34 | NUR ---
VS CHECKED, BP 107/46, HELD METOPROLOL D/T DECREASED BP. GIVEN XIFAXAN ORDERED. PT TOLERATED WELL. WILL CONTINUE TO MONITOR.
--- NOTE | 2019-05-02 22:55 | NUR ---
PT RESTING IN BED. NO S/S OF ACUTE DISTRESS NOTED. WILL CONTINUE TO MONITOR.
[2019-05-03] VITALS: BP 110/45
[2019-05-03] MEDS: MORPHINE SULFATE 4 MG/ML SYR IVP PRN ×2 (00:16→20:03)
--- NOTE | 2019-05-03 00:16 | NUR ---
PT C/O RIGHT SHOULDER AND LEFT LEG PAIN 10/10, GIVEN MORPHINE ORDERED. PT TOLERATED WELL. WILL CONTINUE TO MONITOR.
--- NOTE | 2019-05-03 02:55 | NUR ---
NO BM NOTED YET. ENCOURAGE PT TO DRINK GOLYTELY MORE. PT VERBALIZED UNDERSTANDING. WILL CONTINUE TO MONITOR.
[2019-05-03 04:00] VITALS: BP 119/55
[2019-05-03] MEDS: oxyCODONE 5 MG TAB PO PRN (04:49)
--- NOTE | 2019-05-03 04:49 | NUR ---
PT C/O R SHOULDER PAIN, 04/21, GIVEN OXYCODONE ORDERED. PT TOLERATED WELL. WILL CONTINUE TO MONITOR.
[2019-05-03 06:54] LABS: BASOPHILS % (AUTO) 0.6 % (0.0-2.0); EOSINOPHILS # (AUTO) 0.2 K/uL (0-0.4); EOSINOPHILS % (AUTO) 3.3 % (0.0-4.0); HEMATOCRIT 25.1 % (36-52); HEMOGLOBIN 8.7 g/dL (12.0-18.0); LYMPHOCYTES # (AUTO) 1.1 K/uL (2.0-11.5); LYMPHOCYTES % (AUTO) 24.5 % (20.5-51.1); MEAN CORPUSCULAR HEMOGLOBIN 31 pg (27-31); MEAN CORPUSCULAR HGB CONC 35 g/dL (33-37); MEAN CORPUSCULAR VOLUME 89.3 fL (80-94); MONOCYTES # (AUTO) 0.5 K/uL (0.8-1.0); MONOCYTES % (AUTO) 9.7 % (1.7-9.3); NEUTROPHILS # (AUTO) 2.9 K/uL (1.8-7.7); NEUTROPHILS % (AUTO) 61.9 % (42.2-75.2); PLATELET COUNT (AUTO) 160 K/uL (140-450); RED BLOOD CELL COUNT(AUTO) 2.81 MIL/uL (4.20-6.10); RED CELL DISTRIBUTION WIDTH 16.8 % (11.6-13.7); WHITE BLOOD COUNT (AUTO) 4.6 K/uL (4.8-10.8)
[2019-05-03 07:12] LABS: ANION GAP 5.9 (8-16); CARBON DIOXIDE 36.2 mmol/L (21-32); CREATININE 1.3 mg/dL (0.7-1.3); POTASSIUM 4.1 mmol/L (3.5-5.1)
[2019-05-03 07:15] LABS: MAGNESIUM 2.3 mg/dL (1.8-2.4); PHOSPHORUS 3.9 mg/dL (2.5-4.9)
--- NOTE | 2019-05-03 07:24 | NUR ---
ENDORSE PT TO DAY SHIFT NURSE. PT IN STABLE CONDITION.
--- NOTE | 2019-05-03 07:25 | NUR ---
RECEIVED BEDSIDE REPORT FROM DUCT CLEANER RNEMMY. PATIENT SLEEPING, NO SIGNS OF DISTRESS ON 2L O2 VIA NC. SAFETY PRECAUTIONS IN PLACE. PATIENT ON A TRAPEZE BED. WILL CONTINUE TO MONITOR.
[2019-05-03 08:00] VITALS: BP 118/55
--- NOTE | 2019-05-03 08:45 | NUR ---
PATIENT HAD 2 LARGE BOWEL MOVEMENTS. STOOL IS LOOSE DUE TO GO-LYTELY AND LACTULOSE ADMINISTRATION. CLEANED AND REPOSITIONED PATIENT. NO SIGNS OF DISTRESS ON 2L O2 NC. SAFETY PRECAUTIONS IN PLACE. CALL LIGHT IN REACH.
[2019-05-03] MEDS: ASPIRIN 81 MG TAB.CHEW PO SCH (09:16)
[2019-05-03] MEDS: LACTULOSE 20 GM/30 ML UDC PO SCH ×3 (09:17→17:21)
[2019-05-03] MEDS: METHADONE 10 MG TAB PO SCH (09:18)
[2019-05-03] MEDS: PANTOPRAZOLE 40 MG TABEC PO SCH (09:19)
[2019-05-03] MEDS: METOPROLOL 25 MG TAB PO SCH ×2 (09:19→19:49)
[2019-05-03] MEDS: RIFAXIMIN 550 MG TAB PO SCH ×2 (09:20→20:03)
--- NOTE | 2019-05-03 09:20 | NUR ---
ADMINISTERED SCHEDULED MEDICATIONS. PATIENT TOLERATED WELL. NO SIGNS OF DISTRESS ON 2L O2 NC. PATIENT REPORTING PAIN BUT RECEIVED 40 MG OF METHADONE WITH SCHEDULED MEDS. WILL REEVALUATE PAIN IN ONE HOUR.
[2019-05-03] MEDS: ENOXAPARIN 40 MG/0.4 ML SYR SUBQ SCH (09:23)
--- NOTE | 2019-05-03 10:45 | NUR ---
PATIENT HAD A LOOSE WATERY STOOL DUE TO GO-LYTELY AND LACTULOSE ADMINISTRATION.
[2019-05-03 12:00] VITALS: BP 111/52
--- NOTE | 2019-05-03 12:15 | NUR ---
PATIENT HAD ANOTHER LOOSE STOOL. CLEANED AND REPOSITIONED PATIENT FOR COMFORT. CALL LIGHT IN REACH. SAFETY PRECAUTIONS IN PLACE.
--- NOTE | 2019-05-03 13:15 | NUR ---
PATIENT AT BEDSIDE. PATIENT EATING LUNCH. REFUSING LACTULOSE AT THIS TIME DUE TO FREQUENT DIARRHEA. PATIENT STATES HE WILL TAKE THE 5PM DOSE.
--- NOTE | 2019-05-03 14:45 | NUR ---
PATIENT HAD ANOTHER LOOSE STOOL. CLEANED AND REPOSITION PATIENT. SAFETY PRECAUTIONS IN PLACE. NO SIGNS OF DISTRESS.
--- NOTE | 2019-05-03 14:55 | NUR ---
05/03/19 RD FOLLOW UP COMPLETED PLEASE REFER TO NUTRITION PROGRESS NOTE UNDER CARE ACTIVITY FOR ESTIMATED NUTRITION NEEDS. RD RECOMMENDATIONS: 1. CONTINUE MECHANICAL SOFT, 2 GM NA DIET TOLERATED. 2. ENCOURAGE PO INTAKE AND ACCOMMODATE FOOD CHOICES BASED ON PRESCRIBED DIET. 3. PT DECLINED TO HAVE ENSURE ENLIVE AT THIS TIME. 4. RD TO FOLLOW-UP 2-3 DAYS; HIGH RISK. CYNTHIA VAZQUEZ, RD
--- NOTE | 2019-05-03 15:15 | NUR ---
PATIENT PLACED ON BED MILLS, BUT ONLY PASSED GAS. CLEANED AND REPOSITIONED FOR COMFORT.
[2019-05-03 16:00] VITALS: BP 101/56
--- NOTE | 2019-05-03 17:26 | NUR ---
ADMINISTERED SCHEDULED MEDICATIONS. ASSISTED PATIENT WITH REPOSITIONING. NO SIGNS OF DISTRESS ON 2L O2 NC. SAFETY PRECAUTIONS IN PLACE.
--- NOTE | 2019-05-03 19:12 | NUR ---
GAVE BEDSIDE REPORT TO MACHINE PAN GREASER RN, SUMMER. PATIENT IN STABLE CONDITION.
--- NOTE | 2019-05-03 19:30 | NUR ---
RECEIVED BEDSIDE REPORT FROM DAY SHIFT RN GOMEZ. PATIENT IN BED, ON 3 L NC, V/S TAKEN BP 107/39 MAP 61 WILL HOLD LOPRESSOR. LEFT UPPER ARM PICC DRESSING INTACT, SL, ON FALL PRECAUTIONS, HINTON CATH IN PLACE, DRAINING DARK BROWN URINE, PATIENT C/O PAIN WILL MEDICATE ACCORDING TO ORDER. EXPLAINED PLAN OF CARE
--- NOTE | 2019-05-03 20:03 | NUR ---
GAVE SCHEDULED XIFAXAN AND PRN MORPHINE IVP
[2019-05-03] MEDS: ALBUTEROL 0.083% 2.5 MG/3 ML NEBU INH PRN (20:28)
--- NOTE | 2019-05-03 22:34 | NUR ---
PATIENT SLEEPING IN BED, NO SIGNS OF PAIN OR DISTRESS, WILL CONTINUE TO MONITOR
--- NOTE | 2019-05-03 22:59 | NUR ---
CHANGED PICC LINE DRESSING AND PROVIDED HINTON CATHETER CARE. EDUCATIONS PROVIDED
[2019-05-03 23:45] VITALS: BP 123/43
--- NOTE | 2019-05-04 00:06 | NUR ---
PATIENT SITTING IN BED WATCHING TV, V/S STABLE, DENIES PAIN
--- NOTE | 2019-05-04 01:42 | NUR ---
PATIENT ASLEEP IN BED, NO SIGNS OF DISTRESS OR PAIN, CALL LIGHT WITHIN REACH, WILL CONTINUE TO MONITOR
--- NOTE | 2019-05-04 04:15 | NUR ---
SLEEPING IN BED NO SIGNS OF DISTRESS
--- NOTE | 2019-05-04 07:19 | NUR ---
WILL ENDORSED PATIENT TO DAY SHIFT NURSE, PATIENT STABLE
--- NOTE | 2019-05-04 07:20 | NUR ---
RECEIVED BED SIDE REPORT FROM TECHNICIAN SEMICONDUCTOR DEVELOPMENT RN. PT A/O X4, TRAPEZE ABOVE PT,BILAT LEG SWELLING, DRY SKIN ON LOWER PART OF LEFT LEG, FLUID RESTRICTION 1500CC, ON 2L NC IN NO RESPIRATORY DISTRESS, PT COMPLAINS OF 10/10 LEFT LEG PAIN, METHADONE IS SCHEDULED TO GIVE. HINTON CATH INSERTED 04/16/19 DRAINING 100CC BRIGHT ORANGE URINE MOST LIKELY SECONDARY TO S/E OF A MEDICATION. PICC LINE CLEAN AND DRY ON LEFT UPPER ARM, NO BLEEDING OR DRAINAGE NOTED, SALINE LOCK. BED ALARM ON, CALL LIGHT WITHIN REACH, WILL CONTINUE TO MONITOR
[2019-05-04 08:00] VITALS: BP 112/49
[2019-05-04] MEDS: METOPROLOL 25 MG TAB PO SCH ×2 (09:00→21:00)
--- NOTE | 2019-05-04 09:00 | NUR ---
EDUCATED PT ON THE IMPORTANCE OF LIMITING FLUID INTAKE. PT IS MADE AWARE THAT HE IS ON A 1.5ML/DAY FLUID RESTRICTION. PT VERBALIZED UNDERSTANDING
[2019-05-04] MEDS: ASPIRIN 81 MG TAB.CHEW PO SCH (09:23)
[2019-05-04] MEDS: METHADONE 10 MG TAB PO SCH (09:23)
[2019-05-04] MEDS: PANTOPRAZOLE 40 MG TABEC PO SCH (09:23)
[2019-05-04] MEDS: LACTULOSE 20 GM/30 ML UDC PO SCH ×3 (09:23→17:00)
[2019-05-04] MEDS: RIFAXIMIN 550 MG TAB PO SCH ×2 (09:25→21:25)
[2019-05-04] MEDS: CHLORHEXADINE GLUC 2% CLOTH TP SCH (09:25)
[2019-05-04] MEDS: ENOXAPARIN 40 MG/0.4 ML SYR SUBQ SCH (09:28)
--- NOTE | 2019-05-04 09:33 | NUR ---
PT REFUSED METOPROLOL BECAUSE HE SAYS THAT HE HASN'T TAKEN IT IN A LONG TIME. NOTIFIED HIM THAT THE LAST TIME IT WAS GIVEN WAS YESTERDAY. PT WAS IN DISBELIEF AND REFUSED TO TAKE IT. EDUCATED PT ON ALL MEDS HE WILL BE GETTING THIS AM. EDUCATED HIM ON S/E OF MEDS WELL.
--- NOTE | 2019-05-04 11:45 | NUR ---
PT HAD LARGE SOFT FORMED BROWN BM. PT STATED THAT HE FEELS LIKE GOING AGAIN. WILL CONTINUE TO MONITOR
--- NOTE | 2019-05-04 12:45 | NUR ---
MATHEW [phone] PER [facility]TH[facility], THEY HAVE NOT RECEIVED ANY MEDICAL RECORD FOR THIS PATIENT, SHE REQUESTS FOLLOWING TO BE FAXED TO [phone]. -IMPORTANT MESSAGE OR NOTICE OF MEDICARE NON COVERAGE -DETAILED NOTICE OF DISCHARGE OR DETAILED EXPLANATION OF NON COVERAGE -H&P/DC SUMMARY -PHYSICIAN ORDER, PHYSICIAN PROGRESS NOTES -DC PLANNING NOTES -THERAPY EVAL -ER NOTES -RADIOLOGY REPORTS -OR REPORTS -CONSULT REPORTS -LAST 2 DAYS OF NURSES NOTES, SW NOTES, VITALS, LABS, MAR
[2019-05-04 16:00] VITALS: BP 110/52
--- NOTE | 2019-05-04 16:33 | NUR ---
PT ASLEEP, ON 2L NC, APPEARS IN NO PAIN, BILAT LEGS ELEVATED WITH PILLOW, CALL LIGHT IN PT'S HAND. WILL CONTINUE TO MONITOR
--- NOTE | 2019-05-04 16:46 | NUR ---
REPOSITIONED PT WITH THE HELP OF 2 NURSING STUDENTS. PT HAVING HIS VS CHECKED CURRENTLY
--- NOTE | 2019-05-04 19:29 | NUR ---
ENDORSED PT TO AMPOULE FILLER MARY MORALES. PT IN STABLE CONDITION
--- NOTE | 2019-05-04 19:30 | NUR ---
PT REQUESTED MORPHINE PRN. I MADE PT AWARE THAT HE ONLY HAS ACETAMINOPHEN 650MG PRN. PT DEMANDED I CALL DOCTOR TO GET MORPHINE BACK ON HIS MEDICATION LIST. TOOK PT VITALS 122/45 BP, 91 P. TOLERATED WELL. MADE PT AWARE I WOULD CALL DOCTOR IN REGARDS TO PT MEDICATION REQUEST.
--- NOTE | 2019-05-04 19:30 | NUR ---
RECEIVED BEDSIDE REPORT FROM DAY SHIFT MARY CONTRERAS. PT A/OX 4. DISCUSSED PLAN OF CARE. VERBALIZED UNDERSTANDING. ABLE TO MAKE NEEDS KNOWN. STD PRECAUTIONS. CONTINENT. AMBULATORY. STEADY GAIT. FLUID RESTRICTION 1500ML/DAY. 2L NC. NO SIGNS OF DISTRESS. HINTON IN PLACE. SKIN IS INTACT. REDNESS/ DRYNESS TO BILATERAL EXTREMITIES. L ARM PICC SALINE LOCK. PATENT AND INTACT. BED IN LOW POSITION. CALL LIGHT WITHIN REACH. WILL CONTINUE TO MONITOR.
--- NOTE | 2019-05-04 19:45 | NUR ---
CALLED MD. MADE HIM AWARE OF MORPHINE AND OXYCODONE BEING DISCONTINUED ON 05/04 @ 0206. MADE MD AWARE OF PT REQUEST OF MORPHINE. SUMMER SCHOOL COORDINATOR CHETAN SAID HE DIDN'T KNOW WHY THEY DC/D THE MORPHINE AND OXYCODONE SO DID NOT WANT TO ORDER MORPHINE AND OXYCODONE. HE ORDERED NORCO 5/325 MG I TAB PO Q6H PRN.
--- NOTE | 2019-05-04 20:00 | NUR ---
MADE PT AWARE OF NEW MD ORDERS AND THAT THEY JUST NEEDED TO BE VERIFIED PRIOR TO ADMINISTRATION. PT REFUSED PALOMA ORDER.
[2019-05-04] MEDS: ALBUTEROL 0.083% 2.5 MG/3 ML NEBU INH PRN (20:03)
[2019-05-04] MEDS ORDERED: HYDROcodone/APAP 5/325 MG 1 TAB TAB PO PRN (20:40)
--- NOTE | 2019-05-04 20:50 | NUR ---
PT REQUESTED TO SPEAK TO CHARGE NURSE IN REGARDS TO ORDERING MORPHINE.
--- NOTE | 2019-05-04 21:00 | NUR ---
CHARGE NURSE BREANA SPOKE WITH PT AND EXPLAINED HE HAS ACETAMINOPHEN AND NORCO PAIN MEDS PRN. PT ANGRILY STILL REFUSED TO TAKE ANY OF THE OPTIONS AVAILABLE. WILL CONTINUE TO MONITOR.
--- NOTE | 2019-05-04 21:36 | NUR ---
PT REFUSED SCHEDULED 2100 MEDICATIONS AND ALL FURTHER MEDICATIONS OTHER THAN RIFAXIMIN. ADMINISTERED SCHEDULED RIFAXIMIN. EDUCATED ON SIDE EFFECTS. VERBALIZED UNDERSTANDING. REPOSITIONED PT WITH ASSIST OF PIT SHOVEL OPERATOR. TOLERATED WELL. NO SIGNS OF DISTRESS. WILL CONTINUE TO MONITOR.
--- NOTE | 2019-05-04 22:54 | NUR ---
REPOSITIONED PT IN BED. NO SOB. TOLERATED WELL. DOESN'T WANT TO USE NASAL CANULA. I EDUCATED PT ON USING NASAL CANULA AND IMPORTANCE OF USING. EDUCATED PT TO USE CALL LIGHT WHEN NEEDING ME TO CONNECT NASAL CANULA OR WHEN/IF NEEDING A RESP TREATMENT. PT VERBALIZED UNDERSTANDING. WILL CONTINUE TO MONITOR.
[2019-05-05] VITALS: BP 122/45
--- NOTE | 2019-05-05 00:28 | NUR ---
PT IS SLEEPING IN BED. NO SIGNS OF DISTRESS OR DISCOMFORT. EASILY AROUSABLE. WILL CONTINUE TO MONITOR.
--- NOTE | 2019-05-05 00:57 | NUR ---
REPOSITION PT IN BED DUE TO PAIN IN THE LEFT LEG. ASSIST OF 3 STAFF. PT REFUSED PRN PAIN MEDS AVAILABLE FROM HIS eMAR. NO PT DISTRESS. TOLERATED WELL. NO SOB. WILL CONTINUE TO MONITOR.
--- NOTE | 2019-05-05 02:46 | NUR ---
PT REQUESTS PAIN MEDICATION. BUT REFUSES ALL OF HIS PAIN MEDICATIONS AVAILABLE. PT WANTS MORPHINE ORDERED AND STATES HE WILL YELL UNTIL HE GETS HIS MORPHINE. I MADE CHARGE NURSE AWARE OF SITUATION. PAINT DIPPER SPOKE WITH PT. PT REFUSES MEDS.
--- NOTE | 2019-05-05 02:57 | NUR ---
PAGED DR BENTON IN REGARDS TO PAIN MEDICATION. WAITING FOR CALL BACK.
--- NOTE | 2019-05-05 03:32 | NUR ---
ASSISTED PT TO USE BEDPAN. ASSISTED WITH BLAISE CARE. TOLERATED WELL. NO SOB. WILL CONTINUE TO MONITOR.
--- NOTE | 2019-05-05 04:42 | NUR ---
STILL NO CALL BACK FROM DR BENTON. I CALLED [facility] TO PAGE DR BENTON BACK. WAITING FOR CALL BACK IN REGARDS OF PAIN MEDICATION.
--- NOTE | 2019-05-05 04:55 | NUR ---
MADE PT AWARE OF WAITING FOR DR CALL BACK. PT SAID OK.
--- NOTE | 2019-05-05 05:29 | NUR ---
PT STATES TO BE PREPARED FOR THE CALL LIGHT TO CONTINUE RINGING AND FOR HIM TO START YELLING AND START THROWING THINGS IF HIS PAIN DOES NOT GET TREATED. I LET HIM KNOW THAT HE HAS HIS PAIN MEDICATIONS AVAILABLE AND HE REFUSED. I MADE HIM AWARE THAT I AM STILL WAITING FOR A CALL BACK FROM DR BENTON. BUT PT REMAINS ANGRY.
[2019-05-05] MEDS ORDERED: MORPHINE SULFATE 2 MG/ML SYR IVP ONE (05:40)
--- NOTE | 2019-05-05 05:40 | NUR ---
DR BENTON CALLED BACK. ORDERED MORPHINE 2MG IVP ONE TIME DOSE. WILL ADMINISTER TO PT.
--- NOTE | 2019-05-05 05:48 | NUR ---
MEDICATED WITH MORPHINE ONE TIME DOSE. EDUCATED ON SIDE EFFECTS. VERBALIZED UNDERSTANDING. TOLERATED WELL. NO COMPLAINTS AT THIS TIME.
[2019-05-05] MEDS ORDERED: MORPHINE SULFATE 2 MG/ML SYR ONE (05:50)
--- NOTE | 2019-05-05 06:37 | NUR ---
WILL ENDORSE PT TO DAY SHIFT RN FOR CONTINUITY OF CARE. PT IN STABLE CONDITION. WILL CONTINUE TO MONITOR.
[2019-05-05 06:46] LABS: ANION GAP 7.9 (8-16); CREATININE 1.1 mg/dL (0.7-1.3); POTASSIUM 3.9 mmol/L (3.5-5.1)
--- NOTE | 2019-05-05 07:37 | NUR ---
RECEIVED ENDORSEMENT FROM CONCRETE PAVING MACHINE OPERATOR NURSE. PATIENT IS AAOX4, MONTSERRATIAN SPEAKING. RESPIRATIONS ARE EVEN AND UNLABORED ON ROOM AIR. PATIENT STATES PAIN IS AT A TOLERABLE LEVEL AT THIS TIME. LEFT UPPER PICC LINE INTACT AND SL. F/C DRAINING CLEAR ORANGE URINE. PLAN OF CARE WAS REVIEWED WITH PATIENT. PATIENT VERBALIZED UNDERSTANDING. SAFETY MEASURES IN PLACE, CALL LIGHT WITHIN REACH.
[2019-05-05 08:00] VITALS: BP 132/47
[2019-05-05] MEDS: LACTULOSE 20 GM/30 ML UDC PO SCH ×3 (09:00→17:00)
[2019-05-05] MEDS: ASPIRIN 81 MG TAB.CHEW PO SCH (09:00)
--- NOTE | 2019-05-05 09:20 | NUR ---
SCREEN FOR LOW YOLI SCALE AT RISK, WOUND CARE NURSE ,PHYSICAL THERAPY AND PRIMARY RN AT BED SIDE EXPLAIN ALL RISK FACTORS OF PRESSURE INJURY,PT. VERBALIZES UNDERSTANDING, PT. IS AAX4. PT REFUSED CARE TILL HE HAS METHADONE PAIN MEDICATION ORDERED. RECOMMENDS: -TURN AND REPOSITION PATIENT Q 2H -ASSESS AND MONITOR SKIN CONDITION DURING POSITION CHANGE -OFFLOAD BILATERAL HEELS BY PLACING PILLOWS UNDER CALVES AT ALL TIMES, UNLESS OTHERWISE CONTRAINDICATED -PRESSURE REDISTRIBUTION BY PLACING PILLOWS AND OFFLOADING SACRALCOCCYX -KEEP SKIN CLEAN AND DRY AT ALL TIMES.
--- NOTE | 2019-05-05 09:26 | NUR ---
PATIENT REFUSED MEDS. STATES HE WILL NOT "DO ANYTHING " UNTIL HE GETS HIS METHADONE. WAS PAGED. AWAITING CALL BACK.
[2019-05-05] MEDS: METOPROLOL 25 MG TAB PO SCH ×2 (09:40→20:54)
[2019-05-05] MEDS: PANTOPRAZOLE 40 MG TABEC PO SCH (09:41)
[2019-05-05] MEDS: RIFAXIMIN 550 MG TAB PO SCH ×2 (09:41→20:53)
[2019-05-05] MEDS: ENOXAPARIN 40 MG/0.4 ML SYR SUBQ SCH (09:42)
[2019-05-05] MEDS: CHLORHEXADINE GLUC 2% CLOTH TP SCH (09:43)
--- NOTE | 2019-05-05 09:49 | NUR ---
CALLED PHARMACY PER PATIENTS REQUEST, ORDER WAS NOT RENEWED. PENDING MD CALL BACK. PATIENT REFUSED LACTULOSE STATES THAT PRIMARY TOLD HIM IF HE HAS DIARRHEA, HE DOES NOT HAVE TO TAKE IT. ALSO REFUSED ASPIRIN, STATES " HE HAS BEEN TAKING TOO MANY."
--- NOTE | 2019-05-05 10:01 | NUR ---
RECEIVED OK TO RENEW METHADONE ORDER FROM DR. ROJO,COVERING FOR DR. MARQUEZ.
--- NOTE | 2019-05-05 10:26 | NUR ---
ADMINISTERED SCHEDULED MEDICATIONS. PATIENT TOLERATED WELL.
[2019-05-05] MEDS ORDERED: METHADONE 10 MG TAB PO SCH (10:30)
--- NOTE | 2019-05-05 10:35 | NUR ---
PER DR. ROJO, PATIENT AGREED TO DISCHARGE. NIGHT BAKER CONTACTED, AWAITING CALL BACK.
--- NOTE | 2019-05-05 10:45 | NUR ---
DC PLANNING : ZACHERY CARMONA SPOKE TO JAY [phone] IN# [id number] REGARDING PENDING APPEAL, HE SAID THAT THEY ALREADY RECEIVED MEDICAL RECORDS AND THEY WILL REVIEW TODAY AND WILL CALL US FOR DECISION TOMORROW.
--- NOTE | 2019-05-05 12:50 | NUR ---
PATIENT REFUSED SCHEDULED MEDICATION LACTULOSE. NO OTHER NEEDS AT THIS TIME, WILL CONTINUE TO MONITOR.
--- NOTE | 2019-05-05 14:41 | NUR ---
PATIENT SLEEPING, EASILY AROUSABLE. NO OTHER NEEDS AT THIS TIME, WILL CONTINUE TO MONITOR.
[2019-05-05 16:00] VITALS: BP 106/51
--- NOTE | 2019-05-05 16:15 | NUR ---
PATIENT SLEEPING, EASILY AROUSABLE. DENIES ANY PAIN AT THIS TIME. NO OTHER NEEDS AT THIS TIME.
--- NOTE | 2019-05-05 17:48 | NUR ---
PATIENT REFUSED LACTULOSE DESPITE EDUCATION.
--- NOTE | 2019-05-05 19:19 | NUR ---
ENDORSED TO KAIAWHINA KOHANGA REO NURSE EMMY FOR CONTINUITY OF CARE. PATIENT IS STABLE AT THIS TIME.
--- NOTE | 2019-05-05 19:20 | NUR ---
RECEIVED BEDSIDE REPORT FRON DAY SHIFT NURSE, MERLIN. PT IS AAOX4, RESPIRATIONS EVEN AND UNLABORED ON RA. SKIN WARM AND DRY TO TOUCH. DENIES PAIN AT THIS TIME. LEFT UA PICC LINE INTACT AND SL. F/C DRAINING CLEAR ORANGE URINE. PLAN OF CARE WAS REVIEWED WITH PATIENT. PATIENT VERBALIZED UNDERSTANDING. SAFETY MEASURES IN PLACE, BED IN LOW POSITION, CALL LIGHT WITHIN REACH.
--- NOTE | 2019-05-05 20:00 | NUR ---
PT VERY AGITATING AND UPSET FOR NO MORPHINE ORDER DURING NIGHT. CHARGE NURSE, ALYSSA AT BEDSIDE AND EXPLAIN WE WILL PAGE BUT PT RAISED VOICE TO CALL NOT PAGE EXPLAIN THE PROCEDURE AND TRIED TO CALM DOWN HIM. PAGED DR. MCCAIN.
--- NOTE | 2019-05-05 20:05 | NUR ---
FRANCHISE BROKER DR. GALDAMEZ CALL BACK, EXPLAIN PT'S STATUS AND ORDERED 1TIME OF 2MG MORPHINE. READ BACK THE ORDER. PT AWARE HE HAVE 1TIME ORDER OF MORPHINE AND CALM DOWN.
--- NOTE | 2019-05-05 20:53 | NUR ---
GIVEN XIFAXAN DRDorothy ORDERED. PT TOLERATED WELL. PT REFUSED METOPROLOL EXPLAINED BENEFIT AND RISK 3X, STILL REFUSED. BP CHECKED, 120/55. WILL CONTINUE TO MONITOR.
[2019-05-05] MEDS ORDERED: MORPHINE SULFATE 2 MG/ML SYR IVP PRN (21:55)
--- NOTE | 2019-05-05 23:01 | NUR ---
PT C/O RIGHT SHOULDER PAIN 06/21, GIVEN MORPHINE DRDorothy ORDERED. WILL CONTINUE TO MONITOR.
[2019-05-06] VITALS: BP 103/54
--- NOTE | 2019-05-06 01:30 | NUR ---
PT SLEEPING IN BED. NO ACUTE DISTRESS NOTED. BED IN LOW POSITION. CALL LIGHT WITHIN REACH.
--- NOTE | 2019-05-06 03:45 | NUR ---
PT SLEEPING IN BED. BREATHING EVEN AND UNLABORED. NO DISTRESS NOTED. WILL CONTINUE TO MONITOR.
--- NOTE | 2019-05-06 05:30 | NUR ---
HINTON CATHETER CARE DONE. CHANGED F/C BAG. PT TOLERATED WELL.
--- NOTE | 2019-05-06 07:29 | NUR ---
ENDORSED PT TO DAY SHIFT NURSE. PT IN STABLE CONDITION.
--- NOTE | 2019-05-06 07:30 | NUR ---
RECEIVED BEDSIDE REPORT FROM DIRECTOR STATISTICAL PROGRAMMING NURSE. PATIENT ON MED SURGE FLOOR AND STANDARD PRECAUTIONS IN PLACE. PATIENT AAOX4, ON ROOM AIR, AND ON BEDREST WITH BEDPAN AT BEDSIDE. TRAPEZE ON BED. FALL RISK PROTOCOL IN PLACE. SUPRIYA PICC LINE DOUBLE LUMEN SALINE LOCK, [id number] ON 05/04, PICC PATENT AND INTACT. BLE EDEMA. BED IN LOW POSITION, CALL LIGHT WITHIN REACH, SIDE RAILS X2 UP
[2019-05-06 08:00] VITALS: BP 106/56
[2019-05-06] MEDS: ASPIRIN 81 MG TAB.CHEW PO SCH (08:38)
[2019-05-06] MEDS: LACTULOSE 20 GM/30 ML UDC PO SCH ×3 (08:38→17:00)
[2019-05-06] MEDS: PANTOPRAZOLE 40 MG TABEC PO SCH (08:40)
[2019-05-06] MEDS: METOPROLOL 25 MG TAB PO SCH (08:40)
[2019-05-06] MEDS: RIFAXIMIN 550 MG TAB PO SCH (08:41)
[2019-05-06] MEDS: ENOXAPARIN 40 MG/0.4 ML SYR SUBQ SCH (08:45)
--- NOTE | 2019-05-06 08:48 | NUR ---
ADMINISTERED SCHEDULED MEDS. PATIENT TOLERATED WELL
[2019-05-06] MEDS ORDERED: METHADONE 10 MG TAB PO SCH (09:00)
[2019-05-06] MEDS: CHLORHEXADINE GLUC 2% CLOTH TP SCH (09:10)
--- NOTE | 2019-05-06 09:17 | NUR ---
CALLED MATHEW AT , PER SANTIAGO CASE #[id number] IS STILL PENDING . WILL FOLLOW UP.
--- NOTE | 2019-05-06 09:51 | NUR ---
SANTA received phone call from patient's , Sandi Joyner [phone]. Sandi reported that she would like the patient to be transferred to [facility]. SANTA called [facility] and spoke to Michelle [phone]. Michelle stated that Room 100 Bed 2 is still available, the accepting physician would be Dr. Purdy, and that transportation would be arranged once patient is ready. SANTA informed Sandi that appeal would need to be rescinded in order to begin transfer. Sandi stated she would call once the appeal is rescinded. SANTA/CANDELARIO will follow up as needed.
--- NOTE | 2019-05-06 10:43 | NUR ---
LEFT MESSAGE TO MATHEW AT [phone] TO FOLLOW UP APPEAL CASE# [id number]. WILL FOLLOW UP
--- NOTE | 2019-05-06 10:49 | NUR ---
CALLED MATHEW AT [phone], SPOKE TO JAY (GAS FITTER APPRENTICE). HE STATED THAT THE APPEAL IS STILL IN REVIEW. WILL FOLLOW UP.
--- NOTE | 2019-05-06 12:15 | NUR ---
ADMINISTERED SCHEDULED MED. PATIENT TOLERATED WELL
--- NOTE | 2019-05-06 12:18 | NUR ---
PER SANTIAGO AT [facility] [phone], [place] [id number] IS STILL PENDING REVIEW AND THEY WILL BE CALLING FOR OUTCOME TODAY. WILL FOLLOW UP AGAIN.
--- NOTE | 2019-05-06 12:22 | NUR ---
CONTACTED PATIENT'S STEPHANIE MCCOLLUM [phone] TO UPDATE HER OF PENDING APPEAL, SHE VERBALIZED UNDERSTANDING.
--- NOTE | 2019-05-06 15:13 | NUR ---
SANTA received phone call from patient's , Sandi Joyner [phone] to follow up on SNF placement. SANTA called [facility]Note 3[facility]ab [phone] and spoke to Michelle. Michelle informed SANTA that patient's bed would now be 105 Bed 1 and accepting physician would be Dr. Purdy. Michelle stated that she would coordinate transportation from [facility] to [facility] and would call back to provide transportation information. SANTA/CANDELARIO will follow up as needed.
--- NOTE | 2019-05-06 15:36 | NUR ---
05/06/19 RD FOLLOW UP COMPLETED PLEASE REFER TO NUTRITION ASSESSMENT UNDER CARE ACTIVITY FOR ESTIMATED NUTRITIONAL NEEDS. 1. CONTINUE MECHANICAL SOFT, 2 GM NA DIET TOLERATED. 2. ENCOURAGE PO INTAKE AND ACCOMMODATE FOOD CHOICES BASED ON PRESCRIBED DIET. 3. PT DECLINED TO HAVE ENSURE ENLIVE AT THIS TIME. 4. RD TO FOLLOW-UP 3-5 DAYS; MODERATE RISK. GRISELDA NARANJO, RD
--- NOTE | 2019-05-06 15:48 | NUR ---
Candy Counter Clerk Note: I called and spoke with [id number]. Per Junito, their MD has agreed with our physician's decision regarding discharge order. Junito stated patient will be financially responsible if patient decides to stay in our hospital after today 05/06/19. She told me patient has been informed of this.
--- NOTE | 2019-05-06 15:57 | NUR ---
SANTA received phone call from Michelle from [facility]. Michelle stated that transportation for patient will be through [facility] [phone] at 6:30PM. SANTA informed nursing staff. SANTA will follow up as needed.
[2019-05-06 16:00] VITALS: BP 140/49
--- NOTE | 2019-05-06 16:49 | NUR ---
TELEPHONE REPORT GIVEN TO IRMA COVARRUBIAS PHONE #[phone] FROM [facility] [place]. NOTIFIED HER OF PICKUP TIME BY [facility] AT 6:30 PM AND HE WILL BE IN ROOM [address] MCCAIN. ANSWERED ALL QUESTIONS AND CONCERNS
--- NOTE | 2019-05-06 18:05 | NUR ---
PATIENT HAD LARGE BM
--- NOTE | 2019-05-06 19:00 | NUR ---
DISCHARGE INSTRUCTIONS PROVIDED TO PATIENT. REFUSED PNA VACCINE AND FLU NOT IN SEASON. SKIN INTACT. PATIENT DISCHARGE TO [facility] WITH [facility]. PATIENT GOING TO REHAB FOR PHYSICAL THERAPY. REMOVED HINTON CATHETER ORDERED AND PICC LINE ORDERED, PICC LINE TIP INTACT. REMOVED WRIST BANDS. ANSWERED ALL QUESTIONS AND CONCERNS
== END 2019-05-06 19:00 | DRG 441 ==
LOC: MED 06:44 → MTU 11:43
PROVIDERS: ADMIT Internal Medicine; ATTEND Internal Medicine
DX: K72.90 Hepatic failure, unspecified without coma (principal); J96.01 Acute respiratory failure with hypoxia; I50.43 Acute on chronic combined systolic (congestive) and diastolic (congestive) heart failure; E87.1 Hypo-osmolality and hyponatremia; L03.119 Cellulitis of unspecified part of limb; E44.0 Moderate protein-calorie malnutrition; Z68.42 Body mass index [BMI] 45.0-49.9, adult; F11.20 Opioid dependence, uncomplicated; I13.0 Hypertensive heart and chronic kidney disease with heart failure and stage 1 through stage 4 chronic kidney disease, or unspecified chronic kidney disease; K74.60 Unspecified cirrhosis of liver; E87.70 Fluid overload, unspecified; J45.909 Unspecified asthma, uncomplicated; K21.9 Gastro-esophageal reflux disease without esophagitis; N18.9 Chronic kidney disease, unspecified; E11.22 Type 2 diabetes mellitus with diabetic chronic kidney disease; E87.6 Hypokalemia; I83.009 Varicose veins of unspecified lower extremity with ulcer of unspecified site; E66.01 Morbid (severe) obesity due to excess calories; K59.03 Drug induced constipation; Z79.82 Long term (current) use of aspirin; Z79.899 Other long term (current) drug therapy
CPT/HCPCS: 36415; 71045; 80048; 80053; 80076; 81001; 82140; 82948; 83605; 83735; 83880; 84100; 84484; 85025; 85610; 85730; 87040; 87081; 93005; 93970; 94640; 96372; 97110; 97530; 99285; C1751; J0696; J1650; J1940; J2270; J2405; J3010; J7030; J7060; J7613; P9046; Q0092

== ENCOUNTER 2020-04-08 11:52 | Emergency (ER) | payer OTHER ==
[~2020-04-08] VITALS: Ht 182.9 cm; Wt 135.6 kg
[~2020-04-08 11:52] MED LIST changes: -ASPI-1718 PO; +ASPI-1822 PO; -CEPH250C16 PO
--- NOTE | 2020-04-08 11:52 | NUR ---
Patient BIBA BLS, transferred to bed 4. RN evaluating patient at bedside.
[2020-04-08 11:55] VITALS: BP 117/52
--- NOTE | 2020-04-08 11:55 | NUR ---
64 Y/O MALE BIBA C/O NAUSEA AND ANXIETY X3 DAYS . PT STATES HE HAS BEEN IN PAIN FOR A MONTH D/T HIP REPLACEMENT CANCELLATION. PT STATES HE THINKS THE NAUSEA AND ANXIETY IS BECAUSE OF THE HIP PAIN. A/O X4 , ABLE TO FOLLOW ALL COMMANDS. PT BREATHING EVEN AND UNLABORED. BL LE EDEMA NOTED. PT UNABLE TO AMBULATE W/O ASSISTANCE. PT WALKER AT BEDSIDE. PT RESTING IN BED AT LOWEST POSITION, HOB ELEVATED,SIDE RAILS X2 FOR PT SAFETY. HX: COPD, CHRONIC PAIN, CHF RX: METHADONE, ZOFRAN, LASIX, HCTZ, POTASSIUM
--- NOTE | 2020-04-08 12:16 | NUR ---
Dr. Lucas is evaluating the patient at bedside.
[2020-04-08] MEDS ORDERED: ONDANSETRON 4 MG ODT PO ONE (12:25)
[2020-04-08] MEDS ORDERED: ALUMINUM HYD/MAG/SIMETHICONE 30 ML UDC PO ONE (12:25)
[2020-04-08] MEDS ORDERED: LIDOCAINE VISCOUS 2% 20 ML UDC PO ONE (12:25)
--- NOTE | 2020-04-08 12:30 | NUR ---
ASSISTED PT TO RESTROOM WITH MARY GALDAMEZ RN & MYSELF.
--- NOTE | 2020-04-08 12:38 | NUR ---
ASSISTED PT BACK TO BED 4 VIA WALKER. PT REQUESTING TO REMAIN SEATED IN WALKER AT THIS TIME.
--- NOTE | 2020-04-08 12:40 | NUR ---
LAB AT BEDSIDE
[2020-04-08 12:59] LABS: BASOPHILS # (AUTO) 0.1 K/uL (0.00-0.22); BASOPHILS % (AUTO) 2.1 % (0.0-2.0); EOSINOPHILS # (AUTO) 0.1 K/uL (0-0.4); EOSINOPHILS % (AUTO) 1.7 % (0.0-4.0); HEMATOCRIT 31.8 % (36-52); HEMOGLOBIN 10.7 g/dL (12.0-18.0); LYMPHOCYTES # (AUTO) 0.7 K/uL (2.0-11.5); MEAN CORPUSCULAR HEMOGLOBIN 30 pg (27-31); MEAN CORPUSCULAR HGB CONC 34 g/dL (33-37); MEAN CORPUSCULAR VOLUME 89.9 fL (80-94); MONOCYTES # (AUTO) 0.4 K/uL (0.8-1.0); MONOCYTES % (AUTO) 10.1 % (1.7-9.3); NEUTROPHILS % (AUTO) 69.1 % (42.2-75.2); PLATELET COUNT (AUTO) 154 K/uL (140-450); RED BLOOD CELL COUNT(AUTO) 3.53 MIL/uL (4.20-6.10); RED CELL DISTRIBUTION WIDTH 17.3 % (11.6-13.7); WHITE BLOOD COUNT (AUTO) 4.4 K/uL (4.8-10.8)
[2020-04-08 13:11] LABS: ALBUMIN 3.1 g/dL (3.4-5.0); ANION GAP 12.6 (8-16); CARBON DIOXIDE 29.6 mmol/L (21-32); CREATININE 1.1 mg/dL (0.6-1.3); POTASSIUM 3.2 mmol/L (3.5-5.1); TOTAL BILIRUBIN 2.2 mg/dL (0.0-1.0)
[2020-04-08] MEDS ORDERED: METOCLOPRAMIDE 10 MG TAB PO ONE (14:25)
--- NOTE | 2020-04-08 14:27 | NUR ---
CALLED [facility] FOR PT. WILL ARRIVE IN APPROX 45 MIN
--- NOTE | 2020-04-08 14:50 | NUR ---
Patient discharged with v/s stable. Written and verbal after care instructions given and explained. Patient verbalized understanding. All questions addressed prior to discharge. Advised to follow up with PMD. Pt was taken to lobby via wheelchair to wait for [facility] ride.
[2020-04-08 14:58] VITALS: BP 121/63
== END 2020-04-08 14:50 | disposition home or self-care (01) ==
LOC: MED 11:52
DX: R11.0 Nausea (principal); J45.909 Unspecified asthma, uncomplicated; I10 Essential (primary) hypertension; I50.9 Heart failure, unspecified; K21.9 Gastro-esophageal reflux disease without esophagitis; Z79.899 Other long term (current) drug therapy
CPT/HCPCS: 36415; 80053; 82140; 85025; 99283; J8597; Q0162; 99284

== ENCOUNTER 2020-08-07 02:59 | Emergency (ER) | payer OTHER ==
[~2020-08-07] VITALS: Ht 177.8 cm; Wt 167.8 kg
[2020-08-07 03:20] VITALS: BP 149/88
[2020-08-07] MEDS ORDERED: HYDROcodone/APAP 5/325 MG 1 TAB TAB PO ONE ×2 (03:25)
[2020-08-07 03:38] LABS: HEMATOCRIT 30.4 % (36-52); HEMOGLOBIN 10.7 g/dL (12.0-18.0); MEAN CORPUSCULAR HEMOGLOBIN 32 pg (27-31); MEAN CORPUSCULAR HGB CONC 35 g/dL (33-37); PLATELET COUNT (AUTO) 163 K/uL (140-450); RED BLOOD CELL COUNT(AUTO) 3.31 MIL/uL (4.20-6.10); RED CELL DISTRIBUTION WIDTH 14.4 % (11.6-13.7); WHITE BLOOD COUNT (AUTO) 9.3 K/uL (4.8-10.8)
[2020-08-07 03:53] LABS: ALBUMIN 3.1 g/dL (3.4-5.0); ANION GAP 14.5 (8-16); CARBON DIOXIDE 24.3 mmol/L (21-32); CREATININE 1.6 mg/dL (0.6-1.3); POTASSIUM 3.8 mmol/L (3.5-5.1); TOTAL BILIRUBIN 2.7 mg/dL (0.0-1.0)
[2020-08-07 03:54] LABS: LYMPHOCYTES % (MANUAL) 2 % (20-46); MONOCYTES % (MANUAL) 3 % (5-12)
[2020-08-07 05:46] VITALS: BP 149/88
== END 2020-08-07 05:21 | disposition home or self-care (01) ==
LOC: MED 02:59
DX: E72.20 Disorder of urea cycle metabolism, unspecified (principal); E86.0 Dehydration; G89.29 Other chronic pain; I50.9 Heart failure, unspecified; J45.909 Unspecified asthma, uncomplicated; K21.9 Gastro-esophageal reflux disease without esophagitis; Z02.89 Encounter for other administrative examinations; Z79.899 Other long term (current) drug therapy
CPT/HCPCS: 36415; 80053; 82140; 85025; 99283

== ENCOUNTER 2021-01-24 16:31 | Emergency (ER) | payer OTHER ==
[~2021-01-24] VITALS: Ht 185.4 cm; Wt 122.5 kg
[2021-01-24 16:31] VITALS: BP 134/73
[~2021-01-24 16:31] MED LIST changes: +LACT-103 PO; -LACT10SO1 PO
--- NOTE | 2021-01-24 16:31 | NUR ---
Patient assisted from [facility] to hospital bed via stand/pivot manuever.
--- NOTE | 2021-01-24 16:35 | NUR ---
65 y/o M BIBA from home with c/c mouth pain x 2 days. Per EMS, patient had two of his top right back molars pulled 7 days ago. Patient presents A&Ox4 with unsteady gait in possession of a walker. Pt states he woke up from a nap today and began bleeding/experiencing pain. Patient states pain 8/10 that is constant, non-radiating. Pt states Ibuprofen 800mg taken prior to arrival with minor relief. EMS states approximately quarter cup of blood loss on scene. Bleeding controlled by EMS on scene by gauze application. Patient denies any pain upon assesment. No other interventions completed by EMS en route. Pt placed onto residential monitor. Pt denies dizziness, shortness of breath, blurry vision, generalized weakness, fever/chills, cold-like symptoms, cough. Bed locked in lowest position, side rails x1, call light in reach. PMH: "Liver issues", CHF, GERD Meds: Lisinopril, Lasix, Metoprolol, Methadone, Protonix NKA
--- NOTE | 2021-01-24 16:35 | NUR ---
Dr. Lucas is evaluating patient at bedside.
[2021-01-24] MEDS ORDERED: TRANEXAMIC ACID 1,000 MG/10 ML VIAL MC ONE (16:45)
--- NOTE | 2021-01-24 16:55 | NUR ---
2mL TXA applied onto sterile 4x4 gauze and applied onto patients right side of mouth. Pt advised to bite down onto soaked gauze; bleeding controlled at this time. library monitor remains in place. Bed locked in lowest position, side rails x 1, call light in reach.
--- NOTE | 2021-01-24 17:05 | NUR ---
Patient reports "stabbing pain" to his throat that began after he had his teeth pulled. Pt denies any respiratory distress or shortness of breath. Respirations even/unlabored. Dr. Lucas made aware, no new orders placed.
--- NOTE | 2021-01-24 17:12 | NUR ---
Patient repositioned to allow legs to dangle due to patient complaining of hip pain. Pt assisted to left side of bed with walker nearby for stability. Pt provided with urinal at this time per request.
--- NOTE | 2021-01-24 17:13 | NUR ---
Patient voided x2; 250cc clear/straw urine.
--- NOTE | 2021-01-24 17:28 | NUR ---
Patient assisted to restroom via walker for bowel movement. Patient ambulated with walker with steady/even gait.
--- NOTE | 2021-01-24 17:35 | NUR ---
Patient states he had a bowel movement; ambulated with walker with assistance back onto bed into position of comfort. Patient sitting with both feet down on left side of gurney. radiation monitor remains in place. Bed locked in lowest position, side rails x 1, call light in reach.
[2021-01-24] MEDS ORDERED: LIDOCAINE/EPI 1% 1:100000 20 ML VIAL INJ ONE (17:40)
--- NOTE | 2021-01-24 17:46 | NUR ---
Dr. Pack at bedside for procedure, assisted by EMT.
--- NOTE | 2021-01-24 18:30 | NUR ---
Patient states 20 minute ETA for transportation to arrive.
[2021-01-24 18:48] VITALS: BP 144/77
--- NOTE | 2021-01-24 18:48 | NUR ---
Patient discharged with v/s stable. Written and verbal after care instructions given and explained. Patient verbalized understanding. Ambulatory with walker. All questions addressed prior to discharge. Advised to follow up with PMD.
== END 2021-01-24 18:48 | disposition home or self-care (01) ==
LOC: MED 16:31
DX: K91.840 Postprocedural hemorrhage of a digestive system organ or structure following a digestive system procedure (principal); J45.909 Unspecified asthma, uncomplicated; I11.0 Hypertensive heart disease with heart failure; I50.9 Heart failure, unspecified; K21.9 Gastro-esophageal reflux disease without esophagitis; Z79.899 Other long term (current) drug therapy; Z79.82 Long term (current) use of aspirin; Y83.9 Surgical procedure, unspecified as the cause of abnormal reaction of the patient, or of later complication, without mention of misadventure at the time of the procedure
CPT/HCPCS: 99283; J2001; J3490

== ENCOUNTER 2021-08-28 05:08 | Emergency (ER) | payer OTHER ==
[~2021-08-28] VITALS: Ht 185.4 cm; Wt 102.5 kg
[~2021-08-28 05:08] MED LIST changes: -METH10TA1 PO; +[UNRECOGNIZED DRUG - CODE] PO
[2021-08-28 05:23] VITALS: BP 137/67
--- NOTE | 2021-08-28 05:24 | NUR ---
Dr. John examining patient.
[2021-08-28] MEDS ORDERED: HYDROmorphone PFS 2 MG/ML SYR IVP ONE (05:50)
[2021-08-28] MEDS ORDERED: NACL 0.9% 1,000 ML IV ONE (06:15)
--- NOTE | 2021-08-28 06:18 | NUR ---
Dr. Forde examining patient.
[2021-08-28] MEDS ORDERED: MORPHINE SULFATE 4 MG/ML SYR IVP ONE (06:20)
--- NOTE | 2021-08-28 06:34 | NUR ---
PT TE BLS. TAKEN TO BED 7
--- NOTE | 2021-08-28 07:25 | NUR ---
REPORT RECEIVED FROM MARY HARRISON FOR TRANSFER OF CARE FOR SHIFT
[2021-08-28] MEDS ORDERED: MORPHINE SULFATE 4 MG/ML SYR ONE (07:32)
--- NOTE | 2021-08-28 07:39 | NUR ---
IV ATTEMPTED BY CHARGE NURSE JOHN, BUT FAILED ATTEMPT. ER MD MADE AWARE AND INFORMED TO GIVEN MORPHINE IM INSTEAD OF IV
[2021-08-28] MEDS ORDERED: MORPHINE SULFATE 4 MG/ML SYR IM ONE (07:40)
--- NOTE | 2021-08-28 08:02 | NUR ---
PER DR. AURORA JUSTICE TO HOLD OFF ON FLUIDS AND PROVIDE PATIENT WITH WATER PO
--- NOTE | 2021-08-28 08:59 | NUR ---
SPOKE WITH GABRIELE, FROM [facility] FOR TRANSFER SERVICES BACK TO FACILITY.
--- NOTE | 2021-08-28 09:05 | NUR ---
SPOKE WITH GABRIELE, FROM [facility] AND PROVIDED UPDATE ON PATIENT TRANSFER. CURRENTLY WORKING ON OBTAINING A TAXI VOUCHER FOR PATIENT TRASNFER Addendum: 08/28/21 at 1057 by [email or web address] GIVEN VINH BY GABRIELE TO OBTAIN TAXI VOUCHER
--- NOTE | 2021-08-28 09:15 | NUR ---
[facility] CALLED ETA 45MINS
--- NOTE | 2021-08-28 10:13 | NUR ---
Patient appears to be resting comfortably in bed with eyes closed. Vital Signs within normal limits and charted. Respirations even and unlabored. Will continue to monitor patient
--- NOTE | 2021-08-28 10:58 | NUR ---
Patient discharged with v/s stable. Written and verbal after care instructions given and explained. Patient alert, oriented and verbalized understanding of instructions. Ambulatory with to custodial. All questions addressed prior to discharge. ID band removed. Patient advised to follow up with PMD. Rx of IBUPROFEN AND PREDNISONE given. Patient educated on indication of medication including possible reaction and side effects. Opportunity to ask questions provided and answered.
--- NOTE | 2021-08-28 10:58 | NUR ---
CALLED [facility] AND SPOKE WITH SAVANNA AND INFORMED PATIENT HAS LEFT FACILITY AND IS ON HIS WAY BACK VIA TAXI
[2021-08-28 11:00] VITALS: BP 100/50
== END 2021-08-28 10:58 | disposition home or self-care (01) ==
LOC: MED 05:08
DX: R00.0 Tachycardia, unspecified (principal); I48.91 Unspecified atrial fibrillation; M25.552 Pain in left hip; I11.0 Hypertensive heart disease with heart failure; I50.9 Heart failure, unspecified; K21.9 Gastro-esophageal reflux disease without esophagitis; J45.909 Unspecified asthma, uncomplicated; F17.200 Nicotine dependence, unspecified, uncomplicated; Z98.890 Other specified postprocedural states; Z79.82 Long term (current) use of aspirin
CPT/HCPCS: 96372; 99283; J2270; 93005

== ENCOUNTER 2021-12-04 22:14 | Emergency (ER) | payer OTHER ==
[~2021-12-04] VITALS: Ht 185.4 cm; Wt 108.9 kg
[~2021-12-04 22:14] MED LIST changes: +POTA10TA70 PO; -POTA10TE30 PO
[2021-12-04 22:15] VITALS: BP 137/78
--- NOTE | 2021-12-04 22:20 | NUR ---
Dr. Vazquez examining patient.
--- NOTE | 2021-12-04 22:54 | NUR ---
PATIENT YELLING OUT IN THE LOBBY, AGGRESSIVE.
[2021-12-04] MEDS ORDERED: MORPHINE SULFATE 4 MG/ML SYR IM ONE (22:55)
--- NOTE | 2021-12-04 23:00 | NUR ---
MEDICATED PER [facility] ORDER, TOLERATED WELL.
--- NOTE | 2021-12-04 23:15 | NUR ---
PT TAKEN TO CT
--- NOTE | 2021-12-04 23:32 | NUR ---
PT RETURN FROM CT
[2021-12-04 23:59] LABS: HEMATOCRIT 33.1 % (36-52); HEMOGLOBIN 11.5 g/dL (12.0-18.0); LYMPHOCYTES # (AUTO) 0.3 K/uL (2.0-11.5); LYMPHOCYTES % (AUTO) 5.6 % (20.5-51.1); MEAN CORPUSCULAR HEMOGLOBIN 31 pg (27-31); MEAN CORPUSCULAR HGB CONC 35 g/dL (33-37); MEAN CORPUSCULAR VOLUME 89.4 fL (80-94); MONOCYTES % (AUTO) 16.7 % (1.7-9.3); NEUTROPHILS # (AUTO) 4.7 K/uL (1.8-7.7); NEUTROPHILS % (AUTO) 77.7 % (42.2-75.2); PLATELET COUNT (AUTO) 202 K/uL (140-450); RED CELL DISTRIBUTION WIDTH 16.9 % (11.6-13.7)
[2021-12-05 00:15] LABS: CREATININE 0.9 mg/dL (0.6-1.3)
[2021-12-05 00:18] LABS: ALBUMIN 3.1 g/dL (3.4-5.0)
[2021-12-05] MEDS ORDERED: FAMOTIDINE 20 MG/2 ML VIAL IVP ONE (01:10)
[2021-12-05] MEDS ORDERED: FAMO-92 PO (01:35)
[2021-12-05] MEDS ORDERED: POTASSIUM CHLORIDE 10 MEQ TABER PO ONE (01:40)
--- NOTE | 2021-12-05 02:00 | NUR ---
IV removed, catheter intact and site benign. Applied folded 4x4 gauze and tape to stop bleeding.
[2021-12-05 02:05] VITALS: BP 137/78
--- NOTE | 2021-12-05 02:05 | NUR ---
Patient discharged with v/s stable. Written and verbal after care instructions given and explained. Patient alert, oriented and verbalized understanding of instructions. Wheel Chair Assisted to LOBBY. CALLING FOR TAXI. All questions addressed prior to discharge. ID band removed. Patient advised to follow up with PMD. Rx of PEPCID given. Patient educated on indication of medication including possible reaction and side effects. Opportunity to ask questions provided and answered.
[2021-12-05] MEDS ORDERED: LIDO100S PO (07:52)
[2021-12-05] MEDS ORDERED: MAG355OR2 PO (07:52)
== END 2021-12-05 02:05 | disposition home or self-care (01) ==
LOC: MED 22:14
DX: K29.70 Gastritis, unspecified, without bleeding (principal); K74.60 Unspecified cirrhosis of liver; J44.9 Chronic obstructive pulmonary disease, unspecified; I11.9 Hypertensive heart disease without heart failure; K21.9 Gastro-esophageal reflux disease without esophagitis
CPT/HCPCS: 36415; 74176; 80053; 82140; 85025; 96372; 96374; 99285; J2270; J3490

== ENCOUNTER 2024-05-18 06:02 | Emergency (ER) | payer OTHER ==
[~2024-05-18] VITALS: Ht 185.4 cm; Wt 90.3 kg
[~2024-05-18 06:02] MED LIST changes: +FAMO-92 PO; -LACT-103 PO; +LACT-191 PO; +LIDO100S PO; +MAG355OR2 PO
[2024-05-18 06:04] VITALS: BP 135/55; PULSE 92; RESP 18; TEMP 99; O2SAT 96
[2024-05-18] MEDS ORDERED: HYDROcodone/APAP 5/325 MG 1 TAB TAB PO ONE (06:25)
[2024-05-18] MEDS: oxyCODONE/APAP 5/325 MG 1 TAB TAB PO ONE (08:25)
[2024-05-18 08:49] VITALS: TEMP 98.2
[2024-05-18 10:13] LABS: HEMOGLOBIN 10.1 g/dL (12.0-18.0); MEAN CORPUSCULAR HEMOGLOBIN 33 pg (27-31); MEAN CORPUSCULAR HGB CONC 36 g/dL (33-37); RED BLOOD CELL COUNT(AUTO) 3.09 MIL/uL (4.20-6.10)
[2024-05-18 10:26] LABS: ANION GAP 11.6 (8-16); CALCIUM 8.6 mg/dL (8.5-10.1); CARBON DIOXIDE 24.8 mmol/L (21-32); CREATININE 1.1 mg/dL (0.6-1.3); POTASSIUM 3.4 mmol/L (3.5-5.1)
[2024-05-18 10:37] LABS: BASOPHILS % (AUTO) 0.2 % (0.0-2.0); HEMATOCRIT 28.5 % (36-52); LYMPHOCYTES # (AUTO) 0.4 K/uL (2.0-11.5); LYMPHOCYTES % (AUTO) 5.3 % (20.5-51.1); MEAN CORPUSCULAR VOLUME 92.1 fL (80-94); MONOCYTES # (AUTO) 0.5 K/uL (0.8-1.0); MONOCYTES % (AUTO) 6.2 % (1.7-9.3); NEUTROPHILS # (AUTO) 6.9 K/uL (1.8-7.7); NEUTROPHILS % (AUTO) 88.3 % (42.2-75.2); PLATELET COUNT (AUTO) 128 K/uL (140-450); RED CELL DISTRIBUTION WIDTH 14.8 % (11.6-13.7); WHITE BLOOD COUNT (AUTO) 7.8 K/uL (4.8-10.8)
[2024-05-18 10:42] LABS: CREATINE KINASE, TOTAL 3919 U/L (39-308)
[2024-05-18] MEDS: POTASSIUM CHLORIDE 10 MEQ TABER PO ONE (11:04)
[2024-05-18 12:19] VITALS: BP 135/61; PULSE 95; RESP 17; O2SAT 95
== END 2024-05-18 12:18 | disposition home or self-care (01) ==
LOC: MED 06:02
DX: S50.02XA Contusion of left elbow, initial encounter (principal); G89.29 Other chronic pain; M54.9 Dorsalgia, unspecified; M25.562 Pain in left knee; M25.561 Pain in right knee; J45.909 Unspecified asthma, uncomplicated; I11.0 Hypertensive heart disease with heart failure; I50.9 Heart failure, unspecified; J44.9 Chronic obstructive pulmonary disease, unspecified; K21.9 Gastro-esophageal reflux disease without esophagitis; I48.91 Unspecified atrial fibrillation; Z79.1 Long term (current) use of non-steroidal anti-inflammatories (NSAID); Z79.82 Long term (current) use of aspirin; Z79.899 Other long term (current) drug therapy; W07.XXXA Fall from chair, initial encounter; Y93.89 Activity, other specified; Y92.89 Other specified places as the place of occurrence of the external cause; Y99.8 Other external cause status
CPT/HCPCS: 36415; 73080; 80048; 82550; 82553; 85025; 93005; 99285